=== PATIENT | male | born 1955 | race Caucasian/White ===

== ENCOUNTER 2016-06-22 14:29 | Inpatient (IN) | payer MEDICAID ==
[~2016-06-22 14:29] MED LIST: ALBU1AER INH; ALBU2.5I INH; AMLO5 PO; CHLO25 PO; CYCL-36 PO; DICY10CA13 PO; FOLI1 PO; IPRA0.02 INH; IPRA17I INH; NYST500KS SWISH-SWAL; PRED10 PO; PROT40TA PO; THIA100T PO; Z.0.OXYGENDME NC
[2016-06-22 14:32] VITALS: BP 102/74; PULSE 83; RESP 14; TEMP 98.2; O2SAT 94
[2016-06-22 16:02] LABS: AUTOMATED NEUTROPHIL # 12.1 TH/MM3 (1.8-7.7); BASOPHIL # 0.1 TH/MM3 (0-0.2); BASOPHIL % 0.6 % (0.0-2.0); EOSINOPHIL # 0.6 TH/MM3 (0-0.4); EOSINOPHIL % 3.7 % (0.0-4.0); HEMATOCRIT 49.4 % (39.0-51.0); HEMO FLAGS DIFF FINAL; LYMPH % 9.1 % (9.0-44.0); LYMPHOCYTE # 1.4 TH/MM3 (1.0-4.8); MEAN CELL VOLUME 88.7 FL (80.0-100.0); MEAN CORPUSCULAR HEMOGLOBIN 29.3 PG (27.0-34.0); MONO % 8.6 % (0.0-8.0); PLATELET COUNT 212 TH/MM3 (150-450); RED BLOOD COUNT 5.56 MIL/MM3 (4.50-5.90); RED CELL DISTRIBUTION WIDTH 14.1 % (11.6-17.2); WHITE BLOOD COUNT 15.5 TH/MM3 (4.0-11.0)
--- NOTE | 2016-06-22 16:06 | RADRPT ---
EXAM DATE/TIME: 06/22/2016 15:41 [facility] COMPARISON: CHEST PA & LAT, March 29, 2015, 13:18. CHEST PA & LAT, April 20, 2015, 9:44. CHEST SINGLE AP, November 25, 2015, 20:14. CT PULMONARY ANGIOGRAM, November 25, 2015, 22:12. CHEST SINGLE AP, December 19, 2015, 17:07. INDICATIONS : Chest pains mid sternal x 1 day. MEDICAL HISTORY : Stroke. Emphysema. Pancreatitis SURGICAL HISTORY : None. ENCOUNTER: Initial ACUITY: 1 day PAIN SCORE: 10/10 LOCATION: Bilateral chest FINDINGS: Portable AP view of the chest demonstrates a normal-sized cardiac silhouette. Lungs remain hyperinfla kang and there is a chronic parenchymal opacity at the right lung apex. No effusion or pneumothorax is identified. The bones and soft tissues demonstrate no acute finding. CONCLUSION: 1. Stable chest x-ray without an acute finding identified. 2. Stable background lung changes and diagnostic of emphysema. There is a chronic parenchymal opacity at the right lung apex that could represent scarring or changes related to prior infection. It appea rs increased or new since the March 2015 examination. Therefore, recommend attention to this on [facility] imaging. Sonny Hawkins MD on June 22, 2016 at 16:02 Board Certified Radiologist. This report was verified electronically.
[2016-06-22 16:21] LABS: ANION GAP 9 MEQ/L (5-15); BICARBONATE 27.1 MEQ/L (21.0-32.0); BLOOD UREA NITROGEN 15 MG/DL (7-18); CHLORIDE 100 MEQ/L (98-107); GLOMERULAR FILTRATION RATE 82 ML/MIN (>89); POTASSIUM 4.7 MEQ/L (3.5-5.1); SODIUM (NA) 136 MEQ/L (136-145)
[2016-06-22 16:30] LABS: CREATINE KINASE 34 U/L (39-308)
[2016-06-22] MEDS ORDERED: PRED10 PO (16:32)
[2016-06-22] MEDS ORDERED: CELE200C PO (16:32)
[2016-06-22] MEDS ORDERED: LEVA500T PO (16:32)
[2016-06-22] MEDS ORDERED: AMLO5 PO (16:32)
[2016-06-22] MEDS ORDERED: ALBUAER3 INH (16:35)
[2016-06-22] MEDS ORDERED: SODIUM CHLOR 0.9% 1000 ML INJ 1,000 ML IV SCH (17:07)
[2016-06-22 17:10] VITALS: RESP 18; O2SAT 98
--- NOTE | 2016-06-22 17:13 | PD ---
HPI Chief Complaint: Chest Pain Time Seen by Provider: 17:00 Travel History International Travel<30 days: No Contact w/Intl Traveler<30days: No Traveled to known affect area: No History of Present Illness HPI The patient is a 60-year-old male who presents to the emergency department for right upper quadrant epigastric abdominal pain that started yesterday. The epigastric abdominal pain rates right upper quadrant and radiates to the back, is different than his previous pain associated with pancreatitis. Patient complains of pain with deep inspiration that is still present at rest and with lying supine. The patient denies any nausea or vomiting. The patient does have a history of pancreatitis, quit drinking alcohol years ago. Patient also has a history of COPD, quit smoking 1-1/2 years ago. He denies any upper chest pain, does complain of chronic shortness of breath. The patient states he had a negative stress test approximately 3 years ago. He does have a history of hypertension, borderline hyperlipidemia, but denies any history of diabetes or previous CAD. Symptoms are moderate without any alleviating or exacerbating factors. PFSH Past Medical History Arthritis: Yes Asthma: Yes Autoimmune Disease: No Blood Disorders: Yes Anxiety: Yes Depression: Yes Heart Rhythm Problems: Yes (TACHYCARDIA ) Cancer: No Cardiac Catheterization: No Cardiovascular Problems: Yes (PAST -2012) High Cholesterol: No Chemotherapy: No Chest Pain: Yes Congestive Heart Failure: No COPD: Yes Cerebrovascular Accident: Yes Coronary Artery Disease: No Diabetes: No Diminished Hearing: No Endocrine: No Gastrointestinal Disorders: Yes GERD: No Genitourinary: No Headaches: Yes (RELATED TO NECK PAIN) Hiatal Hernia: No Hypertension: Yes Immune Disorder: Yes (CHILDHOOD HYPOGLYCEMIA) Implanted Vascular Access Dvce: No Musculoskeletal: Yes (4 HERNIATED DISKS IN NECK) Neurologic: Yes Psychiatric: Yes Reproductive: No Respiratory: Yes Immunizations Current: Yes Migraines: Yes Myocardial Infarction: Yes Pancreatitis: Yes Radiation Therapy: No Renal Failure: No Seizures: No Sickle Cell Disease: No Sleep Apnea: Yes (undiagnosed) Thyroid Disease: No Ulcer: No Tetanus Vaccination: < 5 Years Influenza Vaccination: Yes Past Surgical History Abdominal Surgery: No Cardiac Surgery: No Coronary Artery Bypass Graft: No Ear Surgery: No Endocrine Surgery: No Eye Surgery: No Genitourinary Surgery: No Gynecologic Surgery: No Neurologic Surgery: No Oral Surgery: No Thoracic Surgery: No Tonsillectomy: Yes Other Surgery: Yes (LAMINECTOMY) Social History Alcohol Use: No (quit 12/18/15) Tobacco Use: No (QUIT 01/25) Substance Use: No Allergies-Medications (Allergen,Severity, Reaction): Coded Allergies: Shellfish (Verified Allergy, Severe, Swelling, 06/22/16) Penicillin (Verified Allergy, Mild, rash, 06/22/16) Reported Meds & Prescriptions Reported Meds & Active Scripts Active Reported Proair Hfa 8.5 GM Inh (Albuterol Sulfate) 90 Mcg/Act Aer 2 Puff INH Q4-6H PRN 108 mcg/actuation Celebrex (Celecoxib) 200 Mg Cap 200 Mg PO DAILY Prednisone 10 Mg Tab 10 Mg PO DAILY Levaquin (Levofloxacin) 500 Mg Tab 500 Mg PO DAILY 7 Days Norvasc (Amlodipine Besylate) 5 Mg Tab 5 Mg PO DAILY Review of Systems Except as stated in HPI: all other systems reviewed are Neg General / Constitutional: No: Fever, Chills Cardiovascular: No: Chest Pain or Discomfort Respiratory: Positive: Shortness of Breath Gastrointestinal: Positive: Abdominal Pain, No: Nausea, Vomiting, Diarrhea Genitourinary: No: Dysuria Neurologic: No: Weakness, Dizziness Physical Exam Narrative GENERAL: Awake, alert, 60-year-old male who appears his stated age and is in no acute respiratory distress. SKIN: Warm and dry. HEAD: Atraumatic. Normocephalic. EYES: Pupils equal and round. No scleral icterus. No injection or drainage. ENT: No nasal bleeding or discharge. Mucous membranes pink and moist. NECK: Trachea midline. No JVD. CARDIOVASCULAR: Regular rate and rhythm. No murmur appreciated. Heart rate in the 80s. RESPIRATORY: No accessory muscle use. Prolonged expiratory phase with a few intermittent wheezes. GASTROINTESTINAL: Abdomen soft, tender palpation right upper quadrant and epigastrium. No rebound tenderness, guarding, or rigidity. MUSCULOSKELETAL: No obvious deformities. No clubbing. No cyanosis. No edema. NEUROLOGICAL: Awake and alert. No obvious cranial nerve deficits. Motor grossly within normal limits. Normal speech. PSYCHIATRIC: Appropriate mood and affect; insight and judgment normal. Data Data Last Documented VS Vital Signs Date Time Temp Pulse Resp B/P Pulse Ox O2 Delivery O2 Flow Rate FiO2 06/22/16 17:41 98.2 89 120/76 94 06/22/16 17:31 17 06/22/16 17:10 Room Air Orders Electrocardiogram (06/22/16 15:16) Complete Blood Count With Diff (06/22/16 15:16) Basic Metabolic Panel (Bmp) (06/22/16 15:16) Ckmb (Isoenzyme) Profile (06/22/16 15:16) Troponin I (06/22/16 15:16) Chest, Single Ap (06/22/16 15:16) Lipase (06/22/16 17:07) Lactic Acid (06/22/16 17:07) Us Abdomen Gallbladder (06/22/16 ) Iv Access Insert/Monitor (06/22/16 17:07) Ecg Monitoring (06/22/16 17:07) Oximetry (06/22/16 17:07) Morphine Inj (Morphine Inj) (06/22/16 17:15) Ondansetron Inj (Zofran Inj) (06/22/16 17:15) Sodium Chlor 0.9% 1000 Ml Inj (Ns 1000 M (06/22/16 17:07) Sodium Chloride 0.9% Flush (Ns Flush) (06/22/16 17:15) Famotidine Inj (Pepcid Inj) (06/22/16 17:15) Hepatic Functional Panel (06/22/16 17:07) Troponin I (06/22/16 18:30) Ceftazidime Inj (Fortaz Inj) (06/22/16 18:45) Metronidazole 500 Mg Inj (Flagyl 500 Mg (06/22/16 18:45) Sodium Chlor 0.9% 1000 Ml Inj (Ns 1000 M (06/22/16 18:45) Admit Order (Ed Use Only) (06/22/16 19:29) Consult General Surgery (06/22/16 ) Labs Laboratory Tests Test 06/22/16 06/22/16 06/22/16 15:30 17:30 17:42 White Blood Count 15.5 TH/MM3 Red Blood Count 5.56 MIL/MM3 Hemoglobin 16.3 GM/DL Hematocrit 49.4 % Mean Corpuscular Volume 88.7 FL Mean Corpuscular Hemoglobin 29.3 PG Mean Corpuscular Hemoglobin 33.0 % Concent Red Cell Distribution Width 14.1 % Platelet Count 212 TH/MM3 Mean Platelet Volume 8.4 FL Neutrophils (%) (Auto) 78.0 % Lymphocytes (%) (Auto) 9.1 % Monocytes (%) (Auto) 8.6 % Eosinophils (%) (Auto) 3.7 % Basophils (%) (Auto) 0.6 % Neutrophils # (Auto) 12.1 TH/MM3 Lymphocytes # (Auto) 1.4 TH/MM3 Monocytes # (Auto) 1.3 TH/MM3 Eosinophils # (Auto) 0.6 TH/MM3 Basophils # (Auto) 0.1 TH/MM3 CBC Comment DIFF FINAL Differential Comment Sodium Level 136 MEQ/L Potassium Level 4.7 MEQ/L Chloride Level 100 MEQ/L Carbon Dioxide Level 27.1 MEQ/L Anion Gap 9 MEQ/L Blood Urea Nitrogen 15 MG/DL Creatinine 0.94 MG/DL Estimat Glomerular Filtration 82 ML/MIN Rate Random Glucose 78 MG/DL Calcium Level 10.6 MG/DL Total Bilirubin 1.7 MG/DL Direct Bilirubin 0.2 MG/DL Indirect Bilirubin 1.5 MG/DL Aspartate Amino Transf 19 U/L (AST/SGOT) Alanine Aminotransferase 18 U/L (ALT/SGPT) Alkaline Phosphatase 95 U/L Total Creatine Kinase 34 U/L Troponin I LESS THAN 0.02 LESS THAN 0.02 NG/ML NG/ML Total Protein 8.0 GM/DL Albumin 4.1 GM/DL Lipase 257 U/L Lactic Acid Level 1.1 mmol/L MDM Medical Decision Making Medical Screen Exam Complete: Yes Emergency Medical Condition: Yes Medical Record Reviewed: Yes Interpretation(s) EKG reveals sinus rhythm with sinus arrhythmia, rate 84. Laboratory Tests Test 06/22/16 06/22/16 06/22/16 15:30 17:30 17:42 White Blood Count 15.5 TH/MM3 Red Blood Count 5.56 MIL/MM3 Hemoglobin 16.3 GM/DL Hematocrit 49.4 % Mean Corpuscular Volume 88.7 FL Mean Corpuscular Hemoglobin 29.3 PG Mean Corpuscular Hemoglobin 33.0 % Concent Red Cell Distribution Width 14.1 % Platelet Count 212 TH/MM3 Mean Platelet Volume 8.4 FL Neutrophils (%) (Auto) 78.0 % Lymphocytes (%) (Auto) 9.1 % Monocytes (%) (Auto) 8.6 % Eosinophils (%) (Auto) 3.7 % Basophils (%) (Auto) 0.6 % Neutrophils # (Auto) 12.1 TH/MM3 Lymphocytes # (Auto) 1.4 TH/MM3 Monocytes # (Auto) 1.3 TH/MM3 Eosinophils # (Auto) 0.6 TH/MM3 Basophils # (Auto) 0.1 TH/MM3 CBC Comment DIFF FINAL Differential Comment Sodium Level 136 MEQ/L Potassium Level 4.7 MEQ/L Chloride Level 100 MEQ/L Carbon Dioxide Level 27.1 MEQ/L Anion Gap 9 MEQ/L Blood Urea Nitrogen 15 MG/DL Creatinine 0.94 MG/DL Estimat Glomerular Filtration 82 ML/MIN Rate Random Glucose 78 MG/DL Calcium Level 10.6 MG/DL Total Bilirubin 1.7 MG/DL Direct Bilirubin 0.2 MG/DL Indirect Bilirubin 1.5 MG/DL Aspartate Amino Transf 19 U/L (AST/SGOT) Alanine Aminotransferase 18 U/L (ALT/SGPT) Alkaline Phosphatase 95 U/L Total Creatine Kinase 34 U/L Troponin I LESS THAN 0.02 LESS THAN 0.02 NG/ML NG/ML Total Protein 8.0 GM/DL Albumin 4.1 GM/DL Lipase 257 U/L Lactic Acid Level 1.1 mmol/L Last Impressions Chest X-Ray 06/22/16 1516 Signed Impressions: Service Date/Time: Wednesday, June 22, 2016 15:41 - CONCLUSION: 1. Stable chest x-ray without an acute finding identified. 2. Stable background lung changes and diagnostic of emphysema. There is a chronic parenchymal opacity at the right lung apex that could represent scarring or changes related to prior infection. It appears increased or new since the March 2015 examination. Therefore, recommend attention to this on followup imaging. Sonny Hawkins MD Ultrasound the gallbladder reveals cholelithiasis, gallbladder wall thickening, and positive sonographic Reveles sign, consistent with acute cholecystitis. Differential Diagnosis Differential diagnosis includes pancreatitis, gastritis, peptic ulcer disease, cholecystitis, biliary colic, choledocholithiasis, GERD, acute coronary syndrome , pneumonia, COPD. Narrative Course IV was established, labs are drawn and sent, and the patient was placed on cardiac telemetry monitoring and continuous pulse oximetry monitoring. EKG was ordered and interpreted. Chest x-ray was ordered.. The patient was administered DuoNeb 1. Initial troponin was negative. The patient did have a nuclear medicine myocardial perfusion scan was performed on August 19, 2012 which was unremarkable. The patient was administered morphine, Zofran, and IV fluids. Ultrasound of the gallbladder was ordered. The patient's bili is slightly elevated, AST, ALT, and lipase are unremarkable. Second troponin is negative. Ultrasound gallbladder reveals cholelithiasis, gallbladder wall thickening, positive sonographic Reveles sign, consistent with acute cholecystitis. The patient has not had anything to eat or drink since this morning, which was minimal when he took his pill secondary to epigastric abdominal pain. The patient was administered Fortaz and Flagyl, with a second liter of IV fluids. Therefore, the on-call general surgeon was paged for 23 hour observation. The patient will be kept nothing by mouth. I discussed the patient with Dr. Belle who suggested admitting to the medical service with consultation to surgery for cholecystectomy tomorrow. The patient's primary physician is Dr. Harrell, therefore, [facility] were paged for 23 hour observation. Physician Communication Physician Communication The on-call general surgery was paged for 23 hour observation. I discussed the patient with Dr. Belle who requests 23 hour observation to the medical service, nothing by mouth, probable cholecystectomy tomorrow. Therefore, patient's primary physician is Dr. Sonny Harrell, [facility] were paged for 23 hour observation. I discussed the patient with Dr. Doran who agrees with admission to Dr. Chen. Diagnosis Primary Impression: Acute cholecystitis Admitting Information Admitting Physician Requests: Observation Condition: Stable Antonio Hay MD Jun 22, 2016 17:13
[2016-06-22] MEDS ORDERED: SODIUM CHLORIDE 0.9% FLUSH 5 ML FLUSH IVF PRN (17:15)
[2016-06-22] MEDS ORDERED: MORPHINE SULFATE 4 MG/ML INJ IV PUSH ONE (17:15)
[2016-06-22] MEDS ORDERED: ONDANSETRON HCL 4 MG/2 ML VIAL IVP ONE (17:15)
[2016-06-22] MEDS ORDERED: FAMOTIDINE 20 MG/2 ML VIAL IV PUSH ONE (17:15)
[2016-06-22 17:41] VITALS: BP 120/76; PULSE 89; TEMP 98.2; O2SAT 94
[2016-06-22 18:00] LABS: INDIRECT BILIRUBIN 1.5 MG/DL (0.0-0.8); TOTAL BILIRUBIN ADULT 1.7 MG/DL (0.2-1.0)
--- NOTE | 2016-06-22 18:35 | RADRPT ---
EXAM DATE/TIME: 06/22/2016 17:54 [facility] COMPARISON: No previous studies available for comparison. INDICATIONS : Right upper quadrant pain. MEDICAL HISTORY : Myocardial infarction. Pancreatitis. Emphysema. CVA. Tachycardia. HTN. COPD. Asthma. Sleep apnea. Dys pnea. Swollen prostate. Arthritis. Herniated disc. Hypoglycemia. Depression. Anxiety. SURGICAL HISTORY : Tonsillectomy. Laminectomy. ENCOUNTER: Initial ACUITY: 2 days PAIN SCORE: 7/10 LOCATION: Right upper quadrant MEASUREMENTS: LIVER: 14.7 cm length COMMON DUCT: 7 mm RIGHT KIDNEY: 11.6 x 5.4 x 5.6 cm FINDINGS: LIVER: Normal echotexture without focal lesion or ductal dilatation. COMMON DUCT: No intraluminal mass or stone visualized. GALLBLADDER: Cholelithiasis, mild wall thickening up to 3.5 mm. No pericholecystic fluid. Positive sonographic Mur phy sign. PANCREAS: The visualized portions are within normal limits. RIGHT KIDNEY: 3.9 x 2.4 x 3.3 cm simple cyst right midpole kidney. CONCLUSION: 1. Cholelithiasis, gallbladder wall thickening and positive sonographic Reveles sign identified, [place] cteristic of acute cholecystitis. 2. Right renal cyst. Dann Jensen MD on June 22, 2016 at 18:30 Board Certified Radiologist. This report was verified electronically.
[2016-06-22] MEDS ORDERED: SODIUM CHLOR 0.9% 1000 ML INJ 1,000 ML IV ONE (18:45)
[2016-06-22] MEDS ORDERED: metroNIDAZOLE 500 MG INJ 100 ML IV ONE (18:45)
[2016-06-22] MEDS ORDERED: SODIUM CHLORIDE 0.9% IV ONE (18:45)
[2016-06-22] MEDS ORDERED: CEFTAZIDIME IV ONE (18:45)
[2016-06-22] MEDS ORDERED: NALOXONE HCL 0.4 MG/ML AMP IV PRN (20:30)
[2016-06-22] MEDS ORDERED: SODIUM CHLORIDE 0.9% FLUSH 5 ML FLUSH FLUSH PRN (20:30)
[2016-06-22] MEDS ORDERED: RESP: ALBUTEROL 2.5 MG/IPRATROPIUM 0.5 MG NEB (PRN) NEB (21:00)
[2016-06-22] MEDS ORDERED: ONDANSETRON HCL 4 MG/2 ML VIAL IVP PRN (21:00)
[2016-06-22] MEDS: SODIUM CHLORIDE 0.9% FLUSH 5 ML FLUSH FLUSH SCH (22:25)
[2016-06-22] MEDS: LACTATED RINGER'S 1000 ML INJ 1,000 ML IV SCH (22:25)
[2016-06-22] MEDS: methylPREDNISolone SOD SUCC 40 MG/1 ML VIAL IV PUSH SCH (22:25)
[2016-06-22] MEDS ORDERED: MORPHINE SULFATE 4 MG/ML INJ IV PUSH PRN (22:30)
[2016-06-22] MEDS: MORPHINE SULFATE 4 MG/ML INJ IV PUSH PRN (22:50)
[2016-06-22 22:54] VITALS: BP 122/84; PULSE 74; RESP 18; TEMP 98; O2SAT 95
--- NOTE | 2016-06-22 23:09 | MB ---
cc: FLACO STAPLETON MD DATE OF CONSULTATION: 06/22/2016 REASON FOR CONSULTATION Acute cholecystitis. HISTORY OF PRESENT ILLNESS The patient is 60 year-old male who presents with acute onset of right upper quadrant pain. The pain lasted approximately one half days. It is sharp. It is 9 out of 10. It is constant. Some relief with IV pain medication. He states it radiates to his epigastrium and across his abdomen. He has never had pain quite like this before. The patient denies any nausea or vomiting associated with this. The patient does have a history of pancreatitis in the past. The patient also has a history of ETOH, IVDA and smoking history. He has since quit the use approximately six months ago. The patient had further workup including labs and ultrasound showing a thickened gallbladder wall, cholelithiasis and sonographic Reveles sign. Therefore, surgery was consulted for further evaluation. On my exam, the patient is resting comfortably. He states his pain is somewhat improved. He states the pain is pretty significant. He is requesting surgical intervention. PAST MEDICAL HISTORY: 1. Anxiety. 2. Tachycardia. 3. Hypertension. 4. Hypercholesterolemia. 5. Stroke. 6. Herniated disc. 7. Pancreatitis. 8. Obstructive sleep apnea. PAST SURGICAL HISTORY: Laminectomy. SOCIAL HISTORY: Current social history negative, however, significant past ETOH, IVDA and smoking. MEDICATIONS: See EMR. The patient is on prednisone. FAMILY HISTORY: Patient denies diabetes, hypertension. REVIEW OF SYSTEMS: GENERAL: The patient denies fever or chills. HEENT: Denies scleral icterus, eye pain, ear pain. CARDIOVASCULAR: Denies palpitations or chest pain. RESPIRATORY: Denies cough or wheeze. ABDOMEN: Complains of abdominal pain. Denies nausea, vomiting. MUSCULOSKELETAL: Denies arthralgias, myalgias. NEUROLOGIC: Denies numbness or tingling. PSYCHIATRIC: Denies altered mood. : Denies dysuria, hematuria. PHYSICAL EXAMINATION General: The patient is in no acute distress. VITAL SIGNS: Temperature 98.2. Pulse 83, respiratory rate 14, blood pressure 102/74. Pulse ox 94% on room air. HEENT: PERRLA, EOMI. No scleral icterus. Pupils equal and reactive. NECK: Supple. Trachea midline. LUNGS: Clear to auscultation bilaterally. Bilateral expansion. HEART: S1-S2, regular rhythm. ABDOMEN: Soft, positive tenderness to palpation, right upper quadrant. No epigastric tenderness. Nondistended. INTEGUMENT: No lesions or masses. NEUROLOGIC: GCS 15, AAO x4. LABORATORY DIAGNOSTIC DATA WBC 15.5, hemoglobin 16.3, hematocrit 49.4. Platelets 212. Sodium 139, potassium 4.7, CO2 100, BUN 15, creatinine 0.94, calcium 10.9, T bili 1.7, AST 19, ALT 18, alk phos 95, lipase 257. Ultrasound reviewed by myself, cholelithiasis, gallbladder wall thickening, positive sonographic Reveles's sign, concern for acute cholecystitis, common bile duct is 7 millimeter. ASSESSMENT The patient is a 60-year-old male presents with right upper quadrant pain, concern for acute cholecystitis with cholelithiasis. PLAN After full radiologic clinical workup the patient with above-named complaints including multiple medical issues and acute cholecystitis with cholelithiasis. The patient will need to be n.p.o., IV fluids antibiotics. The patient will likely need operative intervention including laparoscopic cholecystectomy. We will obtain MRCP to further delineate the bile duct and assess for stones. The patient again will also need likely laparoscopic cholecystectomy. The patient will need medical clearance and assessment for surgical risk. MD SLAVA Grier/KAREN /9:59 PM /10:56 PM
[2016-06-22] MEDS: TEMAZEPAM 15 MG CAP PO PRN (23:31)
[2016-06-23] VITALS (7 sets, daily range): BP systolic 112–129; BP diastolic 65–81; PULSE 76–90; RESP 18–20; TEMP 96.3–98; O2SAT 95–99
--- NOTE | 2016-06-23 00:49 | RADRPT ---
EXAM DATE/TIME: 06/22/2016 23:33 [facility] COMPARISON: US ABDOMEN - GALLBLADDER, June 22, 2016, 17:54. INDICATIONS : Cholelithiasis. MEDICAL HISTORY : Hypertension. SURGICAL HISTORY : Laminectomy of lumbar spine ENCOUNTER: Initial ACUITY: 1 week PAIN SCORE: 8/10 LOCATION: Bilateral upper quadrant TECHNIQUE: Multiplanar, multisequence magnetic resonance imaging of the abdomen was performed. High-resolution 3D dataset was utilized to reconstruct maximum-intensity projection (MIP) images. FINDINGS: INTRAHEPATIC BILE DUCTS: Within normal limits. No significant anatomical variant is present. EXTRAHEPATIC BILE DUCTS: The common bile duct measures 6mm No stone or filling defect is identified. GALLBLADDER: No wall thickening, or pericholecystic fluid. Appears to be cholelithiasis. LIVER: Normal size and signal intensity. No concerning liver lesion is identified on this non-contrast exam. PANCREAS: The main pancreatic duct is normal in size. There is no significant anatomical variant. Signal inte nsity is within normal limits. No mass is visualized on this non-contrast exam. Benign cystic struct ure in the body measures 1.6 cm. OTHER: The remaining visualized structures demonstrate no acute abnormality on this non-contrast exam. Bilat eral renal cysts. Small pericardial cyst. CONCLUSION: 1. Normal intra-and extra hepatic delay ducts. 2. Comparing cholelithiasis. 3. Small pericardial cyst. 4. Bilateral renal cysts. 5. Benign pancreatic cyst. Josh Wilson MD on June 23, 2016 at 0:44 Board Certified Radiologist. This report was verified electronically.
[2016-06-23] MEDS: metroNIDAZOLE 500 MG INJ 100 ML IV SCH ×3 (03:54→20:15)
[2016-06-23] MEDS: MORPHINE SULFATE 4 MG/ML INJ IV PUSH PRN ×4 (04:07→21:50)
[2016-06-23 05:23] LABS: AUTOMATED NEUTROPHIL # 9.7 TH/MM3 (1.8-7.7); BASOPHIL % 0.3 % (0.0-2.0); EOSINOPHIL % 0.2 % (0.0-4.0); HEMATOCRIT 44.4 % (39.0-51.0); HEMO FLAGS DIFF FINAL; LYMPH % 2.8 % (9.0-44.0); LYMPHOCYTE # 0.3 TH/MM3 (1.0-4.8); MEAN CELL VOLUME 89.7 FL (80.0-100.0); MEAN CORPUSCULAR HEMOGLOBIN 29.7 PG (27.0-34.0); MEAN CORPUSCULAR HGB CONC 33.2 % (32.0-36.0); MONO % 1.5 % (0.0-8.0); NEUT % 95.2 % (16.0-70.0); PLATELET COUNT 179 TH/MM3 (150-450); RED BLOOD COUNT 4.95 MIL/MM3 (4.50-5.90); RED CELL DISTRIBUTION WIDTH 13.8 % (11.6-17.2); WHITE BLOOD COUNT 10.2 TH/MM3 (4.0-11.0)
[2016-06-23 05:46] LABS: BICARBONATE 23.5 MEQ/L (21.0-32.0); POTASSIUM 4.9 MEQ/L (3.5-5.1)
[2016-06-23] MEDS: amLODIPine BESYLATE 5 MG TAB PO SCH (07:00)
[2016-06-23] MEDS: LACTATED RINGER'S 1000 ML INJ 1,000 ML IV SCH ×2 (07:00→18:05)
[2016-06-23] MEDS: CEFEPIME INJ 2,000 MG in SODIUM CHLORIDE 0.9% INJ 100 ML IV SCH ×2 (08:00→18:33)
[2016-06-23] MEDS ORDERED: methylPREDNISolone SOD SUCC 125 MG/2 ML VIAL ONE (08:58)
[2016-06-23] MEDS: predniSONE 10 MG TAB PO SCH (09:00)
[2016-06-23] MEDS: methylPREDNISolone SOD SUCC 40 MG/1 ML VIAL IV PUSH SCH ×2 (09:00→20:14)
[2016-06-23] MEDS: SODIUM CHLORIDE 0.9% FLUSH 5 ML FLUSH FLUSH SCH ×2 (09:00→20:16)
[2016-06-23] MEDS: BUPIVACAINE/EPINEPHRINE 0.25% PF 30 ML VIAL ONE ×2 (09:17→09:50)
[2016-06-23] MEDS ORDERED: MIDAZOLAM HCL 2 MG/2 ML VIAL ONE (09:30)
--- NOTE | 2016-06-23 09:40 | HHI.PR ---
Immediate Post Op Note Procedure Date: Jun 23, 2016 Pre Op Diagnosis: acute cholecystitis Post Op Diagnosis: same Surgeon: Douglas Pagan MD Transplant Surgeon(s): see or sheet Procedure: lap awilda Findings: distended gallbladder Complications: none Specimen(s) removed: gallbladder Estimated blood loss: 5cc Anesthesia: General Drains: None Patient to: PACU Patient Condition: Good Douglas Pagan MD Jun 23, 2016 09:40
[2016-06-23] MEDS ORDERED: oxyCODONE/ACETAMINOPHEN 5 MG/325 MG TAB PO PRN (10:30)
[2016-06-23] MEDS ORDERED: *MEPERIDINE 25 MG INJ VIAL PERIprocedural Use ONLY ONE (10:54)
[2016-06-23] MEDS ORDERED: fentaNYL CITRATE 250 MCG/5 ML AMP ONE (10:55)
[2016-06-23] MEDS ORDERED: *morphine SULFATE 8 MG/ML PERIprocedure ONLY ONE (11:07)
[2016-06-23] MEDS ORDERED: ceFAZolin 2 GM PREMIX 50 ML ONE (11:33)
[2016-06-23] MEDS ORDERED: LACTATED RINGER'S 1000 ML INJ 1,000 ML IV ONE (12:00)
[2016-06-23] MEDS ORDERED: NEOSTIGMINE 3 MG/3 ML SYR IV ONE (12:00)
[2016-06-23] MEDS ORDERED: PROPOFOL 200 MG/20 ML AMP IV ONE (12:00)
[2016-06-23] MEDS ORDERED: DO NOT ADM ANY ANTICOAGULANT DRUGS XX PRN (12:00)
[2016-06-23] MEDS ORDERED: ONDANSETRON HCL 4 MG/2 ML VIAL IV PUSH ONE (12:00)
[2016-06-23] MEDS ORDERED: PHENYLEPH/NS 1000 MCG/10 ML SYR IV ONE (12:00)
--- NOTE | 2016-06-23 13:25 | MH ---
cc: ALEAH LANDEROS M.D., JAWED DATE OF ADMISSION: 06/22/2016 DATE OF : 1955 REASON FOR ADMISSION Abdominal/chest pain. HISTORY OF PRESENT ILLNESS The patient is a very pleasant 60-year-old male with significant past medical history of COPD. He quit smoking 1-1/2 years ago and quit drinking about six months ago. The patient also has a history of pancreatitis. The patient came to the ER because of right upper quadrant epigastric abdominal pain that started the day before yesterday. This pain was radiating to the back as well and more on inspiration and lying in a supine position. There was no nausea or vomiting, no fever. There is no cough. He denies any chest pain. The patient was brought to the ER and evaluated by the ER physician. The patient was found to have cholecystitis and was recommended for admission. The patient was seen by the surgeon and recommended for surgery and the patient had a cholecystectomy done today. The patient is seen in the PACU. The patient is complaining of pain in the right upper quadrant post surgical. Otherwise there are no other associated symptoms. PAST MEDICAL HISTORY 1. COPD. 2. History of pancreatitis. 3. Tobacco abuse; he quit 1-1/2 years ago. 4. Chronic alcohol abuse; he quit 6 months ago as per patient. 5. Chronic back pain secondary to herniated discs. 6. Protein-calorie malnutrition history with weight loss. 7. Previous [facility] in 2012. 8. Status post EGD for a cricopharyngeal stricture, post dilatation in 2014. PAST SURGICAL HISTORY 1. Tonsillectomy. 2. Laminectomy. 3. EGD with dilatation. MEDICATIONS Medications reviewed. Please see EMR. ALLERGIES 1. PENICILLIN. 2. SHELLFISH. REVIEW OF SYSTEMS As described above in the history of present illness, otherwise negative for 10 systems. SOCIAL HISTORY The patient quit smoking a week ago, but as per patient he really does it maybe once or twice a year. FAMILY HISTORY Noncontributory. PHYSICAL EXAMINATION GENERAL: The patient is alert, oriented x3, thin-built, lying on bed without any apparent distress. VITAL SIGNS: The patient is afebrile. Pulse is 75, respiratory rate 14, blood pressure 117/71. Pulse ox is 98% on two liters. HEENT: Head is atraumatic, normocephalic. Negative conjunctival injection. No icterus. Mouth unremarkable. NECK: Supple. No increased JVD. Negative thyromegaly. Central trachea. CHEST: Clear to auscultation. CARDIOVASCULAR: S1, S2 audible. Unable to hear any ST gallop. ABDOMEN: Soft. Tender postsurgically at the surgical site. EXTREMITIES: No cyanosis or pedal edema appreciated. DIRECTOR SALES: Grossly intact. SKIN: Warm and dry. LABORATORY DATA WBC was 18.5, today it is 10.2. Hemoglobin, hematocrit and platelet count within normal limits. BMP shows GFR 82, today GFR 92. Otherwise BMP within normal limits. LFTs were done. Total bilirubin was 1.7, direct bilirubin 1.5. Otherwise LFTs within normal limits. Troponin x2 within normal limits. Total protein 8, albumin 4.1, lipase 257. IMAGING DATA Chest x-ray was done which shows a stable chest x-ray without any acute finding identified. Stable background lung changes and diagnostic of emphysema. There is a chronic parenchymal opacity in the right lung apex that could represent scarring or changes related to prior infection. MRI cholangiogram was done which showed normal intra and extrahepatic ducts. Comparing cholelithiasis. Small pericardial cyst. Small renal cysts. Benign pancreatic cyst. Gallbladder ultrasound shows cholelithiasis, gallbladder wall thickening and positive sonographic Reveles's sign identified characteristic of acute cholecystitis. Right renal cyst. ASSESSMENT 1. Right upper quadrant pain secondary to acute cholecystitis. 2. Leukocytosis secondary to above. 3. Emphysema. 4. Hypertension. 5. Increased bilirubin secondary to above. 6. History of ETOH abuse in the past. 7. History of nicotine abuse in the past. PLAN 1. Admit to the floor. Appreciate surgical help. Status post cholecystectomy, post-op day #0. 2. Continue IV fluid. 3. Analgesics on a p.r.n. basis. 4. Antiemetics on a p.r.n. basis. 5. Continue home medication as indicated. 6. Breathing treatment on a p.r.n. basis. 7. DVT prophylaxis. 8. Condition discussed the patient and discussed with the RN. Further recommendation to follow as per patient's progress. MD JOCELYNN Parkinson /12:49 PM /1:03 PM
--- NOTE | 2016-06-23 21:57 | MP ---
cc: FLACO PAGAN MD DATE OF SURGERY 06/23/2016 PREOPERATIVE DIAGNOSIS Acute cholecystitis. POSTOPERATIVE DIAGNOSIS Acute cholecystitis with cholelithiasis. PROCEDURE PERFORMED Laparoscopic cholecystectomy. SURGEON Dr. Flaco Pagan MACHINE SETTER SUPERVISOR See OR sheet. ANESTHESIA GETA. IV FLUIDS 1100 cc. ESTIMATED BLOOD LOSS 10 cc. DRAINS None. COMPLICATIONS None. WOUND CLASSIFICATION Contaminated. SPECIMEN Gallbladder. FINDINGS Distended gallbladder. Multiple gallstones. INDICATION The patient is a 60-year-old male several medical surgical issues. The patient with a history of pancreatitis in the past. The patient presented with acute onset right upper quadrant pain. He had further evaluation including ultrasound showing a thickened gallbladder wall with multiple gallstones. Decision made for a laparoscopic cholecystectomy. PROCEDURE IN DETAIL The patient was taken to the operative suite and placed in supine position. He was prepped and draped in usual sterile fashion after induction of general endotracheal anesthesia. Brief time-out done stating correct patient, procedures, surgical site and we were all in agreement with this. Attention first directed to the umbilicus. A small stab jeff incision made with an 11 blade. Prior to the incision local anesthetic injected. Veress needle used and placed intra-abdominally, confirmed with saline drop test. Abdomen insufflated to 15 mm pneumoperitoneum. Veress needle changed for a 5 mm trocar and scope. On cursory inspection no evidence of injury. Three other trocars placed. One 12 mm epigastric followed by two other 5 right subcostal ports. One anterior axillary line, one midclavicular line. The patient then placed in reverse Trendelenburg and _airplane__ (2:18) to the left. Gallbladder was identified and noted to be somewhat distended. There was a little bit of fatty tissue around the gallbladder with minimal bleeding. Electro Bovie cautery used and [place] to dissect cystic duct, cystic artery. These were dissected out. Two clips placed proximal, one distal. The cystic duct and artery were clipped with endo maximus. Gallbladder removed from the gallbladder fossa. This was done with hook electro Bovie cautery. Gallbladder was then placed in the EndoCatch bag and removed through the epigastric port. Suction irrigation used to suction irrigate. Hook electrocautery was used for hemostasis. Next the abdomen then desufflated. A little small piece of Surgicel placed in the gallbladder bed for increased hemostasis. The ports removed. Epigastric was closed with 0 Vicryl in [id number], followed by 4-0 Monocryl subcuticular sutures. The patient tolerated the procedure well. No intraoperative complication. The patient was extubated and taken to the PACU. Lars MD SLAVA Scales/DAWOOD /9:39 PM /9:48 PM MTDKiet
[2016-06-23] MEDS: TEMAZEPAM 15 MG CAP PO PRN (22:35)
--- NOTE | 2016-06-23 22:43 | EKG ---
Date Performed: 06/22/2016 Time Performed: 15:23:51 PTAGE: 60 years EKG: Sinus rhythm WITH SINUS ARRHYTHMIA POSSIBLE LEFT ATRIAL ENLARGEMENT BORDERLINE ECG PREVIOUS TRACING : 12/20/2015 06.44 Compared to prior tracing no significant change DOCTOR: Cassius Robledo Interpretating Date/Time 06/23/2016 22:39:41
[2016-06-24] VITALS: BP 119/68; PULSE 82; RESP 18; TEMP 96.1; O2SAT 98
[2016-06-24] MEDS: MORPHINE SULFATE 4 MG/ML INJ IV PUSH PRN (01:54)
[2016-06-24] MEDS: LACTATED RINGER'S 1000 ML INJ 1,000 ML IV SCH (03:00)
[2016-06-24] MEDS: metroNIDAZOLE 500 MG INJ 100 ML IV SCH ×2 (03:08→11:00)
[2016-06-24 04:00] VITALS: BP 113/70; PULSE 70; RESP 16; TEMP 96.4; O2SAT 96
[2016-06-24 08:00] VITALS: BP 140/84; PULSE 79; RESP 16; TEMP 97.1; O2SAT 98
[2016-06-24] MEDS: SODIUM CHLORIDE 0.9% FLUSH 5 ML FLUSH FLUSH SCH (09:00)
[2016-06-24] MEDS ORDERED: ENOXAPARIN SODIUM 40 MG/0.4 ML SYRINGE SQ SCH (09:00)
[2016-06-24] MEDS: predniSONE 10 MG TAB PO SCH (09:14)
[2016-06-24] MEDS: CEFEPIME INJ 2,000 MG in SODIUM CHLORIDE 0.9% INJ 100 ML IV SCH (09:14)
[2016-06-24] MEDS: amLODIPine BESYLATE 5 MG TAB PO SCH (09:15)
[2016-06-24] MEDS: methylPREDNISolone SOD SUCC 40 MG/1 ML VIAL IV PUSH SCH (09:15)
--- NOTE | 2016-06-24 10:18 | HHI.PR ---
Subjective Remarks pt is feeling better did eat without any problem Patient is passing gases or rectum No other complaint Review of systems a 10 point system otherwise unremarkable Objective Objective Results - Vital Signs Date Time Temp Pulse Resp B/P Pulse Ox O2 Delivery O2 Flow Rate FiO2 06/24/16 08:00 97.1 79 16 140/84 98 06/24/16 04:00 96.4 70 16 113/70 96 06/24/16 00:00 96.1 82 18 119/68 98 06/23/16 20:00 96.3 83 18 129/70 98 06/23/16 18:06 97 Nasal Cannula 1.00 06/23/16 16:00 96.8 82 20 121/72 97 06/23/16 12:20 97.3 78 20 114/65 99 06/23/16 11:45 98.3 70 14 111/71 98 Nasal Cannula 2 06/23/16 11:30 80 06/23/16 11:30 80 14 107/69 98 Nasal Cannula 2 06/23/16 11:15 82 14 120/75 99 Nasal Cannula 2 06/23/16 11:00 87 14 147/86 99 Nasal Cannula 2 06/23/16 10:49 98.5 90 16 178/98 98 Nasal Cannula 2 06/23/16 10:49 90 I/O 06/23/16 06/23/16 06/23/16 06/24/16 06/24/16 06/24/16 07:00 15:00 23:00 07:00 15:00 23:00 Intake Total 1670 ml 700 ml 720 ml Output Total 450 ml 1000 ml 900 ml Balance 1220 ml -300 ml -180 ml Intake Oral 120 ml 700 ml 720 ml Other 1550 ml Output Urine Total 400 ml 1000 ml 900 ml Estimated Blood Loss 50 ml # Voids 0 # Bowel Movements 0 Result Diagram: 06/23/16 0434 06/23/16 0434 Physical Exam Physical Exam GENERAL: The patient is alert, oriented x3, thin-built, lying on bed without any apparent distress. VITAL SIGNS: Reviewed HEENT: Head is atraumatic, normocephalic. Negative conjunctival injection. No icterus. Mouth unremarkable. NECK: Supple. No increased JVD. Negative thyromegaly. Central trachea. CHEST: Clear to auscultation. CARDIOVASCULAR: S1, S2 audible. Unable to hear any ST gallop. ABDOMEN: Soft. Tender postsurgically at the surgical site some. Positive bowel sounds. No rebound no guarding no rigidity EXTREMITIES: No cyanosis or pedal edema appreciated. DRESS DRAPER: Grossly intact. SKIN: Warm and dry. A/P Assessment and Plan 1. Right upper quadrant pain secondary to acute cholecystitis. 2. Leukocytosis secondary to above. 3. Emphysema. 4. Hypertension. 5. Increased bilirubin secondary to above. 6. History of ETOH abuse in the past. 7. History of nicotine abuse in the past. PLAN 1. Appreciate surgical help. Status post cholecystectomy, post-op day #1. 2. on IV fluid. 3. Analgesics on a p.r.n. basis. 4. Antiemetics on a p.r.n. basis. 5. Continue home medication as indicated. 6. Breathing treatment on a p.r.n. basis. 7. DVT prophylaxis. SCD 8. Condition discussed the patient and discussed with the RN. meds reviewed left message for sx to call us back if ok with sx will dc home today to follow pcp and sx as outpt Elda Chen MD Jun 24, 2016 10:18
[2016-06-24] MEDS ORDERED: OXYC1TAB63 PO (10:27)
--- NOTE | 2016-06-24 10:37 | HHI.PR ---
Subjective Subjective Notes no issues, pt feels better, no fevers Objective Vitals/I&O Vital Signs Date Time Temp Pulse Resp B/P Pulse Ox O2 Delivery O2 Flow Rate FiO2 06/24/16 08:00 97.1 79 16 140/84 98 06/23/16 18:06 Nasal Cannula 1.00 Cardiovascular: Regular Lungs: Rhonchi Abdomen: Other (mild ttp no rebound, incisions with scant blood) A/P Assessment and Plan POD 1 Lap awilda doing well PLAN OOB Po pain control reg diet ok to d/c home f/u 7 days with Douglas Garcia MD Jun 24, 2016 10:37
--- NOTE | 2016-06-24 10:38 | HHI.DS ---
Discharge Summary Admission Date Jun 22, 2016 at 19:31 Admitting Diagnosis acute cholecystitis, hypertension, COPD (1) Acute cholecystitis Diagnosis: Principal Brief History Patient came to the ER visit abdominal pain. She was admitted because of the acute cholecystitis. Patient was seen and followed by surgery. Patient had a cholecystectomy done. Post op day #1 patient is doing very well. Discussed the surgeon okay to discharge. This patient is overall stable plan to discharge him home to be followed by his primary care doctor and surgery as outpatient. For further details please see chart. CBC/BMP: 06/23/16 0434 06/23/16 0434 Significant Findings Laboratory Tests Test 06/22/16 06/22/16 06/23/16 15:30 17:30 04:34 White Blood Count 15.5 TH/MM3 (4.0-11.0) Neutrophils (%) (Auto) 78.0 % 95.2 % (16.0-70.0) (16.0-70.0) Monocytes (%) (Auto) 8.6 % (0.0-8.0) Neutrophils # (Auto) 12.1 TH/MM3 9.7 TH/MM3 (1.8-7.7) (1.8-7.7) Monocytes # (Auto) 1.3 TH/MM3 (0-0.9) Eosinophils # (Auto) 0.6 TH/MM3 (0-0.4) Estimat Glomerular Filtration 82 ML/MIN (>89) Rate Calcium Level 10.6 MG/DL (8.5-10.1) Total Bilirubin 1.7 MG/DL (0.2-1.0) Indirect Bilirubin 1.5 MG/DL (0.0-0.8) Total Creatine Kinase 34 U/L (39-308) Troponin I LESS THAN 0.02 LESS THAN 0.02 NG/ML NG/ML (0.02-0.05) (0.02-0.05) Lymphocytes (%) (Auto) 2.8 % (9.0-44.0) Lymphocytes # (Auto) 0.3 TH/MM3 (1.0-4.8) Pt Condition on Discharge: Good Discharge Disposition: Discharge Home Discharge Instructions DIET: Follow Instructions for: Heart Healthy Diet Activities you can perform: Weight Bearing as Smita Follow up Referrals: PCP Follow-up - 1 Week Surgical - 1 Week New Medications: Oxycodone-Acetaminophen (Oxycodone-Acetaminophen) 5-325 mg Tab 2 TAB PO Q4H PRN pain scale 1-5 #30 TAB Continued Medications: Albuterol 8.5 GM Inh (Proair Hfa 8.5 GM Inh) 90 Mcg/Act Aer 2 PUFF INH Q4-6H 108 mcg/actuation PRN SHORTNESS OF BREATH #1 Ref 0 INHALER Amlodipine (Norvasc) 5 Mg Tab 5 MG PO DAILY Blood Pressure Management #30 Ref 0 TAB Celecoxib (Celebrex) 200 Mg Cap 200 MG PO DAILY Pain Management Ref 0 CAP Levofloxacin (Levaquin) 500 Mg Tab 500 MG PO DAILY Infection Days 7 Ref 0 TAB Prednisone (Prednisone) 10 Mg Tab 10 MG PO DAILY Ref 0 TAB Elda Chen MD Jun 24, 2016 10:38
== END 2016-06-24 11:47 | disposition home or self-care (01) | DRG 419 ==
LOC: NEPD 14:29 → OBSVTOIN 19:31 → NEDA 19:31 → NEDH 06-23 00:34 → NEDA 06-23 00:34 → HOCB 06-23 07:25 → HOCA 06-23 07:32
PROVIDERS: ADMIT Specialist; ATTEND Specialist
PROC: 0FT44ZZ Resection of Gallbladder, Percutaneous Endoscopic Approach (ICD-10-PCS; principal; 2016-06-23 09:35)
DX: K80.00 Calculus of gallbladder with acute cholecystitis without obstruction (principal); J43.9 Emphysema, unspecified; I10 Essential (primary) hypertension; Z87.891 Personal history of nicotine dependence; I25.2 Old myocardial infarction; Z86.73 Personal history of transient ischemic attack (TIA), and cerebral infarction without residual deficits; Z88.0 Allergy status to penicillin; Z91.013 Allergy to seafood
CPT/HCPCS: 71010; 74181; 76377; 76705; 80048; 80076; 82550; 83605; 83690; 84484; 85025; 88304; 93005; 96361; 96374; 96375; J0690; J0692; J0713; J2175; J2250; J2270; J2370; J2405; J2710; J2920; J2930; J3010; J7030; J7120; J7512

== ENCOUNTER 2016-09-03 18:45 | Emergency (ER) | payer MEDICAID ==
[~2016-09-03] VITALS: Ht 185.4 cm; Wt 68.0 kg
[~2016-09-03 18:45] MED LIST changes: -ALBU1AER INH; -ALBU2.5I INH; +ALBUAER3 INH; +CELE200C PO; -CHLO25 PO; -CYCL-36 PO; -DICY10CA13 PO; -FOLI1 PO; -IPRA0.02 INH; -IPRA17I INH; +LEVA500T PO; -NYST500KS SWISH-SWAL; +OXYC1TAB63 PO; -PROT40TA PO; -THIA100T PO; -Z.0.OXYGENDME NC
[2016-09-03 18:46] VITALS: BP 150/82; PULSE 98; RESP 20; TEMP 98.1; O2SAT 98
[2016-09-03 20:44] VITALS: BP 159/97; PULSE 91; RESP 24; O2SAT 97
--- NOTE | 2016-09-03 20:50 | PD ---
HPI Chief Complaint: Hypertension Time Seen by Provider: 20:40 Travel History International Travel<30 days: No Contact w/Intl Traveler<30days: No Traveled to known affect area: No History of Present Illness HPI This is a 60-year-old male with history of hypertension, COPD. He presents for evaluation. Reports over the past week he has had congestion, sinus pressure, cough and wheezing. The cough is productive with yellow sputum production. He called his engineering leader, Dr. Peña, yesterday and was prescribed azithromycin which began yesterday evening. He came in today because he checked his blood pressure at home and it was 153/101 and this concerned him. He does report that typically his blood pressure readings are in the 140s but he does not know what is normal for blood pressure. He also reports a generalized tightness and squeezing and is chest for the past several days which she believes is related to his emphysema. He reports that typically when he has a respiratory infection he is prescribed prednisone which helps greatly with these symptoms. He does also endorse mild blurred vision this morning which has since resolved. Denies any abdominal pain, fevers or chills. He has been on amlodipine 5 mg for 1 year. He has no other complaints. PFSH Past Medical History Arthritis: Yes Asthma: Yes Autoimmune Disease: No Blood Disorders: Yes Anxiety: Yes Depression: Yes Heart Rhythm Problems: Yes (TACHYCARDIA ) Cancer: No Cardiac Catheterization: No Cardiovascular Problems: Yes (HTN, TACHYCARDIA) High Cholesterol: No Chemotherapy: No Chest Pain: Yes Congestive Heart Failure: No COPD: Yes Cerebrovascular Accident: Yes Coronary Artery Disease: No Diabetes: No Diminished Hearing: No Endocrine: No Gastrointestinal Disorders: Yes GERD: No Genitourinary: No Headaches: Yes (RELATED TO NECK PAIN) Hiatal Hernia: No Hypertension: Yes Immune Disorder: Yes (CHILDHOOD HYPOGLYCEMIA) Implanted Vascular Access Dvce: No Musculoskeletal: Yes (4 HERNIATED DISKS IN NECK) Neurologic: Yes Psychiatric: Yes Reproductive: No Respiratory: Yes Immunizations Current: Yes Migraines: Yes Myocardial Infarction: Yes Pancreatitis: Yes Radiation Therapy: No Renal Failure: No Seizures: No Sickle Cell Disease: No Sleep Apnea: Yes (undiagnosed) Thyroid Disease: No Ulcer: No Past Surgical History Abdominal Surgery: No Cardiac Surgery: No Cholecystectomy: Yes Coronary Artery Bypass Graft: No Ear Surgery: No Endocrine Surgery: No Eye Surgery: No Genitourinary Surgery: No Gynecologic Surgery: No Neurologic Surgery: No Oral Surgery: No Thoracic Surgery: No Tonsillectomy: Yes Other Surgery: Yes (LAMINECTOMY) Social History Alcohol Use: No (quit 12/18/15) Tobacco Use: No (QUIT 01/25) Substance Use: No Allergies-Medications (Allergen,Severity, Reaction): Coded Allergies: Shellfish (Verified Allergy, Severe, Swelling, 09/03/16) Penicillin (Verified Allergy, Mild, rash, 09/03/16) Reported Meds & Prescriptions Reported Meds & Active Scripts Active [place] (Hydrocodone-Acetaminophen) 5-325 mg Tab 1 Tab PO Q6H PRN Deltasone (Prednisone) 20 Mg Tab 40 Mg PO DAILY 5 Days Reported Aspirin Children's (Aspirin) 81 Mg Chew 81 Mg CHEW DAILY Zithromax Z-Malick (Azithromycin) 250 Mg Dspk 250 Mg PO DIRECTED 500 MG (2 tabs) day 1, then 1 tab days 2-5. Wellbutrin SR 12 HR (Bupropion HCl) 150 Mg Tab 150 Mg PO DAILY Proair Hfa 8.5 GM Inh (Albuterol Sulfate) 90 Mcg/Act Aer 2 Puff INH Q4-6H PRN 108 mcg/actuation Celebrex (Celecoxib) 200 Mg Cap 200 Mg PO DAILY PRN Norvasc (Amlodipine Besylate) 5 Mg Tab 5 Mg PO DAILY Review of Systems Except as stated in HPI: all other systems reviewed are Neg Physical Exam Narrative GENERAL: Well-developed well-nourished male in no acute distress SKIN: Warm and dry. HEAD: Atraumatic. Normocephalic. EYES: Pupils equal and round. No scleral icterus. No injection or drainage. ENT: No nasal bleeding or discharge. Mucous membranes pink and moist. NECK: Trachea midline. No JVD. CARDIOVASCULAR: Regular rate and rhythm. No murmur appreciated. RESPIRATORY: No accessory muscle use. Diffuse wheezing throughout the lung. No crackles. GASTROINTESTINAL: Abdomen soft, non-tender, nondistended. Hepatic and splenic margins not palpable. MUSCULOSKELETAL: No obvious deformities. No edema. NEUROLOGICAL: Awake and alert. No obvious cranial nerve deficits. Motor grossly within normal limits. Normal speech. PSYCHIATRIC: Appropriate mood and affect; insight and judgment normal. Data Data Last Documented VS Vital Signs Date Time Temp Pulse Resp B/P Pulse Ox O2 Delivery O2 Flow Rate FiO2 09/03/16 20:44 91 24 159/97 97 Room Air 09/03/16 18:46 98.1 Orders Complete Blood Count With Diff (09/03/16 20:46) Basic Metabolic Panel (Bmp) (09/03/16 20:46) Ckmb (Isoenzyme) Profile (09/03/16 20:46) Troponin I (09/03/16 20:46) Iv Access Insert/Monitor (09/03/16 20:46) Electrocardiogram (09/03/16 20:46) Ecg Monitoring (09/03/16 20:46) Oximetry (09/03/16 20:46) Oxygen Administration (09/03/16 20:46) Chest, Single Ap (09/03/16 20:46) Sodium Chloride 0.9% Flush (Ns Flush) (09/03/16 21:00) Methylprednisolone So Succ Inj (Solumedr (09/03/16 21:00) Albuterol-Ipratropium Neb (Duoneb Neb) (09/03/16 21:00) Labs Laboratory Tests Test 09/03/16 20:50 White Blood Count 13.3 TH/MM3 Red Blood Count 4.69 MIL/MM3 Hemoglobin 14.4 GM/DL Hematocrit 42.8 % Mean Corpuscular Volume 91.2 FL Mean Corpuscular Hemoglobin 30.6 PG Mean Corpuscular Hemoglobin 33.5 % Concent Red Cell Distribution Width 14.6 % Platelet Count 219 TH/MM3 Mean Platelet Volume 7.7 FL Neutrophils (%) (Auto) 86.5 % Lymphocytes (%) (Auto) 3.5 % Monocytes (%) (Auto) 8.6 % Eosinophils (%) (Auto) 1.1 % Basophils (%) (Auto) 0.3 % Neutrophils # (Auto) 11.6 TH/MM3 Lymphocytes # (Auto) 0.5 TH/MM3 Monocytes # (Auto) 1.1 TH/MM3 Eosinophils # (Auto) 0.2 TH/MM3 Basophils # (Auto) 0.0 TH/MM3 CBC Comment DIFF FINAL Differential Comment Sodium Level 137 MEQ/L Potassium Level 4.2 MEQ/L Chloride Level 103 MEQ/L Carbon Dioxide Level 28.2 MEQ/L Anion Gap 6 MEQ/L Blood Urea Nitrogen 21 MG/DL Creatinine 1.05 MG/DL Estimat Glomerular Filtration 72 ML/MIN Rate Random Glucose 128 MG/DL Calcium Level 10.3 MG/DL Total Creatine Kinase 67 U/L Troponin I LESS THAN 0.02 NG/ML MDM Medical Decision Making Medical Screen Exam Complete: Yes Emergency Medical Condition: Yes Medical Record Reviewed: Yes Differential Diagnosis COPD exacerbation, bronchitis, pneumonia, pulmonary embolism, pneumothorax, pericarditis, myocarditis, acute coronary syndrome Narrative Course This is a 60-year-old male with COPD and hypertension who presents with 1 week of cough with productive sputum production, chest tightness, on day 2 of azithromycin. He is concerned because his blood pressure at home was in the systolic 150 range and he was not sure what is normal. He has been on amlodipine 5 mg for 1 year. On examination he has diffuse wheezing. Plan is for DuoNeb therapy, basic lab work, EKG, chest x-ray, Solu-Medrol. he will be reassessed. At the end of my shift the patient was signed out to Dr. Hay pending lab work and imaging studies. Scripts Hydrocodone-Acetaminophen ([place])5-325 mg Tab1 Tab PO Q6H PRN (PAIN) #15 TAB Ref 0 Prov:Antonio Hay MD 09/03/16 Prednisone (Deltasone)20 Mg Tab40 Mg PO DAILY 5 Days Ref 0 Prov:Antonio Hay MD 09/03/16 Nahum Tillman Sep 03, 2016 20:50
[2016-09-03] MEDS ORDERED: methylPREDNISolone SOD SUCC 125 MG/2 ML VIAL IVP ONE (21:00)
[2016-09-03] MEDS ORDERED: SODIUM CHLORIDE 0.9% FLUSH 10 ML FLUSH IVF PRN (21:00)
[2016-09-03] MEDS: RESP: ALBUTEROL 2.5 MG/IPRATROPIUM 0.5 MG NEB (SCH) INH ×2 (21:01→21:02)
--- NOTE | 2016-09-03 21:02 | PD ---
Physical Exam Date Seen by Provider: Sep 03, 2016 Time Seen by Provider: 21:00 Narrative The patient is a 60-year-old male was initially evaluated by the mid-level provider, please refer to the initial history, physical, diagnostic evaluation, and treatment modality plan. The patient was signed out in 9 PM with x-ray and laboratory evaluation pending. Data Data Last Documented VS Vital Signs Date Time Temp Pulse Resp B/P Pulse Ox O2 Delivery O2 Flow Rate FiO2 09/03/16 20:44 91 24 159/97 97 Room Air 09/03/16 18:46 98.1 Orders Complete Blood Count With Diff (09/03/16 20:46) Basic Metabolic Panel (Bmp) (09/03/16 20:46) Ckmb (Isoenzyme) Profile (09/03/16 20:46) Troponin I (09/03/16 20:46) Iv Access Insert/Monitor (09/03/16 20:46) Electrocardiogram (09/03/16 20:46) Ecg Monitoring (09/03/16 20:46) Oximetry (09/03/16 20:46) Oxygen Administration (09/03/16 20:46) Chest, Single Ap (09/03/16 20:46) Sodium Chloride 0.9% Flush (Ns Flush) (09/03/16 21:00) Methylprednisolone So Succ Inj (Solumedr (09/03/16 21:00) Albuterol-Ipratropium Neb (Duoneb Neb) (09/03/16 21:00) Labs Laboratory Tests Test 09/03/16 20:50 White Blood Count 13.3 TH/MM3 Red Blood Count 4.69 MIL/MM3 Hemoglobin 14.4 GM/DL Hematocrit 42.8 % Mean Corpuscular Volume 91.2 FL Mean Corpuscular Hemoglobin 30.6 PG Mean Corpuscular Hemoglobin 33.5 % Concent Red Cell Distribution Width 14.6 % Platelet Count 219 TH/MM3 Mean Platelet Volume 7.7 FL Neutrophils (%) (Auto) 86.5 % Lymphocytes (%) (Auto) 3.5 % Monocytes (%) (Auto) 8.6 % Eosinophils (%) (Auto) 1.1 % Basophils (%) (Auto) 0.3 % Neutrophils # (Auto) 11.6 TH/MM3 Lymphocytes # (Auto) 0.5 TH/MM3 Monocytes # (Auto) 1.1 TH/MM3 Eosinophils # (Auto) 0.2 TH/MM3 Basophils # (Auto) 0.0 TH/MM3 CBC Comment DIFF FINAL Differential Comment Sodium Level 137 MEQ/L Potassium Level 4.2 MEQ/L Chloride Level 103 MEQ/L Carbon Dioxide Level 28.2 MEQ/L Anion Gap 6 MEQ/L Blood Urea Nitrogen 21 MG/DL Creatinine 1.05 MG/DL Estimat Glomerular Filtration 72 ML/MIN Rate Random Glucose 128 MG/DL Calcium Level 10.3 MG/DL Total Creatine Kinase 67 U/L Troponin I LESS THAN 0.02 NG/ML [facility] Medical Record Reviewed: Yes Supervised Visit with DEBBIE: Yes Interpretation(s) EKG reveals normal sinus rhythm with a rate 80. Large P wave in lead 2. Laboratory Tests Test 09/03/16 20:50 White Blood Count 13.3 TH/MM3 Red Blood Count 4.69 MIL/MM3 Hemoglobin 14.4 GM/DL Hematocrit 42.8 % Mean Corpuscular Volume 91.2 FL Mean Corpuscular Hemoglobin 30.6 PG Mean Corpuscular Hemoglobin 33.5 % Concent Red Cell Distribution Width 14.6 % Platelet Count 219 TH/MM3 Mean Platelet Volume 7.7 FL Neutrophils (%) (Auto) 86.5 % Lymphocytes (%) (Auto) 3.5 % Monocytes (%) (Auto) 8.6 % Eosinophils (%) (Auto) 1.1 % Basophils (%) (Auto) 0.3 % Neutrophils # (Auto) 11.6 TH/MM3 Lymphocytes # (Auto) 0.5 TH/MM3 Monocytes # (Auto) 1.1 TH/MM3 Eosinophils # (Auto) 0.2 TH/MM3 Basophils # (Auto) 0.0 TH/MM3 CBC Comment DIFF FINAL Differential Comment Sodium Level 137 MEQ/L Potassium Level 4.2 MEQ/L Chloride Level 103 MEQ/L Carbon Dioxide Level 28.2 MEQ/L Anion Gap 6 MEQ/L Blood Urea Nitrogen 21 MG/DL Creatinine 1.05 MG/DL Estimat Glomerular Filtration 72 ML/MIN Rate Random Glucose 128 MG/DL Calcium Level 10.3 MG/DL Total Creatine Kinase 67 U/L Troponin I LESS THAN 0.02 NG/ML Last Impressions Chest X-Ray 09/03/162045 Signed Impressions: Service Date/Time: Saturday, September 03, 2016 21:12 - CONCLUSION: Stable chest appearance. Sonny Schwab MD Differential Diagnosis Differential diagnosis includes COPD exacerbation, bronchitis, pneumonia, pleural effusion, congestive heart failure, acute coronary syndrome. Narrative Course I, Dr. Hay, have reviewed the advance practice practitioner's documentation and am in agreement, met with the patient face to face, made the diagnosis, and the medical decision making was done by me. *My assessment and Findings: The patient was initially evaluated by the mid- level provider, please refer to the initial history, physical, diagnostic evaluation, treatment modality plan. The patient notes wheezing with a cough, called his retort fireman, was prescribed Zithromax yesterday. However, his symptoms have progressed. He states he checked his blood pressure earlier today and a systolic was 150, therefore, comes to the emergency department for further evaluation. The patient does have a history of COPD exacerbations with bronchitis and responds favorably to prednisone per his report. The patient also has a nebulizer at home. Therefore, the patient was administered Solu- Medrol and DuoNeb's. Chest x-ray was obtained. EKG was ordered and interpreted. Chest x-rays unremarkable. Laboratory evaluation is unremarkable except for mildly elevated calcium at 10.3 and mildly elevated glucose 123. The patient was reevaluated at 9:45 PM. The patient states his symptoms have improved, he is satting 98% on room air, heart rate was in the 80s, breath sounds still reveal coarse breath sounds bilateral with wheezes. The patient states he normally improved significantly at home after one day of prednisone and has his duo nebs and albuterol nebulizers at home. Therefore, patient will be discharged home on prednisone. He is R Myra Zithromax and are has a nebulizer machine with nebulizers at home. He is requesting something for pain secondary to coughing. The patient is advised to follow-up with his primary physician and retort fireman and return if symptoms worsen or progress. Diagnosis Primary Impression: COPD exacerbation Patient Instructions: General Instructions Additional Instruction: Medications as directed. Duo nebs every 4-6 hours. Follow-up with your retort fireman and primary physician. Return if symptoms worsen or progress. Med/Other Pt SpecificInfo: Prescription(s) given Scripts Hydrocodone-Acetaminophen ([place])5-325 mg Tab1 Tab PO Q6H PRN (PAIN) #15 TAB Ref 0 Prov:Antonio Hay MD 09/03/16 Prednisone (Deltasone)20 Mg Tab40 Mg PO DAILY 5 Days Ref 0 Prov:Antonio Hay MD 09/03/16 Disposition: 01 DISCHARGE HOME Condition: Stable Antonio Hay MD Sep 03, 2016 21:02
[2016-09-03 21:05] LABS: AUTOMATED NEUTROPHIL # 11.6 TH/MM3 (1.8-7.7); BASOPHIL % 0.3 % (0.0-2.0); EOSINOPHIL # 0.2 TH/MM3 (0-0.4); EOSINOPHIL % 1.1 % (0.0-4.0); HEMATOCRIT 42.8 % (39.0-51.0); HEMO FLAGS DIFF FINAL; LYMPH % 3.5 % (9.0-44.0); LYMPHOCYTE # 0.5 TH/MM3 (1.0-4.8); MEAN CELL VOLUME 91.2 FL (80.0-100.0); MEAN CORPUSCULAR HEMOGLOBIN 30.6 PG (27.0-34.0); MEAN CORPUSCULAR HGB CONC 33.5 % (32.0-36.0); MONO % 8.6 % (0.0-8.0); NEUT % 86.5 % (16.0-70.0); PLATELET COUNT 219 TH/MM3 (150-450); RED BLOOD COUNT 4.69 MIL/MM3 (4.50-5.90); RED CELL DISTRIBUTION WIDTH 14.6 % (11.6-17.2); WHITE BLOOD COUNT 13.3 TH/MM3 (4.0-11.0)
--- NOTE | 2016-09-03 21:21 | RADRPT ---
EXAM DATE/TIME: 09/03/2016 21:12 [facility] COMPARISON: CHEST SINGLE AP, June 22, 2016, 15:41. INDICATIONS : Shortness of breath, difficulty breathing for 1 week MEDICAL HISTORY : Emphysema. SURGICAL HISTORY : None. ENCOUNTER: Initial ACUITY: 1 week PAIN SCORE: 5/10 LOCATION: Bilateral chest FINDINGS: A nodular pleuroparenchymal density is seen in the lateral right lung apex. Minimal pleural thickenin g is present on the contralateral left side. These findings are unchanged. The lungs are elsewhere cl ear. No significant effusion is suspected. The cardiac contours are stable. CONCLUSION: Stable chest appearance. Sonny Schwab MD on September 03, 2016 at 21:18 Board Certified Radiologist. This report was verified electronically.
[2016-09-03 21:35] LABS: ANION GAP 6 MEQ/L (5-15); BICARBONATE 28.2 MEQ/L (21.0-32.0); BLOOD UREA NITROGEN 21 MG/DL (7-18); CHLORIDE 103 MEQ/L (98-107); GLOMERULAR FILTRATION RATE 72 ML/MIN (>89); POTASSIUM 4.2 MEQ/L (3.5-5.1); SODIUM (NA) 137 MEQ/L (136-145)
[2016-09-03 21:42] LABS: CREATINE KINASE 67 U/L (39-308)
[2016-09-03] MEDS ORDERED: ZITHTAB PO (21:43)
[2016-09-03] MEDS ORDERED: BUPR150CR PO (21:43)
[2016-09-03] MEDS ORDERED: ASPI81CH7 CHEW (21:43)
[2016-09-03] MEDS ORDERED: PRED-503 PO (21:53)
[2016-09-03] MEDS ORDERED: NORC5TAB PO (21:53)
--- NOTE | 2016-09-04 16:07 | EKG ---
Date Performed: 09/03/2016 Time Performed: 20:54:13 PTAGE: 60 years EKG: Sinus rhythm WITH SINUS ARRHYTHMIA POSSIBLE LEFT ATRIAL ENLARGEMENT Since previous tracing, no significant change noted BORDERLINE ECG PREVIOUS TRACING : 06/22/2016 15.23 DOCTOR: Darío Sweet Interpretating Date/Time 09/04/2016 16:05:53
== END 2016-09-03 23:17 | disposition home or self-care (01) ==
LOC: NEPA 18:45
DX: J44.1 Chronic obstructive pulmonary disease with (acute) exacerbation (principal); M19.90 Unspecified osteoarthritis, unspecified site; J45.909 Unspecified asthma, uncomplicated; R00.0 Tachycardia, unspecified; I10 Essential (primary) hypertension; I25.2 Old myocardial infarction
CPT/HCPCS: 71010; 80048; 82550; 84484; 85025; 93005; 94640; 94664; 96374; 99284; J2930

== ENCOUNTER 2016-09-28 11:55 | Inpatient (IN) | payer MEDICAID ==
[2016-09-28] VITALS (7 sets, daily range): BP systolic 134–161; BP diastolic 72–101; PULSE 73–87; RESP 15–22; TEMP 97.9–98.5; O2SAT 95–99
[~2016-09-28] VITALS: Ht 185.4 cm; Wt 64.4 kg
[~2016-09-28 11:55] MED LIST changes: +ASPI81CH7 CHEW; +BUPR150CR PO; -LEVA500T PO; +NORC5TAB PO; -OXYC1TAB63 PO; +PRED-503 PO; -PRED10 PO; +ZITHTAB PO
[2016-09-28] MEDS ORDERED: PANT40TA3 PO (12:13)
[2016-09-28] MEDS ORDERED: RESP: ALBUTEROL 2.5 MG/IPRATROPIUM 0.5 MG NEB (SCH) INH ONE (12:15)
[2016-09-28] MEDS ORDERED: MORPHINE SULFATE 4 MG/ML INJ IV PUSH ONE (12:30)
[2016-09-28] MEDS ORDERED: ONDANSETRON HCL 4 MG/2 ML VIAL IV PUSH ONE (12:30)
--- NOTE | 2016-09-28 12:31 | PD ---
HPI Chief Complaint: Abdominal Pain Time Seen by Provider: 12:28 Travel History International Travel<30 days: No Contact w/Intl Traveler<30days: No Traveled to known affect area: No History of Present Illness HPI 60-year-old male that presents to the ED for evaluation of left upper quadrant abdominal pain and chest pain since 5:00 this morning. Per patient he woke up with the pain. Per patient nothing really makes it better or worse. Per patient pain is sharp and severe. He does have a history of gallbladder removal in June. He states that he also has a history of COPD and uses oxygen at home. He has a remote history of drug abuse and states that his been clean for years now. Per patient he also used to smoke but he's been clear for 2 years and does not drink for the past 9 months. He states that the pain is sharp and constant similar discomfort. Per patient the pain is so severe to get some discomfort when he takes a deep breath. Per patient the pain radiates to his left shoulder onto his back. He denies any rashes showed deformities. Per patient feels under something bulging on his left upper quadrant. Pain is somewhat reproducible in this area. Per patient the pain is 8 out of 10. He took some heartburn medication thinking that he might be heartburn but this doesn't seem to be helping. he denies taking anything for pain. Allergies to penicillin and shellfish. PFSH Past Medical History Arthritis: Yes Asthma: Yes Autoimmune Disease: No Blood Disorders: Yes Anxiety: Yes Depression: Yes Heart Rhythm Problems: Yes (TACHYCARDIA ) Cancer: No Cardiac Catheterization: No Cardiovascular Problems: Yes (HTN) High Cholesterol: No Chemotherapy: No Chest Pain: Yes Congestive Heart Failure: No COPD: Yes Cerebrovascular Accident: Yes Coronary Artery Disease: No Diabetes: No Diminished Hearing: No Endocrine: No Gastrointestinal Disorders: Yes GERD: Yes Genitourinary: No Headaches: Yes (RELATED TO NECK PAIN) Hiatal Hernia: No Hypertension: Yes Immune Disorder: Yes (CHILDHOOD HYPOGLYCEMIA) Implanted Vascular Access Dvce: No Musculoskeletal: Yes (4 HERNIATED DISKS IN NECK) Neurologic: Yes Psychiatric: Yes Reproductive: No Respiratory: Yes Immunizations Current: Yes Migraines: Yes Myocardial Infarction: Yes Pancreatitis: Yes Radiation Therapy: No Renal Failure: No Seizures: No Sickle Cell Disease: No Sleep Apnea: Yes (undiagnosed) Thyroid Disease: No Ulcer: No Past Surgical History Abdominal Surgery: No Cardiac Surgery: No Cholecystectomy: Yes Coronary Artery Bypass Graft: No Ear Surgery: No Endocrine Surgery: No Eye Surgery: No Genitourinary Surgery: No Gynecologic Surgery: No Neurologic Surgery: No Oral Surgery: No Thoracic Surgery: No Tonsillectomy: Yes Other Surgery: Yes (LAMINECTOMY) Social History Alcohol Use: No (quit 12/18/15) Tobacco Use: No (QUIT 01/25) Substance Use: No Allergies-Medications (Allergen,Severity, Reaction): Coded Allergies: Shellfish (Verified Allergy, Severe, Swelling, 09/28/16) Penicillin (Verified Allergy, Mild, rash, 09/28/16) Reported Meds & Prescriptions Reported Meds & Active Scripts Active Reported Pantoprazole (Pantoprazole Sodium) 40 Mg Tab 40 Mg PO DAILY Aspirin Children's (Aspirin) 81 Mg Chew 81 Mg CHEW DAILY Wellbutrin SR 12 HR (Bupropion HCl) 150 Mg Tab 150 Mg PO DAILY Proair Hfa 8.5 GM Inh (Albuterol Sulfate) 90 Mcg/Act Aer 2 Puff INH Q4-6H PRN 108 mcg/actuation Norvasc (Amlodipine Besylate) 5 Mg Tab 5 Mg PO DAILY Review of Systems Except as stated in HPI: all other systems reviewed are Neg Physical Exam Narrative GENERAL: SKIN: Warm and dry. HEAD: Atraumatic. Normocephalic. EYES: Pupils equal and round. No scleral icterus. No injection or drainage. ENT: No nasal bleeding or discharge. Mucous membranes pink and moist. Tongue is midline. No uvula deviation. NECK: Trachea midline. No JVD. CARDIOVASCULAR: Regular rate and rhythm. No murmurs, S3, S4. Some of the pain is reproducible with touch in the left upper quadrant around the ribs as well as the abdomen. RESPIRATORY: No accessory muscle use. Clear to auscultation. Breath sounds equal bilaterally. GASTROINTESTINAL: Abdomen soft, non-tender, nondistended. Hepatic and splenic margins not palpable. MUSCULOSKELETAL: Extremities without clubbing, cyanosis, or edema. No obvious deformities. Full range of motion of the upper and lower extremities bilaterally. 2+ pulses bilaterally. NEUROLOGICAL: Awake and alert. No obvious cranial nerve deficits. Motor grossly within normal limits. Five out of 5 muscle strength in the arms and legs. Normal speech. PSYCHIATRIC: Appropriate mood and affect; insight and judgment normal. Data Data Last Documented VS Vital Signs Date Time Temp Pulse Resp B/P Pulse Ox O2 Delivery O2 Flow Rate FiO2 09/28/16 12:16 22 99 Nasal Cannula 2 09/28/16 12:06 98.0 82 148/86 Orders Electrocardiogram (09/28/16 12:14) Complete Blood Count With Diff (09/28/16 12:14) Comprehensive Metabolic Panel (09/28/16 12:14) Ckmb (Isoenzyme) Profile (09/28/16 12:14) Troponin I (09/28/16 12:14) Prothrombin Time / Inr (Pt) (09/28/16 12:14) Act Partial Throm Time (Ptt) (09/28/16 12:14) Blood Culture (09/28/16 12:14) Lipase (09/28/16 12:14) Magnesium (Mg) (09/28/16 12:14) Chest, Single Ap (09/28/16 12:14) Iv Access Insert/Monitor (09/28/16 12:14) Ecg Monitoring (09/28/16 12:14) Oximetry (09/28/16 12:14) Albuterol-Ipratropium Neb (Duoneb Neb) (09/28/16 12:15) Lactic Acid (09/28/16 12:15) Morphine Inj (Morphine Inj) (09/28/16 12:30) Ondansetron Inj (Zofran Inj) (09/28/16 12:30) Methylprednisolone So Succ Inj (Solumedr (09/28/16 13:00) Ct Abd/Pel W Iv Contrast(Rout) (09/28/16 12:52) Methylprednisolone So Succ Inj (Solumedr (09/28/16 13:00) Albuterol-Ipratropium Neb (Duoneb Neb) (09/28/16 13:00) Sodium Chlor 0.9% 1000 Ml Inj (Ns 1000 M (09/28/16 13:24) Labs Laboratory Tests Test 09/28/16 12:28 White Blood Count 13.6 TH/MM3 Red Blood Count 4.38 MIL/MM3 Hemoglobin 13.4 GM/DL Hematocrit 40.3 % Mean Corpuscular Volume 92.1 FL Mean Corpuscular Hemoglobin 30.7 PG Mean Corpuscular Hemoglobin 33.3 % Concent Red Cell Distribution Width 14.4 % Platelet Count 233 TH/MM3 Mean Platelet Volume 7.4 FL Neutrophils (%) (Auto) 81.8 % Lymphocytes (%) (Auto) 6.4 % Monocytes (%) (Auto) 8.0 % Eosinophils (%) (Auto) 3.3 % Basophils (%) (Auto) 0.5 % Neutrophils # (Auto) 11.1 TH/MM3 Lymphocytes # (Auto) 0.9 TH/MM3 Monocytes # (Auto) 1.1 TH/MM3 Eosinophils # (Auto) 0.5 TH/MM3 Basophils # (Auto) 0.1 TH/MM3 CBC Comment DIFF FINAL Differential Comment Prothrombin Time 11.5 SEC Prothromb Time International 1.0 RATIO Ratio Activated Partial 22.5 SEC Thromboplast Time Sodium Level 139 MEQ/L Potassium Level 3.8 MEQ/L Chloride Level 104 MEQ/L Carbon Dioxide Level 28.6 MEQ/L Anion Gap 6 MEQ/L Blood Urea Nitrogen 15 MG/DL Creatinine 1.10 MG/DL Estimat Glomerular Filtration 68 ML/MIN Rate Random Glucose 120 MG/DL Lactic Acid Level 1.0 mmol/L Calcium Level 9.7 MG/DL Magnesium Level 2.1 MG/DL Total Bilirubin 0.9 MG/DL Aspartate Amino Transf 23 U/L (AST/SGOT) Alanine Aminotransferase 29 U/L (ALT/SGPT) Alkaline Phosphatase 60 U/L Total Creatine Kinase 52 U/L Troponin I 0.18 NG/ML Total Protein 6.2 GM/DL Albumin 3.4 GM/DL Lipase 1180 U/L [facility] Medical Decision Making Medical Screen Exam Complete: Yes Emergency Medical Condition: Yes Medical Record Reviewed: Yes Interpretation(s) CBC & BMP Diagram 09/28/16 12:28 Last Impressions Chest X-Ray 09/28/16 1214 Signed Impressions: Service Date/Time: Wednesday, September 28, 2016 12:27 - CONCLUSION: 1. Stable chest with biapical and right perihilar scarring 2. No acute infiltrate Roman Belle MD LFTs WNL Lipase in the 1000s troponin of 0.18 EKG showed sinus rhythm with no sign of acute ischemia or arrhythmia. CK-MB negative. Differential Diagnosis Chest pain versus a typical chest pain versus abdominal pain versus COPD exacerbation versus COPD versus acute abdomen versus pancreatitis Narrative Course 60-year-old male that presents to the ED for evaluation of possible chest pain versus abdominal pain. Patient was properly examined and was found to have signs and symptoms starting for both. At this time I recommend labs and imaging. Patient is in agreement with this. Labs and imaging showed elevated troponin as well as signs of pancreatitis. Case was discussed in my attending who recommends admission for the possible and STEMI with pancreatitis. Possible troponin elevation could be related to the positive troponin and vice versa. Patient did not have any sign of ST elevation. No history of heart disease. He does have a history of high blood pressure and previous back in the past. At this time I recommend admission. Patient agrees with this plan. [facility] hospitalist was contacted and Dr. Doran agrees to admission. Procedures EKG Prior to Arrival: No Diagnosis Primary Impression: Pancreatitis Qualified Code: K85.90 - Acute pancreatitis, unspecified complication status, unspecified pancreatitis type Additional Impressions: Elevated troponin Chest pain Qualified Code: R07.9 - Chest pain, unspecified type COPD exacerbation Admitting Information Admitting Physician Requests: Admit Rogelio Altamirano Sep 28, 2016 12:31 Rogelio Altamirano Sep 28, 2016 12:31
--- NOTE | 2016-09-28 12:52 | RADRPT ---
EXAM DATE/TIME: 09/28/2016 12:27 [facility] COMPARISON: CHEST SINGLE AP, September 03, 2016, 21:12. INDICATIONS : Shortness of breath. MEDICAL HISTORY : Emphysema. SURGICAL HISTORY : None. ENCOUNTER: Initial ACUITY: 1 day PAIN SCORE: 0/10 LOCATION: Bilateral chest FINDINGS: A single view of the chest demonstrates the lungs to be hyperinflated with apical linear scarring, ri ght greater than left. Findings are stable. There may be some scarring laterally in the right perihil ar distribution as well. No confluent infiltrate or effusion. Heart size is normal. Osseous structure s are intact. CONCLUSION: 1. Stable chest with biapical and right perihilar scarring 2. No acute infiltrate Roman Belle MD on September 28, 2016 at 12:47 Board Certified Radiologist. This report was verified electronically.
[2016-09-28 12:59] LABS: AUTOMATED NEUTROPHIL # 11.1 TH/MM3 (1.8-7.7); BASOPHIL # 0.1 TH/MM3 (0-0.2); BASOPHIL % 0.5 % (0.0-2.0); EOSINOPHIL # 0.5 TH/MM3 (0-0.4); EOSINOPHIL % 3.3 % (0.0-4.0); HEMATOCRIT 40.3 % (39.0-51.0); HEMO FLAGS DIFF FINAL; LYMPH % 6.4 % (9.0-44.0); LYMPHOCYTE # 0.9 TH/MM3 (1.0-4.8); MEAN CELL VOLUME 92.1 FL (80.0-100.0); MEAN CORPUSCULAR HEMOGLOBIN 30.7 PG (27.0-34.0); MEAN CORPUSCULAR HGB CONC 33.3 % (32.0-36.0); NEUT % 81.8 % (16.0-70.0); PLATELET COUNT 233 TH/MM3 (150-450); RED BLOOD COUNT 4.38 MIL/MM3 (4.50-5.90); RED CELL DISTRIBUTION WIDTH 14.4 % (11.6-17.2); WHITE BLOOD COUNT 13.6 TH/MM3 (4.0-11.0)
[2016-09-28] MEDS ORDERED: methylPREDNISolone SOD SUCC 125 MG/2 ML VIAL IVP ONE (13:00)
[2016-09-28] MEDS ORDERED: methylPREDNISolone SOD SUCC 125 MG/2 ML VIAL IV PUSH ONE (13:00)
[2016-09-28] MEDS: RESP: ALBUTEROL 2.5 MG/IPRATROPIUM 0.5 MG NEB (SCH) INH (13:10)
[2016-09-28 13:13] LABS: APTT (PATIENT) 22.5 SEC (24.3-30.1); PROTHROMBIN TIME - PATIENT 11.5 SEC (9.8-11.6)
[2016-09-28 13:17] LABS: ALT (GPT) 29 U/L (12-78); AST (GOT) 23 U/L (15-37); BICARBONATE 28.6 MEQ/L (21.0-32.0); BLOOD UREA NITROGEN 15 MG/DL (7-18); CHLORIDE 104 MEQ/L (98-107); GLOMERULAR FILTRATION RATE 68 ML/MIN (>89); MAGNESIUM 2.1 MG/DL (1.5-2.5); POTASSIUM 3.8 MEQ/L (3.5-5.1); SODIUM (NA) 139 MEQ/L (136-145)
[2016-09-28 13:18] LABS: ANION GAP 6 MEQ/L (5-15)
[2016-09-28 13:22] LABS: ALKALINE PHOSPHATASE 60 U/L (45-117); TOTAL BILIRUBIN ADULT 0.9 MG/DL (0.2-1.0)
[2016-09-28 13:23] LABS: CREATINE KINASE 52 U/L (39-308)
[2016-09-28] MEDS ORDERED: SODIUM CHLOR 0.9% 1000 ML INJ 1,000 ML IV SCH (13:24)
[2016-09-28] MEDS ORDERED: ACETAMINOPHEN 325 MG TAB PO PRN (13:45)
[2016-09-28] MEDS ORDERED: NALOXONE HCL 0.4 MG/ML AMP IV PRN (13:45)
[2016-09-28] MEDS ORDERED: ONDANSETRON HCL 4 MG/2 ML VIAL IVP PRN (13:45)
[2016-09-28] MEDS ORDERED: TEMAZEPAM 15 MG CAP PO PRN (13:45)
--- NOTE | 2016-09-28 13:47 | PD ---
Physical Exam Date Seen by Provider: Sep 28, 2016 Time Seen by Provider: 12:30 Narrative I, Dr. Patricia, have reviewed the advance practice practitioner's documentation and am in agreement, met with the patient face to face, made the diagnosis, and the medical decision making was done by me. *My assessment and Findings: Patient seen and evaluated with PA, please see PA further details. Here with left upper quadrant abdominal pains, tender no left upper quadrant with mild guarding but no rebound. Pulmonary exam reveals bilateral wheezing. Patient has previous history of COPD. He was given Solu- Medrol and nebulizers in the ER. Lab work shows significant lipase elevation indicative of pancreatitis. Patient was given IV fluids, pain medication and nausea medications in the ER. At this point, plan would be to admit the patient for further treatment of pancreatitis and COPD exacerbation. Laboratory Tests Test 09/28/16 12:28 White Blood Count 13.6 TH/MM3 (4.0-11.0) Red Blood Count 4.38 MIL/MM3 (4.50-5.90) Neutrophils (%) (Auto) 81.8 % (16.0-70.0) Lymphocytes (%) (Auto) 6.4 % (9.0-44.0) Neutrophils # (Auto) 11.1 TH/MM3 (1.8-7.7) Lymphocytes # (Auto) 0.9 TH/MM3 (1.0-4.8) Monocytes # (Auto) 1.1 TH/MM3 (0-0.9) Eosinophils # (Auto) 0.5 TH/MM3 (0-0.4) Activated Partial 22.5 SEC Thromboplast Time (24.3-30.1) Estimat Glomerular Filtration 68 ML/MIN (>89) Rate Random Glucose 120 MG/DL (74-106) Troponin I 0.18 NG/ML (0.02-0.05) Total Protein 6.2 GM/DL (6.4-8.2) Lipase 1180 U/L (73-393) Data Data Last Documented VS Vital Signs Date Time Temp Pulse Resp B/P Pulse Ox O2 Delivery O2 Flow Rate FiO2 09/28/16 12:16 22 99 Nasal Cannula 2 09/28/16 12:06 98.0 82 148/86 Orders Electrocardiogram (09/28/16 12:14) Complete Blood Count With Diff (09/28/16 12:14) Comprehensive Metabolic Panel (09/28/16 12:14) Ckmb (Isoenzyme) Profile (09/28/16 12:14) Troponin I (09/28/16 12:14) Prothrombin Time / Inr (Pt) (09/28/16 12:14) Act Partial Throm Time (Ptt) (09/28/16 12:14) Blood Culture (09/28/16 12:14) Lipase (09/28/16 12:14) Magnesium (Mg) (09/28/16 12:14) Chest, Single Ap (09/28/16 12:14) Iv Access Insert/Monitor (09/28/16 12:14) Ecg Monitoring (09/28/16 12:14) Oximetry (09/28/16 12:14) Albuterol-Ipratropium Neb (Duoneb Neb) (09/28/16 12:15) Lactic Acid (09/28/16 12:15) Morphine Inj (Morphine Inj) (09/28/16 12:30) Ondansetron Inj (Zofran Inj) (09/28/16 12:30) Methylprednisolone So Succ Inj (Solumedr (09/28/16 13:00) Ct Abd/Pel W Iv Contrast(Rout) (09/28/16 12:52) Methylprednisolone So Succ Inj (Solumedr (09/28/16 13:00) Albuterol-Ipratropium Neb (Duoneb Neb) (09/28/16 13:00) Sodium Chlor 0.9% 1000 Ml Inj (Ns 1000 M (09/28/16 13:24) Admit Order (Ed Use Only) (09/28/16 13:41) Labs Laboratory Tests Test 09/28/16 12:28 White Blood Count 13.6 TH/MM3 Red Blood Count 4.38 MIL/MM3 Hemoglobin 13.4 GM/DL Hematocrit 40.3 % Mean Corpuscular Volume 92.1 FL Mean Corpuscular Hemoglobin 30.7 PG Mean Corpuscular Hemoglobin 33.3 % Concent Red Cell Distribution Width 14.4 % Platelet Count 233 TH/MM3 Mean Platelet Volume 7.4 FL Neutrophils (%) (Auto) 81.8 % Lymphocytes (%) (Auto) 6.4 % Monocytes (%) (Auto) 8.0 % Eosinophils (%) (Auto) 3.3 % Basophils (%) (Auto) 0.5 % Neutrophils # (Auto) 11.1 TH/MM3 Lymphocytes # (Auto) 0.9 TH/MM3 Monocytes # (Auto) 1.1 TH/MM3 Eosinophils # (Auto) 0.5 TH/MM3 Basophils # (Auto) 0.1 TH/MM3 CBC Comment DIFF FINAL Differential Comment Prothrombin Time 11.5 SEC Prothromb Time International 1.0 RATIO Ratio Activated Partial 22.5 SEC Thromboplast Time Sodium Level 139 MEQ/L Potassium Level 3.8 MEQ/L Chloride Level 104 MEQ/L Carbon Dioxide Level 28.6 MEQ/L Anion Gap 6 MEQ/L Blood Urea Nitrogen 15 MG/DL Creatinine 1.10 MG/DL Estimat Glomerular Filtration 68 ML/MIN Rate Random Glucose 120 MG/DL Lactic Acid Level 1.0 mmol/L Calcium Level 9.7 MG/DL Magnesium Level 2.1 MG/DL Total Bilirubin 0.9 MG/DL Aspartate Amino Transf 23 U/L (AST/SGOT) Alanine Aminotransferase 29 U/L (ALT/SGPT) Alkaline Phosphatase 60 U/L Total Creatine Kinase 52 U/L Troponin I 0.18 NG/ML Total Protein 6.2 GM/DL Albumin 3.4 GM/DL Lipase 1180 U/L [facility] Medical Record Reviewed: Yes Supervised Visit with DEBBIE: Yes Diagnosis Primary Impression: Pancreatitis Qualified Code: K85.90 - Acute pancreatitis, unspecified complication status, unspecified pancreatitis type Additional Impressions: Elevated troponin COPD exacerbation Chest pain Qualified Code: R07.9 - Chest pain, unspecified type Admitting Information Admitting Physician Requests: Aliyah Francis MD Sep 28, 2016 13:47
[2016-09-28] MEDS ORDERED: RESP: ALBUTEROL 2.5 MG/IPRATROPIUM 0.5 MG NEB (PRN) NEB (14:00)
[2016-09-28] MEDS: HEPARIN SODIUM - SQ 10,000 UNITS/ML VIAL SQ SCH (14:00)
[2016-09-28] MEDS: MORPHINE SULFATE 4 MG/ML INJ IV PUSH PRN ×3 (14:28→21:41)
[2016-09-28] MEDS: DOCUSATE SODIUM 100 MG CAP PO SCH ×2 (14:29→20:21)
[2016-09-28] MEDS: LACTATED RINGER'S 1000 ML INJ 1,000 ML IV SCH ×2 (14:30→20:22)
[2016-09-28] MEDS ORDERED: IOHEXOL 350 MG/ML 10 ML VIAL (for RAD DIAG) IV ONE (15:05)
--- NOTE | 2016-09-28 16:50 | RADRPT ---
EXAM DATE/TIME: 09/28/2016 15:05 [place] COMPARISON: CT ABDOMEN & PELVIS W CONTRAST, June 28, 2012, 11:59. INDICATIONS : Upper abdominal pain since 5 am IV CONTRAST: 97 cc Omnipaque 350 (iohexol) IV ORAL CONTRAST: No oral contrast ingested. RADIATION DOSE: 4.99 CTDIvol (mGy) MEDICAL HISTORY : Cerebrovascular disease. Hypertension. Pancreatitis. SURGICAL HISTORY : Cholecystectomy. ENCOUNTER: Initial ACUITY: 1 day PAIN SCALE: 6/10 LOCATION: Abdomen TECHNIQUE: Volumetric scanning of the abdomen and pelvis was performed. Using automated exposure control and ad justment of the mA and/or kV according to patient size, radiation dose was kept as low as reasonably achievable to obtain optimal diagnostic quality images. FINDINGS: LOWER LUNGS: Hyperinflation characteristic of COPD LIVER: Homogeneous density without lesion. There is no dilation of the biliary tree. No calcified gallston es. SPLEEN: Normal size without lesion. PANCREAS: Extensive peripancreatic inflammatory changes with possible developing 1.5 cm pseudocyst at the junct ion of the body and tail of the pancreas. KIDNEYS: Normal in size and shape. Stable right 3.8 cm cyst with calcification characteristic of a Bosniak typ e II lesion. ADRENAL GLANDS: Within normal limits. VASCULAR: There is no aortic aneurysm. BOWEL/MESENTERY: The stomach, small bowel, and colon demonstrate no acute abnormality. Small amount of free fluid in t he deep right pelvis and over the hepatic and splenic convexity probably representing weeping from th e inflamed pancreas ABDOMINAL WALL: Within normal limits. RETROPERITONEUM: There is no lymphadenopathy. BLADDER: No wall thickening or mass. REPRODUCTIVE: Within normal limits. INGUINAL: There is no lymphadenopathy or hernia. MUSCULOSKELETAL: Within normal limits for patient age. CONCLUSION: 1. Findings characteristic of acute pancreatitis with peripancreatic inflammatory changes, free fluid around the spleen and liver as well as the deep pelvis and possibly developing 1.6 cm pseudocyst at the junction of the body and tail of the pancreas. 2. Stable Bosniak type II 3.8 cm cyst in the right kidney Roman Belle MD on September 28, 2016 at 15:52 Board Certified Radiologist. This report was verified electronically.
[2016-09-28] MEDS ORDERED: HYDROmorphone HCL PF 1 MG/ML VIAL IV PUSH PRN (17:00)
--- NOTE | 2016-09-28 17:25 | HP.UPD ---
H&P Update Note This is a 60-year-old male was a former smoker and former drinker. He has had a history of pancreatitis. He came in to the emergency department at [facility] with abdominal pain and nausea. The pain is in the left upper quadrant. The pain is worse with breathing. Similar to his prior pain with pancreatitis. He was seen by the undersigned at the emergency department. Is requesting more IV narcotics. The plan for him is pain control , IV fluids, GI evaluation, also he is to have CTA of the lungs to rule out PE as he has pleuritic left-sided chest pain/left upper quadrant pain. Full history and physical is to follow. Discussed with patient and his girlfriend. Discussed with nurse Daisha Doran MD Sep 28, 2016 17:22
--- NOTE | 2016-09-28 17:38 | PD.CONS ---
HPI History of Present Illness This is a 60 year old male who came to the emergency room for evaluation of abdominal pain. He has a history of pancreatitis. He states that he had a couple of episodes of pancreatitis in the past and was told that it was related to alcohol use. He quit drinking alcohol 8 months ago and had another episode of pancreatitis back in June of 2015. He was hospitalized in June 2016 for abdominal pain and found to have acute cholecystitis and underwent a cholecystectomy at that time with Dr. Pagan. He reports that since he had his gallbladder removed, he has had an ongoing issue with abdominal bloating and discomfort. He also reports that he has had constipation, which he manages with prune juice. He does report that after his surgery he did have melena for a few weeks, but he quit taking celebrex and this resolved. He has significant GERD and globus sensation. He takes Protonix 40 mg by mouth daily but continues to have symptoms on a weekly basis. He reports that he has seen Dr. Rivera as an outpatient and is scheduled for an upper endoscopy on October 02. He states that he woke up this morning around 5 AM with severe epigastric pain which she describes as a constant sharp pain that radiates to his back and in between his shoulder blades. This is aggravated by any by mouth intake, movement, or deep breaths. He has associated nausea without vomiting. He took some Gas-X, prune juice, and Tyenlol at home, but had no relief and therefore came to the ER for further evaluation. He was noted to have a lipase of 1180 with normal LFTs and mild leukocytosis. Abdomen/Pelvis CT (09/28/16)-----> 1. Findings characteristic of acute pancreatitis with peripancreatic inflammatory changes, free fluid around the spleen and liver as well as the deep pelvis and possibly developing 1.6 cm pseudocyst at the junction of the body and tail of the pancreas. 2. Stable Bosniak type II 3.8 cm cyst in the right kidney. He takes Norvasc, wellbutrin, and protonix at home. He denies the use of ETOH. He was taking NSAIDs, but stopped a few weeks ago. Of note, he was also noted to have an elevated troponin at 0.02----> 0.18 and cardiology has been consulted for further evaluation of this. (Nissa Cates) PFSH Past Medical History Pancreatitis, 2-3 episodes History of cholecystitis, status post cholecystectomy GERD, globus sensation COPD Chronic back pain History of pneumonia History of kidney infection History of EtOH abuse, none 8 months Past Surgical History Laminectomy Tonsillectomy Cholecystectomy (DarrynNissa) Coded Allergies: Shellfish (Verified Allergy, Severe, Swelling, 09/28/16) Penicillin (Verified Allergy, Mild, rash, 09/28/16) Medications Allergies Coded Allergies Type Severity Reaction Last Updated Verified Shellfish Allergy Severe Swelling 09/28/16 Yes Penicillin Allergy Mild rash 09/28/16 Yes Active Scripts Medications Dose Route/Sig Days Date Category Dose Instructions Pantoprazole (Pantoprazole Sodium) 40 Mg Tab 40 Mg PO DAILY 09/28/16 Reported Aspirin Children's (Aspirin) 81 Mg Chew 81 Mg CHEW DAILY 09/03/16 Reported Wellbutrin SR 12 HR (Bupropion HCl) 150 Mg Tab 150 Mg PO DAILY 09/03/16 Reported Proair Hfa 8.5 GM Inh (Albuterol Sulfate) 90 Mcg/Act Aer 2 Puff INH Q4-6H PRN 06/22/16 Reported 108 mcg/actuation Norvasc (Amlodipine Besylate) 5 Mg Tab 5 Mg PO DAILY 06/22/16 Reported Family History Mother had emphysema. Father had diabetes, emphysema, [place] Social History Quit smoking 2 years ago, she did smoke for 40 years prior to that. Quit drinking alcohol 8 months ago (Nissa Cates) Review of Systems Constitutional: COMPLAINS OF: Fatigue, Weight loss (few lbs), DENIES: Fever, Chills Respiratory: DENIES: Cough Cardiovascular: COMPLAINS OF: Chest pain Gastrointestinal: COMPLAINS OF: Abdominal pain, Black stools, Constipation, Nausea, Heartburn, DENIES: Bloody stools, Diarrhea, Vomiting Musculoskeletal: COMPLAINS OF: Back pain Neurologic: DENIES: Headache Psychiatric: DENIES: Confusion (Nissa Cates) GI Exam Vitals I&O Vital Signs Date Time Temp Pulse Resp B/P Pulse Ox O2 Delivery O2 Flow Rate FiO2 09/28/16 15:20 87 15 144/73 97 Nasal Cannula 2 09/28/16 14:33 15 09/28/16 14:30 82 20 161/101 98 Nasal Cannula 2 09/28/16 12:16 22 99 Nasal Cannula 2 09/28/16 12:06 98.0 82 20 148/86 99 Imaging Last Impressions Abdomen/Pelvis CT 09/28/16 1252 Signed Impressions: Service Date/Time: Wednesday, September 28, 2016 15:05 - CONCLUSION: 1. Findings characteristic of acute pancreatitis with peripancreatic inflammatory changes, free fluid around the spleen and liver as well as the deep pelvis and possibly developing 1.6 cm pseudocyst at the junction of the body and tail of the pancreas. 2. Stable Bosniak type II 3.8 cm cyst in the right kidney Roman Belle MD Chest X-Ray 09/28/16 1214 Signed Impressions: Service Date/Time: Wednesday, September 28, 2016 12:27 - CONCLUSION: 1. Stable chest with biapical and right perihilar scarring 2. No acute infiltrate Roman Belle MD Laboratory Test 09/28/16 12:28 White Blood Count 13.6 TH/MM3 Red Blood Count 4.38 MIL/MM3 Hemoglobin 13.4 GM/DL Hematocrit 40.3 % Mean Corpuscular Volume 92.1 FL Mean Corpuscular Hemoglobin 30.7 PG Mean Corpuscular Hemoglobin 33.3 % Concent Red Cell Distribution Width 14.4 % Platelet Count 233 TH/MM3 Mean Platelet Volume 7.4 FL Neutrophils (%) (Auto) 81.8 % Lymphocytes (%) (Auto) 6.4 % Monocytes (%) (Auto) 8.0 % Eosinophils (%) (Auto) 3.3 % Basophils (%) (Auto) 0.5 % Neutrophils # (Auto) 11.1 TH/MM3 Lymphocytes # (Auto) 0.9 TH/MM3 Monocytes # (Auto) 1.1 TH/MM3 Eosinophils # (Auto) 0.5 TH/MM3 Basophils # (Auto) 0.1 TH/MM3 CBC Comment DIFF FINAL Differential Comment Prothrombin Time 11.5 SEC Prothromb Time International 1.0 RATIO Ratio Activated Partial 22.5 SEC Thromboplast Time Sodium Level 139 MEQ/L Potassium Level 3.8 MEQ/L Chloride Level 104 MEQ/L Carbon Dioxide Level 28.6 MEQ/L Anion Gap 6 MEQ/L Blood Urea Nitrogen 15 MG/DL Creatinine 1.10 MG/DL Estimat Glomerular Filtration 68 ML/MIN Rate Random Glucose 120 MG/DL Lactic Acid Level 1.0 mmol/L Calcium Level 9.7 MG/DL Magnesium Level 2.1 MG/DL Total Bilirubin 0.9 MG/DL Aspartate Amino Transf 23 U/L (AST/SGOT) Alanine Aminotransferase 29 U/L (ALT/SGPT) Alkaline Phosphatase 60 U/L Total Creatine Kinase 52 U/L Troponin I 0.18 NG/ML Total Protein 6.2 GM/DL Albumin 3.4 GM/DL Lipase 1180 U/L Date/Time Procedure Status Source Growth 09/28/16 12:32 Aerobic Blood Culture Received Blood Peripheral Pending 09/28/16 12:32 Anaerobic Blood Culture Received Blood Peripheral Pending Physical Examination HEENT: Normocephalic; atraumatic; no jaundice. CHEST: CTA CARDIAC: RRR ABDOMEN: Soft, nondistended, moderate epigastric tenderness; no hepatosplenomegaly; bowel sounds are present in all four quadrants. EXTREMITIES: No clubbing, cyanosis, or edema. SKIN: Normal; no rash; no jaundice. 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 (Nissa Cates) Assessment and Plan Plan ASSESSMENT: - Acute pancreatitis with pseudocyst formation. 2-3 episodes of pancreatitis in the past. These were previously thought to be related to ETOH abuse and he stopped drinking ETOH 8 months ago. He was hospitalized in June of this year for abdominal pain and underwent cholecystectomy for acute cholecystitis. He has had ongoing bloating since that time. He woke up this am at 5am with severe sharp pain in epigastric area radiating to back and between shoulder blades. He was noted to have a lipase of 1180 with normal LFTs and mild leukocytosis. Abdomen/Pelvis CT (09/28/16)-----> 1. Findings characteristic of acute pancreatitis with peripancreatic inflammatory changes, free fluid around the spleen and liver as well as the deep pelvis and possibly developing 1.6 cm pseudocyst at the junction of the body and tail of the pancreas. 2. Stable Bosniak type II 3.8 cm cyst in the right kidney. NPO. IVF. PPI. Of note, he is on Wellbutrin and although rare, this has been associated with pancreatitis. Unclear etiology- ? PUD vs Acute on chronic pancreatitis vs medication induced vs autoimmune. - GERD, Globus sensation. PPI at home. Ongoing issues with this and bloating. Did have melena a few months ago and states it resolved. He quit taking NSAIDs just a few weeks ago. He was scheduled to have EGD on 10/02 as outpatient. - Elevated Troponin. Troponin I 0.02---> 0.18. Cardiology consulted. - COPD, Chronic back pain per primary. PLAN: - NPO - IVF - PPI - IgG 4 level - CBC, CMP, Lipase in am - Consider EGD once cleared by cardiology - Supportive care - ? Consider stopping wellbutrin if no other causes for his pancreatitis are identified. - Further recommendations to follow based on results of above - Pt seen and examined by Dr. Rivera and myself and this note is written on her behalf (Nissa Cates) Physician Comments seen, examined agree with above (Ruth Rivera MD) Nissa Cates Sep 28, 2016 17:38 Ruth Rivera MD Sep 28, 2016 19:00
--- NOTE | 2016-09-28 17:53 | MB ---
cc: RAKEL ALCOCER MD DATE OF CONSULTATION 09/28/16 REASON FOR CONSULTATION Elevated troponin. HISTORY OF PRESENT ILLNESS Mr. Barber is a 60-year-old man who does have a history pancreatitis and COPD. The patient presented to the hospital with complaints of severe epigastric pain. He says this pointing directly to his stomach. He notes that there was a football sized protrusion when he was having severe pain. He notes this is the same pain that he has had the past when he has had problems with his pancreas. The patient does not have any real precipitating or relieving factors. It denies any prior cardiac history. He does have some subxiphoid pain that does radiate into his abdomen. PAST MEDICAL HISTORY 1. COPD on home oxygen 2. Asthma 3. Tachycardia 4. Hypertension 5. CVA 6. Gastroesophageal reflux disease 7. Dark tools for which he is scheduled for colonoscopy. PAST SURGICAL HISTORY Laminectomy SOCIAL HISTORY The patient is a former substance abuse with cocaine and former smoker. ALLERGIES SHELLFISH PENICILLIN MEDICATIONS Outpatient medications 1. Aspirin. 2. Wellbutrin, 3. ProAir 4. Amlodipine. REVIEW OF SYSTEMS Except as mentioned in the HPI, all 12 systems are negative. PHYSICAL EXAMINATION VITAL SIGNS: 98.0, 82, 20, 160/109 GENERAL: he is a thin man who is in moderate distress. NECK: Free from JVD. LUNGS: Wheezing throughout CARDIOVASCULAR: He has a normal S1 and S2. I did not appreciate any murmurs, rubs or gallops. ABDOMEN: Exquisitely tender and does reproduce his pain EXTREMITIES: Free from edema. IMAGING STUDIES Chest x-ray is stable with biapical and right perihilar scarring. There is no acute infiltrate. LABORATORY FINDINGS initial troponin of 0.2 with a subsequent troponin of 0.18. His 1180. IMPRESSION 1. Non-ST elevation AL - it is not clear if this is a secondary or primary event. The patient did have aspirin today. At this point, given his pancreatitis which is the obvious etiology for his epigastric pain, we are going to pursue conservative management. An echocardiogram was appropriately ordered. He however at this time is not going to be able to cooperate secondary to the severe tenderness in the same region where the echo probe would go. His EKG does not show any acute events. I do agree with ruling him out. We can place him on beta dania which will assist with his blood pressure and his heart rate. Again, I am not inclined to start any heparin or stronger anticoagulants because of the possibility of complications with his pancreatitis and that I believe it is most likely a secondary AL from his hypertension and hypertensive spikes secondary to his pain. 2. Acute pancreatitis - this is being managed by the primary team. He is getting some pain medication. 3. Hypertension - as above. We are going top add beta dania. 4. Tachycardia ADDENDUM Beta-blockers were considered and felt to be relatively contraindicated secondary to his severe COPD on home oxygen. Katia Montanez/ /2:28 PM /8:59 AM
[2016-09-28] MEDS: PANTOPRAZOLE SODIUM 40 MG VIAL IV PUSH SCH (18:36)
[2016-09-28] MEDS: SODIUM CHLORIDE 0.9% FLUSH 10 ML FLUSH IV FLUSH SCH (20:21)
[2016-09-28] MEDS: SODIUM CHLORIDE 0.9% FLUSH 10 ML FLUSH IV FLUSH PRN (21:42)
--- NOTE | 2016-09-28 23:44 | EKG ---
Date Performed: 09/28/2016 Time Performed: 12:37:23 PTAGE: 60 years EKG: Sinus rhythm NORMAL ECG PREVIOUS TRACING : 09/03/2016 20.54 Compared to prior tracing no significant change DOCTOR: Willie Bennett Interpretating Date/Time 09/28/2016 23:42:35
[2016-09-29] VITALS (11 sets, daily range): BP systolic 125–162; BP diastolic 64–92; PULSE 70–86; RESP 16–20; TEMP 97.5–97.9; O2SAT 95–98
[2016-09-29] MEDS: MORPHINE SULFATE 4 MG/ML INJ IV PUSH PRN ×7 (00:56→22:49)
[2016-09-29] MEDS: SODIUM CHLORIDE 0.9% FLUSH 10 ML FLUSH IV FLUSH PRN ×2 (00:56→04:09)
[2016-09-29] MEDS: HEPARIN SODIUM - SQ 10,000 UNITS/ML VIAL SQ SCH ×2 (00:57→12:25)
[2016-09-29] MEDS: PANTOPRAZOLE SODIUM 40 MG VIAL IV PUSH SCH ×2 (04:08→16:49)
[2016-09-29 06:19] LABS: AUTOMATED NEUTROPHIL # 12.6 TH/MM3 (1.8-7.7); HEMATOCRIT 37.6 % (39.0-51.0); HEMO FLAGS DIFF FINAL; LYMPH % 1.5 % (9.0-44.0); LYMPHOCYTE # 0.2 TH/MM3 (1.0-4.8); MEAN CELL VOLUME 92.4 FL (80.0-100.0); MEAN CORPUSCULAR HEMOGLOBIN 30.4 PG (27.0-34.0); MEAN CORPUSCULAR HGB CONC 32.9 % (32.0-36.0); MONO % 5.1 % (0.0-8.0); NEUT % 93.4 % (16.0-70.0); PLATELET COUNT 201 TH/MM3 (150-450); RED BLOOD COUNT 4.07 MIL/MM3 (4.50-5.90); RED CELL DISTRIBUTION WIDTH 13.8 % (11.6-17.2); WHITE BLOOD COUNT 13.5 TH/MM3 (4.0-11.0)
[2016-09-29 07:16] LABS: ALKALINE PHOSPHATASE 95 U/L (45-117); ALT (GPT) 65 U/L (12-78); ANION GAP 7 MEQ/L (5-15); AST (GOT) 43 U/L (15-37); BICARBONATE 27.1 MEQ/L (21.0-32.0); BLOOD UREA NITROGEN 16 MG/DL (7-18); CHLORIDE 103 MEQ/L (98-107); GLOMERULAR FILTRATION RATE 80 ML/MIN (>89); HDL CHOLESTEROL 32.3 MG/DL (40.0-60.0); LDL CHOLESTEROL 81 MG/DL (0-99); POTASSIUM 4.2 MEQ/L (3.5-5.1); SODIUM (NA) 137 MEQ/L (136-145); TOTAL BILIRUBIN ADULT 0.8 MG/DL (0.2-1.0)
--- NOTE | 2016-09-29 08:13 | PD.CARD.PN ---
Subjective Subjective Remarks Pt c/o epigastric pain and a point tenderness in the lower axilla Objective Medications Current Medications Medications (Trade) Dose Ordered Sig/Devon Route Start Time Stop Time Status Last Admin (Lr 1000 ml Inj) 1,000 ml @ 100 mls/hr Q10H IV 09/28/16 13:45 09/28/16 20:22 (NS Flush) 2 ml UNSCH PRN IV FLUSH 09/28/16 13:45 09/29/16 04:09 (NS Flush) 2 ml BID IV FLUSH 09/28/16 21:00 (Tylenol) 650 mg Q4H PRN PO 09/28/16 13:45 (Zofran Inj) 4 mg Q6H PRN IVP 09/28/16 13:45 09/28/16 14:29 (Colace) 100 mg Q12HR PO 09/28/16 13:45 09/28/16 20:21 (Restoril) 15 mg HS PRN PO 09/28/16 13:45 (Heparin Inj) 5,000 units Q12H SQ 09/28/16 14:00 (Narcan Inj) 0.4 mg UNSCH PRN IV 09/28/16 13:45 (Morphine Inj) 4 mg Q3H PRN IV PUSH 09/28/16 14:00 09/29/16 04:09 (Norvasc) 5 mg DAILY PO 09/29/16 09:00 (Aspirin Chew) 81 mg DAILY CHEW 09/29/16 09:00 (Wellbutrin Sr) 150 mg DAILY PO 09/29/16 09:00 (Lipitor) 10 mg DAILY PO 09/29/16 09:00 (Dilaudid Pf Inj) 0.5 mg Q3H PRN IV PUSH 09/28/16 17:00 09/29/16 06:51 (Protonix Inj) 40 mg Q12H IV PUSH 09/28/16 18:00 09/29/16 04:08 Vital Signs / I&O Vital Signs Date Time Temp Pulse Resp B/P Pulse Ox O2 Delivery O2 Flow Rate FiO2 09/29/16 05:25 97.9 70 18 125/80 97 09/29/16 04:05 97.6 76 16 140/81 95 09/29/16 01:43 97.8 71 18 130/78 97 09/28/16 22:36 97.9 73 18 154/72 97 09/28/16 21:40 Nasal Cannula 2.00 09/28/16 20:08 77 09/28/16 16:27 98.5 84 18 134/79 95 09/28/16 15:20 87 15 144/73 97 Nasal Cannula 2 09/28/16 14:33 15 09/28/16 14:30 82 20 161/101 98 Nasal Cannula 2 09/28/16 12:16 22 99 Nasal Cannula 2 09/28/16 12:06 98.0 82 20 148/86 99 Physical Exam GENERAL: Well developed, well nourished. No acute distress. HEENT: Jugular venous pressure is normal. CHEST: Lungs clear to auscultation bilaterally. Unlabored respiratory effort. + tender to palp CARDIAC: Regular rate and rhythm without S3, S4, or murmur. ABDOMEN: + tender EXTREMITIES: No clubbing, cyanosis, or edema. Laboratory Laboratory Tests Test 09/28/16 09/28/16 09/29/16 09/29/16 12:28 19:16 00:13 05:44 White Blood Count 13.6 TH/MM3 13.5 TH/MM3 Red Blood Count 4.38 MIL/MM3 4.07 MIL/MM3 Hemoglobin 13.4 GM/DL 12.4 GM/DL Hematocrit 40.3 % 37.6 % Mean Corpuscular Volume 92.1 FL 92.4 FL Mean Corpuscular Hemoglobin 30.7 PG 30.4 PG Mean Corpuscular Hemoglobin 33.3 % 32.9 % Concent Red Cell Distribution Width 14.4 % 13.8 % Platelet Count 233 TH/MM3 201 TH/MM3 Mean Platelet Volume 7.4 FL 7.1 FL Neutrophils (%) (Auto) 81.8 % 93.4 % Lymphocytes (%) (Auto) 6.4 % 1.5 % Monocytes (%) (Auto) 8.0 % 5.1 % Eosinophils (%) (Auto) 3.3 % 0.0 % Basophils (%) (Auto) 0.5 % 0.0 % Neutrophils # (Auto) 11.1 TH/MM3 12.6 TH/MM3 Lymphocytes # (Auto) 0.9 TH/MM3 0.2 TH/MM3 Monocytes # (Auto) 1.1 TH/MM3 0.7 TH/MM3 Eosinophils # (Auto) 0.5 TH/MM3 0.0 TH/MM3 Basophils # (Auto) 0.1 TH/MM3 0.0 TH/MM3 CBC Comment DIFF FINAL DIFF FINAL Differential Comment Prothrombin Time 11.5 SEC Prothromb Time International 1.0 RATIO Ratio Activated Partial 22.5 SEC Thromboplast Time Sodium Level 139 MEQ/L Potassium Level 3.8 MEQ/L Chloride Level 104 MEQ/L Carbon Dioxide Level 28.6 MEQ/L Anion Gap 6 MEQ/L Blood Urea Nitrogen 15 MG/DL Creatinine 1.10 MG/DL Estimat Glomerular Filtration 68 ML/MIN Rate Random Glucose 120 MG/DL Lactic Acid Level 1.0 mmol/L Calcium Level 9.7 MG/DL Magnesium Level 2.1 MG/DL Total Bilirubin 0.9 MG/DL Aspartate Amino Transf 23 U/L (AST/SGOT) Alanine Aminotransferase 29 U/L (ALT/SGPT) Alkaline Phosphatase 60 U/L Total Creatine Kinase 52 U/L 44 U/L 51 U/L Troponin I 0.18 NG/ML 0.11 NG/ML 0.08 NG/ML Total Protein 6.2 GM/DL Albumin 3.4 GM/DL Lipase 1180 U/L Test 09/29/16 05:54 Sodium Level 137 MEQ/L Potassium Level 4.2 MEQ/L Chloride Level 103 MEQ/L Carbon Dioxide Level 27.1 MEQ/L Anion Gap 7 MEQ/L Blood Urea Nitrogen 16 MG/DL Creatinine 0.96 MG/DL Estimat Glomerular Filtration 80 ML/MIN Rate Random Glucose 127 MG/DL Calcium Level 9.6 MG/DL Total Bilirubin 0.8 MG/DL Aspartate Amino Transf 43 U/L (AST/SGOT) Alanine Aminotransferase 65 U/L (ALT/SGPT) Alkaline Phosphatase 95 U/L Troponin I 0.07 NG/ML Total Protein 6.0 GM/DL Albumin 3.2 GM/DL Triglycerides Level 71 MG/DL Cholesterol Level 127 MG/DL LDL Cholesterol 81 MG/DL HDL Cholesterol 32.3 MG/DL Cholesterol/HDL Ratio 3.93 RATIO Lipase 2062 U/L Imaging Last 72 hours Impressions Abdomen/Pelvis CT 09/28/16 1252 Signed Impressions: Service Date/Time: Wednesday, September 28, 2016 15:05 - CONCLUSION: 1. Findings characteristic of acute pancreatitis with peripancreatic inflammatory changes, free fluid around the spleen and liver as well as the deep pelvis and possibly developing 1.6 cm pseudocyst at the junction of the body and tail of the pancreas. 2. Stable Bosniak type II 3.8 cm cyst in the right kidney Roman Belle MD Chest X-Ray 09/28/16 1214 Signed Impressions: Service Date/Time: Wednesday, September 28, 2016 12:27 - CONCLUSION: 1. Stable chest with biapical and right perihilar scarring 2. No acute infiltrate Roman Belle MD Assessment and Plan Assessment and Plan 1. Non-ST elevation IN - it is not clear if this is a secondary or primary event - echocardiogram -now - trop up, CK negative -Pt and I discussed CV management and agree on conservative management for now as he is a poor revascularization candidate at this time and he does not want anticoagulation now 2. Acute pancreatitis - reasonable for pandoscopy if EF is normal 3. Hypertension - 4. Tachycardia Kourtney Neville MD Sep 29, 2016 08:13
[2016-09-29] MEDS: ASPIRIN 81 MG CHEW TAB CHEW SCH (08:31)
[2016-09-29] MEDS: SODIUM CHLORIDE 0.9% FLUSH 10 ML FLUSH IV FLUSH SCH ×2 (08:31→21:24)
[2016-09-29] MEDS: DOCUSATE SODIUM 100 MG CAP PO SCH ×2 (08:31→21:22)
[2016-09-29] MEDS: amLODIPine BESYLATE 5 MG TAB PO SCH (08:31)
[2016-09-29] MEDS: ATORVASTATIN 10 MG TAB PO SCH (08:31)
[2016-09-29] MEDS: LACTATED RINGER'S 1000 ML INJ 1,000 ML IV SCH ×2 (08:33→21:22)
[2016-09-29] MEDS ORDERED: buPROPion HCL 150 MG SUSTAINED RELEASE TAB PO SCH (09:00)
[2016-09-29] MEDS ORDERED: PANTOPRAZOLE SOD 40 MG DELAYED RELEASE TAB PO SCH (09:00)
--- NOTE | 2016-09-29 09:11 | MH ---
cc: YOMAIRA CONKLIN MD DATE OF ADMISSION: 09/28/2016 DATE OF :1955 CHIEF COMPLAINT Abdominal pain and chest pain. No travel in the last 30 days. HISTORY OF PRESENT ILLNESS This is a 60-year-old white male who has been in his usual state of health up until the past few days. He has noted some gas and bloating type sensation over the past few days. He states that he has gone to the bathroom and had bowel movements but he felt like he was constipated at the same time and accompanied with the gas and bloating. He has had a decreased appetite and has had a weak and dizzy sensation but no syncopal episodes. This a.m. the patient was awakened with acute left upper quadrant abdominal pain which he felt like was swollen in that area. He is also complaining of some mid sternal chest pain and epigastric pain which radiates up into his neck. The patient describes the pain as severe, sharp, states it waxes and wanes. He does note some palpitations at times today but also has palpitations chronically. The patient had his gallbladder removed in June but has continued to have problems with left upper quadrant pain. The patient also has a significant history of COPD and uses O2 at home. According to the record, the patient had a remote history of drug abuse but states he has been clean for two years. He has had no alcohol for the past 8 to 9 months. PAST MEDICAL HISTORY: 1. Arthritis 2. Asthma 3. COPD. Currently on home O2. 4. Anxiety, depression. 5. Tachycardia 6. Hypertension 7. Old CVA. 8. Chest pain but no significant cardiac history of coronary artery disease. 9. GERD. 10. Headache. 11. Neck pain. 12. Chronic pain. 13. Childhood hyperglycemia. 14. Degenerative disc disease. 15. Pancreatitis. 16. Sleep apnea but it is undiagnosed. PAST SURGICAL HISTORY Cholecystectomy Tonsillectomy Laminectomy ALLERGIES PENICILLIN AND SHELLFISH. MEDICATIONS 1. Pantoprazole. 2. Aspirin. 3. Wellbutrin 4. ProAir inhaler. 5. Norvasc. SOCIAL HISTORY Quit alcohol 12/18/2015 according to the record, quit tobacco 01/25 according to the record, no current illicit drug use. The patient has who is currently at his bedside. REVIEW OF SYSTEMS A 12-point review was obtained. Positives noted in the HPI which include acute severe stabbing epigastric pain, left-sided chest pain, and left upper quadrant pain. Gas sensation, bloating, decreased appetite, generalized weakness, generalized dizziness, palpitations off and on. Other systems negative or unremarkable unless mentioned in the HPI. PHYSICAL EXAMINATION: Vital signs: temperature is 98, pulse 82, respirations 20, blood pressure 148/86 and 161/101, O2 sat 98 on 2 liters nasal cannula. GENERAL: Thin white male looks older than his stated age, resting on the stretcher. He is very anxious, alert, fair historian. SKIN: [place], warm and dry. HEENT: Atraumatic, normocephalic. CONNIE. Mucous membranes are pink and moist. NECK: Thin, supple. Heart sounds S1-S2, distant heart sounds with no murmurs, rubs or gallops appreciated. No edema. Pulses are intact. RESPIRATORY: Generalized diminished breath sounds. Mild expiratory wheezing noted in his lower lobes, especially on the left side. No rhonchi. GI: Abdomen is soft, except for the left upper quadrant. He does have some tenderness but no distension noted. Active bowel sounds noted upper and lower. MUSCULOSKELETAL: Moves his extremities with purpose. No edema. No clubbing. Pulses are intact. NEUROLOGIC: Anxious, awake, alert, crying out for pain meds. Speech is clear. PSYCHIATRIC: Insight and judgment appears normal but very anxious at this time. DIAGNOSTIC DATA: WBC count 13.6, RBC 4.38, hemoglobin 13.4, hematocrit 40.3, platelet count 233. Neutrophil auto percentage 81.8, lymphocytes 6.4, sodium 139, potassium 3.8, chloride 104, carbon dioxide 28.6, anion gap 6, BUN 15, creatinine 1.1, GFR 68, random glucose 120, lactic acid 1, calcium 9.7, magnesium 2.1, bilirubin 0.9, AST 23, ALT 29, alkaline phosphatase 60, troponin 0.18, total protein 6.2, albumin 3.4, lipase 1180, PT/INR is 1. Chest x-ray shows stable chest. No acute infiltrate. CT scan is pending. ASSESSMENT: 1. Acute pancreatitis. 2. Chest pain with elevated troponin, rule out cardiac event. 3. COPD exacerbation. 4. Leukocytosis. 5. Hyperglycemia in the presence of non-diabetic. 6. Tobacco abuse. 7. History of acute on chronic pain. PLAN: Admit. In the emergency room the patient required constant ECG monitoring, pulse ox O2. Labs were drawn. The patient received morphine and Zofran IV for pain. He is currently unrelieved and asking for increased pain meds. He had methylprednisolone IV. Gentle hydration. We are now admitting the patient, inpatient status, place on observation. The patient will receive pain management, reconcile his medications. Protonix for PPI prophylaxis, DVT prophylaxis with heparin. Consult cardiology for their expert opinion. Patient does have elevated troponins and may need further testing. Lipid profile, consult GI for their expert opinion. The patient had his gallbladder removed in June but continues to have episodes of left upper quadrant pain and possible pancreatitis. Once labs are workup is completed, we will continue to evaluate the needs of the patient based on the findings of his treatment plan. Patient possibly could be having a non-STEMI complicated with pancreatitis. Patient is full code, full aggressive care. We will follow. Dictated by: KAM Duvall MD OSMANI Moser/KAREN /2:46 PM /9:09 AM
--- NOTE | 2016-09-29 10:17 | HHI.PR ---
Subjective Remarks Resting in bed, eyes closed until I entered the room Chief issue is his pain control, but appeared comfortable when I went and. No family present No acute shortness of breath Left upper quadrant pain is chief complaint Nothing by mouth Afebrile Objective Objective Results - Vital Signs Date Time Temp Pulse Resp B/P Pulse Ox O2 Delivery O2 Flow Rate FiO2 09/29/16 08:10 73 09/29/16 08:10 73 09/29/16 08:00 97.5 78 20 162/92 97 09/29/16 05:25 97.9 70 18 125/80 97 09/29/16 04:05 97.6 76 16 140/81 95 09/29/16 01:43 97.8 71 18 130/78 97 09/28/16 22:36 97.9 73 18 154/72 97 09/28/16 21:40 Nasal Cannula 2.00 09/28/16 20:08 77 09/28/16 16:27 98.5 84 18 134/79 95 09/28/16 15:20 87 15 144/73 97 Nasal Cannula 2 09/28/16 14:33 15 09/28/16 14:30 82 20 161/101 98 Nasal Cannula 2 09/28/16 12:16 22 99 Nasal Cannula 2 09/28/16 12:06 98.0 82 20 148/86 99 Result Diagram: 09/29/16 0544 09/29/16 0554 ROS General: Fatigue, Weakness, Other (10 point ROS done, right upper quadrant and epigastric pain continues, pain management otherwise other systems negative) Cardiac: Chest Pain (epigastric left side) Pulmonary: Cough (occasional) Physical Exam Physical Exam PHYSICAL EXAMINATION GENERAL: This is a thin male Resting in the bed. He is lightly dozing but wakes up very quickly HEAD: Normocephalic without any lesion or mass noted. Facial features appear symmetric. OROPHARYNGEAL: Oropharynx without erythema or edema. NECK: Supple. No nuchal rigidity or lymphadenopathy. Trachea midline without deviation. CARDIAC: Regular rhythm, regular rate, S1 and S2 are heard. . LUNGS: Mild diminished to auscultation bilaterally. Mild expiratory wheeze, no rhonchi or no rale. No use of accessory muscles on inspiration or expiration. ABDOMEN: Soft, left upper quadrant tenderness, no organomegaly or masses. Bowel sounds are heard in all four quadrants. Mild guarding. EXTREMITIES: no edema. Pulses equal bilateral. . NEUROLOGICAL: Patient mood and affect appropriate with some anxiety SKIN:Warm and moist Objective Remarks I have a slept in 28 hours A/P Assessment and Plan 1. Acute pancreatitis. 2. Chest pain with elevated troponin, rule out cardiac event. 3. COPD exacerbation. 4. Leukocytosis. 5. Hyperglycemia in the presence of non-diabetic. 6. Tobacco abuse. 7. History of acute on chronic pain. PLAN: Pain control, acute on chronic ,patient continues to have left upper quadrant and epigastric pain. Chief concern is his pain medicines. Mild anxiety ed troponins and may need GI consult and following patient, nothing by mouth, IV fluids infusing, planned for EGD hopefully today. According to cardiology note patient should be okay for further testing. Cardiology consult appreciate. Patient has probably had a non-STEMI, but for now we will opt for conservative treatment. Vital signs reviewed, and is afebrile, BP 162/92, Will add by mouth when necessary meds if patient's blood pressure continues to climb. Labs reviewed, leukocytosis continues essentially unchanged at 13.5, hemoglobin stable at 12.4, blood sugar continues to show some hyperglycemia patient is not a known diabetic will monitor. Possibly secondary to stress, versus borderline diabetes Tobacco abuse discussed and educated for abstinence COPD exacerbation, IV steroids 1 dose on admission, oxygen, medical management , acute on chronic issues, no acute shortness of breath Supportive care DVT prophylaxis PPI IV for now Rachelle Ogden Sep 29, 2016 10:17
[2016-09-29] MEDS: MIRTAZAPINE 15 MG TAB PO SCH (21:22)
[2016-09-29] MEDS: DICYCLOMINE HCL 20 MG TAB PO SCH (21:22)
--- NOTE | 2016-09-29 22:02 | EC ---
Study Study Date:09/29/2016 STUDY CONCLUSIONS SUMMARY - Left ventricle: The cavity size was normal. Wall thickness was normal. Systolic function was normal. The estimated ejection fraction was 60%. Wall motion was normal; there were no regional wall motion abnormalities. - Pulmonary arteries: Systolic pressure was mildly to moderately increased. PA peak pressure: 49mm Hg (S). If LV function is below 40, please consider prescribing an ACEI or ARB or document rationale for non-use. PROCEDURE DATA STUDY STATUS: Elective. Procedure: Transthoracic echocardiography. Image quality was good. Scanning was performed from the parasternal, apical, and subcostal acoustic windows. Study completion: The patient tolerated the procedure well. Transthoracic echocardiography. M-mode, complete 2D, complete spectral Doppler, and color Doppler. Height: Height: 73in. Weight: Weight: 132.7lb. Body mass index: BMI: 17.5kg/m^2. Body surface area: BSA: 1.81m^2. Patient status: Inpatient. CARDIAC ANATOMY LEFT VENTRICLE: The cavity size was normal. Wall thickness was normal. Systolic function was normal. The estimated ejection fraction was 60%. Wall motion was normal; there were no regional wall motion abnormalities. AORTIC VALVE: Trileaflet; normal thickness leaflets. Doppler: Transvalvular velocity was within the normal range. There was no stenosis. No regurgitation. Valve area: 2.66cm^2(VTI). Indexed valve area: 1.47cm^2/m^2 (VTI). Valve area: 2.49cm^2 (Vmax). Indexed valve area: 1.38cm^2/m^2 (Vmax). Mean gradient: 3mm Hg (S). AORTA: Aortic root: The aortic root was normal in size. MITRAL VALVE: Structurally normal valve. Doppler: Transvalvular velocity was within the normal range. There was no evidence for stenosis. Trace regurgitation. Peak gradient: 5mm Hg (D). LEFT ATRIUM: The atrium was normal in size. RIGHT VENTRICLE: The cavity size was normal. Wall thickness was normal. PULMONIC VALVE: Doppler: Transvalvular velocity was within the normal range. There was no evidence for stenosis. No regurgitation. TRICUSPID VALVE: Structurally normal valve. Doppler: Transvalvular velocity was within the normal range. Trace regurgitation. PULMONARY ARTERY: The main pulmonary artery was normal-sized. Systolic pressure was mildly to moderately increased. RIGHT ATRIUM: The atrium was normal in size. PERICARDIUM: There was no pericardial effusion. SYSTEMIC VEINS: Inferior vena cava: The vessel was normal in size. Patient weight: 132.7lb _Ejection fraction:_ 65-75% _Fractional shortening:_ 32% up to 5Kg 5-11.5Kg 11.6-22.9Kg 23-45Kg 45-57Kg Aortic Root 7-13 <17 13-22 17-27 17-27 LA diam 6-13 <23 24-38 33-47 37-40 RVID 10-17 7-15 7-15 7-18 8-17 LVIDd 12-22 <32 24-38 33-47 37-40 LVPW 2-4 3-6 5-7 6-8 7-8 IVS 2-4 3-6 5-7 6-8 7-8 BASIC MEASUREMENTS ADULT NORMAL Left ventricle LV internal dimension, ED, chordal *34.3 mm 43-52 level, PLAX LV internal dimension, ES, chordal *20.7 mm 23-38 level, PLAX Fractional shortening, chordal level, 40 % >29 PLAX LV posterior wall thickness, ED 8.96 mm IVS/LVPW ratio, ED 0.93 <1.3 Ventricular septum Septal thickness, ED 8.33 mm Aortic valve Leaflet separation 21 mm 15-26 Aorta Root diameter, ED 33 mm BASIC MEASUREMENTS ADULT NORMAL Aortic valve Leaflet separation 21 mm 15-26 DOPPLER MEASUREMENTS ADULT NORMAL Main pulmonary artery Pressure, S *49 mm Hg =30 Aortic valve Peak velocity, S 112 cm/s Mean velocity, S 78.5 cm/s VTI, S 19.8 cm Mean gradient, S 3 mm Hg Valve area, VTI 2.66 cm^2 Valve area index, VTI 1.47 cm^2/m^2 Valve area, Vmax 2.49 cm^2 Valve area index, Vmax 1.38 cm^2/m^2 Mitral valve Peak E-wave velocity 115 cm/s Peak A-wave velocity 105 cm/s Deceleration time *306 ms 150-230 Peak gradient, D 5 mm Hg Peak E/A ratio 1.1 Tricuspid valve Regurgitant peak velocity 324 cm/s Peak RV-RA gradient, S 42 mm Hg Maximal regurgitant velocity 324 cm/s Systemic veins Estimated CVP 10 mm Hg Right ventricle RV pressure, S *52 mm Hg <30 Pulmonic valve Peak velocity, S 85.7 cm/s LEGEND: Mean values are shown as u=mean value. Asterisk (*) beal values outside specified normal range. Prepared and signed by Alejandro Nieves [id number]
[2016-09-30] VITALS (8 sets, daily range): BP systolic 128–145; BP diastolic 60–90; PULSE 76–106; RESP 18–20; TEMP 97.7–98.3; O2SAT 93–98
[2016-09-30] MEDS: HEPARIN SODIUM - SQ 10,000 UNITS/ML VIAL SQ SCH ×2 (01:46→13:59)
[2016-09-30] MEDS: MORPHINE SULFATE 4 MG/ML INJ IV PUSH PRN ×8 (01:47→23:57)
[2016-09-30] MEDS: PANTOPRAZOLE SODIUM 40 MG VIAL IV PUSH SCH ×2 (04:42→17:01)
[2016-09-30] MEDS: LACTATED RINGER'S 1000 ML INJ 1,000 ML IV SCH ×2 (04:42→15:45)
--- NOTE | 2016-09-30 07:30 | PD.CARD.PN ---
Subjective Subjective Remarks PT is CP free Objective Medications Current Medications Medications (Trade) Dose Ordered Sig/Devon Route Start Time Stop Time Status Last Admin (Lr 1000 ml Inj) 1,000 ml @ 100 mls/hr Q10H IV 09/28/16 13:45 09/30/16 04:42 (NS Flush) 2 ml UNSCH PRN IV FLUSH 09/28/16 13:45 09/29/16 04:09 (NS Flush) 2 ml BID IV FLUSH 09/28/16 21:00 09/29/16 21:24 (Tylenol) 650 mg Q4H PRN PO 09/28/16 13:45 (Zofran Inj) 4 mg Q6H PRN IVP 09/28/16 13:45 09/28/16 14:29 (Colace) 100 mg Q12HR PO 09/28/16 13:45 09/29/16 21:22 (Restoril) 15 mg HS PRN PO 09/28/16 13:45 (Heparin Inj) 5,000 units Q12H SQ 09/28/16 14:00 (Narcan Inj) 0.4 mg UNSCH PRN IV 09/28/16 13:45 (Morphine Inj) 4 mg Q3H PRN IV PUSH 09/28/16 14:00 09/30/16 04:42 (Norvasc) 5 mg DAILY PO 09/29/16 09:00 09/29/16 08:31 (Aspirin Chew) 81 mg DAILY CHEW 09/29/16 09:00 09/29/16 08:31 (Lipitor) 10 mg DAILY PO 09/29/16 09:00 09/29/16 08:31 (Dilaudid Pf Inj) 0.5 mg Q3H PRN IV PUSH 09/28/16 17:00 09/29/16 06:51 (Protonix Inj) 40 mg Q12H IV PUSH 09/28/16 18:00 09/30/16 04:42 (Bentyl) 20 mg TID PO 09/29/16 18:30 09/29/16 21:22 (Remeron) 15 mg HS PO 09/29/16 21:00 09/29/16 21:22 Vital Signs / I&O Vital Signs Date Time Temp Pulse Resp B/P Pulse Ox O2 Delivery O2 Flow Rate FiO2 09/30/16 04:08 97.9 76 18 138/60 93 09/29/16 23:45 97.8 86 18 130/78 95 09/29/16 20:15 97.8 80 18 139/64 98 09/29/16 20:00 73 09/29/16 19:49 Nasal Cannula 3.00 09/29/16 17:35 95 Nasal Cannula 2.00 09/29/16 16:00 97.9 75 20 154/87 95 09/29/16 12:00 97.8 80 20 150/80 98 09/29/16 08:10 73 09/29/16 08:10 73 09/29/16 08:00 97.5 78 20 162/92 97 I/O 09/29/16 09/29/16 09/29/16 09/30/16 09/30/16 09/30/16 07:00 15:00 23:00 07:00 15:00 23:00 Intake Total 0 ml 0 ml Output Total 975 ml 425 ml 350 ml Balance -975 ml -425 ml -350 ml Intake Oral 0 ml 0 ml Output Urine Total 975 ml 425 ml 350 ml # Bowel Movements 0 0 Physical Exam GENERAL: Well developed, well nourished. No acute distress. HEENT: Jugular venous pressure is normal. CHEST: Lungs wheeze to auscultation bilaterally. Unlabored respiratory effort. CARDIAC: Regular rate and rhythm without S3, S4, or murmur. ABDOMEN: Soft, EXTREMITIES: No clubbing, cyanosis, or edema. Imaging Last 72 hours Impressions Abdomen/Pelvis CT 09/28/16 1252 Signed Impressions: Service Date/Time: Wednesday, September 28, 2016 15:05 - CONCLUSION: 1. Findings characteristic of acute pancreatitis with peripancreatic inflammatory changes, free fluid around the spleen and liver as well as the deep pelvis and possibly developing 1.6 cm pseudocyst at the junction of the body and tail of the pancreas. 2. Stable Bosniak type II 3.8 cm cyst in the right kidney Roman Belle MD Chest X-Ray 09/28/16 1214 Signed Impressions: Service Date/Time: Wednesday, September 28, 2016 12:27 - CONCLUSION: 1. Stable chest with biapical and right perihilar scarring 2. No acute infiltrate Roman Belle MD Assessment and Plan Assessment and Plan 1. Non-ST elevation MD - it is not clear if this is a secondary or primary event - echocardiogram - normal EF - trop up, CK negative -Pt and I discussed CV management and agree on conservative management for now as he is a poor revascularization candidate, at this time secondary to his pancreatitis. Consider nuc vs cath later. 2. Acute pancreatitis - reasonable for EGD/colonoscopy and drainage of pseudocyst, though he will be at moderate to high risk 3. Hypertension - 4. Tachycardia 5. COPD- Kourtney Neville MD Sep 30, 2016 07:30 Kourtney Neville MD Sep 30, 2016 07:30
[2016-09-30] MEDS: ASPIRIN 81 MG CHEW TAB CHEW SCH (07:43)
[2016-09-30] MEDS: ATORVASTATIN 10 MG TAB PO SCH (07:43)
[2016-09-30] MEDS: DOCUSATE SODIUM 100 MG CAP PO SCH ×2 (07:43→20:35)
[2016-09-30] MEDS: SODIUM CHLORIDE 0.9% FLUSH 10 ML FLUSH IV FLUSH SCH ×2 (07:44→20:35)
[2016-09-30] MEDS: amLODIPine BESYLATE 5 MG TAB PO SCH (07:44)
[2016-09-30] MEDS: DICYCLOMINE HCL 20 MG TAB PO SCH ×3 (07:44→17:01)
--- NOTE | 2016-09-30 10:27 | HHI.PR ---
Subjective Subjective Remarks abdomen less sore no n/v no cp mild wheezing no sob anxious to go home today after EGD Review of Systems Constitutional Constitutional Remarks 12 point ROS completed, negative except as noted above Vitals/Results Intake & Output 09/29/16 09/29/16 09/30/16 14:59 22:59 06:59 Intake Total 0 ml 0 ml Output Total 975 ml 425 ml 350 ml Balance -975 ml -425 ml -350 ml Intake Oral 0 ml 0 ml Output Urine Total 975 ml 425 ml 350 ml # Bowel Movements 0 0 Vital Signs Vital Signs Date Time Temp Pulse Resp B/P Pulse Ox O2 Delivery O2 Flow Rate FiO2 09/30/16 08:10 90 09/30/16 08:10 Nasal Cannula 3.00 09/30/16 08:00 97.7 88 20 145/88 94 09/30/16 04:08 97.9 76 18 138/60 93 09/29/16 23:45 97.8 86 18 130/78 95 09/29/16 20:15 97.8 80 18 139/64 98 09/29/16 20:00 73 09/29/16 19:49 Nasal Cannula 3.00 09/29/16 17:35 95 Nasal Cannula 2.00 09/29/16 16:00 97.9 75 20 154/87 95 09/29/16 12:00 97.8 80 20 150/80 98 CBC/BMP: 09/29/16 0544 09/29/16 0554 Physical Exam General General Appearance: Well Developed, Comfortable Eyes Eye Exam: Pupils Equal, Pupils Reactive Ears & Nose Ears & Nose Exam: Nasal Mucosa [place] Throat Throat Exam: Oral Mucosa [place] & Moist Neck Neck Exam: Neck Supple, Trachea Midline Pulmonary Resp Exam: No Distress, Decreased Bases Resp Remarks exp. wheezing Cardiology CV Exam: Regular Gastrointestinal/Abdomen GI Exam: Soft, Bowel Sounds Present, Non-Distended, Bowel Sounds Hypoactive Musculoskeletal MS Exam: Joints Intact Integumentary Skin Exam: Warm, Dry Extremeties Extremities Exam: No Edema, Pedal Pulses Palpable Neurologic Neuro Exam: Alert, Awake, Oriented, Speech Clear, Moving All Extremities, No Focal Deficits Psychiatric Psych Exam: Appropriate Responses VTE Prophylaxis VTE Prophylaxis Device: SCDs PUD Prophylasis PUD Prophylaxis: Protonix Assessment/Plan Problem List: (1) Chest pain (2) Pancreatitis (3) Chronic neck and back pain (4) Hypertension (5) Pseudocyst of pancreas (6) COPD exacerbation (7) Elevated troponin (8) Tobacco abuse Assessment/Plan no chest, + trop +NSTEMI per cardiology input medical management recommended for now, poss. STT vs cath later continue ASA Echo ok EF lipid profile noted Pancreatitis, CT abd. + pseudocyst off Wellbutrin Lipase remains elevated, pain better controlled NPO continue IVF Pain management EGD for today, f/ur results Duonebs PRN Continue some home meds SCDs/heparin for DVT prophylaxis PPI for GI prophylaxis Repeat lipase in am Poss. dc in am if pain improved. D/W RN D/W Dr. Doran D/W pt. This patient was seen by myselfa & , this note is written on his behalf. Problem Qualifiers (1) Chest pain: Qualified Code: R07.9 - Chest pain, unspecified type (2) Pancreatitis: Qualified Code: K85.90 - Acute pancreatitis, unspecified complication status, unspecified pancreatitis type (3) Hypertension: Qualified Code: I10 - Essential hypertension Lani Angela [facility] Sep 30, 2016 10:27
[2016-09-30] MEDS: SODIUM CHLORIDE 0.9% FLUSH 10 ML FLUSH IV FLUSH PRN (10:48)
--- NOTE | 2016-09-30 10:53 | HHI.DCPOC ---
Discharge Care Plan Diagnosis: (1) Pancreatitis (2) Chest pain Your Health Problems Are: Chest Pain Goals to Promote Your Health * To prevent worsening of your condition and complications * To maintain your health at the optimal level Directions to Meet Your Goals Take your medications as prescribed Follow your dietary instruction Follow activity as directed Keep your appointments as scheduled Take your immunizations and boosters as scheduled If your symptoms worsen call your PCP, if no PCP go to Urgent Care Center or Emergency Room Smoking is Dangerous to Your Health. Avoid second hand smoke Call the 24-hour hour crisis hotline for domestic abuse at Lani Angela. [facility] Sep 30, 2016 10:53
[2016-09-30] MEDS ORDERED: PROPOFOL 200 MG/20 ML AMP IV ONE (12:49)
--- NOTE | 2016-09-30 12:55 | GIPROC ---
[facility] [address] [facility]. [facility], [address] EGD PROCEDURE REPORT EXAM DATE: 09/30/2016 PATIENT NAME: Julius Barber MR #: [id number] BIRTHDATE: 1955 ATTENDING: Ruth Rivera MD ORDER #: [id number] TERRAZZO LABORER: Tommy Toney and Mayte Patricia STATUS: inpatient INDICATIONS: The patient is a 60 yr old male here for an EGD due to abdominal pain, pancreatitis PROCEDURE PERFORMED: EGD w/ biopsy MEDICATIONS: Per Anesthesia and None. TOPICAL ANESTHETIC: none CONSENT: The patient understands the risks and benefits of the procedure and understands that these risks include, but are not limited to: sedation, allergic reaction, infection, perforation and/or bleeding. Alternative means of evaluation and treatment include, among others: physical exam, x-rays, and/or surgical intervention. The patient elects to proceed with this endoscopic procedure. medical equipment was checked for proper function. Hand hygiene and appropriate measures for infection prevention was taken. After the risks, benefits and alternatives of the procedure were thoroughly explained, Informed consent was verified, confirmed and timeout was successfully executed by the treatment team. The patient was anesthetized with topical anesthesia and the Pentax [id number] and [id number] endoscope was introduced through the mouth and advanced to the second portion of the duodenum. Retroflexed views revealed a hiatal hernia The gastroscope was then slowly withdrawn and removed. Gastritis antrum-biopsy esophagitis distal -biopsy. ADVERSE EVENTS: There were no complications. IMPRESSIONS: 1. Gastritis antrum-biopsy esophagitis distal -biopsy 2. Retroflexed views revealed a hiatal hernia RECOMMENDATIONS: 1. Await biopsy results. Biopsy results will not be ready for 7-10 days. If you don't hear from us in two weeks, call our office for biopsy results. 2. Anti-reflux regimen 3. Continue PPI 4. Clear liquids PATIENT CONDITION: stable DISPOSITION: Inpatient REPEAT EXAM: EGD pending biopsy results Ruth Rivera MD eSigned: Ruth Rivera MD 09/30/2016 12:54 PM cc:
[2016-09-30] MEDS ORDERED: DO NOT ADM ANY ANTICOAGULANT DRUGS PRN (13:45)
[2016-09-30] MEDS: MIRTAZAPINE 15 MG TAB PO SCH (20:35)
[2016-10-01] MEDS: LACTATED RINGER'S 1000 ML INJ 1,000 ML IV SCH ×2 (00:28→12:52)
[2016-10-01] MEDS: HEPARIN SODIUM - SQ 10,000 UNITS/ML VIAL SQ SCH ×2 (00:28→12:52)
[2016-10-01] MEDS: SODIUM CHLORIDE 0.9% FLUSH 10 ML FLUSH IV FLUSH PRN (03:05)
[2016-10-01] MEDS: MORPHINE SULFATE 4 MG/ML INJ IV PUSH PRN ×4 (03:05→12:51)
[2016-10-01 04:59] VITALS: BP 132/69; PULSE 82; RESP 18; TEMP 97.9; O2SAT 98
[2016-10-01] MEDS: PANTOPRAZOLE SODIUM 40 MG VIAL IV PUSH SCH (05:57)
[2016-10-01 07:26] LABS: AUTOMATED NEUTROPHIL # 11.2 TH/MM3 (1.8-7.7); BASOPHIL % 0.4 % (0.0-2.0); EOSINOPHIL # 0.4 TH/MM3 (0-0.4); EOSINOPHIL % 2.9 % (0.0-4.0); HEMATOCRIT 33.8 % (39.0-51.0); HEMO FLAGS DIFF FINAL; LYMPH % 5.3 % (9.0-44.0); LYMPHOCYTE # 0.7 TH/MM3 (1.0-4.8); MEAN CELL VOLUME 92.8 FL (80.0-100.0); MEAN CORPUSCULAR HEMOGLOBIN 30.3 PG (27.0-34.0); MEAN CORPUSCULAR HGB CONC 32.7 % (32.0-36.0); MONO % 7.7 % (0.0-8.0); NEUT % 83.7 % (16.0-70.0); PLATELET COUNT 176 TH/MM3 (150-450); RED BLOOD COUNT 3.64 MIL/MM3 (4.50-5.90); RED CELL DISTRIBUTION WIDTH 13.8 % (11.6-17.2); WHITE BLOOD COUNT 13.4 TH/MM3 (4.0-11.0)
--- NOTE | 2016-10-01 07:47 | PD.CARD.PN ---
Subjective Subjective Remarks Pt without CV complaints Objective Medications Current Medications Medications (Trade) Dose Ordered Sig/Devon Route Start Time Stop Time Status Last Admin (Lr 1000 ml Inj) 1,000 ml @ 100 mls/hr Q10H IV 09/28/16 13:45 10/01/16 00:28 (NS Flush) 2 ml UNSCH PRN IV FLUSH 09/28/16 13:45 10/01/16 03:05 (NS Flush) 2 ml BID IV FLUSH 09/28/16 21:00 09/30/16 20:35 (Tylenol) 650 mg Q4H PRN PO 09/28/16 13:45 (Zofran Inj) 4 mg Q6H PRN IVP 09/28/16 13:45 09/28/16 14:29 (Colace) 100 mg Q12HR PO 09/28/16 13:45 09/30/16 20:35 (Restoril) 15 mg HS PRN PO 09/28/16 13:45 (Heparin Inj) 5,000 units Q12H SQ 09/28/16 14:00 (Narcan Inj) 0.4 mg UNSCH PRN IV 09/28/16 13:45 (Morphine Inj) 4 mg Q3H PRN IV PUSH 09/28/16 14:00 10/01/16 06:01 (Norvasc) 5 mg DAILY PO 09/29/16 09:00 09/30/16 07:44 (Aspirin Chew) 81 mg DAILY CHEW 09/29/16 09:00 09/30/16 07:43 (Lipitor) 10 mg DAILY PO 09/29/16 09:00 09/30/16 07:43 (Dilaudid Pf Inj) 0.5 mg Q3H PRN IV PUSH 09/28/16 17:00 09/29/16 06:51 (Protonix Inj) 40 mg Q12H IV PUSH 09/28/16 18:00 10/01/16 05:57 (Bentyl) 20 mg TID PO 09/29/16 18:30 09/30/16 17:01 (Remeron) 15 mg HS PO 09/29/16 21:00 09/30/16 20:35 Miscellaneous Information ALL NURSING DEPARTME... UNSCH PRN .XX 09/30/16 13:45 10/01/16 13:44 Vital Signs / I&O Vital Signs Date Time Temp Pulse Resp B/P Pulse Ox O2 Delivery O2 Flow Rate FiO2 10/01/16 04:59 97.9 82 18 132/69 98 09/30/16 23:37 98.2 78 18 145/70 95 09/30/16 21:18 97.9 95 18 128/78 98 09/30/16 20:00 97 09/30/16 20:00 Nasal Cannula 3.00 09/30/16 16:00 98.3 106 20 141/90 94 09/30/16 13:40 98.9 86 12 133/88 98 Nasal Cannula 2 09/30/16 13:30 86 12 135/86 98 Nasal Cannula 2 09/30/16 13:15 100.3 82 12 149/87 98 Nasal Cannula 2 09/30/16 12:00 98.2 99 20 139/85 98 09/30/16 08:10 90 09/30/16 08:10 Nasal Cannula 3.00 09/30/16 08:00 97.7 88 20 145/88 94 I/O 09/30/16 09/30/16 09/30/16 10/01/16 10/01/16 10/01/16 07:00 15:00 23:00 07:00 15:00 23:00 Intake Total 0 ml 200 ml 1670 ml 1258 ml Output Total 350 ml 0 ml 850 ml Balance -350 ml 200 ml 1670 ml 408 ml Intake Oral 0 ml 360 ml 360 ml IV Total 1310 ml 898 ml Other 200 ml Output Urine Total 350 ml 0 ml 850 ml # Bowel Movements 0 0 0 Physical Exam GENERAL: Well developed, well nourished. No acute distress. HEENT: Jugular venous pressure is normal. CHEST: Lungs decreased to auscultation bilaterally. Unlabored respiratory effort. CARDIAC: Regular rate and rhythm without S3, S4, or murmur. ABDOMEN: Soft, EXTREMITIES: No clubbing, cyanosis, or edema. Laboratory Laboratory Tests Test 09/30/16 10/01/16 19:06 06:40 Lipase 930 U/L White Blood Count 13.4 TH/MM3 Red Blood Count 3.64 MIL/MM3 Hemoglobin 11.0 GM/DL Hematocrit 33.8 % Mean Corpuscular Volume 92.8 FL Mean Corpuscular Hemoglobin 30.3 PG Mean Corpuscular Hemoglobin 32.7 % Concent Red Cell Distribution Width 13.8 % Platelet Count 176 TH/MM3 Mean Platelet Volume 7.3 FL Neutrophils (%) (Auto) 83.7 % Lymphocytes (%) (Auto) 5.3 % Monocytes (%) (Auto) 7.7 % Eosinophils (%) (Auto) 2.9 % Basophils (%) (Auto) 0.4 % Neutrophils # (Auto) 11.2 TH/MM3 Lymphocytes # (Auto) 0.7 TH/MM3 Monocytes # (Auto) 1.0 TH/MM3 Eosinophils # (Auto) 0.4 TH/MM3 Basophils # (Auto) 0.0 TH/MM3 CBC Comment DIFF FINAL Differential Comment Assessment and Plan Assessment and Plan 1. Non-ST elevation [place] -likely secondary - echocardiogram - normal EF - trop up, CK negative; on aspirin, BB contraindicated with COPD -nuc stress today, ok for d/c if no ischemia 2. Acute pancreatitis - s/p EGD 3. Hypertension - 4. Tachycardia 5. COPD- 6. Lipids- statin relatively contraindicated with low LDL and GI issues including increased LFT Kourtney Neville MD Oct 01, 2016 07:47
[2016-10-01 07:50] LABS: ANION GAP 6 MEQ/L (5-15); AST (GOT) 49 U/L (15-37); BICARBONATE 29.5 MEQ/L (21.0-32.0); BLOOD UREA NITROGEN 11 MG/DL (7-18); CHLORIDE 105 MEQ/L (98-107); POTASSIUM 3.8 MEQ/L (3.5-5.1); SODIUM (NA) 140 MEQ/L (136-145)
[2016-10-01 07:52] LABS: ALKALINE PHOSPHATASE 100 U/L (45-117); ALT (GPT) 57 U/L (12-78); GLOMERULAR FILTRATION RATE 96 ML/MIN (>89)
[2016-10-01 08:00] VITALS: BP 127/89; PULSE 94; RESP 20; TEMP 98; O2SAT 99
[2016-10-01 08:06] VITALS: PULSE 83
[2016-10-01 09:16] VITALS: O2SAT 99
[2016-10-01] MEDS: DOCUSATE SODIUM 100 MG CAP PO SCH (09:24)
[2016-10-01] MEDS: amLODIPine BESYLATE 5 MG TAB PO SCH (09:24)
[2016-10-01] MEDS: ASPIRIN 81 MG CHEW TAB CHEW SCH (09:24)
[2016-10-01] MEDS: DICYCLOMINE HCL 20 MG TAB PO SCH ×2 (09:24→12:51)
[2016-10-01] MEDS: ATORVASTATIN 10 MG TAB PO SCH (09:24)
[2016-10-01] MEDS: SODIUM CHLORIDE 0.9% FLUSH 10 ML FLUSH IV FLUSH SCH (09:26)
--- NOTE | 2016-10-01 11:24 | HHI.PR ---
Subjective Subjective Remarks no cp mild epigastric tenderness had EGD yesterday, diet advanced. Initially nauseous with first bite but was able to eat the rest without severe pain, no vomiting no sob going to STT today anxious to go home after STT Review of Systems Constitutional Constitutional Remarks 12 point ROS completed, negative except as noted above Vitals/Results Intake & Output 09/30/16 09/30/16 10/01/16 15:00 23:00 07:00 Intake Total 200 ml 1670 ml 1258 ml Output Total 0 ml 850 ml Balance 200 ml 1670 ml 408 ml Intake Oral 360 ml 360 ml IV Total 1310 ml 898 ml Other 200 ml Output Urine Total 0 ml 850 ml # Bowel Movements 0 0 Vital Signs Vital Signs Date Time Temp Pulse Resp B/P Pulse Ox O2 Delivery O2 Flow Rate FiO2 10/01/16 09:16 99 Nasal Cannula 2.00 10/01/16 09:05 Room Air 10/01/16 08:06 83 10/01/16 08:00 98.0 94 20 127/89 99 10/01/16 04:59 97.9 82 18 132/69 98 09/30/16 23:37 98.2 78 18 145/70 95 09/30/16 21:18 97.9 95 18 128/78 98 09/30/16 20:00 97 09/30/16 20:00 Nasal Cannula 3.00 09/30/16 16:00 98.3 106 20 141/90 94 09/30/16 13:40 98.9 86 12 133/88 98 Nasal Cannula 2 09/30/16 13:30 86 12 135/86 98 Nasal Cannula 2 09/30/16 13:15 100.3 82 12 149/87 98 Nasal Cannula 2 09/30/16 12:00 98.2 99 20 139/85 98 CBC/BMP: 10/01/16 0640 10/01/16 0640 Lab Results Laboratory Tests Test 09/30/16 10/01/16 19:06 06:40 Lipase 930 U/L 332 U/L White Blood Count 13.4 TH/MM3 Red Blood Count 3.64 MIL/MM3 Hemoglobin 11.0 GM/DL Hematocrit 33.8 % Mean Corpuscular Volume 92.8 FL Mean Corpuscular Hemoglobin 30.3 PG Mean Corpuscular Hemoglobin 32.7 % Concent Red Cell Distribution Width 13.8 % Platelet Count 176 TH/MM3 Mean Platelet Volume 7.3 FL Neutrophils (%) (Auto) 83.7 % Lymphocytes (%) (Auto) 5.3 % Monocytes (%) (Auto) 7.7 % Eosinophils (%) (Auto) 2.9 % Basophils (%) (Auto) 0.4 % Neutrophils # (Auto) 11.2 TH/MM3 Lymphocytes # (Auto) 0.7 TH/MM3 Monocytes # (Auto) 1.0 TH/MM3 Eosinophils # (Auto) 0.4 TH/MM3 Basophils # (Auto) 0.0 TH/MM3 CBC Comment DIFF FINAL Differential Comment Sodium Level 140 MEQ/L Potassium Level 3.8 MEQ/L Chloride Level 105 MEQ/L Carbon Dioxide Level 29.5 MEQ/L Anion Gap 6 MEQ/L Blood Urea Nitrogen 11 MG/DL Creatinine 0.82 MG/DL Estimat Glomerular Filtration 96 ML/MIN Rate Random Glucose 67 MG/DL Calcium Level 9.8 MG/DL Total Bilirubin 1.0 MG/DL Aspartate Amino Transf 49 U/L (AST/SGOT) Alanine Aminotransferase 57 U/L (ALT/SGPT) Alkaline Phosphatase 100 U/L Total Protein 5.6 GM/DL Albumin 2.8 GM/DL Physical Exam General General Appearance: Well Developed, Comfortable Eyes Eye Exam: Pupils Equal, Pupils Reactive Ears & Nose Ears & Nose Exam: Nasal Mucosa [place] Throat Throat Exam: Oral Mucosa [place] & Moist Neck Neck Exam: Neck Supple, Trachea Midline Pulmonary Resp Exam: No Distress, Decreased Bases Resp Remarks exp. wheezing Cardiology CV Exam: Regular Gastrointestinal/Abdomen GI Exam: Soft, Bowel Sounds Present, Non-Distended, Bowel Sounds Hypoactive Musculoskeletal MS Exam: Joints Intact Integumentary Skin Exam: Warm, Dry Extremeties Extremities Exam: No Edema, Pedal Pulses Palpable Neurologic Neuro Exam: Alert, Awake, Oriented, Speech Clear, Moving All Extremities, No Focal Deficits Psychiatric Psych Exam: Appropriate Responses VTE Prophylaxis VTE Prophylaxis Device: SCDs PUD Prophylasis PUD Prophylaxis: Protonix Assessment/Plan Problem List: (1) Chest pain (2) Pancreatitis (3) Chronic neck and back pain (4) Hypertension (5) Pseudocyst of pancreas (6) COPD exacerbation (7) Elevated troponin (8) Tobacco abuse Assessment/Plan no chest, + trop +NSTEMI per cardiology input medical mgt for now continue ASA Echo ok EF lipid profile noted for STT today, if okay can be discharged Pancreatitis, CT abd. + pseudocyst off Wellbutrin Lipase back to normal, 332. continue IVF Pain management S/P 09/30- EGD, Gastritis antrum-biopsy/esophagitis distal -biopsy/Retroflexed views revealed a hiatal hernia Duonebs PRN Continue some home meds SCDs/heparin for DVT prophylaxis PPI for GI prophylaxis Poss. dc after STT if normal F/U GI, card Diet-heart healthy Activity as tolerated no smoking, no ETOH D/W RN D/W Dr. Doran D/W pt. This patient was seen by myself & , this note is written on his behalf. Problem Qualifiers (1) Chest pain: Qualified Code: R07.9 - Chest pain, unspecified type (2) Pancreatitis: Qualified Code: K85.90 - Acute pancreatitis, unspecified complication status, unspecified pancreatitis type (3) Hypertension: Qualified Code: I10 - Essential hypertension Lani Angela Oct 01, 2016 11:24
[2016-10-01] MEDS ORDERED: REGADENOSON INJ 0.4 MG/5 ML SYR ONE (11:41)
--- NOTE | 2016-10-01 14:14 | RADRPT ---
EXAM DATE/TIME: 10/01/2016 11:21 [facility] COMPARISON: MYOCARDIAL PERF PHARM SPECT, GATED W/EF, August 19, 2012, 12:01. INDICATIONS : Tachycardia. Myocardial infarction. DOSE: 25.3 mCi Tc99m Myoview at stress. 8.2 mCi Tc99m Myoview at rest. 0.4 mg Lexiscan STRESS SYMPTOMS: Warm feeling. EJECTION FRACTION: > 70% MEDICAL HISTORY : Chronic obstructive pulmonary disease. Hypertension. Swollen prostate. Smoking history. SURGICAL HISTORY : Laminectomy. ENCOUNTER: Initial ACUITY: 1 day PAIN SCALE: 3/10 LOCATION: Bilateral chest TECHNIQUE: The patient underwent pharmacologic stress with infusion of prescribed dose. Continuous ECG tracing was monitored during stress. Gated SPECT imaging was performed after stress and conventional SPECT i maging was performed at rest. The examination was performed on a SPECT/CT scanner, both attenuation and non-corrected datasets were reviewed. FINDINGS: DISTRIBUTION: The maximum perfused segment at stress is in the inferior wall. PERFUSION STUDY: The pattern of perfusion at stress shows fixed diminished perfusion to the low inferolateral wall ext ending into the apex. No reversibility to suggest ischemia. GATED STUDY: There is intact wall motion and thickening without hypokinetic or dyskinetic segments. CONCLUSION: 1. Fixed diminished perfusion to the low inferolateral wall extending into the apex characteristic of prior infarct. 2. No reversibility to suggest ischemia. 3. Excellent wall motion throughout with an estimated ejection fraction of greater than 70% RISK CATEGORY: Low (<1% Annual Mortality Rate) Roman Belle MD on October 01, 2016 at 14:09 Board Certified Radiologist. This report was verified electronically.
--- NOTE | 2016-10-01 14:48 | HHI.DS ---
Discharge Summary Admission Date Sep 30, 2016 at 18:53 Discharge Date: Oct 01, 2016 Admitting Diagnosis acute pancreatitis, NSTMEI, positive troponin (1) Chest pain (2) Pancreatitis (3) Pseudocyst of pancreas (4) Hypertension (5) Elevated troponin (6) COPD exacerbation (7) Chronic neck and back pain Procedures S/P 09/30- EGD, Gastritis antrum-biopsy/esophagitis distal -biopsy/Retroflexed views revealed a hiatal hernia S/P STT 10/01 CBC/BMP: 10/01/16 0640 10/01/16 0640 Significant Findings Laboratory Tests Test 09/28/16 09/29/16 09/29/16 09/29/16 19:16 00:13 05:44 05:54 Troponin I 0.11 NG/ML 0.08 NG/ML 0.07 NG/ML (0.02-0.05) (0.02-0.05) (0.02-0.05) White Blood Count 13.5 TH/MM3 (4.0-11.0) Red Blood Count 4.07 MIL/MM3 (4.50-5.90) Hemoglobin 12.4 GM/DL (13.0-17.0) Hematocrit 37.6 % (39.0-51.0) Neutrophils (%) (Auto) 93.4 % (16.0-70.0) Lymphocytes (%) (Auto) 1.5 % (9.0-44.0) Neutrophils # (Auto) 12.6 TH/MM3 (1.8-7.7) Lymphocytes # (Auto) 0.2 TH/MM3 (1.0-4.8) Estimat Glomerular Filtration 80 ML/MIN (>89) Rate Random Glucose 127 MG/DL (74-106) Aspartate Amino Transf 43 U/L (15-37) (AST/SGOT) Total Protein 6.0 GM/DL (6.4-8.2) Albumin 3.2 GM/DL (3.4-5.0) HDL Cholesterol 32.3 MG/DL (40.0-60.0) Lipase 2062 U/L (73-393) Test 09/30/16 10/01/16 19:06 06:40 Lipase 930 U/L (73-393) White Blood Count 13.4 TH/MM3 (4.0-11.0) Red Blood Count 3.64 MIL/MM3 (4.50-5.90) Hemoglobin 11.0 GM/DL (13.0-17.0) Hematocrit 33.8 % (39.0-51.0) Neutrophils (%) (Auto) 83.7 % (16.0-70.0) Lymphocytes (%) (Auto) 5.3 % (9.0-44.0) Neutrophils # (Auto) 11.2 TH/MM3 (1.8-7.7) Lymphocytes # (Auto) 0.7 TH/MM3 (1.0-4.8) Monocytes # (Auto) 1.0 TH/MM3 (0-0.9) Random Glucose 67 MG/DL (74-106) Aspartate Amino Transf 49 U/L (15-37) (AST/SGOT) Total Protein 5.6 GM/DL (6.4-8.2) Albumin 2.8 GM/DL (3.4-5.0) Imaging Last Impressions Myocardial Perfusion Scan Nuc Med 10/01/16 0000 Signed Impressions: Service Date/Time: Saturday, October 01, 2016 11:21 - CONCLUSION: 1. Fixed diminished perfusion to the low inferolateral wall extending into the apex characteristic of prior infarct. 2. No reversibility to suggest ischemia. 3. Excellent wall motion throughout with an estimated ejection fraction of greater than 70%% RISK CATEGORY: Low (<1%% Annual Mortality Rate) Roman Belle MD Abdomen/Pelvis CT 09/28/16 1252 Signed Impressions: Service Date/Time: Wednesday, September 28, 2016 15:05 - CONCLUSION: 1. Findings characteristic of acute pancreatitis with peripancreatic inflammatory changes, free fluid around the spleen and liver as well as the deep pelvis and possibly developing 1.6 cm pseudocyst at the junction of the body and tail of the pancreas. 2. Stable Bosniak type II 3.8 cm cyst in the right kidney Roman Belle MD Chest X-Ray 09/28/16 1214 Signed Impressions: Service Date/Time: Wednesday, September 28, 2016 12:27 - CONCLUSION: 1. Stable chest with biapical and right perihilar scarring 2. No acute infiltrate Roman Belle MD Hospital Course This is a 60-year-old white male who had been in his usual state of health up until the past few days. He has noted some gas and bloating type sensation over the past few days. He stated that he has gone to the bathroom and had bowel movements but he felt like he was constipated at the same time and accompanied with the gas and bloating. He has had a decreased appetite and has had a weak and dizzy sensation but no syncopal episodes. This a.m. the patient was awakened with acute left upper quadrant abdominal pain which he felt like was swollen in that area. He is also complaining of some mid sternal chest pain and epigastric pain which radiates up into his neck. The patient described the pain as severe, sharp, states it waxes and wanes. He does note some palpitations at times today but also has palpitations chronically. The patient had his gallbladder removed in June but has continued to have problems with left upper quadrant pain. The patient also has a significant history of COPD and uses O2 at home. According to the record, the patient had a remote history of drug abuse but states he has been clean for two years. He has had no alcohol for the past 8 to 9 months. Pt. evaluated in the ED. WBC count 13.6, RBC 4.38, hemoglobin 13.4, hematocrit 40.3, platelet count 233. Neutrophil auto percentage 81.8, lymphocytes 6.4, sodium 139, potassium 3.8, chloride 104, carbon dioxide 28.6, anion gap 6, BUN 15, creatinine 1.1, GFR 68, random glucose 120, lactic acid 1, calcium 9.7, magnesium 2.1, bilirubin 0.9, AST 23, ALT 29, alkaline phosphatase 60, troponin 0.18, total protein 6.2, albumin 3.4, lipase 1180, PT/INR is 1. Chest x-ray shows stable chest. No acute infiltrate. CT scan is pending. Pt. admitted for: (1) Chest pain (2) Pancreatitis (3) Chronic neck and back pain (4) Hypertension (5) Pseudocyst of pancreas (6) COPD exacerbation (7) Elevated troponin, NSTEMI (8) Tobacco abuse During the course of the hospitalization the following took place: Patient was admitted, cardiology was consulted Serial troponins were done, troponin positive. Per cardiology's evaluation, positive non-STEMI. Recommended to continue with medical management Continued on aspirin Echo was done- ok EF lipid profile noted Cardiology continue to evaluate patient, recommended stress test. Stress test was done, no acute findings. Patient had no further chest pain, was cleared by cardiology Patient found positive for pancreatitis, with elevated lipase. Had CT of the abdomen -- + pseudocyst GI was consulted, recommended to remove Wellbutrin as this could be contributing. \ Lipase was followed daily, back to normal, 332. Continued on IV fluids, put on appropriate pain management. I recommended EGD. S/P 09/30- EGD, Gastritis antrum-biopsy/esophagitis distal -biopsy/Retrofle Epigastric pain was well-controlled History of COPD, ordered Duonebs PRN Continued some home meds SCDs/heparin for DVT prophylaxis PPI for GI prophylaxis Patient stabilizes, pain improved. Lipase trending down. Tolerated diet well No chest pain. Patient stable for discharge Patient discharged home in stable condition Instructed to follow up with cardiology, gastroenterology Heart healthy diet Activity as tolerated Pt Condition on Discharge: Stable Discharge Disposition: Discharge Home Discharge Instructions DIET: Follow Instructions for: Heart Healthy Diet Activities you can perform: Weight Bearing as Smita Follow up Referrals: Cardiology with [facility] Gastroenterology with Ruth Rivera MD Continued Medications: Albuterol 8.5 GM Inh (Proair Hfa 8.5 GM Inh) 90 Mcg/Act Aer 2 PUFF INH Q4-6H 108 mcg/actuation PRN SHORTNESS OF BREATH #1 Ref 0 INHALER Amlodipine (Norvasc) 5 Mg Tab 5 MG PO DAILY Blood Pressure Management #30 Ref 0 TAB Aspirin (Aspirin Children's) 81 Mg Chew 81 MG CHEW DAILY Ref 0 TAB Bupropion HCl ER 12 HR (Wellbutrin SR 12 HR) 150 Mg Tab 150 MG PO DAILY Control Depression Ref 0 TAB Pantoprazole (Pantoprazole) 40 Mg Tab 40 MG PO DAILY Reflux Ref 0 TAB Lani Angela [facility] Oct 01, 2016 14:48
--- NOTE | 2016-10-01 15:51 | HHI.GIFU ---
Subjective Remarks Up in chair. No n/v. No abdominal pain. Tolerated cheeseburger and fries. States he is going home today. (Nissa Cates) Objective Vitals I&O Vital Signs Date Time Temp Pulse Resp B/P Pulse Ox O2 Delivery O2 Flow Rate FiO2 10/01/16 09:16 99 Nasal Cannula 2.00 10/01/16 09:05 Room Air 10/01/16 08:06 83 10/01/16 08:00 98.0 94 20 127/89 99 10/01/16 04:59 97.9 82 18 132/69 98 09/30/16 23:37 98.2 78 18 145/70 95 09/30/16 21:18 97.9 95 18 128/78 98 09/30/16 20:00 97 09/30/16 20:00 Nasal Cannula 3.00 09/30/16 20:00 Nasal Cannula 3.00 09/30/16 16:00 98.3 106 20 141/90 94 I/O 09/30/16 09/30/16 09/30/16 10/01/16 10/01/16 10/01/16 07:00 15:00 23:00 07:00 15:00 23:00 Intake Total 0 ml 200 ml 1670 ml 1258 ml 672 ml Output Total 350 ml 0 ml 850 ml Balance -350 ml 200 ml 1670 ml 408 ml 672 ml Intake Oral 0 ml 360 ml 360 ml IV Total 1310 ml 898 ml 672 ml Other 200 ml Output Urine Total 350 ml 0 ml 850 ml # Bowel Movements 0 0 0 Laboratory Laboratory Tests Test 09/30/16 10/01/16 19:06 06:40 Lipase 930 332 White Blood Count 13.4 Red Blood Count 3.64 Hemoglobin 11.0 Hematocrit 33.8 Mean Corpuscular Volume 92.8 Mean Corpuscular Hemoglobin 30.3 Mean Corpuscular Hemoglobin 32.7 Concent Red Cell Distribution Width 13.8 Platelet Count 176 Mean Platelet Volume 7.3 Neutrophils (%) (Auto) 83.7 Lymphocytes (%) (Auto) 5.3 Monocytes (%) (Auto) 7.7 Eosinophils (%) (Auto) 2.9 Basophils (%) (Auto) 0.4 Neutrophils # (Auto) 11.2 Lymphocytes # (Auto) 0.7 Monocytes # (Auto) 1.0 Eosinophils # (Auto) 0.4 Basophils # (Auto) 0.0 CBC Comment DIFF FINAL Differential Comment Sodium Level 140 Potassium Level 3.8 Chloride Level 105 Carbon Dioxide Level 29.5 Anion Gap 6 Blood Urea Nitrogen 11 Creatinine 0.82 Estimat Glomerular Filtration 96 Rate Random Glucose 67 Calcium Level 9.8 Total Bilirubin 1.0 Aspartate Amino Transf 49 (AST/SGOT) Alanine Aminotransferase 57 (ALT/SGPT) Alkaline Phosphatase 100 Total Protein 5.6 Albumin 2.8 Date/Time Procedure Status Source Growth 09/28/16 12:32 Aerobic Blood Culture - Preliminary Resulted Blood Peripheral NO GROWTH IN 3 DAYS 09/28/16 12:32 Anaerobic Blood Culture - Preliminary Resulted Blood Peripheral NO GROWTH IN 3 DAYS Imaging Last Impressions Myocardial Perfusion Scan Nuc Med 10/01/16 0000 Signed Impressions: Service Date/Time: Saturday, October 01, 2016 11:21 - CONCLUSION: 1. Fixed diminished perfusion to the low inferolateral wall extending into the apex characteristic of prior infarct. 2. No reversibility to suggest ischemia. 3. Excellent wall motion throughout with an estimated ejection fraction of greater than 70%% RISK CATEGORY: Low (<1%% Annual Mortality Rate) Roman Belle MD Abdomen/Pelvis CT 09/28/16 1252 Signed Impressions: Service Date/Time: Wednesday, September 28, 2016 15:05 - CONCLUSION: 1. Findings characteristic of acute pancreatitis with peripancreatic inflammatory changes, free fluid around the spleen and liver as well as the deep pelvis and possibly developing 1.6 cm pseudocyst at the junction of the body and tail of the pancreas. 2. Stable Bosniak type II 3.8 cm cyst in the right kidney Roman Belle MD Chest X-Ray 09/28/16 1214 Signed Impressions: Service Date/Time: Wednesday, September 28, 2016 12:27 - CONCLUSION: 1. Stable chest with biapical and right perihilar scarring 2. No acute infiltrate Roman Belle MD Physical Exam HEENT: Normocephalic; atraumatic; no jaundice. CHEST: CTA CARDIAC: Regular rate and rhythm with no murmur gallop or rubs. ABDOMEN: Soft, nondistended, nontender; no hepatosplenomegaly; bowel sounds are present in all four quadrants. EXTREMITIES: No clubbing, cyanosis, or edema. SKIN: Normal; no rash; no jaundice. E TAILER: No focal deficits; alert and oriented times three. (Nissa Cates) Assessment and Plan Plan ASSESSMENT: - Acute pancreatitis with pseudocyst formation. 2-3 episodes of pancreatitis in the past. These were previously thought to be related to ETOH abuse and he stopped drinking ETOH 8 months ago. He was hospitalized in June of this year for abdominal pain and underwent cholecystectomy for acute cholecystitis. He has had ongoing bloating since that time. He woke up this am at 5am with severe sharp pain in epigastric area radiating to back and between shoulder blades. He was noted to have a lipase of 1180 with normal LFTs and mild leukocytosis. Abdomen/Pelvis CT (09/28/16)-----> 1. Findings characteristic of acute pancreatitis with peripancreatic inflammatory changes, free fluid around the spleen and liver as well as the deep pelvis and possibly developing 1.6 cm pseudocyst at the junction of the body and tail of the pancreas. 2. Stable Bosniak type II 3.8 cm cyst in the right kidney. NPO. IVF. PPI. Of note, he is on Wellbutrin and although rare, this has been associated with pancreatitis. Unclear etiology- ? PUD vs Acute on chronic pancreatitis vs medication induced vs autoimmune. S/P EGD (10/01/16)----> Gastritis antrum-biopsy, esophagitis distal-biopsy, 2. Retroflexed views revealed a hiatal hernia. Pathology pending. Lipase 332. Tolerating diet. No n/v, abdominal pain. - GERD, Globus sensation. PPI at home. Ongoing issues with this and bloating. Did have melena a few months ago and states it resolved. He quit taking NSAIDs just a few weeks ago. EGD with esophagitis, gastritis - pathology pending. - Elevated Troponin. Troponin I 0.02---> 0.18. Cardiology consulted. - COPD, Chronic back pain per primary. PLAN: - Low fat diet - PPI - Okay to d/c home - FU MISAEL 2 weeks - Further recommendations to follow based on results of above - Pt seen and examined by Dr. Rivera and myself and this note is written on her behalf (Nissa Cates) Physician Comments seen, examined agree with above ok to dc home from [facility] low fat diet we will start pancreatic enzymes with meals consider eus fu office 1-2 weeks (Ruth Rivera MD) Nissa Cates Oct 01, 2016 15:51 Ruth Rivera MD Oct 01, 2016 16:48
[2016-10-01 16:00] VITALS: BP 132/80; PULSE 105; RESP 20; TEMP 97.6; O2SAT 96
== END 2016-10-01 16:57 | disposition home or self-care (01) | DRG 438 ==
LOC: NEPC 11:55 → NEDH 13:42 → N04A 16:37 → OBSVTOIN 09-30 18:53
PROVIDERS: ADMIT Specialist; ATTEND Specialist
PROC: 0DB68ZX Excision of Stomach, Via Natural or Artificial Opening Endoscopic, Diagnostic (ICD-10-PCS; 2016-09-30)
PROC: 0DB38ZX Excision of Lower Esophagus, Via Natural or Artificial Opening Endoscopic, Diagnostic (ICD-10-PCS; principal; 2016-09-30 12:45)
DX: K85.90 Acute pancreatitis without necrosis or infection, unspecified (principal); I21.4 Non-ST elevation (NSTEMI) myocardial infarction; Z99.81 Dependence on supplemental oxygen; J44.1 Chronic obstructive pulmonary disease with (acute) exacerbation; K86.3 Pseudocyst of pancreas; I10 Essential (primary) hypertension; I25.2 Old myocardial infarction; G43.909 Migraine, unspecified, not intractable, without status migrainosus; K21.0 Gastro-esophageal reflux disease with esophagitis; M19.90 Unspecified osteoarthritis, unspecified site; J45.909 Unspecified asthma, uncomplicated; F41.9 Anxiety disorder, unspecified; F32.9 Major depressive disorder, single episode, unspecified; R73.9 Hyperglycemia, unspecified; N28.1 Cyst of kidney, acquired; G89.29 Other chronic pain; R00.0 Tachycardia, unspecified; M54.2 Cervicalgia; K29.70 Gastritis, unspecified, without bleeding; K44.9 Diaphragmatic hernia without obstruction or gangrene; Z87.891 Personal history of nicotine dependence; Z86.73 Personal history of transient ischemic attack (TIA), and cerebral infarction without residual deficits; Z88.0 Allergy status to penicillin; Z91.013 Allergy to seafood
CPT/HCPCS: 71010; 74177; 78452; 80053; 80061; 82550; 83605; 83690; 83735; 84484; 85025; 85610; 85730; 87040; 88305; 88312; 93005; 93017; 93306; 94640; 94664; 96374; 96375; A9502; C9113; G0378; J1170; J2270; J2405; J2785; J2930; J7120; Q9967

== ENCOUNTER 2016-10-04 16:00 | Inpatient (IN) | payer MEDICAID ==
[2016-10-04] VITALS (7 sets, daily range): BP systolic 113–148; BP diastolic 56–87; PULSE 87–96; RESP 16–24; TEMP 97.2–98.4; O2SAT 94–100
[~2016-10-04] VITALS: Ht 185.4 cm; Wt 65.0 kg
[~2016-10-04 16:00] MED LIST changes: -CELE200C PO; -NORC5TAB PO; +PANT40TA3 PO; -PRED-503 PO; -ZITHTAB PO
[2016-10-04] MEDS ORDERED: SODIUM CHLOR 0.9% 1000 ML INJ 1,000 ML IV SCH (16:51)
--- NOTE | 2016-10-04 16:58 | PD ---
HPI Chief Complaint: Abdominal Pain Time Seen by Provider: 16:55 Travel History International Travel<30 days: No Contact w/Intl Traveler<30days: No Traveled to known affect area: No History of Present Illness HPI 60-year-old male with history of COPD, hiatal hernia, gastritis/esophagitis, recent hospitalization for pancreatitis and NSTEMI (09/30/16- 10/01/16) presents to the ED via EMS for evaluation of epigastric pain radiating to the left neck, left upper quadrant pain, shortness of breath. Resumed normal diet per GI instructions and began to experience anorexia, nausea, vomiting. Last BM "normal" on Tuesday. He states that he called Dr. Rivera today and was told to resume liquid diet. Patient also states that he resume his home dose of Wellbutrin. Apparently there was some confusion about that at discharge. PFSH Past Medical History Arthritis: Yes Asthma: Yes Autoimmune Disease: No Blood Disorders: Yes Anxiety: No Depression: Yes (PT STATED, HE TAKES WELLBUTRIN) Heart Rhythm Problems: Yes (TACHYCARDIA) Cancer: No Cardiac Catheterization: No Cardiovascular Problems: Yes (HEART BEATS FAST AT TIMES) High Cholesterol: No Chemotherapy: No Chest Pain: No Congestive Heart Failure: No COPD: Yes Cerebrovascular Accident: Yes (PT STATES HE THINKS HE HAD A STROKE LONG AGO) Coronary Artery Disease: No Diabetes: No Diminished Hearing: No Endocrine: No Gastrointestinal Disorders: Yes GERD: No Genitourinary: No Headaches: Yes (RELATED TO NECK PAIN) Hiatal Hernia: No Hypertension: Yes Immune Disorder: No Implanted Vascular Access Dvce: No Musculoskeletal: Yes Neurologic: Yes Psychiatric: Yes Reproductive: No Respiratory: Yes (COPD) Immunizations Current: Yes Migraines: Yes Myocardial Infarction: Yes Pancreatitis: Yes Radiation Therapy: No Renal Failure: No Seizures: No Sickle Cell Disease: No Sleep Apnea: No Thyroid Disease: No Ulcer: No Past Surgical History Abdominal Surgery: Yes AICD: No Arteriovenous Shunt: No Cardiac Surgery: No Cholecystectomy: Yes Coronary Artery Bypass Graft: No Ear Surgery: No Endocrine Surgery: No Eye Surgery: No Genitourinary Surgery: No Gynecologic Surgery: No Insulin Pump: No Joint Replacement: No Neurologic Surgery: No Oral Surgery: No Pacemaker: No Thoracic Surgery: Yes Tonsillectomy: Yes Other Surgery: Yes (LAMINECTOMY) Social History Alcohol Use: No (quit 12/18/15) Tobacco Use: No (QUIT 01/25) Substance Use: Yes (2006) Allergies-Medications (Allergen,Severity, Reaction): Coded Allergies: Shellfish (Verified Allergy, Severe, Swelling, 10/04/16) Penicillin (Verified Allergy, Mild, rash, 10/04/16) Reported Meds & Prescriptions Reported Meds & Active Scripts Active Reported Probiotic (Probiotic Product) 1 Tab Tab Vitamin D (Cholecalciferol) 400 Unit Cap [id number] (Methylcobalamin) 1 Mg Chew 1 Mg CHEW DAILY Dicyclomine (Dicyclomine HCl) 10 Mg Cap 10 Mg PO QID Celebrex (Celecoxib) 200 Mg Cap 200 Mg PO BID Pantoprazole (Pantoprazole Sodium) 40 Mg Tab 40 Mg PO DAILY Aspirin Children's (Aspirin) 81 Mg Chew 81 Mg CHEW DAILY Wellbutrin SR 12 HR (Bupropion HCl) 150 Mg Tab 150 Mg PO DAILY Proair Hfa 8.5 GM Inh (Albuterol Sulfate) 90 Mcg/Act Aer 2 Puff INH Q4-6H PRN 108 mcg/actuation Norvasc (Amlodipine Besylate) 5 Mg Tab 5 Mg PO DAILY Review of Systems Except as stated in HPI: all other systems reviewed are Neg Physical Exam Narrative GENERAL: Thin white male, sitting up in the stretcher in no acute distress.. SKIN: Focused skin assessment warm/dry. HEAD: Normocephalic. EYES: No scleral icterus. No injection or drainage. NECK: Supple, trachea midline. No JVD or lymphadenopathy. CARDIOVASCULAR: Regular rate and rhythm without murmurs, gallops, or rubs. 2+ DP and radial pulses bilaterally. RESPIRATORY: Diffuse,coarse expiratory breath sounds in all lung short. No accessory muscle use. GASTROINTESTINAL: Abdomen scaphoid, diffusely tender. MUSCULOSKELETAL: No cyanosis. 1+ pitting edema to the mid shins bilaterally. BACK: Nontender without obvious deformity. No CVA tenderness. Data Data Last Documented VS Vital Signs Date Time Temp Pulse Resp B/P Pulse Ox O2 Delivery O2 Flow Rate FiO2 10/04/16 18:17 89 18 148/77 94 Nasal Cannula 3 10/04/16 16:25 98.4 Orders Complete Blood Count With Diff (10/04/16 16:51) Comprehensive Metabolic Panel (10/04/16 16:51) Lipase (10/04/16 16:51) Lactic Acid (10/04/16 16:51) Prothrombin Time / Inr (Pt) (10/04/16 16:51) Act Partial Throm Time (Ptt) (10/04/16 16:51) Urinalysis - C+S If Indicated (10/04/16 16:51) Ct Abd/Pel W Iv Contrast(Rout) (10/04/16 16:51) Iv Access Insert/Monitor (10/04/16 16:51) Ecg Monitoring (10/04/16 16:51) Oximetry (10/04/16 16:51) Ondansetron Inj (Zofran Inj) (10/04/16 17:00) Sodium Chlor 0.9% 1000 Ml Inj (Ns 1000 M (10/04/16 16:51) Sodium Chloride 0.9% Flush (Ns Flush) (10/04/16 17:00) Electrocardiogram (10/04/16 16:51) Ckmb (Isoenzyme) Profile (10/04/16 16:51) Troponin I (10/04/16 16:51) Chest, Single Ap (10/04/16 16:51) Albuterol-Ipratropium Neb (Duoneb Neb) (10/04/16 17:00) Morphine Inj (Morphine Inj) (10/04/16 17:45) Pantoprazole Inj (Protonix Inj) (10/04/16 18:15) Iohexol 350 Inj (Omnipaque 350 Inj) (10/04/16 18:17) Sodium Chlor 0.9% 1000 Ml Inj (Ns 1000 M (10/04/16 18:45) Admit Order (Ed Use Only) (10/04/16 18:45) Labs Laboratory Tests Test 10/04/16 10/04/16 16:58 18:13 White Blood Count 13.9 TH/MM3 Red Blood Count 4.22 MIL/MM3 Hemoglobin 12.8 GM/DL Hematocrit 39.1 % Mean Corpuscular Volume 92.7 FL Mean Corpuscular Hemoglobin 30.4 PG Mean Corpuscular Hemoglobin 32.7 % Concent Red Cell Distribution Width 13.7 % Platelet Count 250 TH/MM3 Mean Platelet Volume 7.5 FL Neutrophils (%) (Auto) 82.5 % Lymphocytes (%) (Auto) 5.6 % Monocytes (%) (Auto) 7.8 % Eosinophils (%) (Auto) 3.8 % Basophils (%) (Auto) 0.3 % Neutrophils # (Auto) 11.5 TH/MM3 Lymphocytes # (Auto) 0.8 TH/MM3 Monocytes # (Auto) 1.1 TH/MM3 Eosinophils # (Auto) 0.5 TH/MM3 Basophils # (Auto) 0.0 TH/MM3 CBC Comment DIFF FINAL Differential Comment Prothrombin Time 10.7 SEC Prothromb Time International 1.0 RATIO Ratio Activated Partial 25.6 SEC Thromboplast Time Lactic Acid Level 1.5 mmol/L Sodium Level 139 MEQ/L Potassium Level 4.6 MEQ/L Chloride Level 107 MEQ/L Carbon Dioxide Level 22.5 MEQ/L Anion Gap 10 MEQ/L Blood Urea Nitrogen 13 MG/DL Creatinine 1.06 MG/DL Estimat Glomerular Filtration 71 ML/MIN Rate Random Glucose 81 MG/DL Calcium Level 9.0 MG/DL Total Bilirubin 0.7 MG/DL Aspartate Amino Transf 48 U/L (AST/SGOT) Alanine Aminotransferase 48 U/L (ALT/SGPT) Alkaline Phosphatase 142 U/L Total Creatine Kinase 71 U/L Troponin I 0.15 NG/ML Total Protein 6.1 GM/DL Albumin 2.6 GM/DL Lipase 727 U/L MDM Medical Decision Making Medical Screen Exam Complete: Yes Emergency Medical Condition: Yes Interpretation(s) EKG: rate 96, sinus rhythm. RI interval 137, QRS 89, QTc 383. Normal axis. No ST depressions or elevations. Reviewed by Dr. Fernandez. Differential Diagnosis COPD exacerbation versus pneumonia versus PE versus ACS versus pancreatitis versus peritonitis versus Narrative Course 60-year-old male with history of COPD, hiatal hernia, gastritis/esophagitis, recent hospitalization for pancreatitis and NSTEMI (09/30/16- 10/01/16) presents to the ED via EMS for evaluation of epigastric pain radiating to the left neck, left upper quadrant pain, shortness of breath. Resumed normal diet per GI instructions and began to experience pain, anorexia, nausea, vomiting. Last BM "normal" on Tuesday. He states that he called Dr. Rivera today and was told to resume liquid diet. Patient also states that he resumed his home dose of Wellbutrin. Apparently there was some confusion about that at discharge. Vitals reviewed. Physical exam reveals a nontoxic-appearing white male in no acute distress. Regular rate and rhythm. No discernible M/R/G. Diffuse, coarse expiratory breath sounds in all lung short. Abdomen soft, diffusely tender. 1+ edema in bilateral lower extremities to the mid salas. IV was established. Facial tenderness monitoring. He was administered 1 L normal saline bolus, IV Zofran and 6 mg morphine. CBC: WBC 13.9. Hemoglobin 12.8. CMP: INR 1.0. Lactic acid 1.5. Lipase: 727 Cardiac enzymes: Troponin 0.15. Review of the record reveals troponin 0.7 at discharge on 10/01. Chest x-ray: Unremarkable. CT abdomen: Worsening pancreatitis per radiology read. Review of record reveals the patient had a stress test at last admission which was negative and ejection fraction greater than 70%. He also underwent EGD which showed gastritis, esophagitis and hiatal hernia. Patient was administered a second liter normal saline bolus. Given his worsening pancreatitis as well as elevated troponin will admit to the hospital for further evaluation[facility] Dr. Rosas who agrees to accept the patient for Dr. Killian. Please see medicine notes for disposition. Ramandeep Masters Oct 04, 2016 16:58
[2016-10-04] MEDS ORDERED: ONDANSETRON HCL 4 MG/2 ML VIAL IVP ONE (17:00)
[2016-10-04] MEDS ORDERED: SODIUM CHLORIDE 0.9% FLUSH 10 ML FLUSH IV FLUSH PRN (17:00)
[2016-10-04] MEDS ORDERED: HYDROmorphone HCL PF 1 MG/ML VIAL IVS ONE (17:00)
[2016-10-04] MEDS: RESP: ALBUTEROL 2.5 MG/IPRATROPIUM 0.5 MG NEB (SCH) INH (17:05)
[2016-10-04] MEDS ORDERED: B12-1CHW CHEW (17:14)
[2016-10-04] MEDS ORDERED: PROB1TAB (17:14)
[2016-10-04] MEDS ORDERED: DICY10CA12 PO (17:14)
[2016-10-04] MEDS ORDERED: CELE200C PO (17:14)
[2016-10-04] MEDS ORDERED: VITA400C28 (17:14)
[2016-10-04 17:38] LABS: AUTOMATED NEUTROPHIL # 11.5 TH/MM3 (1.8-7.7); BASOPHIL % 0.3 % (0.0-2.0); EOSINOPHIL # 0.5 TH/MM3 (0-0.4); EOSINOPHIL % 3.8 % (0.0-4.0); HEMATOCRIT 39.1 % (39.0-51.0); HEMO FLAGS DIFF FINAL; LYMPH % 5.6 % (9.0-44.0); LYMPHOCYTE # 0.8 TH/MM3 (1.0-4.8); MEAN CELL VOLUME 92.7 FL (80.0-100.0); MEAN CORPUSCULAR HEMOGLOBIN 30.4 PG (27.0-34.0); MEAN CORPUSCULAR HGB CONC 32.7 % (32.0-36.0); MONO % 7.8 % (0.0-8.0); NEUT % 82.5 % (16.0-70.0); PLATELET COUNT 250 TH/MM3 (150-450); RED BLOOD COUNT 4.22 MIL/MM3 (4.50-5.90); RED CELL DISTRIBUTION WIDTH 13.7 % (11.6-17.2); WHITE BLOOD COUNT 13.9 TH/MM3 (4.0-11.0)
[2016-10-04] MEDS ORDERED: MORPHINE SULFATE 8 MG/ML INJ IV PUSH ONE (17:45)
[2016-10-04 17:46] LABS: APTT (PATIENT) 25.6 SEC (24.3-30.1); PROTHROMBIN TIME - PATIENT 10.7 SEC (9.8-11.6)
--- NOTE | 2016-10-04 18:00 | RADRPT ---
EXAM DATE/TIME: 10/04/2016 17:54 [facility] COMPARISON: CHEST SINGLE AP, September 03, 2016, 21:12. CHEST SINGLE AP, September 28, 2016, 12:27. INDICATIONS : Chest pain. MEDICAL HISTORY : Pancreatitis. SURGICAL HISTORY : None. ENCOUNTER: [facility]ela ACUITY: 2 weeks PAIN SCORE: 10/10 LOCATION: Bilateral chest FINDINGS: A single view of the chest demonstrates the lungs to be symmetrically aerated without evidence of mas s, infiltrate or effusion. There is chronic scarring in the right upper lobe. The cardiomediastinal contours are unremarkable. Osseous structures are intact. There are multiple overlying electrocardio gram leads. CONCLUSION: No acute disease. Dontae Murray MD on October 04, 2016 at 17:57 Board Certified Radiologist. This report was verified electronically.
--- NOTE | 2016-10-04 18:12 | PD ---
Data Data Last Documented VS Vital Signs Date Time Temp Pulse Resp B/P Pulse Ox O2 Delivery O2 Flow Rate FiO2 10/04/16 18:17 89 18 148/77 94 Nasal Cannula 3 10/04/16 16:25 98.4 Orders Complete Blood Count With Diff (10/04/16 16:51) Comprehensive Metabolic Panel (10/04/16 16:51) Lipase (10/04/16 16:51) Lactic Acid (10/04/16 16:51) Prothrombin Time / Inr (Pt) (10/04/16 16:51) Act Partial Throm Time (Ptt) (10/04/16 16:51) Urinalysis - C+S If Indicated (10/04/16 16:51) Ct Abd/Pel W Iv Contrast(Rout) (10/04/16 16:51) Iv Access Insert/Monitor (10/04/16 16:51) Ecg Monitoring (10/04/16 16:51) Oximetry (10/04/16 16:51) Ondansetron Inj (Zofran Inj) (10/04/16 17:00) Sodium Chlor 0.9% 1000 Ml Inj (Ns 1000 M (10/04/16 16:51) Sodium Chloride 0.9% Flush (Ns Flush) (10/04/16 17:00) Electrocardiogram (10/04/16 16:51) Ckmb (Isoenzyme) Profile (10/04/16 16:51) Troponin I (10/04/16 16:51) Chest, Single Ap (10/04/16 16:51) Albuterol-Ipratropium Neb (Duoneb Neb) (10/04/16 17:00) Morphine Inj (Morphine Inj) (10/04/16 17:45) Pantoprazole Inj (Protonix Inj) (10/04/16 18:15) Iohexol 350 Inj (Omnipaque 350 Inj) (10/04/16 18:17) Sodium Chlor 0.9% 1000 Ml Inj (Ns 1000 M (10/04/16 18:45) Labs Laboratory Tests Test 10/04/16 16:58 White Blood Count 13.9 TH/MM3 Red Blood Count 4.22 MIL/MM3 Hemoglobin 12.8 GM/DL Hematocrit 39.1 % Mean Corpuscular Volume 92.7 FL Mean Corpuscular Hemoglobin 30.4 PG Mean Corpuscular Hemoglobin 32.7 % Concent Red Cell Distribution Width 13.7 % Platelet Count 250 TH/MM3 Mean Platelet Volume 7.5 FL Neutrophils (%) (Auto) 82.5 % Lymphocytes (%) (Auto) 5.6 % Monocytes (%) (Auto) 7.8 % Eosinophils (%) (Auto) 3.8 % Basophils (%) (Auto) 0.3 % Neutrophils # (Auto) 11.5 TH/MM3 Lymphocytes # (Auto) 0.8 TH/MM3 Monocytes # (Auto) 1.1 TH/MM3 Eosinophils # (Auto) 0.5 TH/MM3 Basophils # (Auto) 0.0 TH/MM3 CBC Comment DIFF FINAL Differential Comment Prothrombin Time 10.7 SEC Prothromb Time International 1.0 RATIO Ratio Activated Partial 25.6 SEC Thromboplast Time Lactic Acid Level 1.5 mmol/L MDM Supervised Visit with DEBBIE: Yes Narrative Course I, Dr. Fernandez, have reviewed the advance practice practioner's documentation and am in agreement, met with the patient face to face, made the diagnosis, and the medical decision making was done by me. *My assessment and Findings: Patient is a 60-year-old male who was admitted to our hospital on 09/30 through 10/01 with acute pancreatitis, elevated troponin. He had a stress test that was negative with EF of 75%. He had an EGD with gastritis and esophagitis and hiatal hernia. He was discharged on liquid diet. He has resumed his normal diet per GI instructions and began to have severe epigastric and right upper quadrant pain radiating to the left neck and shoulder with nausea and vomiting similar to his previous hospital stay. Patient states that the pain is severe, burning and sharp. Diffuse abdominal tenderness palpation greatest in the epigastric and right upper quadrant. He's had a previous cholecystectomy. Patient is slightly dyspneic on exam but lungs are clear. Differential includes pancreatitis, hepatobiliary pathology, gastritis, peptic ulcer, ACS. Twelve-lead EKG shows sinus rhythm without notable ST abnormalities, normal intervals. Chest x-ray unremarkable. CT abdomen and pelvis shows persistent, worsening pancreatitis. Electrolytes remain pending, patient admitted to medicine for further management. Crystal Fernandez MD Oct 04, 2016 18:12
[2016-10-04] MEDS ORDERED: PANTOPRAZOLE SODIUM 40 MG VIAL IV PUSH ONE (18:15)
[2016-10-04] MEDS ORDERED: IOHEXOL 350 MG/ML 10 ML VIAL (for RAD DIAG) IV ONE (18:17)
--- NOTE | 2016-10-04 18:19 | RADRPT ---
EXAM DATE/TIME: 10/04/2016 17:44 [facility] COMPARISON: CT ABDOMEN & PELVIS W CONTRAST, September 28, 2016, 15:05. INDICATIONS : Upper abdomen pain for two days history of pancreatis. IV CONTRAST: 81 cc Omnipaque 350 (iohexol) IV ORAL CONTRAST: No oral contrast ingested. RADIATION DOSE: 4.65 CTDIvol (mGy) MEDICAL HISTORY : Cardiovascular disease. Cerebrovascular disease. Hypertension.Pancreatitis SURGICAL HISTORY : Cholecystectomy. ENCOUNTER: Initial ACUITY: 2 days PAIN SCALE: 10/10 LOCATION: Abdomen TECHNIQUE: Volumetric scanning of the abdomen and pelvis was performed. Using automated exposure control and ad justment of the mA and/or kV according to patient size, radiation dose was kept as low as reasonably achievable to obtain optimal diagnostic quality images. FINDINGS: Spleen, liver, adrenal glands are unremarkable. There is left renal scarring with tiny cysts present. There is a complex cystic mass at the upper pole of the right kidney which is unchanged and stable i n appearance. A small area of high density and punctate calcification at the superior aspect of this mass is noted, nodular in configuration. Atherosclerotic calcifications of the aorta and iliac vessel s are seen. There is a small amount of free fluid in the pelvis which is unchanged. There are no sign s of bowel obstruction. The patient is status post cholecystectomy. There are extensive inflammatory changes surrounding the pancreas with a small amount of peripancreatic fluid. There is now identified a hypodense mass at the proximal body of the pancreas measuring 3.4 x 2 cm in transverse and AP dime nsion. There is also a stable hypodense mass in the mid body measuring 1.4 cm. These are felt to repr esent developing pseudocysts. There is a focal fluid collection superiorly along the posterior margin of the gastric fundus measuring 1.8 cm also felt to represent a pseudocyst developing. Degenerative changes of the spine are noted. Lung bases are clear. CONCLUSION: 1. Evolution of inflammatory changes at the level of the pancreas with pseudocyst formation as descri bed above. 2. Stable renal cysts including a complex cyst right kidney. Dann Jensen MD on October 04, 2016 at 18:15 Board Certified Radiologist. This report was verified electronically.
[2016-10-04] MEDS ORDERED: SODIUM CHLOR 0.9% 1000 ML INJ 1,000 ML IV ONE (18:45)
[2016-10-04] MEDS ORDERED: ALBUTEROL SULFATE 90 MCG/ACT HFA 8 GM INHALER INH PRN (19:00)
[2016-10-04] MEDS ORDERED: NALOXONE HCL 0.4 MG/ML AMP IV PRN (19:00)
[2016-10-04] MEDS: SODIUM CHLORIDE 0.9% FLUSH 10 ML FLUSH IV FLUSH SCH (19:23)
[2016-10-04] MEDS: SODIUM CHLOR 0.9% 1000 ML INJ 1,000 ML IV SCH (19:24)
[2016-10-04 19:45] LABS: BLOOD UREA NITROGEN 13 MG/DL (7-18); GLOMERULAR FILTRATION RATE 71 ML/MIN (>89)
[2016-10-04 19:46] LABS: ALKALINE PHOSPHATASE 142 U/L (45-117); ALT (GPT) 48 U/L (12-78); ANION GAP 10 MEQ/L (5-15); AST (GOT) 48 U/L (15-37); BICARBONATE 22.5 MEQ/L (21.0-32.0); CHLORIDE 107 MEQ/L (98-107); POTASSIUM 4.6 MEQ/L (3.5-5.1); SODIUM (NA) 139 MEQ/L (136-145); TOTAL BILIRUBIN ADULT 0.7 MG/DL (0.2-1.0)
[2016-10-04 20:10] LABS: CREATINE KINASE 71 U/L (39-308)
[2016-10-04] MEDS: MORPHINE SULFATE 4 MG/ML INJ IV PUSH PRN ×2 (20:16→22:26)
[2016-10-04] MEDS: CELECOXIB 200 MG CAP PO SCH (20:59)
[2016-10-04] MEDS: DICYCLOMINE HCL 10 MG CAP PO SCH (21:00)
[2016-10-04] MEDS: HEPARIN SODIUM - SQ 10,000 UNITS/ML VIAL SQ SCH (21:01)
[2016-10-04 22:10] LABS: BLOOD, URINE NEG (NEG); COMMENT (UR) CULT NOT INDICATED; CULTURE IF INDICATED CULT NOT INDICATED; GLUCOSE,URINE NEG (NEG); KETONE, URINE 10 mg/dL (NEG); MUCUS URINE MOD /lpf (OCC); NITRITE,URINE NEG (NEG); PH, URINE 5.5 (5.0-8.5); SQUAMOUS EPITHELIAL CELL URINE <1 /hpf (0-5); URINE COLOR LIGHT-YELLOW (YELLW/STRAW)
[2016-10-05 00:11] VITALS: BP 118/70; PULSE 78; RESP 18; TEMP 97.8; O2SAT 95
[2016-10-05] MEDS: MORPHINE SULFATE 4 MG/ML INJ IV PUSH PRN ×12 (00:28→22:37)
[2016-10-05] MEDS: SODIUM CHLOR 0.9% 1000 ML INJ 1,000 ML IV SCH ×2 (04:36→14:52)
[2016-10-05 05:23] LABS: AUTOMATED NEUTROPHIL # 7.1 TH/MM3 (1.8-7.7); BASOPHIL % 0.3 % (0.0-2.0); EOSINOPHIL # 0.4 TH/MM3 (0-0.4); EOSINOPHIL % 4.9 % (0.0-4.0); HEMATOCRIT 33.1 % (39.0-51.0); HEMO FLAGS DIFF FINAL; LYMPH % 8.1 % (9.0-44.0); LYMPHOCYTE # 0.7 TH/MM3 (1.0-4.8); MEAN CELL VOLUME 93.8 FL (80.0-100.0); MEAN CORPUSCULAR HEMOGLOBIN 31.2 PG (27.0-34.0); MEAN CORPUSCULAR HGB CONC 33.3 % (32.0-36.0); MONO % 8.2 % (0.0-8.0); NEUT % 78.5 % (16.0-70.0); PLATELET COUNT 227 TH/MM3 (150-450); RED BLOOD COUNT 3.53 MIL/MM3 (4.50-5.90)
[2016-10-05 05:36] LABS: BICARBONATE 25.3 MEQ/L (21.0-32.0)
[2016-10-05 08:00] VITALS: BP 127/77; PULSE 72; RESP 18; TEMP 97.6; O2SAT 98
[2016-10-05] MEDS: PANTOPRAZOLE SOD 40 MG DELAYED RELEASE TAB PO SCH (08:25)
[2016-10-05] MEDS: CYANOCOBALAMIN 1,000 MCG TAB PO SCH (08:25)
[2016-10-05] MEDS: ASPIRIN 81 MG CHEW TAB CHEW SCH (08:26)
[2016-10-05] MEDS: DICYCLOMINE HCL 10 MG CAP PO SCH ×4 (08:26→19:12)
[2016-10-05] MEDS: HEPARIN SODIUM - SQ 10,000 UNITS/ML VIAL SQ SCH ×2 (08:26→19:13)
[2016-10-05] MEDS: amLODIPine BESYLATE 5 MG TAB PO SCH (08:26)
[2016-10-05] MEDS: CELECOXIB 200 MG CAP PO SCH (08:26)
[2016-10-05] MEDS: SODIUM CHLORIDE 0.9% FLUSH 10 ML FLUSH IV FLUSH SCH ×2 (08:27→12:29)
--- NOTE | 2016-10-05 08:56 | EKG ---
Date Performed: 10/04/2016 Time Performed: 17:15:31 PTAGE: 60 years EKG: Sinus rhythm LOW QRS VOLTAGE IN PRECORDIAL LEADS BORDERLINE ECG PREVIOUS TRACING : 09/28/2016 12.37 No significant change from previous tracing noted. DOCTOR: Nehemias Head Interpretating Date/Time 10/05/2016 08:55:07
[2016-10-05] MEDS ORDERED: buPROPion HCL 150 MG SUSTAINED RELEASE TAB PO SCH (09:00)
--- NOTE | 2016-10-05 10:00 | MB ---
cc: ALFONSO SANTA DATE OF CONSULTATION 10/05/2016 HISTORY OF PRESENT ILLNESS Mr. Barber is a 60-year-old white male recently admitted for pancreatitis and [id number] myocardial infarction. He underwent myocardial perfusion study which showed no evidence of ischemia or infarction. His troponin was elevated at that time. The patient now presents with recurrent abdominal pain and also sharp epigastric and lower substernal chest discomfort radiating into the neck. He also complains of shortness of breath. His chest pain has now improved but he still has abdominal pain. PAST MEDICAL HISTORY 1. Positive for COPD. 2. Hiatal hernia. 3. Gastritis/esophagitis. 4. Recent hospitalization for pancreatitis. 5. Recent evaluation for non-ST elevation myocardial infarction which showed no evidence of ischemia or infarction. 6. History of arthritis. 7. Asthma. 8. Depression on Wellbutrin. 9. Tachycardia. 10. CVA. 11. Headaches. 12. Hypertension. PAST SURGICAL HISTORY 1. Cholecystectomy 2. Laminectomy. 3. Tonsillectomy. MEDICATIONS 1. Norvasc. 2. Pro-Air inhaler. 3. Wellbutrin. 4. Aspirin. 5. Pantoprazole. 6. Celebrex. 7. Dicyclomine. 8. B12. 9. Vitamin D. 10. Probiotic. ALLERGIES PENICILLIN. SHELLFISH. SOCIAL HISTORY The patient quit smoking two years ago. He also quit drinking alcohol eight months ago. He is . FAMILY HISTORY Positive for heart disease in his father. REVIEW OF SYSTEMS Otherwise negative. PHYSICAL EXAMINATION VITAL SIGNS: Blood pressure 118/70, pulse 78 and regular. HEENT: Negative. NECK: 2+ carotid upstrokes. No bruits. LUNGS: Clear. HEART: Regular rate. No murmur, gallop or rub. ABDOMEN: Soft. No bruits. Mildly tender. EXTREMITIES: Without edema. 2+ distal pulses. NEUROLOGIC: Exam was grossly nonfocal. EKG Reviewed and showed normal sinus rhythm with normal axis and intervals. No acute changes. LABS Hemoglobin 11.0. Potassium 4.0, creatinine 0.8. CK 71. Troponin 0.15 and 0.22. Lipase 727 and 922. DIAGNOSES 1. Atypical chest pain. 2. Mild troponin elevation. 3. Recent myocardial perfusion study consistent with inferolateral and inferoapical infarction but no evidence of ischemia, ejection fraction of 70%. 4. Acute pancreatitis. 5. Gastritis/esophagitis. 6. Hypertension. 7. COPD. 8. History of CVA. DISPOSITION Mr. Barber has atypical chest pain likely of noncardiac origin related to his gastritis and esophagitis. He had mild troponin elevation during his recent hospitalization and underwent nuclear myocardial perfusion study which showed inferolateral and inferoapical infarction but no evidence of ischemia with preserved left ventricular systolic function. His echocardiogram on 09/29 showed preserved left ventricular systolic function and mild to moderate pulmonary hypertension. At this time I recommend he continue therapy for gastritis, esophagitis and worsening pancreatitis. Mr. Barber will be monitored on telemetry. I will follow him for cardiology during his hospitalization. MD WILMAN Becerra/SSB /8:35 AM /9:40 AM MTDD
[2016-10-05 12:00] VITALS: BP 128/83; PULSE 74; RESP 17; TEMP 96.2; O2SAT 98
[2016-10-05 16:00] VITALS: BP 139/80; PULSE 77; RESP 14; TEMP 96.5; O2SAT 97
--- NOTE | 2016-10-05 16:58 | PD.CONS ---
HPI History of Present Illness This is a 60 year old male with a hx of recurrent pancreatitis. He was told that his first couple of episodes were related to ETOH use and therefore he quit drinking about 8 months ago. He was then hospitalized back in June for abdominal pain and was found to have acute cholecystitis and underwent a cholecystectomy with Dr. Pagan. He reports that he has had ongoing issues with abdominal bloating and discomfort since his gallbladder was removed. He also reported that he had a couple of episodes of having melena over the past several months and reports that he quit taking Celebrex at that time. He was was recently hospitalized for acute pancreatitis from 09/28-10/01. Abdomen/ Pelvis CT (09/28/16)-----> 1.Findings characteristic of acute pancreatitis with peripancreatic inflammatory changes, free fluid around the spleen and liver as well as the deep pelvis and possibly developing 1.6 cm pseudocyst at the junction of the body and tail of the pancreas. 2. Stable Bosniak type II 3.8 cm cyst in the right kidney. He was evaluated with EGD (10/01/16)---> Gastritis antrum-biopsy, esophagitis distal-biopsy, 2. Retroflexed views revealed a hiatal hernia. Pathology revealed antral mucosa with regenerative epithelial changes and mild active chronic gastritis, a fatmata stain was negative for Helicobacter, distal esophagus biopsy with gastric mucosa with mild chronic inflammation of the lamina propria. There was no evidence of metaplasia or dysplasia. There was also some question about his pancreatitis possibly being related to his Wellbutrin and therefore he stopped taking this. His symptoms improved and he was discharged home on 10/01- with a lipase of 332. He reports that he was feeling well at discharge. That night, he ate a pepparoni and salami sandwich, grilled chicken, and tater tots. He felt a little bloated after this, but went to bed. The next day, he did not have much appetite, but did eat some potato salad. Late that night, he began having severe epigastric pain (dull ache/sharp at times) in his LUQ radiating to his chest and left shoulder. He did take some Gas-x but did not have any relief. He was feeling ill and had chills, without fever. He rested that day and went to bed early, but the pain worsened and he woke up around 4am with severe pain that was more constant. He denies any associated diarrhea/melena/hematochezia. He came to the ER for further evaluation and was found to have mild leukocytosis 13.9, Lipase 727. Abdomen/Pelvis CT (10/04/16)----> 1. Evolution of inflammatory changes at the level of the pancreas with pseudocyst formation as described above. 2. Stable renal cysts including a complex cyst right kidney. (Nissa Cates) PFSH Past Medical History Pancreatitis, 3-4 episodes History of cholecystitis, status post cholecystectomy GERD, globus sensation COPD Chronic back pain History of pneumonia History of kidney infection History of EtOH abuse, none 8 months Depression Hiatal hernia Gastritis/Esophagitis Past Surgical History Laminectomy Tonsillectomy Cholecystectomy EGD (Nissa Cates) Coded Allergies: Shellfish (Verified Allergy, Severe, Swelling, 10/04/16) Penicillin (Verified Allergy, Mild, rash, 10/04/16) Medications Allergies Coded Allergies Type Severity Reaction Last Updated Verified Shellfish Allergy Severe Swelling 10/04/16 Yes Penicillin Allergy Mild rash 10/04/16 Yes Active Scripts Medications Dose Route/Sig Days Date Category Dose Instructions Probiotic (Probiotic Product) 1 Tab Tab 10/04/16 Reported Vitamin D (Cholecalciferol) 400 Unit Cap 10/04/16 Reported [id number] (Methylcobalamin) 1 Mg Chew 1 Mg CHEW DAILY 10/04/16 Reported Dicyclomine (Dicyclomine HCl) 10 Mg Cap 10 Mg PO QID 10/04/16 Reported Celebrex (Celecoxib) 200 Mg Cap 200 Mg PO BID 10/04/16 Reported Pantoprazole (Pantoprazole Sodium) 40 Mg Tab 40 Mg PO DAILY 09/28/16 Reported Aspirin Children's (Aspirin) 81 Mg Chew 81 Mg CHEW DAILY 09/03/16 Reported Wellbutrin SR 12 HR (Bupropion HCl) 150 Mg Tab 150 Mg PO DAILY 09/03/16 Reported Proair Hfa 8.5 GM Inh (Albuterol Sulfate) 90 Mcg/Act Aer 2 Puff INH Q4-6H PRN 06/22/16 Reported 108 mcg/actuation Norvasc (Amlodipine Besylate) 5 Mg Tab 5 Mg PO DAILY 06/22/16 Reported Family History Mother had emphysema. Father had diabetes, emphysema, [place] Social History Quit smoking 2 years ago, she did smoke for 40 years prior to that. Quit drinking alcohol 8 months ago (CatesNissa) Review of Systems Constitutional: COMPLAINS OF: Fatigue, Weight loss, Chills, Change in appetite , DENIES: Fever Respiratory: DENIES: Shortness of breath Cardiovascular: COMPLAINS OF: Chest pain Gastrointestinal: COMPLAINS OF: Abdominal pain, Swelling of Abdomen, Heartburn , DENIES: Black stools, Bloody stools, Constipation, Diarrhea, Nausea, Vomiting Musculoskeletal: COMPLAINS OF: Joint pain, Back pain Integumentary: DENIES: Jaundice Hematologic/lymphatic: DENIES: Bruising Psychiatric: DENIES: Confusion (DarrynNissa Naima HUMPHREY) GI Exam Vitals I&O Vital Signs Date Time Temp Pulse Resp B/P Pulse Ox O2 Delivery O2 Flow Rate FiO2 10/05/16 14:36 18 10/05/16 12:00 96.2 74 17 128/83 98 10/05/16 08:00 97.6 72 18 127/77 98 10/05/16 00:11 97.8 78 18 118/70 95 10/04/16 20:46 97.2 88 21 142/79 97 10/04/16 20:15 87 21 132/74 98 Nasal Cannula 2 10/04/16 19:22 95 20 126/87 96 Nasal Cannula 2 10/04/16 18:17 89 18 148/77 94 Nasal Cannula 3 10/04/16 17:32 95 24 113/78 96 Nasal Cannula 3 10/04/16 17:32 96 Nasal Cannula 3 10/04/16 17:09 99 Nasal Cannula 3.00 10/04/16 16:25 98.4 96 16 115/56 100 I/O 10/04/16 10/04/16 10/04/16 10/05/16 10/05/16 10/05/16 07:00 15:00 23:00 07:00 15:00 23:00 Intake Total 126 ml 745 ml 1539 ml Output Total 400 ml 700 ml 600 ml Balance -274 ml 45 ml 939 ml Intake Oral 600 ml IV Total 126 ml 745 ml 939 ml Output Urine Total 400 ml 700 ml 600 ml # Bowel Movements 0 Imaging Last Impressions Chest X-Ray 10/04/16 1651 Signed Impressions: Service Date/Time: Tuesday, October 04, 2016 17:54 - CONCLUSION: No acute disease. Dontae Murray MD Abdomen/Pelvis CT 10/04/16 1651 Signed Impressions: Service Date/Time: Tuesday, October 04, 2016 17:44 - CONCLUSION: 1. Evolution of inflammatory changes at the level of the pancreas with pseudocyst formation as described above. 2. Stable renal cysts including a complex cyst right kidney. Dann Jensen MD Laboratory Test 10/04/16 10/04/16 10/04/16 10/05/16 16:58 18:13 19:30 04:26 White Blood Count 13.9 TH/MM3 9.0 TH/MM3 Red Blood Count 4.22 MIL/MM3 3.53 MIL/MM3 Hemoglobin 12.8 GM/DL 11.0 GM/DL Hematocrit 39.1 % 33.1 % Mean Corpuscular Volume 92.7 FL 93.8 FL Mean Corpuscular Hemoglobin 30.4 PG 31.2 PG Mean Corpuscular Hemoglobin 32.7 % 33.3 % Concent Red Cell Distribution Width 13.7 % 14.0 % Platelet Count 250 TH/MM3 227 TH/MM3 Mean Platelet Volume 7.5 FL 7.3 FL Neutrophils (%) (Auto) 82.5 % 78.5 % Lymphocytes (%) (Auto) 5.6 % 8.1 % Monocytes (%) (Auto) 7.8 % 8.2 % Eosinophils (%) (Auto) 3.8 % 4.9 % Basophils (%) (Auto) 0.3 % 0.3 % Neutrophils # (Auto) 11.5 TH/MM3 7.1 TH/MM3 Lymphocytes # (Auto) 0.8 TH/MM3 0.7 TH/MM3 Monocytes # (Auto) 1.1 TH/MM3 0.7 TH/MM3 Eosinophils # (Auto) 0.5 TH/MM3 0.4 TH/MM3 Basophils # (Auto) 0.0 TH/MM3 0.0 TH/MM3 CBC Comment DIFF FINAL DIFF FINAL Differential Comment Prothrombin Time 10.7 SEC Prothromb Time International 1.0 RATIO Ratio Activated Partial 25.6 SEC Thromboplast Time Lactic Acid Level 1.5 mmol/L Sodium Level 139 MEQ/L 142 MEQ/L Potassium Level 4.6 MEQ/L 4.0 MEQ/L Chloride Level 107 MEQ/L 110 MEQ/L Carbon Dioxide Level 22.5 MEQ/L 25.3 MEQ/L Anion Gap 10 MEQ/L 7 MEQ/L Blood Urea Nitrogen 13 MG/DL 13 MG/DL Creatinine 1.06 MG/DL 0.81 MG/DL Estimat Glomerular Filtration 71 ML/MIN 97 ML/MIN Rate Random Glucose 81 MG/DL 75 MG/DL Calcium Level 9.0 MG/DL 8.8 MG/DL Total Bilirubin 0.7 MG/DL Aspartate Amino Transf 48 U/L (AST/SGOT) Alanine Aminotransferase 48 U/L (ALT/SGPT) Alkaline Phosphatase 142 U/L Total Creatine Kinase 71 U/L Troponin I 0.15 NG/ML 0.22 NG/ML Total Protein 6.1 GM/DL Albumin 2.6 GM/DL Lipase 727 U/L 922 U/L Urine Color LIGHT-YELLOW Urine Turbidity CLEAR Urine pH 5.5 Urine Specific [place] GREATER THAN 1.050 Urine Protein NEG mg/dL Urine Glucose (UA) NEG mg/dL Urine Ketones 10 mg/dL Urine Occult Blood NEG Urine Nitrite NEG Urine Bilirubin NEG Urine Urobilinogen LESS THAN 2.0 MG/DL Urine Leukocyte Esterase NEG Urine RBC LESS THAN 1 /hpf Urine WBC LESS THAN 1 /hpf Urine Squamous Epithelial <1 /hpf Cells Urine Mucus MOD /lpf Microscopic Urinalysis Comment CULT NOT INDICATED Physical Examination HEENT: Normocephalic; atraumatic; no jaundice. CHEST: CTA CARDIAC: RRR ABDOMEN: Soft, mildly bloated, moderate LUQ tenderness; no hepatosplenomegaly; bowel sounds are present in all four quadrants. EXTREMITIES: No clubbing, cyanosis, or edema. SKIN: Normal; no rash; no jaundice. 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 (Nissa CatesP) Assessment and Plan Plan ASSESSMENT: - Persistent pancreatitis. Pt has had multiple episodes of pancreatitis. This was originally related to ETOH, but he quit drinking 8months ago. He then had a cholecystectomy in June and states that he has had intermittent bloating since this time. He was hospitalized for acute pancreatitis from 09/28-10/01. Abdomen/Pelvis CT (09/28/16) at that time revealed 1.Findings characteristic of acute pancreatitis with peripancreatic inflammatory changes, free fluid around the spleen and liver as well as the deep pelvis and possibly developing 1.6 cm pseudocyst at the junction of the body and tail of the pancreas. 2. Stable Bosniak type II 3.8 cm cyst in the right kidney. The etiology of his pancreatitis was unclear and therefore he was evaluated with EGD (10/01/16)---> Gastritis antrum-biopsy, esophagitis distal-biopsy, 2. Retroflexed views revealed a hiatal hernia. Pathology revealed antral mucosa with regenerative epithelial changes and mild active chronic gastritis, a fatmata stain was negative for Helicobacter, distal esophagus biopsy with gastric mucosa with mild chronic inflammation of the lamina propria. There was no evidence of metaplasia or dysplasia. There was also some question about his pancreatitis possibly being related to his Wellbutrin and therefore he stopped taking this. His symptoms improved and he was discharged home on 10/01- with a lipase of 332. After discharge, he ate high fat meals such as pepparoni and salami sandwiches, tater tots, pasta salad. He had bloating the night of discharge and started having severe pain the next night. WBC 13.9, Lipase 727. Abdomen/Pelvis CT (10/04/16)----> 1. Evolution of inflammatory changes at the level of the pancreas with pseudocyst formation as described above. 2. Stable renal cysts including a complex cyst right kidney. NPO. IVF. PPI. Long discussion with patient re : importance of low fat diet- verbalizes understanding. - Pseudocyst. 3.4 x 2 cm proximal body and 1.4 cm in mid body. He has had chills, but no fever. His pain is likely related more to his high fat diet aggravating his pancreatitis. - Mildly elevated LFTs, T. Bili 0.7, AST 48, ALT 48, ALk Phosph 142. - Recent hx Gastritis, Esophagitis. PPI - Leukocytosis. Improved. WBC 9.0. PLAN: - Clear liquids - IVF - PPI - ETOH level - IgG 4 level - CBC, CMP, Lipase in am - D/W patient importance of low fat diet, will also ask the beauty consultant to see patient - Supportive care - Furthe recommendations to follow based on results of above (Nissa Cates) Physician Comments Patient seen and examined Agree with above Continue with current supportive care Monitor labs (Rodolfo Cruz MD) Nissa Cates Oct 05, 2016 16:58 Rodolfo Cruz MD Oct 05, 2016 23:12
--- NOTE | 2016-10-05 18:04 | HHI.PR ---
Objective Objective Results - Vital Signs Date Time Temp Pulse Resp B/P Pulse Ox O2 Delivery O2 Flow Rate FiO2 10/05/16 16:00 96.5 77 14 139/80 97 10/05/16 14:36 18 10/05/16 12:00 96.2 74 17 128/83 98 10/05/16 08:00 97.6 72 18 127/77 98 10/05/16 00:11 97.8 78 18 118/70 95 10/04/16 20:46 97.2 88 21 142/79 97 10/04/16 20:15 87 21 132/74 98 Nasal Cannula 2 10/04/16 19:22 95 20 126/87 96 Nasal Cannula 2 10/04/16 18:17 89 18 148/77 94 Nasal Cannula 3 I/O 10/04/16 10/04/16 10/04/16 10/05/16 10/05/16 10/05/16 07:00 15:00 23:00 07:00 15:00 23:00 Intake Total 126 ml 745 ml 2478 ml Output Total 400 ml 700 ml 600 ml Balance -274 ml 45 ml 1878 ml Intake Oral 600 ml IV Total 126 ml 745 ml 1878 ml Output Urine Total 400 ml 700 ml 600 ml # Bowel Movements 0 Result Diagram: 10/05/16 0426 10/05/16 0426 Other Results Laboratory Tests Test 10/04/16 10/04/16 10/05/16 18:13 19:30 04:26 Sodium Level 139 142 Potassium Level 4.6 4.0 Chloride Level 107 110 Carbon Dioxide Level 22.5 25.3 Anion Gap 10 7 Blood Urea Nitrogen 13 13 Creatinine 1.06 0.81 Estimat Glomerular Filtration 71 97 Rate Random Glucose 81 75 Calcium Level 9.0 8.8 Total Bilirubin 0.7 Aspartate Amino Transf 48 (AST/SGOT) Alanine Aminotransferase 48 (ALT/SGPT) Alkaline Phosphatase 142 Total Creatine Kinase 71 Troponin I 0.15 0.22 Total Protein 6.1 Albumin 2.6 Lipase 727 922 Urine Color LIGHT-YELLOW Urine Turbidity CLEAR Urine pH 5.5 Urine Specific [place] GREATER THAN 1.050 Urine Protein NEG Urine Glucose (UA) NEG Urine Ketones 10 Urine Occult Blood NEG Urine Nitrite NEG Urine Bilirubin NEG Urine Urobilinogen LESS THAN 2.0 Urine Leukocyte Esterase NEG Urine RBC LESS THAN 1 Urine WBC LESS THAN 1 Urine Squamous Epithelial <1 Cells Urine Mucus MOD Microscopic Urinalysis Comment CULT NOT INDICATED White Blood Count 9.0 Red Blood Count 3.53 Hemoglobin 11.0 Hematocrit 33.1 Mean Corpuscular Volume 93.8 Mean Corpuscular Hemoglobin 31.2 Mean Corpuscular Hemoglobin 33.3 Concent Red Cell Distribution Width 14.0 Platelet Count 227 Mean Platelet Volume 7.3 Neutrophils (%) (Auto) 78.5 Lymphocytes (%) (Auto) 8.1 Monocytes (%) (Auto) 8.2 Eosinophils (%) (Auto) 4.9 Basophils (%) (Auto) 0.3 Neutrophils # (Auto) 7.1 Lymphocytes # (Auto) 0.7 Monocytes # (Auto) 0.7 Eosinophils # (Auto) 0.4 Basophils # (Auto) 0.0 CBC Comment DIFF FINAL Differential Comment Physical Exam Physical Exam pt is seen & examined d/w PT d/w Rachelle see Orders see H&P will f/u Audrey Killian MD Oct 05, 2016 18:04
[2016-10-05 19:54] VITALS: BP 136/77; PULSE 82; RESP 17; TEMP 96.3; O2SAT 96
[2016-10-05 23:48] VITALS: BP 128/75; PULSE 74; RESP 17; TEMP 96.5; O2SAT 97
[2016-10-06] MEDS: ONDANSETRON HCL 4 MG/2 ML VIAL IVP PRN ×2 (00:39→17:51)
[2016-10-06] MEDS: MORPHINE SULFATE 4 MG/ML INJ IV PUSH PRN ×12 (00:39→22:41)
[2016-10-06 05:39] LABS: AUTOMATED NEUTROPHIL # 7.6 TH/MM3 (1.8-7.7); BASOPHIL % 0.3 % (0.0-2.0); EOSINOPHIL # 0.5 TH/MM3 (0-0.4); EOSINOPHIL % 5.4 % (0.0-4.0); HEMATOCRIT 33.4 % (39.0-51.0); HEMO FLAGS DIFF FINAL; LYMPH % 6.6 % (9.0-44.0); LYMPHOCYTE # 0.6 TH/MM3 (1.0-4.8); MEAN CELL VOLUME 92.6 FL (80.0-100.0); MEAN CORPUSCULAR HEMOGLOBIN 31.4 PG (27.0-34.0); MEAN CORPUSCULAR HGB CONC 33.9 % (32.0-36.0); MONO % 9.2 % (0.0-8.0); NEUT % 78.5 % (16.0-70.0); PLATELET COUNT 235 TH/MM3 (150-450); RED CELL DISTRIBUTION WIDTH 13.8 % (11.6-17.2); WHITE BLOOD COUNT 9.7 TH/MM3 (4.0-11.0)
[2016-10-06 05:43] LABS: ALKALINE PHOSPHATASE 130 U/L (45-117); ALT (GPT) 39 U/L (12-78); ANION GAP 8 MEQ/L (5-15); AST (GOT) 32 U/L (15-37); BICARBONATE 24.9 MEQ/L (21.0-32.0); BLOOD UREA NITROGEN 10 MG/DL (7-18); CHLORIDE 106 MEQ/L (98-107); GLOMERULAR FILTRATION RATE 104 ML/MIN (>89); POTASSIUM 4.2 MEQ/L (3.5-5.1); SODIUM (NA) 139 MEQ/L (136-145); TOTAL BILIRUBIN ADULT 0.6 MG/DL (0.2-1.0)
[2016-10-06 07:49] VITALS: BP 140/75; PULSE 76; RESP 17; TEMP 96.5; O2SAT 99
[2016-10-06] MEDS: SODIUM CHLORIDE 0.9% FLUSH 10 ML FLUSH IV FLUSH SCH ×2 (08:32→20:37)
[2016-10-06] MEDS: DICYCLOMINE HCL 10 MG CAP PO SCH ×4 (08:33→20:36)
[2016-10-06] MEDS: PANTOPRAZOLE SOD 40 MG DELAYED RELEASE TAB PO SCH (08:33)
[2016-10-06] MEDS: CYANOCOBALAMIN 1,000 MCG TAB PO SCH (08:33)
[2016-10-06] MEDS: amLODIPine BESYLATE 5 MG TAB PO SCH (08:33)
[2016-10-06] MEDS: HEPARIN SODIUM - SQ 10,000 UNITS/ML VIAL SQ SCH ×2 (08:34→20:36)
[2016-10-06] MEDS: ASPIRIN 81 MG CHEW TAB CHEW SCH (08:34)
[2016-10-06] MEDS: SODIUM CHLOR 0.9% 1000 ML INJ 1,000 ML IV SCH ×2 (08:41→18:34)
--- NOTE | 2016-10-06 09:13 | MH ---
cc: PRINCESS KILLIAN MD DATE OF ADMISSION: 10/04/2016 DATE OF : 1955, 60 years old. CHIEF COMPLAINT Abdominal pain. Recent pancreatitis. HISTORY OF PRESENT ILLNESS: This is a 60 year old white male who has just recently been hospitalized with pancreatitis and non STEMI. The patient was feeling much better this past week and went home and was discharged Tuesday and was told to resume a liquid diet. The patient went home no apparent disease ate grilled chicken, tater tots and a large salami, pepperoni sandwich. He began getting sick late Tuesday night within 24 hours had a decreased appetite and epigastric pain. The pain waxed and waned until two days ago, Tuesday at 0400 the patient was having upper quadrant and epigastric pain that radiated down into the lower left quadrant. He came back to the emergency room on the for reevaluation. The patient was followed by Dr. Rivera during this last hospital evaluation. The patient has a significant history of chronic obstructive pulmonary disease, gastroesophageal reflux disease, gastritis, possible hiatal hernia and recent pancreatitis. The patient is currently resting in the bed, describes the epigastric pain as a sharp stabbing sensation, it seems to wax and wane but he is not getting any relief. The patient is alert and oriented, a fairly good historian. The patient denies any shortness of breath. He does state that he is having some neck pain but states that the neck pain is a radiation from his epigastric pain. The patient denies any headache, has a decreased appetite with nausea but no emesis. He does have a history of constipation and has only had a small bowel movement in the last few days. The patient denies any diarrhea. PAST MEDICAL HISTORY: 1. Arthritis. 2. Asthma. 3. Depression. The patient has been taking Wellbutrin for an extended period of time. 4. History of tachycardia. 5. Cardiovascular disease. 6. Previous myocardial infarction. 7. Gastroesophageal reflux disease. 8. Gastritis. 9. Esophagitis. 10. Hiatal hernia. 11. Possible cerebrovascular accident years ago. 12. Headaches. 13. Neck pain. 14. Previous tobacco user and dependence. 15. Previous alcohol user and dependence. 16. Migraine headaches. 17. Myocardial infarction 18. Pancreatitis. PAST SURGICAL HISTORY 1. Abdominal surgery. 2. Cholecystectomy. 3. Laminectomy. 4. Tonsillectomy. ALLERGIES SHELLFISH PENICILLIN REPORTED MEDICATIONS: 1. Probiotics. 2. Vitamin D. 3. Vitamin B12. 4. Dyclomine. 5. Celebrex. 6. Propanazole. 7. Baby aspirin. 8. Wellbutrin. 9. ProAir. 10. Norvasc. SOCIAL HISTORY: The patient states no alcohol in eight months. 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 REVIEW OF SYSTEMS 12 point review was obtained, positives noted in the history of present illness which include; his epigastric pain which is radiating into history left lower quadrant. Describes the pain as sharp and stabbing, positive for expiratory wheezes from probable chronic obstructive pulmonary disease. Epigastric pain radiating up into the neck. Anxiety, mild. Decreased appetite the past few days. Possible mild constipation. Otherwise the systems are negative or unremarkable. PHYSICAL EXAMINATION: VITAL SIGNS: Temperature 96.5, pulse 77, respirations 14, blood pressure 139/80. O2 saturations 97 on room air. On admission the patients blood pressure was 142/79. Pulse rate was 88, respiratory rate was 21. GENERAL: Thin, almost frail, white male who looks older than his stated age, resting in the bed, he is alert, oriented and conversational. HEAD, EYES, EARS, NOSE, AND THROAT: Atraumatic, normocephalic, Pupils equal, round, reactive to light and accommodation, mucous membranes are dry, slightly pale. SKIN: The skin is [place] but warm and dry. NECK: The neck is supple. CARDIOVASCULAR SYSTEM: S1, S2, regular rate and rhythm, less then 100. No murmurs, rubs, or gallops appreciated. RESPIRATORY: Lung short are diminished with some expiratory wheezing noted throughout the lung short. His breath sounds are raspy but no rhonchi and no rales. ABDOMEN: The abdomen is flat, soft, he does have tenderness in his epigastric region down to his left lower quadrant with some guarding. His bowel sounds are very soft and hypoactive. MUSCULOSKELETAL: He moves all extremities with purpose. 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 Pulses are intact. NEUROLOGIC: Neurologically he is alert, oriented a fair good historian. Very talkative. Speech is clear. PSYCHIATRIC: Mild anxiety but mood is appropriate. Judgment and insight appears normal for now. DIAGNOSTIC DATA: White blood cell count on 10/05/2016 9. On admission 10/04/2016 it was 13.9. Hemoglobin is 11, hematocrit 33.1. Neutrophil percentage 78.5. Lymphocyte 8.1. Monocyte 8.2, eosinophils 4.9. PT/INR 1. Chemistries; sodium 142, potassium 4, chloride 110, carbon dioxide 25.3, amnion gap 7. BUN 13, creatinine 0.81. Glomerular filtration rate is 97, random glucose 75, calcium is 8.8. Troponins are positive at 0.15 and 0.22. Lipase has elevated from 727 to 922 in 24 hours, total protein 6.1, albumin 2.6. Aspartate aminotransferase is 48, ALT 48, alkaline phosphatase is 142, total creatinine kinase is 71. Urine is light yellow, clear, pH 5.5 specific gravity greater than 1.050, negative protein, glucose, occult blood, nitrates, bilirubin and leukocyte esterase. Urine ketones are 10. Culture is not indicated, there is a moderate amount of mucous. Chest x-ray shows no acute disease. Abdomen/pelvis shows inflammatory changes at the level of pancreas with pseudocyst formation as described above. Stable renal cyst including a complex cyst on the right kidney. ASSESSMENT: 1. Pancreatitis, acute on chronic recurring. 2. Atypical chest pain, rule out cardiac event. 3. Chronic obstructive pulmonary disease. 4. Hypertension. 5. Gastroesophageal reflux disease. 6. History of ethyl alcohol abuse. 7. History of tobacco abuse. 8. Leukocytosis. 9. Moderate protein calorie malnutrition. PLAN: Our plan is to admit inpatient status when initially admitted in the emergency room the patient had duoneb treatments, pain management, electrocardiogram was placed on electrocardiogram monitoring and intravenous access, the patient had labs and CT scan. Medications were reconciled that was needed, he was placed on Heparin for deep venous thrombosis prophylaxis and was given normal saline IV bolus times one. The patient now will be maintained on vital signs q four hours and more often if warranted. He will be placed on an aspirin. Deep venous thrombosis prophylaxis with Heparin will continue, and electrocardiogram monitoring. Cardiology has been consulted for his expert opinion due to the patients cardiovascular history, according to cardiology his chest pain seems to be atypical and the patient recently had a myocardial perfusion study which shows no evidence of ischemia. His troponin was elevated during that time and he did have evidence of inferior lateral and inferior apical infarction, on the pericardial effusion study but no evidence of ischemia. He did show left ventricular systolic function which was preserved. Echocardiogram showed left ventricular systolic function with mild to moderate pulmonary hypertension. Cardiology will follow him but I doubt this chest pain is cardiac in nature. Gastrointestinal has been consulted. The plan is to rest this patients gut and maintain him on clear liquids for now. He has been NPO for the last 24 hours. He will now be increased to clear liquid diet. Nutrition will be consulted to discuss low fat diet and dietary regimen to assist and prevent any issues with his pancreatitis. Wellbutrin will be discontinued due to the side effects to his pancreatitis. The patients comorbidities such as hypertension, gastroesophageal reflux disease, previous alcohol and tobacco use, he will be medically managed with his medicines. The patient will have pain management, morphine IV every two hours for pain as needed. The patient is full code, full aggressive care and we will monitor with follow up labs tomorrow. Activity will be out of bed with assistance for the patients safety. The patient will be maintained on gentle hydration with his IV fluids. Dictated by KAM Duvall MD INGRIS Cantu/corin /4:37 PM /9:10 AM pt is seen & examined d/w PT d/w Rachelle aguilar Orders see H&P will f/u Princess Killian MD Oct 05, 2016 18:04 [facility]
[2016-10-06 11:35] VITALS: O2SAT 99
[2016-10-06 11:57] VITALS: BP 129/84; PULSE 75; RESP 18; TEMP 97.7; O2SAT 100
--- NOTE | 2016-10-06 11:58 | HHI.PR ---
Subjective Remarks Sitting up in chair and ambulate some in room States pain is better but still persist in the left upper and lower quadrant Alert oriented talkative Afebrile (Rachelle Ogden) Objective Objective Results - Vital Signs Date Time Temp Pulse Resp B/P Pulse Ox O2 Delivery O2 Flow Rate FiO2 10/06/16 10:38 18 10/06/16 07:49 96.5 76 17 140/75 99 10/05/16 23:48 96.5 74 17 128/75 97 10/05/16 19:54 96.3 82 17 136/77 96 10/05/16 16:00 96.5 77 14 139/80 97 10/05/16 12:00 96.2 74 17 128/83 98 I/O 10/05/16 10/05/16 10/05/16 10/06/16 10/06/16 10/06/16 07:00 15:00 23:00 07:00 15:00 23:00 Intake Total 745 ml 2478 ml 963 ml 380 ml Output Total 700 ml 600 ml 850 ml 800 ml Balance 45 ml 1878 ml 113 ml -420 ml Intake Oral 600 ml 480 ml 380 ml IV Total 745 ml 1878 ml 483 ml Output Urine Total 700 ml 600 ml 850 ml 800 ml # Bowel Movements 0 (Rachelle Ogden) Result Diagram: 10/06/16 0459 10/06/16 0459 ROS General: Fatigue, Weakness, Other (review of systems positives noted other systems negative or unremarkable) Pulmonary: Cough (occasional), Wheezing (few, COPD) GI: Abdominal Pain (pancreatitis continues to evolve) Skin: Itching, Rash (bilateral arms) (Rachelle Ogden) Physical Exam Physical Exam PHYSICAL EXAMINATION GENERAL: This is a thin male who appears to be in no acute distress. He is alert and awake, talkative HEAD: Normocephalic without any lesion or mass noted. Facial features appear symmetric. OROPHARYNGEAL: Oropharynx without erythema or edema. NECK: Supple. No nuchal rigidity or lymphadenopathy. Trachea midline without deviation. CARDIAC: Regular rhythm, regular rate, S1 and S2 are heard. Murmur soft LUNGS: Clear to auscultation bilaterally. mild expiratory wheeze,. No use of accessory muscles on inspiration or expiration. ABDOMEN: Soft, epigastric radiating down to left lower quadrant tenderness but improved today, Bowel sounds are heard in all four quadrants. No rebound. Mild guarding. EXTREMITIES: no edema. Pulses equal bilateral. NEUROLOGICAL: Patient mood and affect appropriate. No focal deficit SKIN:Warm and moist, mild papular rash noted right arm greater than left with urticaria Objective Remarks I'm beginning to feel little better today (Rachelle Ogden) A/P Assessment and Plan 1. Pancreatitis, acute on chronic recurring. IV fluids for hydration. GI consult and following appreciate. Monitoring labs for IgA 4 CBC CMP reviewed ethanol level less than 3, Clear liquids PPI, Lipase level climbing this a.m. but patient clinically says he feels better, continued to monitor, Pain management 2. Atypical chest pain, rule out cardiac event. Resolved no further complaints of neck pain or chest painCardiology will follow him but I doubt this chest pain is cardiac in nature. Cardiology will follow him but I doubt this chest pain is cardiac in nature. 3. Chronic obstructive pulmonary disease. Quit smoking but still has symptoms of COPD such as he is expiratory wheezing and cough Encouraged patient and supportive care 4. Hypertension. Controlled monitor vital signs normal ranges 5. Gastroesophageal reflux disease. Added probiotic per patient's request 6. History of ethyl alcohol abuse. States no alcohol in 8 months, and feels motivated to stay that way Supportive care 7. History of tobacco abuse. No cigarettes in 2 years patient states. Supportive care 8. Leukocytosis. Secondary to pancreatitis, medical management monitor labs 9. Moderate protein calorie malnutrition. Nutritional consult for their expert opinion for healthy diet for pancreatitis which will include a low-fat diet. 10 Urticaria, with mild papular rash Ordered PO benadryl and cream for rash and itch Discharge Planning Probable home, with home health Discussed With: Nurse, Family (patient), Other (Dr. Killian, seen on his behalf) (Rachelle Ogden) Assessment and Plan PT is seen & examined d/w PT yu [place] cont current tx GI input appreciated cont supportive care am labs will f/u (Audrey Killian MD) Rachelle Ogden Oct 06, 2016 11:58 Audrey Killian MD Oct 06, 2016 17:36
[2016-10-06] MEDS ORDERED: MISCELLANEOUS PHARMACY INFORMATION OTHER ONE (13:30)
[2016-10-06] MEDS ORDERED: diphenhydrAMINE HCL 25 MG CAP PO PRN (13:30)
[2016-10-06] MEDS: LACTOBACILLUS ACIDOPHILUS TAB PO SCH (14:34)
[2016-10-06] MEDS: HYDROCORTISONE 0.5% CREAM 30 GM TOPICAL SCH ×2 (14:35→22:44)
[2016-10-06 16:00] VITALS: BP 133/77; PULSE 85; RESP 17; TEMP 98.1; O2SAT 98
[2016-10-06] MEDS: diphenhydrAMINE HCL 2%/ZINC ACETATE 0.1% CREAM 30 APPLIC/30 GM TUBE TOPICAL SCH (17:51)
--- NOTE | 2016-10-06 18:41 | PD.CARD.PN ---
Subjective Subjective Remarks No CP or SOB, still c/o abd pain Objective Medications Current Medications Medications (Trade) Dose Ordered Sig/Devon Route Start Time Stop Time Status Last Admin (NS 1000 ml Inj) 1,000 ml @ 100 mls/hr Q10H IV 10/04/16 18:52 10/06/16 18:34 (NS Flush) 2 ml UNSCH PRN IV FLUSH 10/04/16 19:00 (NS Flush) 2 ml BID IV FLUSH 10/04/16 21:00 10/06/16 08:32 (Zofran Inj) 4 mg Q6H PRN IVP 10/04/16 19:00 10/06/16 17:51 (Heparin Inj) 5,000 units Q12H SQ 10/04/16 21:00 10/06/16 08:34 (Narcan Inj) 0.4 mg UNSCH PRN IV 10/04/16 19:00 (Norvasc) 5 mg DAILY PO 10/05/16 09:00 10/06/16 08:33 (Aspirin Chew) 81 mg DAILY CHEW 10/05/16 09:00 10/06/16 08:34 (Bentyl) 10 mg QID PO 10/04/16 21:00 10/06/16 17:51 (Protonix) 40 mg DAILY PO 10/05/16 09:00 10/06/16 08:33 (Vitamin B12) 1,000 mcg DAILY PO 10/05/16 09:00 10/06/16 08:33 (Morphine Inj) 4 mg Q2H PRN IV PUSH 10/04/16 19:00 10/06/16 18:31 (Benadryl 2% Cream) 1 applic TID TOPICAL 10/06/16 18:00 10/06/16 17:51 (Benadryl) 25 mg Q6H PRN PO 10/06/16 13:30 (Corticaine 0.5% Cream) 1 applic Q8H TOPICAL 10/06/16 15:00 10/06/16 14:35 (Lactinex) 1 tab DAILY PO 10/06/16 14:00 10/06/16 14:34 Vital Signs / I&O Vital Signs Date Time Temp Pulse Resp B/P Pulse Ox O2 Delivery O2 Flow Rate FiO2 10/06/16 16:00 98.1 85 17 133/77 98 10/06/16 14:37 18 10/06/16 11:57 97.7 75 18 129/84 100 10/06/16 11:35 99 Nasal Cannula 3.00 10/06/16 07:49 96.5 76 17 140/75 99 10/05/16 23:48 96.5 74 17 128/75 97 10/05/16 19:54 96.3 82 17 136/77 96 I/O 10/05/16 10/05/16 10/05/16 10/06/16 10/06/16 10/06/16 07:00 15:00 23:00 07:00 15:00 23:00 Intake Total 745 ml 2478 ml 963 ml 380 ml 3346 ml Output Total 700 ml 600 ml 850 ml 800 ml 700 ml Balance 45 ml 1878 ml 113 ml -420 ml 2646 ml Intake Oral 600 ml 480 ml 380 ml 1380 ml IV Total 745 ml 1878 ml 483 ml 1966 ml Output Urine Total 700 ml 600 ml 850 ml 800 ml 700 ml # Bowel Movements 0 0 Physical Exam GENERAL: In NAD SKIN: Warm and dry. HEAD: Normocephalic. EYES: No scleral icterus. No injection or drainage. NECK: Supple, trachea midline. No JVD or lymphadenopathy. CARDIOVASCULAR: Regular rate and rhythm without murmurs, gallops, or rubs. RESPIRATORY: Breath sounds equal bilaterally. No accessory muscle use. GASTROINTESTINAL: Abdomen soft, mildly tender, nondistended. MUSCULOSKELETAL: No cyanosis, or edema. Laboratory Laboratory Tests Test 10/06/16 04:59 White Blood Count 9.7 TH/MM3 Red Blood Count 3.60 MIL/MM3 Hemoglobin 11.3 GM/DL Hematocrit 33.4 % Mean Corpuscular Volume 92.6 FL Mean Corpuscular Hemoglobin 31.4 PG Mean Corpuscular Hemoglobin 33.9 % Concent Red Cell Distribution Width 13.8 % Platelet Count 235 TH/MM3 Mean Platelet Volume 7.2 FL Neutrophils (%) (Auto) 78.5 % Lymphocytes (%) (Auto) 6.6 % Monocytes (%) (Auto) 9.2 % Eosinophils (%) (Auto) 5.4 % Basophils (%) (Auto) 0.3 % Neutrophils # (Auto) 7.6 TH/MM3 Lymphocytes # (Auto) 0.6 TH/MM3 Monocytes # (Auto) 0.9 TH/MM3 Eosinophils # (Auto) 0.5 TH/MM3 Basophils # (Auto) 0.0 TH/MM3 CBC Comment DIFF FINAL Differential Comment Sodium Level 139 MEQ/L Potassium Level 4.2 MEQ/L Chloride Level 106 MEQ/L Carbon Dioxide Level 24.9 MEQ/L Anion Gap 8 MEQ/L Blood Urea Nitrogen 10 MG/DL Creatinine 0.76 MG/DL Estimat Glomerular Filtration 104 ML/MIN Rate Random Glucose 74 MG/DL Calcium Level 9.4 MG/DL Total Bilirubin 0.6 MG/DL Aspartate Amino Transf 32 U/L (AST/SGOT) Alanine Aminotransferase 39 U/L (ALT/SGPT) Alkaline Phosphatase 130 U/L Total Protein 6.2 GM/DL Albumin 2.9 GM/DL Lipase 1071 U/L Imaging Last Impressions Chest X-Ray 10/04/161650 Signed Impressions: Service Date/Time: Tuesday, October 04, 2016 17:54 - CONCLUSION: No acute disease. Dontae Murray MD Abdomen/Pelvis CT 10/04/161650 Signed Impressions: Service Date/Time: Tuesday, October 04, 2016 17:44 - CONCLUSION: 1. Evolution of inflammatory changes at the level of the pancreas with pseudocyst formation as described above. 2. Stable renal cysts including a complex cyst right kidney. Dann Jensen MD Assessment and Plan Problem List: (1) Chest pain (2) Pancreatitis (3) Elevated troponin (4) Hypertension Assessment and Plan No recurrent CP. No evidence of ACS. Continue tx for pancreatitis exacerbation. Increase activity. Alejandro Nieves MD Oct 06, 2016 18:41
[2016-10-06 20:00] VITALS: BP 146/84; PULSE 113; RESP 20; TEMP 98.8; O2SAT 94
--- NOTE | 2016-10-06 23:25 | HHI.GIFU ---
Subjective Remarks Setting bed still complains of abdominal pain but otherwise appears to be content Objective Vitals I&O Vital Signs Date Time Temp Pulse Resp B/P Pulse Ox O2 Delivery O2 Flow Rate FiO2 10/06/16 20:00 98.8 113 20 146/84 94 10/06/16 18:36 18 10/06/16 16:00 98.1 85 17 133/77 98 10/06/16 11:57 97.7 75 18 129/84 100 10/06/16 11:35 99 Nasal Cannula 3.00 10/06/16 07:49 96.5 76 17 140/75 99 10/05/16 23:48 96.5 74 17 128/75 97 I/O 10/05/16 10/05/16 10/05/16 10/06/16 10/06/16 10/06/16 07:00 15:00 23:00 07:00 15:00 23:00 Intake Total 745 ml 2478 ml 963 ml 380 ml 3346 ml 660 ml Output Total 700 ml 600 ml 850 ml 800 ml 700 ml 750 ml Balance 45 ml 1878 ml 113 ml -420 ml 2646 ml -90 ml Intake Oral 600 ml 480 ml 380 ml 1380 ml 660 ml IV Total 745 ml 1878 ml 483 ml 1966 ml Output Urine Total 700 ml 600 ml 850 ml 800 ml 700 ml 750 ml # Bowel Movements 0 0 0 Laboratory Laboratory Tests Test 10/06/16 04:59 White Blood Count 9.7 Red Blood Count 3.60 Hemoglobin 11.3 Hematocrit 33.4 Mean Corpuscular Volume 92.6 Mean Corpuscular Hemoglobin 31.4 Mean Corpuscular Hemoglobin 33.9 Concent Red Cell Distribution Width 13.8 Platelet Count 235 Mean Platelet Volume 7.2 Neutrophils (%) (Auto) 78.5 Lymphocytes (%) (Auto) 6.6 Monocytes (%) (Auto) 9.2 Eosinophils (%) (Auto) 5.4 Basophils (%) (Auto) 0.3 Neutrophils # (Auto) 7.6 Lymphocytes # (Auto) 0.6 Monocytes # (Auto) 0.9 Eosinophils # (Auto) 0.5 Basophils # (Auto) 0.0 CBC Comment DIFF FINAL Differential Comment Sodium Level 139 Potassium Level 4.2 Chloride Level 106 Carbon Dioxide Level 24.9 Anion Gap 8 Blood Urea Nitrogen 10 Creatinine 0.76 Estimat Glomerular Filtration 104 Rate Random Glucose 74 Calcium Level 9.4 Total Bilirubin 0.6 Aspartate Amino Transf 32 (AST/SGOT) Alanine Aminotransferase 39 (ALT/SGPT) Alkaline Phosphatase 130 Total Protein 6.2 Albumin 2.9 Lipase 1071 Imaging Last Impressions Chest X-Ray 10/04/16 1651 Signed Impressions: Service Date/Time: Tuesday, October 04, 2016 17:54 - CONCLUSION: No acute disease. oDntae Murray MD Abdomen/Pelvis CT 10/04/16 1651 Signed Impressions: Service Date/Time: Tuesday, October 04, 2016 17:44 - CONCLUSION: 1. Evolution of inflammatory changes at the level of the pancreas with pseudocyst formation as described above. 2. Stable renal cysts including a complex cyst right kidney. Dann Jensen MD Physical Exam HEENT: Normocephalic no jaundice. Throat is clear. NECK: Neck is supple, no JVD, no lymphadenopathy. CHEST: Chest is clear to auscultation and percussion. CARDIAC: Regular rate and rhythm with no murmur gallop or rubs. ABDOMEN: Soft, moderately tender abdomen especially the upper abdomen no rebound; no hepatosplenomegaly; bowel sounds are present in all four quadrants. EXTREMITIES: No clubbing, cyanosis, or edema. SKIN: Normal; no rash; no jaundice. PLANNING AIDE: No focal deficits; alert and oriented times three. Assessment and Plan Plan ASSESSMENT: - Persistent pancreatitis. Pt has had multiple episodes of pancreatitis. This was originally related to ETOH, but he quit drinking 8months ago. He then had a cholecystectomy in June and states that he has had intermittent bloating since this time. He was hospitalized for acute pancreatitis from 09/28-10/01. Abdomen/Pelvis CT (09/28/16) at that time revealed 1.Findings characteristic of acute pancreatitis with peripancreatic inflammatory changes, free fluid around the spleen and liver as well as the deep pelvis and possibly developing 1.6 cm pseudocyst at the junction of the body and tail of the pancreas. 2. Stable Bosniak type II 3.8 cm cyst in the right kidney. The etiology of his pancreatitis was unclear and therefore he was evaluated with EGD (10/01/16)---> Gastritis antrum-biopsy, esophagitis distal-biopsy, 2. Retroflexed views revealed a hiatal hernia. Pathology revealed antral mucosa with regenerative epithelial changes and mild active chronic gastritis, a fatmata stain was negative for Helicobacter, distal esophagus biopsy with gastric mucosa with mild chronic inflammation of the lamina propria. There was no evidence of metaplasia or dysplasia. There was also some question about his pancreatitis possibly being related to his Wellbutrin and therefore he stopped taking this. His symptoms improved and he was discharged home on 10/01- with a lipase of 332. After discharge, he ate high fat meals such as pepparoni and salami sandwiches, tater tots, pasta salad. He had bloating the night of discharge and started having severe pain the next night. WBC 13.9, Lipase 727. Abdomen/Pelvis CT (10/04/16)----> 1. Evolution of inflammatory changes at the level of the pancreas with pseudocyst formation as described above. 2. Stable renal cysts including a complex cyst right kidney. NPO. IVF. PPI. Long discussion with patient re : importance of low fat diet- verbalizes understanding. - Pseudocyst. 3.4 x 2 cm proximal body and 1.4 cm in mid body. He has had chills, but no fever. His pain is likely related more to his high fat diet aggravating his pancreatitis. - Mildly elevated LFTs, T. Bili 0.7, AST 48, ALT 48, ALk Phosph 142. - Recent hx Gastritis, Esophagitis. PPI - Leukocytosis. Improved. WBC 9.0. PLAN: - Clear liquids - IVF - PPI - ETOH level unremarkable - IgG 4 level - CBC, CMP, Lipase in am monitor labs - D/W patient importance of low fat diet, will also ask the community director to see patient - Supportive care Rodolfo Cruz MD Oct 06, 2016 23:25
[2016-10-07] VITALS (8 sets, daily range): BP systolic 118–141; BP diastolic 63–80; PULSE 82–90; RESP 16–20; TEMP 96.4–98.6; O2SAT 95–100
[2016-10-07] MEDS: ONDANSETRON HCL 4 MG/2 ML VIAL IVP PRN (00:46)
[2016-10-07] MEDS: MORPHINE SULFATE 4 MG/ML INJ IV PUSH PRN ×11 (00:46→23:04)
[2016-10-07] MEDS: SODIUM CHLOR 0.9% 1000 ML INJ 1,000 ML IV SCH ×2 (04:59→15:49)
[2016-10-07] MEDS: HYDROCORTISONE 0.5% CREAM 30 GM TOPICAL SCH ×3 (05:01→23:03)
[2016-10-07] MEDS: CYANOCOBALAMIN 1,000 MCG TAB PO SCH (07:30)
[2016-10-07] MEDS: DICYCLOMINE HCL 10 MG CAP PO SCH ×4 (07:30→23:01)
[2016-10-07] MEDS: ASPIRIN 81 MG CHEW TAB CHEW SCH (07:31)
[2016-10-07] MEDS: PANTOPRAZOLE SOD 40 MG DELAYED RELEASE TAB PO SCH (07:31)
[2016-10-07] MEDS: SODIUM CHLORIDE 0.9% FLUSH 10 ML FLUSH IV FLUSH SCH ×2 (07:31→21:00)
[2016-10-07] MEDS: amLODIPine BESYLATE 5 MG TAB PO SCH (07:31)
[2016-10-07] MEDS: LACTOBACILLUS ACIDOPHILUS TAB PO SCH (07:31)
[2016-10-07] MEDS: HEPARIN SODIUM - SQ 10,000 UNITS/ML VIAL SQ SCH ×2 (07:38→23:02)
[2016-10-07] MEDS: diphenhydrAMINE HCL 2%/ZINC ACETATE 0.1% CREAM 30 APPLIC/30 GM TUBE TOPICAL SCH ×3 (07:38→17:32)
--- NOTE | 2016-10-07 12:47 | PD.CARD.PN ---
Subjective Subjective Remarks Atypical CP, still c/o abdominal pain, slow progress Objective Medications Current Medications Medications (Trade) Dose Ordered Sig/Devon Route Start Time Stop Time Status Last Admin (NS 1000 ml Inj) 1,000 ml @ 100 mls/hr Q10H IV 10/04/16 18:52 10/07/16 04:59 (NS Flush) 2 ml UNSCH PRN IV FLUSH 10/04/16 19:00 (NS Flush) 2 ml BID IV FLUSH 10/04/16 21:00 10/06/16 08:32 (Zofran Inj) 4 mg Q6H PRN IVP 10/04/16 19:00 10/07/16 00:46 (Heparin Inj) 5,000 units Q12H SQ 10/04/16 21:00 10/07/16 07:38 (Narcan Inj) 0.4 mg UNSCH PRN IV 10/04/16 19:00 (Norvasc) 5 mg DAILY PO 10/05/16 09:00 10/07/16 07:31 (Aspirin Chew) 81 mg DAILY CHEW 10/05/16 09:00 10/07/16 07:31 (Bentyl) 10 mg QID PO 10/04/16 21:00 10/07/16 11:44 (Protonix) 40 mg DAILY PO 10/05/16 09:00 10/07/16 07:31 (Vitamin B12) 1,000 mcg DAILY PO 10/05/16 09:00 10/07/16 07:30 (Morphine Inj) 4 mg Q2H PRN IV PUSH 10/04/16 19:00 10/07/16 11:43 (Benadryl 2% Cream) 1 applic TID TOPICAL 10/06/16 18:00 10/07/16 11:44 (Benadryl) 25 mg Q6H PRN PO 10/06/16 13:30 (Corticaine 0.5% Cream) 1 applic Q8H TOPICAL 10/06/16 15:00 10/07/16 05:01 (Lactinex) 1 tab DAILY PO 10/06/16 14:00 10/07/16 07:31 Vital Signs / I&O Vital Signs Date Time Temp Pulse Resp B/P Pulse Ox O2 Delivery O2 Flow Rate FiO2 10/07/16 12:00 98.1 90 16 128/78 99 10/07/16 08:00 96.4 85 17 118/63 98 10/07/16 04:00 98.0 90 20 138/80 100 10/07/16 00:00 97.8 89 20 141/79 99 10/06/16 20:00 98.8 113 20 146/84 94 10/06/16 18:36 18 10/06/16 16:00 98.1 85 17 133/77 98 I/O 10/06/16 10/06/16 10/06/16 10/07/16 10/07/16 10/07/16 07:00 15:00 23:00 07:00 15:00 23:00 Intake Total 380 ml 3346 ml 660 ml 220 ml Output Total 800 ml 700 ml 750 ml 500 ml Balance -420 ml 2646 ml -90 ml -280 ml Intake Oral 380 ml 1380 ml 660 ml 220 ml IV Total 1966 ml Output Urine Total 800 ml 700 ml 750 ml 500 ml # Bowel Movements 0 0 0 Physical Exam GENERAL: In NAD SKIN: Warm and dry. HEAD: Normocephalic. EYES: No scleral icterus. No injection or drainage. NECK: Supple, trachea midline. No JVD or lymphadenopathy. CARDIOVASCULAR: Regular rate and rhythm without murmurs, gallops, or rubs. RESPIRATORY: Breath sounds equal bilaterally. No accessory muscle use. GASTROINTESTINAL: Abdomen soft, mildly tender, nondistended. MUSCULOSKELETAL: No cyanosis, or edema. Laboratory Laboratory Tests Test 10/04/16 10/04/16 10/04/16 10/05/16 16:58 18:13 19:30 04:26 Prothrombin Time 10.7 SEC Prothromb Time International 1.0 RATIO Ratio Activated Partial 25.6 SEC Thromboplast Time Lactic Acid Level 1.5 mmol/L Total Creatine Kinase 71 U/L Urine Color LIGHT-YELLOW Urine Turbidity CLEAR Urine pH 5.5 Urine Specific [place] GREATER THAN 1.050 Urine Protein NEG mg/dL Urine Glucose (UA) NEG mg/dL Urine Ketones 10 mg/dL Urine Occult Blood NEG Urine Nitrite NEG Urine Bilirubin NEG Urine Urobilinogen LESS THAN 2.0 MG/DL Urine Leukocyte Esterase NEG Urine RBC LESS THAN 1 /hpf Urine WBC LESS THAN 1 /hpf Urine Squamous Epithelial <1 /hpf Cells Urine Mucus MOD /lpf Microscopic Urinalysis Comment CULT NOT INDICATED Troponin I 0.22 NG/ML Ethyl Alcohol Level LESS THAN 3 MG/DL Test 10/06/16 04:59 White Blood Count 9.7 TH/MM3 Red Blood Count 3.60 MIL/MM3 Hemoglobin 11.3 GM/DL Hematocrit 33.4 % Mean Corpuscular Volume 92.6 FL Mean Corpuscular Hemoglobin 31.4 PG Mean Corpuscular Hemoglobin 33.9 % Concent Red Cell Distribution Width 13.8 % Platelet Count 235 TH/MM3 Mean Platelet Volume 7.2 FL Neutrophils (%) (Auto) 78.5 % Lymphocytes (%) (Auto) 6.6 % Monocytes (%) (Auto) 9.2 % Eosinophils (%) (Auto) 5.4 % Basophils (%) (Auto) 0.3 % Neutrophils # (Auto) 7.6 TH/MM3 Lymphocytes # (Auto) 0.6 TH/MM3 Monocytes # (Auto) 0.9 TH/MM3 Eosinophils # (Auto) 0.5 TH/MM3 Basophils # (Auto) 0.0 TH/MM3 CBC Comment DIFF FINAL Differential Comment Sodium Level 139 MEQ/L Potassium Level 4.2 MEQ/L Chloride Level 106 MEQ/L Carbon Dioxide Level 24.9 MEQ/L Anion Gap 8 MEQ/L Blood Urea Nitrogen 10 MG/DL Creatinine 0.76 MG/DL Estimat Glomerular Filtration 104 ML/MIN Rate Random Glucose 74 MG/DL Calcium Level 9.4 MG/DL Total Bilirubin 0.6 MG/DL Aspartate Amino Transf 32 U/L (AST/SGOT) Alanine Aminotransferase 39 U/L (ALT/SGPT) Alkaline Phosphatase 130 U/L Total Protein 6.2 GM/DL Albumin 2.9 GM/DL Lipase 1071 U/L Imaging Last Impressions Chest X-Ray 10/04/161650 Signed Impressions: Service Date/Time: Tuesday, October 04, 2016 17:54 - CONCLUSION: No acute disease. Dontae Murray MD Abdomen/Pelvis CT 10/04/16 165 Signed Impressions: Service Date/Time: Tuesday, October 04, 2016 17:44 - CONCLUSION: 1. Evolution of inflammatory changes at the level of the pancreas with pseudocyst formation as described above. 2. Stable renal cysts including a complex cyst right kidney. Dann Jensen MD Assessment and Plan Problem List: (1) Chest pain (2) Pancreatitis (3) Elevated troponin (4) Hypertension Assessment and Plan Atypical, noncardiac CP. No evidence of ACS. Continue tx for gastritis and pancreatitis exacerbation. Increase activity. Alejandro Nieves MD Oct 07, 2016 12:47
--- NOTE | 2016-10-07 15:49 | HHI.PR ---
Subjective Subjective Remarks Epigastric discomfort improving Vomited, yellow color emesis after eating Minimal chest discomfort with deep breathing No shortness of breath No fever Has been requesting morphine every 2 hours Review of Systems Constitutional Constitutional Remarks 12 point review of systems completed, negative except as noted above Vitals/Results Intake & Output 10/06/16 10/06/16 10/07/16 15:00 23:00 07:00 Intake Total 3346 ml 660 ml 220 ml Output Total 700 ml 750 ml 500 ml Balance 2646 ml -90 ml -280 ml Intake Oral 1380 ml 660 ml 220 ml IV Total 1966 ml Output Urine Total 700 ml 750 ml 500 ml # Bowel Movements 0 0 0 Vital Signs Vital Signs Date Time Temp Pulse Resp B/P Pulse Ox O2 Delivery O2 Flow Rate FiO2 10/07/16 12:00 98.1 90 16 128/78 99 10/07/16 08:40 95 Nasal Cannula 3.00 10/07/16 08:00 96.4 85 17 118/63 98 10/07/16 04:00 98.0 90 20 138/80 100 10/07/16 00:00 97.8 89 20 141/79 99 10/06/16 20:00 98.8 113 20 146/84 94 10/06/16 18:36 18 10/06/16 16:00 98.1 85 17 133/77 98 CBC/BMP: 10/06/16 0459 10/06/16 0459 Physical Exam General General Appearance: Well Developed, No Acute Distress, Comfortable Eyes Eye Exam: Pupils Equal, Pupils Reactive Ears & Nose Ears & Nose Exam: Nasal Mucosa [place] Throat Throat Exam: Oral Mucosa [place] & Moist Neck Neck Exam: Neck Supple, Trachea Midline Pulmonary Resp Exam: Breath Sounds Equal, No Distress Cardiology CV Exam: Regular, Good Perfusion Gastrointestinal/Abdomen GI Exam: Soft, Non-Tender, Bowel Sounds Present, Non-Distended Musculoskeletal MS Exam: Joints Intact Integumentary Skin Exam: Warm, Intact Extremeties Extremities Exam: No Edema, Pedal Pulses Palpable Neurologic Neuro Exam: Alert, Awake, Oriented, Speech Clear, Moving All Extremities, No Focal Deficits Psychiatric Psych Exam: Appropriate Responses VTE Prophylaxis VTE Prophylaxis Device: SCDs PUD Prophylasis PUD Prophylaxis: Protonix Assessment/Plan Problem List: (1) Pancreatitis (2) Pseudocyst of pancreas (3) Chest pain (4) Hypertension (5) Chronic neck and back pain (6) COPD exacerbation (7) Tobacco abuse Assessment/Plan Pancreatitis, acute on chronic recurring -Appreciate gastroenterology input, recommends low-fat diet, continue with supportive management, has ordered IgG 4 level -Continue with IV fluids Wean off morphine -We'll be instructed to follow low fat diet upon discharge -Repeat lipase level today and tomorrow, was elevated yesterday -Patient appears to be doing well, minimal epigastric discomfort, advance diet slowly-did have some vomiting today. Atypical chest pain, rule out cardiac event -Appreciate cardiology input, no evidence of ischemia -Had stress test during prior admission, no acute findings Continue with medical management Chronic obstructive pulmonary disease. -Continue with DuoNeb's when necessary Hypertension. -Continue home medication Gastroesophageal reflux disease. -Continue PPI History of ethyl alcohol abuse. -States no alcohol in 8 months, and feels motivated to stay that way -Supportive care Leukocytosis. -Secondary to pancreatitis, medical management monitor labs Urticaria, with mild papular rash -Continue PO benadryl and cream for rash Repeat lipase in the morning Possible discharge in the morning if lipase trending down and able to tolerate diet D/W RN D/W Dr. Killian D/W pt This patient was seen by myself and Dr. Killian, this note is written on his behalf Problem Qualifiers (1) Pancreatitis: Qualified Code: K86.1 - Chronic pancreatitis, unspecified pancreatitis type (2) Chest pain: Qualified Code: R07.9 - Chest pain, unspecified type (3) Hypertension: Qualified Code: I10 - Essential hypertension Lani Angela Oct 07, 2016 15:49
--- NOTE | 2016-10-07 23:28 | HHI.GIFU ---
Subjective Remarks Patient sitting in a chair no new complaints continues to have abdominal pain Objective Vitals I&O Vital Signs Date Time Temp Pulse Resp B/P Pulse Ox O2 Delivery O2 Flow Rate FiO2 10/07/16 21:43 96 Nasal Cannula 3.00 10/07/16 18:08 98.6 88 16 122/71 95 10/07/16 16:00 97.8 82 17 133/71 96 10/07/16 12:00 98.1 90 16 128/78 99 10/07/16 08:40 95 Nasal Cannula 3.00 10/07/16 08:00 96.4 85 17 118/63 98 10/07/16 04:00 98.0 90 20 138/80 100 10/07/16 00:00 97.8 89 20 141/79 99 I/O 10/06/16 10/06/16 10/06/16 10/07/16 10/07/16 10/07/16 07:00 15:00 23:00 07:00 15:00 23:00 Intake Total 380 ml 3346 ml 660 ml 220 ml 2860 ml 480 ml Output Total 800 ml 700 ml 750 ml 500 ml 750 ml Balance -420 ml 2646 ml -90 ml -280 ml 2860 ml -270 ml Intake Oral 380 ml 1380 ml 660 ml 220 ml 2040 ml 480 ml IV Total 1966 ml 820 ml Output Urine Total 800 ml 700 ml 750 ml 500 ml 750 ml # Voids 6 # Bowel Movements 0 0 0 0 1 Laboratory Laboratory Tests Test 10/07/16 16:35 Lipase 296 Physical Exam HEENT: Normocephalic no jaundice. Throat is clear. NECK: Neck is supple, no JVD, no lymphadenopathy. CHEST: Chest is clear to auscultation and percussion. CARDIAC: Regular rate and rhythm with no murmur gallop or rubs. ABDOMEN: Soft, moderately tender abdomen especially the upper abdomen no rebound; no hepatosplenomegaly; bowel sounds are present in all four quadrants. EXTREMITIES: No clubbing, cyanosis, or edema. SKIN: Normal; no rash; no jaundice. DATA SYSTEMS ANALYST: alert and oriented times three. Assessment and Plan Plan ASSESSMENT: - Persistent pancreatitis. Pt has had multiple episodes of pancreatitis. This was originally related to ETOH, but he quit drinking 8months ago. He then had a cholecystectomy in June and states that he has had intermittent bloating since this time. He was hospitalized for acute pancreatitis from 09/28-10/01. Abdomen/Pelvis CT (09/28/16) at that time revealed 1.Findings characteristic of acute pancreatitis with peripancreatic inflammatory changes, free fluid around the spleen and liver as well as the deep pelvis and possibly developing 1.6 cm pseudocyst at the junction of the body and tail of the pancreas. 2. Stable Bosniak type II 3.8 cm cyst in the right kidney. The etiology of his pancreatitis was unclear and therefore he was evaluated with EGD (10/01/16)---> Gastritis antrum-biopsy, esophagitis distal-biopsy, 2. Retroflexed views revealed a hiatal hernia. Pathology revealed antral mucosa with regenerative epithelial changes and mild active chronic gastritis, a fatmata stain was negative for Helicobacter, distal esophagus biopsy with gastric mucosa with mild chronic inflammation of the lamina propria. There was no evidence of metaplasia or dysplasia. There was also some question about his pancreatitis possibly being related to his Wellbutrin and therefore he stopped taking this. His symptoms improved and he was discharged home on 10/01- with a lipase of 332. After discharge, he ate high fat meals such as pepparoni and salami sandwiches, tater tots, pasta salad. He had bloating the night of discharge and started having severe pain the next night. WBC 13.9, Lipase 727. Abdomen/Pelvis CT (10/04/16)----> 1. Evolution of inflammatory changes at the level of the pancreas with pseudocyst formation as described above. 2. Stable renal cysts including a complex cyst right kidney. NPO. IVF. PPI. Long discussion with patient re : importance of low fat diet- verbalizes understanding. - Pseudocyst. 3.4 x 2 cm proximal body and 1.4 cm in mid body. He has had chills, but no fever. His pain is likely related more to his high fat diet aggravating his pancreatitis. - Mildly elevated LFTs, T. Bili 0.7, AST 48, ALT 48, ALk Phosph 142. - Recent hx Gastritis, Esophagitis. PPI - Leukocytosis. Improved. WBC 9.0. PLAN: - Clear liquids -Case discussed with Dr. salvador will proceed with GJ tube placement for nutritional support with minimal stimulation to the pancreas so as to allow him to heal slowly but surely - PPI - ETOH level unremarkable - IgG 4 level - CBC, CMP, Lipase in am monitor labs -Continue with current supportive care Rodolfo Cruz MD Oct 07, 2016 23:28
[2016-10-08] VITALS (7 sets, daily range): BP systolic 99–138; BP diastolic 57–75; PULSE 69–83; RESP 16–18; TEMP 97.1–98.3; O2SAT 93–99
[2016-10-08] MEDS: SODIUM CHLOR 0.9% 1000 ML INJ 1,000 ML IV SCH ×3 (00:10→22:00)
[2016-10-08] MEDS: MORPHINE SULFATE 4 MG/ML INJ IV PUSH PRN ×4 (01:20→20:29)
[2016-10-08] MEDS: ALBUTEROL SULFATE 90 MCG/ACT HFA 18 GM INHALER INH PRN (01:55)
[2016-10-08] MEDS: HYDROCORTISONE 0.5% CREAM 30 GM TOPICAL SCH ×3 (07:00→23:00)
[2016-10-08] MEDS: SODIUM CHLORIDE 0.9% FLUSH 10 ML FLUSH IV FLUSH SCH ×2 (09:00→20:30)
[2016-10-08] MEDS: LACTOBACILLUS ACIDOPHILUS TAB PO SCH (09:07)
[2016-10-08] MEDS: CYANOCOBALAMIN 1,000 MCG TAB PO SCH (09:07)
[2016-10-08] MEDS: PANTOPRAZOLE SOD 40 MG DELAYED RELEASE TAB PO SCH (09:07)
[2016-10-08] MEDS: amLODIPine BESYLATE 5 MG TAB PO SCH (09:07)
[2016-10-08] MEDS: DICYCLOMINE HCL 10 MG CAP PO SCH ×4 (09:07→20:29)
[2016-10-08] MEDS: HEPARIN SODIUM - SQ 10,000 UNITS/ML VIAL SQ SCH ×2 (09:08→21:00)
[2016-10-08] MEDS: ASPIRIN 81 MG CHEW TAB CHEW SCH (09:08)
[2016-10-08] MEDS: diphenhydrAMINE HCL 2%/ZINC ACETATE 0.1% CREAM 30 APPLIC/30 GM TUBE TOPICAL SCH ×3 (09:09→17:23)
--- NOTE | 2016-10-08 14:15 | PD.CARD.PN ---
Subjective Subjective Remarks No CP today, abdominal pain improving, no SOB Objective Medications Current Medications Medications (Trade) Dose Ordered Sig/Devon Route Start Time Stop Time Status Last Admin (NS 1000 ml Inj) 1,000 ml @ 100 mls/hr Q10H IV 10/04/16 18:52 10/08/16 11:37 (NS Flush) 2 ml UNSCH PRN IV FLUSH 10/04/16 19:00 (NS Flush) 2 ml BID IV FLUSH 10/04/16 21:00 10/06/16 08:32 (Zofran Inj) 4 mg Q6H PRN IVP 10/04/16 19:00 10/07/16 00:46 (Heparin Inj) 5,000 units Q12H SQ 10/04/16 21:00 10/08/16 09:08 (Narcan Inj) 0.4 mg UNSCH PRN IV 10/04/16 19:00 (Norvasc) 5 mg DAILY PO 10/05/16 09:00 10/08/16 09:07 (Aspirin Chew) 81 mg DAILY CHEW 10/05/16 09:00 10/08/16 09:08 (Bentyl) 10 mg QID PO 10/04/16 21:00 10/08/16 13:31 (Protonix) 40 mg DAILY PO 10/05/16 09:00 10/08/16 09:07 (Vitamin B12) 1,000 mcg DAILY PO 10/05/16 09:00 10/08/16 09:07 (Morphine Inj) 4 mg Q2H PRN IV PUSH 10/04/16 19:00 10/08/16 11:36 (Benadryl 2% Cream) 1 applic TID TOPICAL 10/06/16 18:00 10/08/16 13:31 (Benadryl) 25 mg Q6H PRN PO 10/06/16 13:30 (Corticaine 0.5% Cream) 1 applic Q8H TOPICAL 10/06/16 15:00 10/08/16 13:31 (Lactinex) 1 tab DAILY PO 10/06/16 14:00 10/08/16 09:07 Vital Signs / I&O Vital Signs Date Time Temp Pulse Resp B/P Pulse Ox O2 Delivery O2 Flow Rate FiO2 10/08/16 08:00 98.1 69 17 138/71 93 10/08/16 04:00 97.5 74 18 138/75 94 10/08/16 00:00 83 10/08/16 00:00 97.1 81 18 99/57 99 10/08/16 00:00 83 10/07/16 21:43 96 Nasal Cannula 3.00 10/07/16 18:08 98.6 88 16 122/71 95 10/07/16 16:00 97.8 82 17 133/71 96 I/O 10/07/16 10/07/16 10/07/16 10/08/16 10/08/16 10/08/16 07:00 15:00 23:00 07:00 15:00 23:00 Intake Total 220 ml 2860 ml 1322 ml Output Total 500 ml 750 ml Balance -280 ml 2860 ml 572 ml Intake Oral 220 ml 2040 ml 480 ml IV Total 820 ml 842 ml Output Urine Total 500 ml 750 ml # Voids 6 # Bowel Movements 0 0 1 Physical Exam GENERAL: In NAD SKIN: Warm and dry. HEAD: Normocephalic. EYES: No scleral icterus. No injection or drainage. NECK: Supple, trachea midline. No JVD or lymphadenopathy. CARDIOVASCULAR: Regular rate and rhythm without murmurs, gallops, or rubs. RESPIRATORY: Breath sounds equal bilaterally. No accessory muscle use. GASTROINTESTINAL: Abdomen soft, nontender, nondistended. MUSCULOSKELETAL: No cyanosis, or edema. Laboratory Laboratory Tests Test 10/07/16 10/08/16 16:35 03:50 Lipase 296 U/L 187 U/L Imaging Last Impressions Chest X-Ray 10/04/161650 Signed Impressions: Service Date/Time: Tuesday, October 04, 2016 17:54 - CONCLUSION: No acute disease. Dontae Murray MD Abdomen/Pelvis CT 10/04/161650 Signed Impressions: Service Date/Time: Tuesday, October 04, 2016 17:44 - CONCLUSION: 1. Evolution of inflammatory changes at the level of the pancreas with pseudocyst formation as described above. 2. Stable renal cysts including a complex cyst right kidney. Dann Jensen MD Assessment and Plan Problem List: (1) Chest pain (2) Pancreatitis (3) Elevated troponin (4) Hypertension Assessment and Plan No recurrent CP. No evidence of ACS. Continue current program for gastritis and pancreatitis exacerbation. Increase activity. Problem Qualifiers (1) Chest pain: Qualified Code: R07.9 - Chest pain, unspecified type (2) Pancreatitis: Qualified Code: K86.1 - Chronic pancreatitis, unspecified pancreatitis type (3) Hypertension: Qualified Code: I10 - Essential hypertension Alejandro Nieves MD Oct 08, 2016 14:15
--- NOTE | 2016-10-08 14:25 | HHI.PR ---
Subjective Subjective Remarks remains with epigastric tenderness no vomiting today no fever no cp occ. sob tearful, concerned about GJ tube, has many questions was on Wellbutrin, was stopped in previous admission due to pancreatitis. Review of Systems Constitutional Constitutional Remarks 12 point review of systems completed, negative except as noted above Vitals/Results Intake & Output 10/07/16 10/07/16 10/08/16 15:00 23:00 07:00 Intake Total 2860 ml 1322 ml Output Total 750 ml Balance 2860 ml 572 ml Intake Oral 2040 ml 480 ml IV Total 820 ml 842 ml Output Urine Total 750 ml # Voids 6 # Bowel Movements 0 1 Vital Signs Vital Signs Date Time Temp Pulse Resp B/P Pulse Ox O2 Delivery O2 Flow Rate FiO2 10/08/16 08:00 98.1 69 17 138/71 93 10/08/16 04:00 97.5 74 18 138/75 94 10/08/16 00:00 83 10/08/16 00:00 97.1 81 18 99/57 99 10/08/16 00:00 83 10/07/16 21:43 96 Nasal Cannula 3.00 10/07/16 18:08 98.6 88 16 122/71 95 10/07/16 16:00 97.8 82 17 133/71 96 CBC/BMP: 10/06/16 0459 10/06/16 0459 Lab Results Laboratory Tests Test 10/07/16 10/08/16 16:35 03:50 Lipase 296 U/L 187 U/L Physical Exam General General Appearance: Well Developed, No Acute Distress, Comfortable, Anxious Eyes Eye Exam: Pupils Equal, Pupils Reactive Ears & Nose Ears & Nose Exam: Nasal Mucosa [place] Throat Throat Exam: Oral Mucosa [place] & Moist Neck Neck Exam: Neck Supple, Trachea Midline Pulmonary Resp Exam: Breath Sounds Equal, No Distress Cardiology CV Exam: Regular, Good Perfusion Gastrointestinal/Abdomen GI Exam: Soft, Bowel Sounds Present, Non-Distended GI Remarks epigastric tenderness Musculoskeletal MS Exam: Joints Intact Integumentary Skin Exam: Warm, Intact Extremeties Extremities Exam: No Edema, Pedal Pulses Palpable Neurologic Neuro Exam: Alert, Awake, Oriented, Speech Clear, Moving All Extremities, No Focal Deficits Psychiatric Psych Exam: Appropriate Responses VTE Prophylaxis VTE Prophylaxis Device: SCDs PUD Prophylasis PUD Prophylaxis: Protonix Assessment/Plan Problem List: (1) Pancreatitis (2) Pseudocyst of pancreas (3) Chest pain (4) Hypertension (5) Chronic neck and back pain (6) COPD exacerbation (7) Tobacco abuse Assessment/Plan Pancreatitis, acute on chronic recurring -Appreciate gastroenterology input, recommends low-fat diet, continue with supportive management, has ordered IgG 4 level -Continue with IV fluids Wean off morphine, change to q 4 -lipase back to normal -remains with epigastric tenderness, Dr. Cruz spoke to pt., recommends GJ tube to allow pancreas to rest Atypical chest pain, rule out cardiac event -Appreciate cardiology input, no evidence of ischemia -Had stress test during prior admission, no acute findings Continue with medical management Chronic obstructive pulmonary disease. -Continue with DuoNeb's when necessary Hypertension. -Continue home medication Depression, tearful, anxious. Was on Wellbutrin, stopped in previous admit -Trazodone 50 mg PO q HS, monitor response. Gastroesophageal reflux disease. -Continue PPI History of ethyl alcohol abuse. -States no alcohol in 8 months, and feels motivated to stay that way -Supportive care Leukocytosis. -Secondary to pancreatitis, medical management monitor labs Urticaria, with mild papular rash -Continue PO benadryl and cream for rash IR consult for GJ tube, unable to do today, pt received Heparin will stop heparin Tuesday morning IR plans GJ tube Tuesday Dietitian consult for bolus feedings D/W RN D/W Dr. Killian D/W pt This patient was seen by myself and Dr. Killian, this note is written on his behalf Problem Qualifiers (1) Pancreatitis: Qualified Code: K86.1 - Chronic pancreatitis, unspecified pancreatitis type (2) Chest pain: Qualified Code: R07.9 - Chest pain, unspecified type (3) Hypertension: Qualified Code: I10 - Essential hypertension Lani Angela Oct 08, 2016 14:25
--- NOTE | 2016-10-08 16:59 | HHI.GIFU ---
Subjective Remarks Patient is resting in bed, he had one episode of vomiting yesterday, non today, but he feels nauseous. He reports epigastric pain with radiation to left abdomen . Plan for G-J tube on Tuesday (Gisele Vergara HAND I TUBE BENDER) Objective Vitals I&O Vital Signs Date Time Temp Pulse Resp B/P Pulse Ox O2 Delivery O2 Flow Rate FiO2 10/08/16 12:00 98.2 80 18 115/73 99 10/08/16 10:23 94 21 10/08/16 08:00 98.1 69 17 138/71 93 10/08/16 04:00 97.5 74 18 138/75 94 10/08/16 00:00 83 10/08/16 00:00 97.1 81 18 99/57 99 10/08/16 00:00 83 10/07/16 21:43 96 Nasal Cannula 3.00 10/07/16 18:08 98.6 88 16 122/71 95 I/O 10/07/16 10/07/16 10/07/16 10/08/16 10/08/16 10/08/16 07:00 15:00 23:00 07:00 15:00 23:00 Intake Total 220 ml 2860 ml 1322 ml 1428 ml Output Total 500 ml 750 ml Balance -280 ml 2860 ml 572 ml 1428 ml Intake Oral 220 ml 2040 ml 480 ml IV Total 820 ml 842 ml 1428 ml Output Urine Total 500 ml 750 ml # Voids 6 # Bowel Movements 0 0 1 Laboratory Laboratory Tests Test 10/08/16 03:50 Lipase 187 Imaging Last Impressions Chest X-Ray 10/04/161650 Signed Impressions: Service Date/Time: Tuesday, October 04, 2016 17:54 - CONCLUSION: No acute disease. Dontae Murray MD Abdomen/Pelvis CT 10/04/161650 Signed Impressions: Service Date/Time: Tuesday, October 04, 2016 17:44 - CONCLUSION: 1. Evolution of inflammatory changes at the level of the pancreas with pseudocyst formation as described above. 2. Stable renal cysts including a complex cyst right kidney. Dann Jensen MD Physical Exam HEENT: Normocephalic no jaundice. Throat is clear. NECK: Neck is supple, no JVD, no lymphadenopathy. CHEST: Chest is clear to auscultation and percussion. CARDIAC: Regular rate and rhythm with no murmur gallop or rubs. ABDOMEN: Soft, moderately tender abdomen especially the upper abdomen no rebound; no hepatosplenomegaly; bowel sounds are present in all four quadrants. EXTREMITIES: No clubbing, cyanosis, or edema. SKIN: Normal; no rash; no jaundice. LOAD BUILDER: alert and oriented times three. (Gisele Vergara) Assessment and Plan Plan ASSESSMENT: - Persistent pancreatitis. Pt has had multiple episodes of pancreatitis. This was originally related to ETOH, but he quit drinking 8months ago. He then had a cholecystectomy in June and states that he has had intermittent bloating since this time. He was hospitalized for acute pancreatitis from 09/28-10/01. Abdomen/Pelvis CT (09/28/16) at that time revealed 1.Findings characteristic of acute pancreatitis with peripancreatic inflammatory changes, free fluid around the spleen and liver as well as the deep pelvis and possibly developing 1.6 cm pseudocyst at the junction of the body and tail of the pancreas. 2. Stable Bosniak type II 3.8 cm cyst in the right kidney. The etiology of his pancreatitis was unclear and therefore he was evaluated with EGD (10/01/16)---> Gastritis antrum-biopsy, esophagitis distal-biopsy, 2. Retroflexed views revealed a hiatal hernia. Pathology revealed antral mucosa with regenerative epithelial changes and mild active chronic gastritis, a fatmata stain was negative for Helicobacter, distal esophagus biopsy with gastric mucosa with mild chronic inflammation of the lamina propria. There was no evidence of metaplasia or dysplasia. There was also some question about his pancreatitis possibly being related to his Wellbutrin and therefore he stopped taking this. His symptoms improved and he was discharged home on 10/01- with a lipase of 332. After discharge, he ate high fat meals such as pepparoni and salami sandwiches, tater tots, pasta salad. He had bloating the night of discharge and started having severe pain the next night. WBC 13.9, Lipase 727. Abdomen/Pelvis CT (10/04/16)----> 1. Evolution of inflammatory changes at the level of the pancreas with pseudocyst formation as described above. 2. Stable renal cysts including a complex cyst right kidney. NPO. IVF. PPI. Long discussion with patient re : importance of low fat diet- verbalizes understanding. - Pseudocyst. 3.4 x 2 cm proximal body and 1.4 cm in mid body. He has had chills, but no fever. His pain is likely related more to his high fat diet aggravating his pancreatitis. - Mildly elevated LFTs, T. Bili 0.7, AST 48, ALT 48, ALk Phosph 142. - Recent hx Gastritis, Esophagitis. PPI - Leukocytosis. Improved. WBC 9.0. 10/08/16- Patient is doing good today, he had a large bm, no vomiting today. lipase normalized PLAN: - Clear liquids - GJ tube planned for Tuesday - PPI - ETOH level unremarkable - IgG 4 level - Lipase, LFTs in am -Continue with current supportive care (Gisele Vergara) Physician Comments Patient seen and examined Agree with above Continue with current supportive care Monitor labs GJ tube placement on Tuesday (Rodolfo Cruz MD) Gisele Vergara Oct 08, 2016 16:59 Rodolfo Cruz MD Oct 09, 2016 00:03
[2016-10-08] MEDS: traZODone HCL 50 MG TAB PO SCH (20:29)
[2016-10-09 00:55] VITALS: BP 105/65; PULSE 70; RESP 17; TEMP 97.1; O2SAT 97
[2016-10-09] MEDS: MORPHINE SULFATE 4 MG/ML INJ IV PUSH PRN ×5 (02:16→20:50)
[2016-10-09] MEDS: HYDROCORTISONE 0.5% CREAM 30 GM TOPICAL SCH ×3 (06:14→22:31)
[2016-10-09 07:17] LABS: INDIRECT BILIRUBIN 0.2 MG/DL (0.0-0.8); TOTAL BILIRUBIN ADULT 0.3 MG/DL (0.2-1.0)
[2016-10-09] MEDS: SODIUM CHLOR 0.9% 1000 ML INJ 1,000 ML IV SCH ×2 (07:41→18:52)
[2016-10-09 08:00] VITALS: BP 116/69; PULSE 77; RESP 20; TEMP 98.1; O2SAT 99
[2016-10-09] MEDS: CYANOCOBALAMIN 1,000 MCG TAB PO SCH (08:51)
[2016-10-09] MEDS: ASPIRIN 81 MG CHEW TAB CHEW SCH (08:51)
[2016-10-09] MEDS: amLODIPine BESYLATE 5 MG TAB PO SCH (08:51)
[2016-10-09] MEDS: PANTOPRAZOLE SOD 40 MG DELAYED RELEASE TAB PO SCH (08:51)
[2016-10-09] MEDS: DICYCLOMINE HCL 10 MG CAP PO SCH ×4 (08:51→22:31)
[2016-10-09] MEDS: LACTOBACILLUS ACIDOPHILUS TAB PO SCH (08:51)
[2016-10-09] MEDS: SODIUM CHLORIDE 0.9% FLUSH 10 ML FLUSH IV FLUSH SCH ×2 (08:51→20:52)
[2016-10-09] MEDS: HEPARIN SODIUM - SQ 10,000 UNITS/ML VIAL SQ SCH ×2 (08:52→22:31)
[2016-10-09] MEDS: diphenhydrAMINE HCL 2%/ZINC ACETATE 0.1% CREAM 30 APPLIC/30 GM TUBE TOPICAL SCH ×3 (08:57→16:49)
[2016-10-09 12:00] VITALS: BP 102/64; PULSE 73; RESP 20; TEMP 98.2; O2SAT 100
[2016-10-09] MEDS: SODIUM CHLORIDE 0.9% FLUSH 10 ML FLUSH IV FLUSH PRN ×2 (12:11→16:47)
--- NOTE | 2016-10-09 14:18 | HHI.PR ---
Subjective Remarks remains with epigastric tenderness no vomiting today no fever no cp occ. sob Objective Objective Results - Vital Signs Date Time Temp Pulse Resp B/P Pulse Ox O2 Delivery O2 Flow Rate FiO2 10/09/16 12:15 20 10/09/16 12:00 98.2 73 20 102/64 100 10/09/16 08:00 98.1 77 20 116/69 99 10/09/16 00:55 97.1 70 17 105/65 97 10/08/16 20:00 76 10/08/16 20:00 97.9 77 16 115/72 97 10/08/16 16:00 98.3 80 16 115/62 99 I/O 10/08/16 10/08/16 10/08/16 10/09/16 10/09/16 10/09/16 07:00 15:00 23:00 07:00 15:00 23:00 Intake Total 590 ml 1908 ml 360 ml Output Total 800 ml 800 ml 1000 ml 500 ml Balance -210 ml 1108 ml -640 ml -500 ml Intake Oral 590 ml 480 ml 360 ml IV Total 1428 ml Output Urine Total 800 ml 800 ml 1000 ml 500 ml # Bowel Movements 1 Result Diagram: 10/06/16 0459 10/06/16 0459 Other Results Laboratory Tests Test 10/09/16 05:27 Total Bilirubin 0.3 Direct Bilirubin 0.1 Indirect Bilirubin 0.2 Aspartate Amino Transf 24 (AST/SGOT) Alanine Aminotransferase 24 (ALT/SGPT) Alkaline Phosphatase 86 Total Protein 5.1 Albumin 2.3 Lipase 138 ROS General: No: Fatigue, Weakness, Other HEENT: No: Sore Throat, Dysphagia, Other Cardiac: No: Chest Pain, Edema, Palpitations, Other Pulmonary: No: Cough, SOB, Wheezing, Other GI: Abdominal Pain /CEMENT SIDE LASTER: No: Dysuria, Urgency, Other Neuro/MS: No: Lightheaded, Confusion, Other Psych: No: Anxiety, Depression, Other Skin: No: Itching, Rash, Other Physical Exam Physical Exam PHYSICAL EXAMINATION GENERAL: This is a well-developed, well-nourished male who appears to be in no acute distress. He is alert and awake HEAD: Normocephalic without any lesion or mass noted. EYES: [place], Normal eye movement, no icterus. OROPHARYNGEAL: Oropharynx without erythema or edema. MOUTH/THROAT: Tongue midline Buccal mucosa is moist. NECK: Supple. CARDIAC: Regular rhythm, regular rate, S1 and S2 are heard. LUNGS: Clear to auscultation bilaterally. ABDOMEN: Soft, tenderness in epigastric region. Bowel sounds are heard in all four quadrants. No rebound. No guarding. EXTREMITIES: No CCE. NEUROLOGICAL: Patient mood and affect appropriate. SKIN:Warm and moist PSYCH: Mood and affect appropriate A/P Assessment and Plan Problem List: (1) Pancreatitis (2) Pseudocyst of pancreas (3) Chest pain (4) Hypertension (5) Chronic neck and back pain (6) COPD exacerbation (7) Tobacco abuse Assessment/Plan Pancreatitis, acute on chronic recurring -Appreciate gastroenterology input, recommends low-fat diet, continue with supportive management, has ordered IgG 4 level -Continue with IV fluids Wean off morphine, change to q 6 -lipase back to normal -remains with epigastric tenderness, Dr. Cruz spoke to pt., recommends GJ tube to allow pancreas to rest Atypical chest pain, rule out cardiac event -Appreciate cardiology input, no evidence of ischemia -Had stress test during prior admission, no acute findings Continue with medical management Chronic obstructive pulmonary disease. -Continue with DuoNeb's when necessary Hypertension. -Continue home medication Depression, tearful, anxious. Was on Wellbutrin, stopped in previous admit -Trazodone 50 mg PO q HS, feeling better. Gastroesophageal reflux disease. -Continue PPI History of ethyl alcohol abuse. -States no alcohol in 8 months, and feels motivated to stay that way -Supportive care Leukocytosis. -Secondary to pancreatitis, medical management monitor labs Urticaria, with mild papular rash -Continue PO benadryl and cream for rash IR consult for GJ tube, pt received Heparin will stop heparin Tuesday morning IR plans GJ tube Tuesday Dietitian consulted for bolus feedings D/W RN AM labs Discussed With: Nurse, Family (patient), Other (Dr. Killian, seen on his behalf) Kandice Givens MD Oct 09, 2016 14:18 Kandice Givens MD Oct 09, 2016 14:18
--- NOTE | 2016-10-09 15:19 | HHI.GIFU ---
Subjective Remarks 60 yo male resting in bed. Continues to have epigastric pain with radiation to left abdomen. Plan for G-J tube placement on Tuesday. (Veronica Lincoln) Objective Vitals I&O Vital Signs Date Time Temp Pulse Resp B/P Pulse Ox O2 Delivery O2 Flow Rate FiO2 10/09/16 12:15 20 10/09/16 12:00 98.2 73 20 102/64 100 10/09/16 08:00 98.1 77 20 116/69 99 10/09/16 00:55 97.1 70 17 105/65 97 10/08/16 20:00 76 10/08/16 20:00 97.9 77 16 115/72 97 10/08/16 16:00 98.3 80 16 115/62 99 I/O 10/08/16 10/08/16 10/08/16 10/09/16 10/09/16 10/09/16 07:00 15:00 23:00 07:00 15:00 23:00 Intake Total 590 ml 1908 ml 360 ml Output Total 800 ml 800 ml 1000 ml 500 ml Balance -210 ml 1108 ml -640 ml -500 ml Intake Oral 590 ml 480 ml 360 ml IV Total 1428 ml Output Urine Total 800 ml 800 ml 1000 ml 500 ml # Bowel Movements 1 Laboratory Laboratory Tests Test 10/09/16 05:27 Total Bilirubin 0.3 Direct Bilirubin 0.1 Indirect Bilirubin 0.2 Aspartate Amino Transf 24 (AST/SGOT) Alanine Aminotransferase 24 (ALT/SGPT) Alkaline Phosphatase 86 Total Protein 5.1 Albumin 2.3 Lipase 138 Imaging Last Impressions Chest X-Ray 10/04/161650 Signed Impressions: Service Date/Time: Tuesday, October 04, 2016 17:54 - CONCLUSION: No acute disease. Dontae Murray MD Abdomen/Pelvis CT 10/04/161650 Signed Impressions: Service Date/Time: Tuesday, October 04, 2016 17:44 - CONCLUSION: 1. Evolution of inflammatory changes at the level of the pancreas with pseudocyst formation as described above. 2. Stable renal cysts including a complex cyst right kidney. Dann Jensen MD Physical Exam HEENT: PERRLA. Normocephalic no jaundice. Throat is clear. NECK: Neck is supple, no JVD, no lymphadenopathy. CHEST: CTA CARDIAC: RRR ABDOMEN: Soft, mild tenderness in epigastric region; no hepatosplenomegaly; bowel sounds x 4 quadrants EXTREMITIES: No clubbing, cyanosis, or edema. SKIN: Normal; no rash; no jaundice. 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 (Veronica Lincoln) Assessment and Plan Plan ASSESSMENT: - Persistent pancreatitis. Pt has had multiple episodes of pancreatitis. This was originally related to ETOH, but he quit drinking 8months ago. He then had a cholecystectomy in June and states that he has had intermittent bloating since this time. He was hospitalized for acute pancreatitis from 09/28-10/01. Abdomen/Pelvis CT (09/28/16) at that time revealed 1.Findings characteristic of acute pancreatitis with peripancreatic inflammatory changes, free fluid around the spleen and liver as well as the deep pelvis and possibly developing 1.6 cm pseudocyst at the junction of the body and tail of the pancreas. 2. Stable Bosniak type II 3.8 cm cyst in the right kidney. The etiology of his pancreatitis was unclear and therefore he was evaluated with EGD (10/01/16)---> Gastritis antrum-biopsy, esophagitis distal-biopsy, 2. Retroflexed views revealed a hiatal hernia. Pathology revealed antral mucosa with regenerative epithelial changes and mild active chronic gastritis, a fatmata stain was negative for Helicobacter, distal esophagus biopsy with gastric mucosa with mild chronic inflammation of the lamina propria. There was no evidence of metaplasia or dysplasia. There was also some question about his pancreatitis possibly being related to his Wellbutrin and therefore he stopped taking this. His symptoms improved and he was discharged home on 10/01- with a lipase of 332. After discharge, he ate high fat meals such as pepparoni and salami sandwiches, tater tots, pasta salad. He had bloating the night of discharge and started having severe pain the next night. WBC 13.9, Lipase 727. Abdomen/Pelvis CT (10/04/16)----> 1. Evolution of inflammatory changes at the level of the pancreas with pseudocyst formation as described above. 2. Stable renal cysts including a complex cyst right kidney. NPO. IVF. PPI. Long discussion with patient re : importance of low fat diet- verbalizes understanding. - Pseudocyst. 3.4 x 2 cm proximal body and 1.4 cm in mid body. He has had chills, but no fever. His pain is likely related more to his high fat diet aggravating his pancreatitis. - Mildly elevated LFTs, Resolved. T. Bili 0.3, AST 24, ALT 24, ALk Phosph 86 - Recent hx Gastritis, Esophagitis. PPI - Leukocytosis. Improved. WBC 9.7. PLAN: - Clear liquids - GJ tube planned for Tuesday - PPI - IgG 4 level pending -Continue with current supportive care -Further recommendations to follow based on the results of above. Patient seen and examined by Dr. Cruz and myself and this note is written on his behalf. (Veronica Lincoln) Physician Comments Patient seen and examined Agree with above Continue with current supportive care Monitor labs (Rodolfo Cruz MD) Veronica Lincoln Oct 09, 2016 15:19 Rodolfo Cruz MD Oct 09, 2016 15:42
[2016-10-09 16:00] VITALS: BP 119/71; PULSE 72; RESP 20; TEMP 98.6; O2SAT 100
--- NOTE | 2016-10-09 17:35 | PD.CARD.PN ---
Subjective Subjective Remarks No CP or SOB, still w occ abd pain Objective Medications Current Medications Medications (Trade) Dose Ordered Sig/Devon Route Start Time Stop Time Status Last Admin (NS 1000 ml Inj) 1,000 ml @ 100 mls/hr Q10H IV 10/04/16 18:52 10/09/16 07:41 (NS Flush) 2 ml UNSCH PRN IV FLUSH 10/04/16 19:00 10/09/16 16:47 (NS Flush) 2 ml BID IV FLUSH 10/04/16 21:00 10/09/16 08:51 (Zofran Inj) 4 mg Q6H PRN IVP 10/04/16 19:00 10/07/16 00:46 (Heparin Inj) 5,000 units Q12H SQ 10/04/16 21:00 10/10/16 09:00 10/09/16 08:52 (Narcan Inj) 0.4 mg UNSCH PRN IV 10/04/16 19:00 (Norvasc) 5 mg DAILY PO 10/05/16 09:00 10/09/16 08:51 (Aspirin Chew) 81 mg DAILY CHEW 10/05/16 09:00 10/09/16 08:51 (Bentyl) 10 mg QID PO 10/04/16 21:00 10/09/16 16:46 (Protonix) 40 mg DAILY PO 10/05/16 09:00 10/09/16 08:51 (Vitamin B12) 1,000 mcg DAILY PO 10/05/16 09:00 10/09/16 08:51 (Morphine Inj) 4 mg Q2H PRN IV PUSH 10/04/16 19:00 10/09/16 16:46 (Benadryl 2% Cream) 1 applic TID TOPICAL 10/06/16 18:00 10/09/16 16:49 (Benadryl) 25 mg Q6H PRN PO 10/06/16 13:30 (Corticaine 0.5% Cream) 1 applic Q8H TOPICAL 10/06/16 15:00 10/09/16 16:22 (Lactinex) 1 tab DAILY PO 10/06/16 14:00 10/09/16 08:51 (Desyrel) 50 mg HS PO 10/08/16 21:00 10/08/16 20:29 Vital Signs / I&O Vital Signs Date Time Temp Pulse Resp B/P Pulse Ox O2 Delivery O2 Flow Rate FiO2 10/09/16 16:00 98.6 72 20 119/71 100 10/09/16 12:15 20 10/09/16 12:00 98.2 73 20 102/64 100 10/09/16 08:00 98.1 77 20 116/69 99 10/09/16 00:55 97.1 70 17 105/65 97 10/08/16 20:00 76 10/08/16 20:00 97.9 77 16 115/72 97 I/O 10/08/16 10/08/16 10/08/16 10/09/16 10/09/16 10/09/16 07:00 15:00 23:00 07:00 15:00 23:00 Intake Total 590 ml 1908 ml 360 ml 2527 ml Output Total 800 ml 800 ml 1000 ml 500 ml Balance -210 ml 1108 ml -640 ml 2027 ml Intake Oral 590 ml 480 ml 360 ml IV Total 1428 ml 2527 ml Output Urine Total 800 ml 800 ml 1000 ml 500 ml # Bowel Movements 1 Physical Exam GENERAL: In NAD SKIN: Warm and dry. HEAD: Normocephalic. EYES: No scleral icterus. No injection or drainage. NECK: Supple, trachea midline. No JVD or lymphadenopathy. CARDIOVASCULAR: Regular rate and rhythm without murmurs, gallops, or rubs. RESPIRATORY: Breath sounds equal bilaterally. No accessory muscle use. GASTROINTESTINAL: Abdomen soft, nontender, nondistended. MUSCULOSKELETAL: No cyanosis, or edema. Laboratory Laboratory Tests Test 10/09/16 05:27 Total Bilirubin 0.3 MG/DL Direct Bilirubin 0.1 MG/DL Indirect Bilirubin 0.2 MG/DL Aspartate Amino Transf 24 U/L (AST/SGOT) Alanine Aminotransferase 24 U/L (ALT/SGPT) Alkaline Phosphatase 86 U/L Total Protein 5.1 GM/DL Albumin 2.3 GM/DL Lipase 138 U/L Imaging Last Impressions Chest X-Ray 10/04/161650 Signed Impressions: Service Date/Time: Tuesday, October 04, 2016 17:54 - CONCLUSION: No acute disease. Dontae Murray MD Abdomen/Pelvis CT 10/04/161650 Signed Impressions: Service Date/Time: Tuesday, October 04, 2016 17:44 - CONCLUSION: 1. Evolution of inflammatory changes at the level of the pancreas with pseudocyst formation as described above. 2. Stable renal cysts including a complex cyst right kidney. Dann Jensen MD Assessment and Plan Problem List: (1) Chest pain (2) Pancreatitis (3) Elevated troponin (4) Hypertension Assessment and Plan No new cardiac issues. No recurrent CP. No evidence of ACS. Continue current program for gastritis and pancreatitis exacerbation. Increase activity. Stable from cardiac standpoint. Problem Qualifiers (1) Chest pain: Qualified Code: R07.9 - Chest pain, unspecified type (2) Pancreatitis: Qualified Code: K86.1 - Chronic pancreatitis, unspecified pancreatitis type (3) Hypertension: Qualified Code: I10 - Essential hypertension Alejandro Nieves MD Oct 09, 2016 17:35
[2016-10-09 20:00] VITALS: BP 110/62; PULSE 73; RESP 18; TEMP 98.4; O2SAT 97
[2016-10-09 20:50] VITALS: PULSE 68
[2016-10-09] MEDS: traZODone HCL 50 MG TAB PO SCH (22:31)
[2016-10-09] MEDS: PHENOL 1.4% SOLN 180 ML BTL OROPHARYNG PRN (23:24)
[2016-10-10] VITALS: BP 107/65; PULSE 70; RESP 17; TEMP 97.7; O2SAT 95
[2016-10-10] MEDS: MORPHINE SULFATE 4 MG/ML INJ IV PUSH PRN ×6 (02:01→22:27)
[2016-10-10] MEDS: SODIUM CHLOR 0.9% 1000 ML INJ 1,000 ML IV SCH ×2 (04:28→13:45)
[2016-10-10 05:01] VITALS: BP 102/61; PULSE 69; RESP 17; TEMP 97.9; O2SAT 96
[2016-10-10] MEDS: HYDROCORTISONE 0.5% CREAM 30 GM TOPICAL SCH ×3 (06:07→22:29)
[2016-10-10 07:26] LABS: HEMATOCRIT 27.5 % (39.0-51.0); MEAN CELL VOLUME 91.3 FL (80.0-100.0); MEAN CORPUSCULAR HEMOGLOBIN 30.7 PG (27.0-34.0); MEAN CORPUSCULAR HGB CONC 33.7 % (32.0-36.0); PLATELET COUNT 229 TH/MM3 (150-450); RED BLOOD COUNT 3.01 MIL/MM3 (4.50-5.90); RED CELL DISTRIBUTION WIDTH 13.5 % (11.6-17.2); REVIEW FLAG FINAL; WHITE BLOOD COUNT 6.3 TH/MM3 (4.0-11.0)
[2016-10-10 07:45] LABS: BICARBONATE 27.5 MEQ/L (21.0-32.0)
[2016-10-10 07:50] LABS: POTASSIUM 2.9 MEQ/L (3.5-5.1)
[2016-10-10 08:00] VITALS: BP 103/69; PULSE 69; RESP 16; TEMP 97.8; O2SAT 98
[2016-10-10] MEDS: SODIUM CHLORIDE 0.9% FLUSH 10 ML FLUSH IV FLUSH SCH ×2 (09:00→20:12)
[2016-10-10] MEDS: CYANOCOBALAMIN 1,000 MCG TAB PO SCH (09:18)
[2016-10-10] MEDS: ASPIRIN 81 MG CHEW TAB CHEW SCH (09:18)
[2016-10-10] MEDS: amLODIPine BESYLATE 5 MG TAB PO SCH (09:18)
[2016-10-10] MEDS: PANTOPRAZOLE SOD 40 MG DELAYED RELEASE TAB PO SCH (09:18)
[2016-10-10] MEDS: DICYCLOMINE HCL 10 MG CAP PO SCH ×4 (09:18→20:12)
[2016-10-10] MEDS: LACTOBACILLUS ACIDOPHILUS TAB PO SCH (09:18)
[2016-10-10] MEDS: diphenhydrAMINE HCL 2%/ZINC ACETATE 0.1% CREAM 30 APPLIC/30 GM TUBE TOPICAL SCH ×3 (09:19→17:30)
[2016-10-10] MEDS: HEPARIN SODIUM - SQ 10,000 UNITS/ML VIAL SQ SCH (09:19)
[2016-10-10] MEDS: PHENOL 1.4% SOLN 180 ML BTL OROPHARYNG PRN (09:22)
[2016-10-10] MEDS: SODIUM CHLORIDE 0.9% FLUSH 10 ML FLUSH IV FLUSH PRN (10:19)
[2016-10-10 12:00] VITALS: BP 106/69; PULSE 72; RESP 16; TEMP 98.1; O2SAT 95
--- NOTE | 2016-10-10 12:43 | HHI.PR ---
Subjective Remarks 60yr old male remains with epigastric tenderness no vomiting today. no fever no cp occ. sob Objective Objective Results - Vital Signs Date Time Temp Pulse Resp B/P Pulse Ox O2 Delivery O2 Flow Rate FiO2 10/10/16 08:00 97.8 69 16 103/69 98 10/10/16 06:24 18 10/10/16 05:01 97.9 69 17 102/61 96 10/10/16 00:00 97.7 70 17 107/65 95 10/09/16 20:50 68 10/09/16 20:00 98.4 73 18 110/62 97 10/09/16 16:00 98.6 72 20 119/71 100 I/O 10/09/16 10/09/16 10/09/16 10/10/16 10/10/16 10/10/16 07:00 15:00 23:00 07:00 15:00 23:00 Intake Total 360 ml 2527 ml 922 ml 1196 ml Output Total 1000 ml 500 ml 850 ml 600 ml Balance -640 ml 2027 ml 72 ml 596 ml Intake Oral 360 ml 480 ml 280 ml IV Total 2527 ml 442 ml 916 ml Output Urine Total 1000 ml 500 ml 850 ml 600 ml Result Diagram: 10/10/16 0532 10/10/16 0532 Other Results Laboratory Tests Test 10/10/16 05:32 White Blood Count 6.3 Red Blood Count 3.01 Hemoglobin 9.3 Hematocrit 27.5 Mean Corpuscular Volume 91.3 Mean Corpuscular Hemoglobin 30.7 Mean Corpuscular Hemoglobin 33.7 Concent Red Cell Distribution Width 13.5 Platelet Count 229 Mean Platelet Volume 7.5 Sodium Level 144 Potassium Level 2.9 Chloride Level 109 Carbon Dioxide Level 27.5 Anion Gap 8 Blood Urea Nitrogen 3 Creatinine 0.59 Estimat Glomerular Filtration 140 Rate Random Glucose 93 Calcium Level 8.8 ROS General: Weakness HEENT: No: Sore Throat, Dysphagia, Other Cardiac: No: Chest Pain, Edema, Palpitations, Other Pulmonary: No: Cough, SOB, Wheezing, Other GI: 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 He is alert and awake HEAD: Normocephalic without any lesion or mass noted. EYES: Perrla, Normal eye movement, no icterus. OROPHARYNGEAL: Oropharynx without erythema or edema. MOUTH/THROAT: Tongue midline Buccal mucosa is moist. NECK: Supple. CARDIAC: Regular rhythm, regular rate, S1 and S2 are heard. LUNGS: Clear to auscultation bilaterally. ABDOMEN: Soft, tenderness in epigastric region. Bowel sounds are heard in all four quadrants. No rebound. No guarding. EXTREMITIES: No CCE. NEUROLOGICAL: Patient mood and affect appropriate. SKIN:Warm and moist PSYCH: Mood and affect appropriate A/P Assessment and Plan Problem List: (1) Pancreatitis (2) Pseudocyst of pancreas (3) Chest pain (4) Hypertension (5) Chronic neck and back pain (6) COPD exacerbation (7) Tobacco abuse (8) Hypokalemia (9) Drop in H/H Assessment/Plan Pancreatitis, acute on chronic recurring -Appreciate gastroenterology input, recommends low-fat diet, continue with supportive management, has ordered IgG 4 level -continue with IVF. morphine, changed to q 6 -lipase back to normal -remains with epigastric tenderness, Dr. Cruz spoke to pt., recommends GJ tube to allow pancreas to rest: plan for tuesday. Atypical chest pain, rule out cardiac event -Appreciate cardiology input, no evidence of ischemia -Had stress test during prior admission, no acute findings Continue with medical management Chronic obstructive pulmonary disease. -Continue with DuoNeb's when necessary Hypertension. -Continue home medication Depression -Trazodone 50 mg PO q HS, feeling better. Gastroesophageal reflux disease. -Continue PPI History of ethyl alcohol abuse. -States no alcohol in 8 months, and feels motivated to stay that way -Supportive care Leukocytosis. -Secondary to pancreatitis, medical management monitor labs Urticaria, with mild papular rash -Continue PO benadryl and cream for rash IR consulted for GJ tube, IR plans GJ tube Tuesday Heparin dced. Dietitian consulted for bolus feedings Hypokalemia Replace and monitor. drop in H/H: was 11.3 on 10/06/16. Today it is 9.3 check hemoccult stool. heparin dced. GI on board. monitor. D/W RN AM labs Discussed With: Nurse, Family (patient), Other (Dr. Killian, seen on his behalf) Kandice Givens MD Oct 10, 2016 12:43
[2016-10-10] MEDS: [UNRECOGNIZED DRUG - OTHER] IV SCH (14:51)
[2016-10-10] MEDS: SODIUM CHLORIDE IV SCH (14:51)
[2016-10-10] MEDS: POTASSIUM CHLORIDE IV SCH (14:51)
[2016-10-10 16:00] VITALS: BP 126/65; PULSE 85; RESP 16; TEMP 97; O2SAT 94
--- NOTE | 2016-10-10 16:00 | PD.CARD.PN ---
Subjective Subjective Remarks No CP or SOB, c/o recurrent abd pain Objective Medications Current Medications Medications (Trade) Dose Ordered Sig/Devon Route Start Time Stop Time Status Last Admin (NS Flush) 2 ml UNSCH PRN IV FLUSH 10/04/16 19:00 10/10/16 10:19 (NS Flush) 2 ml BID IV FLUSH 10/04/16 21:00 10/09/16 20:52 (Zofran Inj) 4 mg Q6H PRN IVP 10/04/16 19:00 10/07/16 00:46 (Narcan Inj) 0.4 mg UNSCH PRN IV 10/04/16 19:00 (Norvasc) 5 mg DAILY PO 10/05/16 09:00 10/10/16 09:18 (Aspirin Chew) 81 mg DAILY CHEW 10/05/16 09:00 10/10/16 09:18 (Bentyl) 10 mg QID PO 10/04/16 21:00 10/10/16 13:41 (Protonix) 40 mg DAILY PO 10/05/16 09:00 10/10/16 09:18 (Vitamin B12) 1,000 mcg DAILY PO 10/05/16 09:00 10/10/16 09:18 (Morphine Inj) 4 mg Q2H PRN IV PUSH 10/04/16 19:00 10/10/16 13:46 (Benadryl 2% Cream) 1 applic TID TOPICAL 10/06/16 18:00 10/10/16 13:42 (Benadryl) 25 mg Q6H PRN PO 10/06/16 13:30 (Corticaine 0.5% Cream) 1 applic Q8H TOPICAL 10/06/16 15:00 10/10/16 14:58 (Lactinex) 1 tab DAILY PO 10/06/16 14:00 10/10/16 09:18 (Desyrel) 50 mg HS PO 10/08/16 21:00 10/09/16 22:31 Phenol 2 spray 2 spray Q2H PRN OROPHARYNG 10/09/16 22:45 10/10/16 09:22 Potassium Chloride 60 meq/ Sodium Chloride 38.5 meq/Sterile Water 1,039.625 ml @ 42 mls/hr Q24H IV 10/10/16 14:00 10/10/16 14:51 (NS 1000 ml Inj) 1,000 ml @ 75 mls/hr [id number] IV 10/10/16 13:45 10/10/16 13:45 Vital Signs / I&O Vital Signs Date Time Temp Pulse Resp B/P Pulse Ox O2 Delivery O2 Flow Rate FiO2 10/10/16 12:00 98.1 72 16 106/69 95 10/10/16 08:00 97.8 69 16 103/69 98 10/10/16 06:24 18 10/10/16 05:01 97.9 69 17 102/61 96 10/10/16 00:00 97.7 70 17 107/65 95 10/09/16 20:50 68 10/09/16 20:00 98.4 73 18 110/62 97 10/09/16 16:00 98.6 72 20 119/71 100 I/O 10/09/16 10/09/16 10/09/16 10/10/16 10/10/16 10/10/16 07:00 15:00 23:00 07:00 15:00 23:00 Intake Total 360 ml 2527 ml 922 ml 1196 ml Output Total 1000 ml 500 ml 850 ml 600 ml Balance -640 ml 2027 ml 72 ml 596 ml Intake Oral 360 ml 480 ml 280 ml IV Total 2527 ml 442 ml 916 ml Output Urine Total 1000 ml 500 ml 850 ml 600 ml Physical Exam GENERAL: In NAD SKIN: Warm and dry. HEAD: Normocephalic. EYES: No scleral icterus. No injection or drainage. NECK: Supple, trachea midline. No JVD or lymphadenopathy. CARDIOVASCULAR: Regular rate and rhythm without murmurs, gallops, or rubs. RESPIRATORY: Breath sounds equal bilaterally. No accessory muscle use. GASTROINTESTINAL: Abdomen soft, tender, nondistended. MUSCULOSKELETAL: No cyanosis, or edema. Laboratory Laboratory Tests Test 10/10/16 05:32 White Blood Count 6.3 TH/MM3 Red Blood Count 3.01 MIL/MM3 Hemoglobin 9.3 GM/DL Hematocrit 27.5 % Mean Corpuscular Volume 91.3 FL Mean Corpuscular Hemoglobin 30.7 PG Mean Corpuscular Hemoglobin 33.7 % Concent Red Cell Distribution Width 13.5 % Platelet Count 229 TH/MM3 Mean Platelet Volume 7.5 FL Sodium Level 144 MEQ/L Potassium Level 2.9 MEQ/L Chloride Level 109 MEQ/L Carbon Dioxide Level 27.5 MEQ/L Anion Gap 8 MEQ/L Blood Urea Nitrogen 3 MG/DL Creatinine 0.59 MG/DL Estimat Glomerular Filtration 140 ML/MIN Rate Random Glucose 93 MG/DL Calcium Level 8.8 MG/DL Imaging Last Impressions Chest X-Ray 10/04/161650 Signed Impressions: Service Date/Time: Tuesday, October 04, 2016 17:54 - CONCLUSION: No acute disease. Dontae Murray MD Abdomen/Pelvis CT 10/04/161650 Signed Impressions: Service Date/Time: Tuesday, October 04, 2016 17:44 - CONCLUSION: 1. Evolution of inflammatory changes at the level of the pancreas with pseudocyst formation as described above. 2. Stable renal cysts including a complex cyst right kidney. Dann Jensen MD Assessment and Plan Problem List: (1) Chest pain (2) Pancreatitis (3) Elevated troponin (4) Hypertension Assessment and Plan Continuing abdominal pain. No new cardiac issues. No recurrent CP. No evidence of ACS. Continue current program for pancreatitis exacerbation. Increase activity. Stable from cardiac standpoint. GI evaluation, GJ tube placement planned tomorrow. Problem Qualifiers (1) Chest pain: Qualified Code: R07.9 - Chest pain, unspecified type (2) Pancreatitis: Qualified Code: K86.1 - Chronic pancreatitis, unspecified pancreatitis type (3) Hypertension: Qualified Code: I10 - Essential hypertension Alejandro Nieves MD Oct 10, 2016 16:00
[2016-10-10 20:00] VITALS: BP 126/65; PULSE 78; RESP 18; TEMP 97.3; O2SAT 99
[2016-10-10] MEDS: traZODone HCL 50 MG TAB PO SCH (20:12)
--- NOTE | 2016-10-10 23:58 | HHI.GIFU ---
Subjective Remarks Patient laying in bed still complaining of worsening abdominal pain especially in the upper abdomen and upper left abdomen Objective Vitals I&O Vital Signs Date Time Temp Pulse Resp B/P Pulse Ox O2 Delivery O2 Flow Rate FiO2 10/10/16 20:00 97.3 78 18 126/65 99 10/10/16 16:00 97.0 85 16 126/65 94 10/10/16 12:00 98.1 72 16 106/69 95 10/10/16 08:00 97.8 69 16 103/69 98 10/10/16 06:24 18 10/10/16 05:01 97.9 69 17 102/61 96 10/10/16 00:00 97.7 70 17 107/65 95 I/O 10/09/16 10/09/16 10/09/16 10/10/16 10/10/16 10/10/16 07:00 15:00 23:00 07:00 15:00 23:00 Intake Total 360 ml 2527 ml 922 ml 1196 ml 440 ml 900 ml Output Total 1000 ml 500 ml 850 ml 600 ml 300 ml 150 ml Balance -640 ml 2027 ml 72 ml 596 ml 140 ml 750 ml Intake Oral 360 ml 480 ml 280 ml 440 ml 900 ml IV Total 2527 ml 442 ml 916 ml Output Urine Total 1000 ml 500 ml 850 ml 600 ml 300 ml 150 ml Laboratory Laboratory Tests Test 10/10/16 05:32 White Blood Count 6.3 Red Blood Count 3.01 Hemoglobin 9.3 Hematocrit 27.5 Mean Corpuscular Volume 91.3 Mean Corpuscular Hemoglobin 30.7 Mean Corpuscular Hemoglobin 33.7 Concent Red Cell Distribution Width 13.5 Platelet Count 229 Mean Platelet Volume 7.5 Sodium Level 144 Potassium Level 2.9 Chloride Level 109 Carbon Dioxide Level 27.5 Anion Gap 8 Blood Urea Nitrogen 3 Creatinine 0.59 Estimat Glomerular Filtration 140 Rate Random Glucose 93 Calcium Level 8.8 Physical Exam HEENT: PERRLA. Normocephalic no jaundice. Throat is clear. NECK: Neck is supple, no JVD, no lymphadenopathy. CHEST: CTA CARDIAC: RRR ABDOMEN: Soft, more tenderness in epigastric region; no hepatosplenomegaly; bowel sounds x 4 quadrants EXTREMITIES: No clubbing, cyanosis, or edema. SKIN: Normal; no rash; no jaundice. 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 Assessment and Plan Plan ASSESSMENT: - Persistent pancreatitis. Pt has had multiple episodes of pancreatitis. This was originally related to ETOH, but he quit drinking 8months ago. He then had a cholecystectomy in June and states that he has had intermittent bloating since this time. He was hospitalized for acute pancreatitis from 09/28-10/01. Abdomen/Pelvis CT (09/28/16) at that time revealed 1.Findings characteristic of acute pancreatitis with peripancreatic inflammatory changes, free fluid around the spleen and liver as well as the deep pelvis and possibly developing 1.6 cm pseudocyst at the junction of the body and tail of the pancreas. 2. Stable Bosniak type II 3.8 cm cyst in the right kidney. The etiology of his pancreatitis was unclear and therefore he was evaluated with EGD (10/01/16)---> Gastritis antrum-biopsy, esophagitis distal-biopsy, 2. Retroflexed views revealed a hiatal hernia. Pathology revealed antral mucosa with regenerative epithelial changes and mild active chronic gastritis, a fatmata stain was negative for Helicobacter, distal esophagus biopsy with gastric mucosa with mild chronic inflammation of the lamina propria. There was no evidence of metaplasia or dysplasia. There was also some question about his pancreatitis possibly being related to his Wellbutrin and therefore he stopped taking this. His symptoms improved and he was discharged home on 10/01- with a lipase of 332. After discharge, he ate high fat meals such as pepparoni and salami sandwiches, tater tots, pasta salad. He had bloating the night of discharge and started having severe pain the next night. WBC 13.9, Lipase 727. Abdomen/Pelvis CT (10/04/16)----> 1. Evolution of inflammatory changes at the level of the pancreas with pseudocyst formation as described above. 2. Stable renal cysts including a complex cyst right kidney. NPO. IVF. PPI. Long discussion with patient re : importance of low fat diet- verbalizes understanding. - Pseudocyst. 3.4 x 2 cm proximal body and 1.4 cm in mid body. He has had chills, but no fever. His pain is likely related more to his high fat diet aggravating his pancreatitis. - Mildly elevated LFTs, Resolved. T. Bili 0.3, AST 24, ALT 24, ALk Phosph 86 - Recent hx Gastritis, Esophagitis. PPI - Leukocytosis. Improved. WBC 9.7. PLAN: - Clear liquids - GJ tube planned for Tuesday - PPI - IgG 4 level pending -Continue with current supportive care -Further recommendations to follow based on the results of above. Consider repeat imaging to further evaluate the pseudocyst and whether its growing or not Rodolfo Cruz MD Oct 10, 2016 23:58
[2016-10-11] VITALS (12 sets, daily range): BP systolic 95–149; BP diastolic 56–88; PULSE 68–93; RESP 16–19; TEMP 96.3–98.9; O2SAT 94–100
[2016-10-11] MEDS: SODIUM CHLOR 0.9% 1000 ML INJ 1,000 ML IV SCH ×2 (00:08→16:25)
[2016-10-11] MEDS: MORPHINE SULFATE 4 MG/ML INJ IV PUSH PRN ×8 (01:49→23:08)
[2016-10-11] MEDS: HYDROCORTISONE 0.5% CREAM 30 GM TOPICAL SCH ×3 (05:16→20:53)
[2016-10-11 06:49] LABS: HEMATOCRIT 26.3 % (39.0-51.0); MEAN CELL VOLUME 91.4 FL (80.0-100.0); MEAN CORPUSCULAR HEMOGLOBIN 31.3 PG (27.0-34.0); MEAN CORPUSCULAR HGB CONC 34.2 % (32.0-36.0); PLATELET COUNT 253 TH/MM3 (150-450); RED BLOOD COUNT 2.87 MIL/MM3 (4.50-5.90); RED CELL DISTRIBUTION WIDTH 13.6 % (11.6-17.2); REVIEW FLAG FINAL; WHITE BLOOD COUNT 7.5 TH/MM3 (4.0-11.0)
[2016-10-11 07:01] LABS: ALKALINE PHOSPHATASE 89 U/L (45-117); ALT (GPT) 21 U/L (12-78); ANION GAP 6 MEQ/L (5-15); AST (GOT) 20 U/L (15-37); BICARBONATE 26.7 MEQ/L (21.0-32.0); BLOOD UREA NITROGEN 4 MG/DL (7-18); CHLORIDE 109 MEQ/L (98-107); GLOMERULAR FILTRATION RATE 148 ML/MIN (>89); POTASSIUM 3.6 MEQ/L (3.5-5.1); SODIUM (NA) 142 MEQ/L (136-145); TOTAL BILIRUBIN ADULT 0.3 MG/DL (0.2-1.0)
[2016-10-11 07:04] LABS: AMYLASE 131 U/L (25-115)
[2016-10-11] MEDS: LACTOBACILLUS ACIDOPHILUS TAB PO SCH (08:43)
[2016-10-11] MEDS: DICYCLOMINE HCL 10 MG CAP PO SCH ×4 (08:43→20:53)
[2016-10-11] MEDS: PANTOPRAZOLE SOD 40 MG DELAYED RELEASE TAB PO SCH (08:43)
[2016-10-11] MEDS: CYANOCOBALAMIN 1,000 MCG TAB PO SCH (08:44)
[2016-10-11] MEDS: diphenhydrAMINE HCL 2%/ZINC ACETATE 0.1% CREAM 30 APPLIC/30 GM TUBE TOPICAL SCH ×3 (08:44→18:00)
[2016-10-11] MEDS: amLODIPine BESYLATE 5 MG TAB PO SCH (08:44)
[2016-10-11] MEDS: SODIUM CHLORIDE 0.9% FLUSH 10 ML FLUSH IV FLUSH SCH ×2 (08:44→20:53)
[2016-10-11] MEDS: ASPIRIN 81 MG CHEW TAB CHEW SCH (08:44)
[2016-10-11] MEDS ORDERED: VANCOMYCIN INJ 1,000 MG in SODIUM CHLOR 0.9% 250 ML INJ 250 ML IV SCH (09:45)
--- NOTE | 2016-10-11 10:57 | HHI.GIFU ---
Subjective Remarks Pt resting in bed. C/O significant left sided/epigastric pain- no improvement, aggravated by any po intake. Going for G/J tube today. (Nissa Cates) Objective Vitals I&O Vital Signs Date Time Temp Pulse Resp B/P Pulse Ox O2 Delivery O2 Flow Rate FiO2 10/11/16 08:00 96.5 71 18 97/56 100 10/11/16 03:51 96.3 70 16 95/57 97 10/11/16 02:16 75 10/11/16 00:11 98.1 70 16 102/62 96 10/10/16 20:00 97.3 78 18 126/65 99 10/10/16 16:00 97.0 85 16 126/65 94 10/10/16 12:00 98.1 72 16 106/69 95 I/O 10/10/16 10/10/16 10/10/16 10/11/16 10/11/16 10/11/16 07:00 15:00 23:00 07:00 15:00 23:00 Intake Total 1196 ml 440 ml 1464 ml 250 ml Output Total 600 ml 300 ml 750 ml 400 ml Balance 596 ml 140 ml 714 ml -150 ml Intake Oral 280 ml 440 ml 900 ml IV Total 916 ml 564 ml 250 ml Output Urine Total 600 ml 300 ml 750 ml 400 ml Laboratory Laboratory Tests Test 10/11/16 05:40 White Blood Count 7.5 Red Blood Count 2.87 Hemoglobin 9.0 Hematocrit 26.3 Mean Corpuscular Volume 91.4 Mean Corpuscular Hemoglobin 31.3 Mean Corpuscular Hemoglobin 34.2 Concent Red Cell Distribution Width 13.6 Platelet Count 253 Mean Platelet Volume 7.8 Sodium Level 142 Potassium Level 3.6 Chloride Level 109 Carbon Dioxide Level 26.7 Anion Gap 6 Blood Urea Nitrogen 4 Creatinine 0.56 Estimat Glomerular Filtration 148 Rate Random Glucose 82 Calcium Level 9.0 Total Bilirubin 0.3 Aspartate Amino Transf 20 (AST/SGOT) Alanine Aminotransferase 21 (ALT/SGPT) Alkaline Phosphatase 89 Total Protein 4.8 Albumin 2.2 Amylase Level 131 Lipase 311 Imaging Last Impressions Chest X-Ray 10/04/16 1651 Signed Impressions: Service Date/Time: Tuesday, October 04, 2016 17:54 - CONCLUSION: No acute disease. Dontae Murray MD Abdomen/Pelvis CT 10/04/16 0697 Signed Impressions: Service Date/Time: Tuesday, October 04, 2016 17:44 - CONCLUSION: 1. Evolution of inflammatory changes at the level of the pancreas with pseudocyst formation as described above. 2. Stable renal cysts including a complex cyst right kidney. Dann Jensen MD Physical Exam HEENT: PERRLA. Normocephalic no jaundice. CHEST: CTA CARDIAC: RRR ABDOMEN: Soft, more tenderness in epigastric region; no hepatosplenomegaly; bowel sounds x 4 quadrants EXTREMITIES: No clubbing, cyanosis, or edema. SKIN: Normal; no rash; no jaundice. MANAGER PROCESS EXCELLENCE: A & O x3. (Nissa Cates) Assessment and Plan Plan ASSESSMENT: - Persistent pancreatitis. Pt has had multiple episodes of pancreatitis. This was originally related to ETOH, but he quit drinking 8months ago. He then had a cholecystectomy in June and states that he has had intermittent bloating since this time. He was hospitalized for acute pancreatitis from 09/28-10/01. Abdomen/Pelvis CT (09/28/16) at that time revealed 1.Findings characteristic of acute pancreatitis with peripancreatic inflammatory changes, free fluid around the spleen and liver as well as the deep pelvis and possibly developing 1.6 cm pseudocyst at the junction of the body and tail of the pancreas. 2. Stable Bosniak type II 3.8 cm cyst in the right kidney. The etiology of his pancreatitis was unclear and therefore he was evaluated with EGD (10/01/16)---> Gastritis antrum-biopsy, esophagitis distal-biopsy, 2. Retroflexed views revealed a hiatal hernia. Pathology revealed antral mucosa with regenerative epithelial changes and mild active chronic gastritis, a fatmata stain was negative for Helicobacter, distal esophagus biopsy with gastric mucosa with mild chronic inflammation of the lamina propria. There was no evidence of metaplasia or dysplasia. There was also some question about his pancreatitis possibly being related to his Wellbutrin and therefore he stopped taking this. His symptoms improved and he was discharged home on 10/01- with a lipase of 332. After discharge, he ate high fat meals such as pepparoni and salami sandwiches, tater tots, pasta salad and developed severe pain the next night. Abdomen/Pelvis CT (10/04/16)----> 1. Evolution of inflammatory changes at the level of the pancreas with pseudocyst formation as described above. 2. Stable renal cysts including a complex cyst right kidney. Pt developing more pain with any po intake, also with increased bloating. NPO, going for G/J tube placement today. Will get repeat imaging for worsening pain/bloating. - Pseudocyst. 3.4 x 2 cm proximal body and 1.4 cm in mid body. He has had chills, but no fever. His pain is likely related more to his high fat diet aggravating his pancreatitis. Will get repeat imaging. - Mildly elevated LFTs, Resolved. - Recent hx Gastritis, Esophagitis. PPI - Leukocytosis. Improved. WBC 7.5 PLAN: - NPO for G/J tube - CT scan abdomen and pelvis with po/iv contrast - GJ tube placement per IR - PPI - IgG 4 level pending - Continue with current supportive care - Evaluated by Dr. Hill and myself and this note is written on his behalf ( Nissa Cates) Physician Comments Seen and examined with [employer] REPRESENTATIVE, worsening abdominal pain. Repeat CT. G/J tube-p. ( Merrick Hill MD) Nissa Cates October 11, 2016 10:57 Merrick Hill MD October 12, 2016 15:14
[2016-10-11] MEDS ORDERED: DIATRIZOATE MEGLUM/DIATRIZOATE SOD 9 ML CUP PO ONE ×2 (12:00→19:00)
[2016-10-11] MEDS ORDERED: MIDAZOLAM HCL 5 MG/5 ML VIAL ONE (14:23)
[2016-10-11] MEDS ORDERED: GLUCAGON 1 MG/ML VIAL ONE (14:23)
[2016-10-11] MEDS ORDERED: fentaNYL CITRATE 250 MCG/5 ML AMP ONE (14:23)
[2016-10-11] MEDS ORDERED: IOHEXOL 350 MG/ML 50 ML BTL (for RAD DIAG) G-TUBE ONE (15:05)
--- NOTE | 2016-10-11 15:08 | PD.RAD ---
Post Procedure Progress Note Pre Procedure Diagnosis: (1) Pseudocyst of pancreas (2) Esophageal candidiasis Post Procedure Diagnosis: (1) Esophageal candidiasis (2) Pseudocyst of pancreas Procedure Date: October 11, 2016 Supervising Radiologist: Shayne Eagle Estimated blood loss: 3CC Anesthesia: Local, Conscious Sedation Plan of Activity Patient to Unit: ROPU Patient Condition: Poor Additional Comments: G/J tube placed without difficulty. Tube position verified. PT tolerated the tube placement well. Full dictated report to follow. See PACS Report for procedural detail/treatment Shayne Eagle MD October 11, 2016 15:08
--- NOTE | 2016-10-11 17:23 | PD.CARD.PN ---
Subjective Subjective Remarks No CP or SOB, still c/o abd pain, GJ tube placed, mild palpitations Objective Medications Current Medications Medications (Trade) Dose Ordered Sig/Devon Route Start Time Stop Time Status Last Admin (NS Flush) 2 ml UNSCH PRN IV FLUSH 10/04/16 19:00 10/10/16 10:19 (NS Flush) 2 ml BID IV FLUSH 10/04/16 21:00 10/09/16 20:52 (Zofran Inj) 4 mg Q6H PRN IVP 10/04/16 19:00 10/07/16 00:46 (Narcan Inj) 0.4 mg UNSCH PRN IV 10/04/16 19:00 (Norvasc) 5 mg DAILY PO 10/05/16 09:00 10/10/16 09:18 (Aspirin Chew) 81 mg DAILY CHEW 10/05/16 09:00 10/10/16 09:18 (Bentyl) 10 mg QID PO 10/04/16 21:00 10/11/16 08:43 (Protonix) 40 mg DAILY PO 10/05/16 09:00 10/11/16 08:43 (Vitamin B12) 1,000 mcg DAILY PO 10/05/16 09:00 10/11/16 08:44 (Morphine Inj) 4 mg Q2H PRN IV PUSH 10/04/16 19:00 10/11/16 16:47 (Benadryl 2% Cream) 1 applic TID TOPICAL 10/06/16 18:00 10/11/16 13:00 (Benadryl) 25 mg Q6H PRN PO 10/06/16 13:30 (Corticaine 0.5% Cream) 1 applic Q8H TOPICAL 10/06/16 15:00 10/11/16 05:16 (Lactinex) 1 tab DAILY PO 10/06/16 14:00 10/11/16 08:43 (Desyrel) 50 mg HS PO 10/08/16 21:00 10/10/16 20:12 Phenol 2 spray 2 spray Q2H PRN OROPHARYNG 10/09/16 22:45 10/10/16 09:22 Potassium Chloride 60 meq/ Sodium Chloride 38.5 meq/Sterile Water 1,039.625 ml @ 42 mls/hr Q24H IV 10/10/16 14:00 10/10/16 14:51 (NS 1000 ml Inj) 1,000 ml @ 75 mls/hr [id number] IV 10/10/16 13:45 10/11/16 00:08 (Md Venkat Nuñez) 18 ml ONCE ONCE PO 10/11/16 19:00 10/11/16 19:01 Vital Signs / I&O Vital Signs Date Time Temp Pulse Resp B/P Pulse Ox O2 Delivery O2 Flow Rate FiO2 10/11/16 16:30 68 16 119/63 97 10/11/16 16:00 70 16 108/68 97 10/11/16 15:25 76 16 108/58 97 10/11/16 15:10 98.1 76 16 130/88 97 10/11/16 12:00 96.7 73 19 106/59 99 10/11/16 09:26 18 10/11/16 08:00 96.5 71 18 97/56 100 10/11/16 03:51 96.3 70 16 95/57 97 10/11/16 02:16 75 10/11/16 00:11 98.1 70 16 102/62 96 10/10/16 20:00 97.3 78 18 126/65 99 I/O 10/10/16 10/10/16 10/10/16 10/11/16 10/11/16 10/11/16 07:00 15:00 23:00 07:00 15:00 23:00 Intake Total 1196 ml 440 ml 1464 ml 250 ml 798 ml Output Total 600 ml 300 ml 750 ml 400 ml Balance 596 ml 140 ml 714 ml -150 ml 798 ml Intake Oral 280 ml 440 ml 900 ml IV Total 916 ml 564 ml 250 ml 798 ml Output Urine Total 600 ml 300 ml 750 ml 400 ml Physical Exam GENERAL: In NAD SKIN: Warm and dry. HEAD: Normocephalic. EYES: No scleral icterus. No injection or drainage. NECK: Supple, trachea midline. No JVD or lymphadenopathy. CARDIOVASCULAR: Regular rate and rhythm without murmurs, gallops, or rubs. RESPIRATORY: Breath sounds equal bilaterally. No accessory muscle use. GASTROINTESTINAL: Abdomen soft, tender, nondistended. MUSCULOSKELETAL: No cyanosis, or edema. Laboratory Laboratory Tests Test 10/11/16 05:40 White Blood Count 7.5 TH/MM3 Red Blood Count 2.87 MIL/MM3 Hemoglobin 9.0 GM/DL Hematocrit 26.3 % Mean Corpuscular Volume 91.4 FL Mean Corpuscular Hemoglobin 31.3 PG Mean Corpuscular Hemoglobin 34.2 % Concent Red Cell Distribution Width 13.6 % Platelet Count 253 TH/MM3 Mean Platelet Volume 7.8 FL Sodium Level 142 MEQ/L Potassium Level 3.6 MEQ/L Chloride Level 109 MEQ/L Carbon Dioxide Level 26.7 MEQ/L Anion Gap 6 MEQ/L Blood Urea Nitrogen 4 MG/DL Creatinine 0.56 MG/DL Estimat Glomerular Filtration 148 ML/MIN Rate Random Glucose 82 MG/DL Calcium Level 9.0 MG/DL Total Bilirubin 0.3 MG/DL Aspartate Amino Transf 20 U/L (AST/SGOT) Alanine Aminotransferase 21 U/L (ALT/SGPT) Alkaline Phosphatase 89 U/L Total Protein 4.8 GM/DL Albumin 2.2 GM/DL Amylase Level 131 U/L Lipase 311 U/L Imaging Last Impressions Chest X-Ray 10/04/161650 Signed Impressions: Service Date/Time: Tuesday, October 04, 2016 17:54 - CONCLUSION: No acute disease. Dontae Murray MD Abdomen/Pelvis CT 10/04/161650 Signed Impressions: Service Date/Time: Tuesday, October 04, 2016 17:44 - CONCLUSION: 1. Evolution of inflammatory changes at the level of the pancreas with pseudocyst formation as described above. 2. Stable renal cysts including a complex cyst right kidney. Dann Jensen MD Assessment and Plan Problem List: (1) Chest pain (2) Pancreatitis (3) Elevated troponin (4) Hypertension Assessment and Plan Continuing abdominal pain. No new cardiac issues. No recurrent CP. No evidence of ACS. Continue current program for pancreatitis exacerbation. Stable from cardiac standpoint. GI evaluation, GJ tube placed. Increase activity. D/w pt and . Problem Qualifiers (1) Chest pain: Qualified Code: R07.9 - Chest pain, unspecified type (2) Pancreatitis: Qualified Code: K86.1 - Chronic pancreatitis, unspecified pancreatitis type (3) Hypertension: Qualified Code: I10 - Essential hypertension Alejandro Nieves MD October 11, 2016 17:23
[2016-10-11] MEDS: SODIUM CHLORIDE IV SCH (17:26)
[2016-10-11] MEDS: [UNRECOGNIZED DRUG - OTHER] IV SCH (17:26)
[2016-10-11] MEDS: POTASSIUM CHLORIDE IV SCH (17:26)
[2016-10-11] MEDS: ALBUTEROL SULFATE 90 MCG/ACT HFA 18 GM INHALER INH PRN (18:30)
--- NOTE | 2016-10-11 18:31 | HHI.PR ---
Subjective Remarks resting in bed back from IR with JG tube, abd pain post procedure significant other in rm. color pale Objective Objective Results - Vital Signs Date Time Temp Pulse Resp B/P Pulse Ox O2 Delivery O2 Flow Rate FiO2 10/11/16 16:55 97.2 93 19 149/85 99 10/11/16 16:52 18 10/11/16 16:30 68 16 119/63 97 10/11/16 16:00 70 16 108/68 97 10/11/16 15:25 76 16 108/58 97 10/11/16 15:10 98.1 76 16 130/88 97 10/11/16 12:00 96.7 73 19 106/59 99 10/11/16 08:00 96.5 71 18 97/56 100 10/11/16 03:51 96.3 70 16 95/57 97 10/11/16 02:16 75 10/11/16 00:11 98.1 70 16 102/62 96 10/10/16 20:00 97.3 78 18 126/65 99 I/O 10/10/16 10/10/16 10/10/16 10/11/16 10/11/16 10/11/16 07:00 15:00 23:00 07:00 15:00 23:00 Intake Total 1196 ml 440 ml 1464 ml 250 ml 798 ml Output Total 600 ml 300 ml 750 ml 400 ml Balance 596 ml 140 ml 714 ml -150 ml 798 ml Intake Oral 280 ml 440 ml 900 ml IV Total 916 ml 564 ml 250 ml 798 ml Output Urine Total 600 ml 300 ml 750 ml 400 ml Result Diagram: 10/11/16 0540 10/11/16 0540 ROS General: Fatigue, Weakness, Other (10 point ROS done, positives noted, other unremarkable) Pulmonary: SOB, Wheezing (mild COPD) GI: Abdominal Pain (post JG tube) Neuro/MS: Other (anxiety) Physical Exam Physical Exam PHYSICAL EXAMINATION GENERAL: This is a thin chronic ill male resting in the bed. Facial griimace to pain, abd. He is awake, HEAD: Normocephalic without any lesion or mass noted. Facial features appear symmetric. OROPHARYNGEAL: Oropharynx without erythema or edema. NECK: Supple. No nuchal rigidity or lymphadenopathy. Trachea midline without deviation. CARDIAC: Regular rhythm, regular rate, S1 and S2 are heard. LUNGS: Diminished to auscultation bilaterally. exp wheeze mild ABDOMEN: Soft, tender, post JG tube Bowel sounds are heard EXTREMITIES: no edema. Pulses equal bilateral. NEUROLOGICAL: Patient mood and affect appropriate. No focal deficit SKIN:Warm and moist, pale Objective Remarks Im hurting A/P Assessment and Plan 1. Pancreatitis, acute on chronic recurring. IV fluids for hydration. acute on chronic recurring -Appreciate gastroenterology input, recommends low-fat diet, continue with supportive management, has ordered IgG 4 level continue with IVF. pain management epigastric tenderness, Dr. Cruz spoke to pt, GJ tube place this pm, Dietary consult for bolus feeds. Nothing until 7 pm tonight Atypical chest pain, rule out cardiac event -Appreciate cardiology input, no evidence of ischemia -Had stress test during prior admission, no acute findings Continue with medical management Chronic obstructive pulmonary disease. -Continue with DuoNeb's when necessary Hypertension. -Continue home medication Depression -Trazodone 50 mg PO q HS, feeling better. Urticaria, with mild papular rash -Continue PO benadryl and cream for rash improved labs reviewed Hypokalemia Replace and monitor. Anemia, currently 9. asymptomatic, monitor vitals monitored and reviewed with attention to BP 97/56 D/W RN AM labs Discussed With: Nurse, Family (patient), Other (Dr. Killian, seen on his behalf) Discharge Planning Probable home, with home health Discussed With: Nurse, Family (patient), Other (Dr. Killian, seen on his behalf) Rachelle Ogden October 11, 2016 18:31
[2016-10-11] MEDS: traZODone HCL 50 MG TAB PO SCH (20:53)
[2016-10-12] VITALS (7 sets, daily range): BP systolic 102–125; BP diastolic 58–79; PULSE 72–89; RESP 16–20; TEMP 97–98.9; O2SAT 95–99
[2016-10-12] MEDS: MORPHINE SULFATE 4 MG/ML INJ IV PUSH PRN ×9 (01:10→23:45)
[2016-10-12] MEDS ORDERED: IOHEXOL 350 MG/ML 10 ML VIAL (for RAD DIAG) IV ONE (01:39)
--- NOTE | 2016-10-12 02:29 | RADRPT ---
EXAM DATE/TIME: 10/12/2016 01:37 [facility] COMPARISON: CT ABDOMEN & PELVIS W CONTRAST, October 04, 2016, 17:44. INDICATIONS : Pancreatitis, worsening pain. IV CONTRAST: 94 cc Omnipaque 350 (iohexol) IV ORAL CONTRAST: Prescribed oral contrast ingested. RADIATION DOSE: 5.28 CTDIvol (mGy) MEDICAL HISTORY : Cardiovascular disease. Hypertension. Pancreatitis.CVA. SURGICAL HISTORY : Cholecystectomy. ENCOUNTER: Initial ACUITY: 1 day PAIN SCALE: 8/10 LOCATION: Bilateral upper quadrant TECHNIQUE: Volumetric scanning of the abdomen and pelvis was performed. Using automated exposure control and ad justment of the mA and/or kV according to patient size, radiation dose was kept as low as reasonably achievable to obtain optimal diagnostic quality images. FINDINGS: Small bilateral pleural effusions are identified. Ascites is present in both upper quadrants gastroje junostomy tube is present. There are increasing inflammatory changes involving the entire pancreas wi th a developing pseudocyst the tail measuring approximately 5 cm. The gallbladder is surgically absen t. The adrenal glands are unremarkable. There is a single simple cyst in the right kidney measuring 4 cm. This does demonstrates focal area of hyperdensity centrally. A 15 mm left renal cyst is present. The bladder appears normal. No wall thickening or intraluminal masses are identified. Ascites is pres ent within the pelvis. CONCLUSION: 1. In comparison with the prior study there is increasing inflammatory changes involving the pancreas with pseudocyst developing in the tail. There is minimal dilatation of the intrahepatic ducts. 2. Ascites Tee Farris MD on October 12, 2016 at 2:17 Board Certified Radiologist. This report was verified electronically.
[2016-10-12] MEDS: SODIUM CHLOR 0.9% 1000 ML INJ 1,000 ML IV SCH ×2 (05:00→20:53)
[2016-10-12] MEDS: HYDROCORTISONE 0.5% CREAM 30 GM TOPICAL SCH ×3 (05:02→20:57)
[2016-10-12] MEDS: ASPIRIN 81 MG CHEW TAB CHEW SCH (08:51)
[2016-10-12] MEDS: CYANOCOBALAMIN 1,000 MCG TAB PO SCH (08:51)
[2016-10-12] MEDS: amLODIPine BESYLATE 5 MG TAB PO SCH (08:51)
[2016-10-12] MEDS: LACTOBACILLUS ACIDOPHILUS TAB PO SCH (08:51)
[2016-10-12] MEDS: DICYCLOMINE HCL 10 MG CAP PO SCH ×4 (08:51→20:53)
[2016-10-12] MEDS: PANTOPRAZOLE SOD 40 MG DELAYED RELEASE TAB PO SCH (08:51)
[2016-10-12] MEDS: diphenhydrAMINE HCL 2%/ZINC ACETATE 0.1% CREAM 30 APPLIC/30 GM TUBE TOPICAL SCH ×4 (09:00→20:54)
[2016-10-12] MEDS: SODIUM CHLORIDE 0.9% FLUSH 10 ML FLUSH IV FLUSH SCH ×2 (13:20→20:53)
--- NOTE | 2016-10-12 14:22 | HHI.PR ---
Subjective Remarks resting in bed and up in chair GJ tube site, CDI, dressing pain management color [place] (Rachelle Ogden) Objective Objective Results - Vital Signs Date Time Temp Pulse Resp B/P Pulse Ox O2 Delivery O2 Flow Rate FiO2 10/12/16 12:00 97.0 87 17 102/61 99 10/12/16 08:00 97.0 86 17 117/79 95 10/12/16 04:16 98.0 78 16 124/73 96 10/12/16 00:09 97.7 80 17 125/72 98 10/11/16 22:00 84 10/11/16 20:18 98.9 85 18 130/78 94 10/11/16 18:35 18 10/11/16 16:55 97.2 93 19 149/85 99 10/11/16 16:30 68 16 119/63 97 10/11/16 16:00 70 16 108/68 97 10/11/16 15:25 76 16 108/58 97 10/11/16 15:10 98.1 76 16 130/88 97 I/O 10/11/16 10/11/16 10/11/16 10/12/16 10/12/16 10/12/16 07:00 15:00 23:00 07:00 15:00 23:00 Intake Total 250 ml 798 ml 788 ml 1126 ml Output Total 400 ml 500 ml 600 ml 600 ml Balance -150 ml 298 ml 188 ml 526 ml Intake Oral 380 ml 240 ml IV Total 250 ml 798 ml 408 ml 886 ml Output Urine Total 400 ml 500 ml 600 ml 600 ml (Rachelle Ogden) Result Diagram: 10/11/16 0540 10/11/16 0540 ROS General: Fatigue, Weakness, Other (10 point ROS done, Positives noted, other luque unremarkable) GI: Abdominal Pain, BM (None last 2-3 day. bowel regimen) Skin: Rash (improved) (Rachelle Ogden) Physical Exam Physical Exam PHYSICAL EXAMINATION GENERAL: This is a well-developed, well-nourished male who appears to be in no acute distress. He is alert and awake, HEAD: Normocephalic without any lesion or mass noted. Facial features appear symmetric. OROPHARYNGEAL: Oropharynx without erythema or edema. NECK: Supple. No nuchal rigidity or lymphadenopathy. Trachea midline without deviation. CARDIAC: Regular rhythm, regular rate, S1 and S2 are heard. Murmur none LUNGS: Clear to auscultation bilaterally. exp. wheeze, anterior and posterior ABDOMEN: Soft, tender RUQ, light palpation Bowel sounds soft. EXTREMITIES: no edema. Pulses equal bilateral. NEUROLOGICAL: Patient mood and affect appropriate. mild anxiety. SKIN:Warm and moist Objective Remarks Im ok I guess, but still having pain. (Rachelle Ogden) A/P Assessment and Plan 1. Pancreatitis, acute and requiring JG tube. IV fluids for hydration. -Appreciate gastroenterology input continue with IVF. pain management epigastric tenderness continues, GJ tube place this pm, Dietary consult for bolus feeds. - Start Vital 1.5 @ 30ml/hr, increase 10ml Q 4hr to goal rate 60ml/hr via J tube. Intensive I/O and chart. Note tolerance to feedings. - PPI - IgG 4 level pending - Continue with current supportive care Atypical chest pain, rule out cardiac event -Appreciate cardiology input, no evidence of ischemia -Had stress test during prior admission, no acute findings Cardiology monitoring HTN, activity and med management Chronic obstructive pulmonary disease. -Continue with DuoNeb's when necessary, encouraged to use when wheezing begins. O2 as needed, Hypertension. -Continue home medication Depression -Trazodone 50 mg PO q HS, feeling better. Urticaria, with mild papular rash -Continue PO benadryl and cream for rash improved, no further c/Ps anemia secondary to chronic disease check cbc am. post procedure D/W RN AM labs Discussed With: Nurse, Family (patient), Other (Dr. Killian, seen on his behalf) Discharge Planning Probable home, with home health Discussed With: Nurse, Family (patient), Other (Dr. Killian, seen on his behalf) (Rachelle Ogden) Assessment and Plan pt is seen & examined d/w PT d/w Rachelle argueta/w Dr Hill start feeding Via J tube change IV morphine to q 4 hrs start po [place] d/w RN ss for dC planning will f/u (Audrey Killian MD) Rachelle Ogden October 12, 2016 14:22 Audrey Killian MD October 12, 2016 15:47
--- NOTE | 2016-10-12 14:33 | HHI.GIFU ---
Subjective Remarks Sitting up in chair. States he is having significant "pancreatitis pain"- states someone mentioned that he may be better off with dilaudid instead of morphine and was asking if I changed his pain meds. (Nissa Cates ) Objective Vitals I&O Vital Signs Date Time Temp Pulse Resp B/P Pulse Ox O2 Delivery O2 Flow Rate FiO2 10/12/16 12:00 97.0 87 17 102/61 99 10/12/16 08:00 97.0 86 17 117/79 95 10/12/16 04:16 98.0 78 16 124/73 96 10/12/16 00:09 97.7 80 17 125/72 98 10/11/16 22:00 84 10/11/16 20:18 98.9 85 18 130/78 94 10/11/16 18:35 18 10/11/16 16:55 97.2 93 19 149/85 99 10/11/16 16:30 68 16 119/63 97 10/11/16 16:00 70 16 108/68 97 10/11/16 15:25 76 16 108/58 97 10/11/16 15:10 98.1 76 16 130/88 97 I/O 10/11/16 10/11/16 10/11/16 10/12/16 10/12/16 10/12/16 07:00 15:00 23:00 07:00 15:00 23:00 Intake Total 250 ml 798 ml 788 ml 1126 ml Output Total 400 ml 500 ml 600 ml 600 ml Balance -150 ml 298 ml 188 ml 526 ml Intake Oral 380 ml 240 ml IV Total 250 ml 798 ml 408 ml 886 ml Output Urine Total 400 ml 500 ml 600 ml 600 ml Imaging Last Impressions Abdomen/Pelvis CT 10/12/16 0000 Signed Impressions: Service Date/Time: Wednesday, October 12, 2016 01:37 - CONCLUSION: 1. In comparison with the prior study there is increasing inflammatory changes involving the pancreas with pseudocyst developing in the tail. There is minimal dilatation of the intrahepatic ducts. 2. Ascites Tee Farris MD Chest X-Ray 10/04/16 1651 Signed Impressions: Service Date/Time: Tuesday, October 04, 2016 17:54 - CONCLUSION: No acute disease. Dontae Murray MD Physical Exam HEENT: Normocephalic no jaundice. CHEST: CTA CARDIAC: RRR ABDOMEN: Soft, more tenderness in epigastric region; no hepatosplenomegaly; bowel sounds x 4 quadrants. G/J tube clamped. Site without redness or swelling. EXTREMITIES: No clubbing, cyanosis, or edema. SKIN: Normal; no rash; no jaundice. 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 (DarrynNissa Mcnamara KAM) Assessment and Plan Plan ASSESSMENT: - Persistent pancreatitis. Pt has had multiple episodes of pancreatitis. This was originally related to ETOH, but he quit drinking 8months ago. He then had a cholecystectomy in June and states that he has had intermittent bloating since this time. He was hospitalized for acute pancreatitis from 09/28-10/01. Abdomen/Pelvis CT (09/28/16) at that time revealed 1.Findings characteristic of acute pancreatitis with peripancreatic inflammatory changes, free fluid around the spleen and liver as well as the deep pelvis and possibly developing 1.6 cm pseudocyst at the junction of the body and tail of the pancreas. 2. Stable Bosniak type II 3.8 cm cyst in the right kidney. The etiology of his pancreatitis was unclear and therefore he was evaluated with EGD (10/01/16)---> Gastritis antrum-biopsy, esophagitis distal-biopsy, 2. Retroflexed views revealed a hiatal hernia. Pathology revealed antral mucosa with regenerative epithelial changes and mild active chronic gastritis, a fatmata stain was negative for Helicobacter, distal esophagus biopsy with gastric mucosa with mild chronic inflammation of the lamina propria. There was no evidence of metaplasia or dysplasia. There was also some question about his pancreatitis possibly being related to his Wellbutrin and therefore he stopped taking this. His symptoms improved and he was discharged home on 10/01- with a lipase of 332. After discharge, he ate high fat meals such as pepparoni and salami sandwiches, tater tots, pasta salad and developed severe pain the next night. Abdomen/Pelvis CT (10/04/16)----> 1. Evolution of inflammatory changes at the level of the pancreas with pseudocyst formation as described above. 2. Stable renal cysts including a complex cyst right kidney. Pt developing more pain with any po intake, also with increased bloating. S/P G/J tube placement (10/11/16). Rpt. Abdomen /Pelvis CT (10/12/16)---> 1. In comparison with the prior study there is increasing inflammatory changes involving the pancreas with pseudocyst developing in the tail. There is minimal dilatation of the intrahepatic ducts. 2. Ascites. Still with pain. Will keep NPO and start post pyloric feedings. Monitor labs. - Pseudocyst. 3.4 x 2 cm proximal body and 1.4 cm in mid body. He has had chills, but no fever. His pain is likely related more to his high fat diet aggravating his pancreatitis. Will get repeat imaging. - Mildly elevated LFTs, Resolved. - Recent hx Gastritis, Esophagitis. PPI - Leukocytosis. Improved. WBC 7.5 PLAN: - NPO - Start Vital 1.5 @ 30ml/hr, increase 10ml Q 4hr to goal rate 60ml/hr via J tube - PPI - IgG 4 level pending - Monitor labs - Continue with current supportive care - Evaluated by Dr. Hill and myself and this note is written on his behalf ( Nissa Cates) Physician Comments Seen and examined with MID LEVEL CLINICIAN, still with pain but looks comfortable. Start TF, Repeat CT with worsening of pancreatitis. Discussed with Dr. Killian. Repeat CT in 02 to 04 weeks depending upon clinical course. Pseudocyst not mature for intervention. (Merrick Hill MD) Nissa Cates October 12, 2016 14:33 Merrick Hill MD October 12, 2016 15:48
--- NOTE | 2016-10-12 17:50 | PD.CARD.PN ---
Subjective Subjective Remarks No CP or SOB, GJ tube placed yest, still w abd pain Objective Medications Current Medications Medications (Trade) Dose Ordered Sig/Devon Route Start Time Stop Time Status Last Admin (NS Flush) 2 ml UNSCH PRN IV FLUSH 10/04/16 19:00 10/10/16 10:19 (NS Flush) 2 ml BID IV FLUSH 10/04/16 21:00 10/12/16 13:20 (Zofran Inj) 4 mg Q6H PRN IVP 10/04/16 19:00 10/07/16 00:46 (Narcan Inj) 0.4 mg UNSCH PRN IV 10/04/16 19:00 (Norvasc) 5 mg DAILY PO 10/05/16 09:00 10/12/16 08:51 (Aspirin Chew) 81 mg DAILY CHEW 10/05/16 09:00 10/12/16 08:51 (Bentyl) 10 mg QID PO 10/04/16 21:00 10/12/16 13:20 (Protonix) 40 mg DAILY PO 10/05/16 09:00 10/12/16 08:51 (Vitamin B12) 1,000 mcg DAILY PO 10/05/16 09:00 10/12/16 08:51 (Benadryl 2% Cream) 1 applic TID TOPICAL 10/06/16 18:00 10/12/16 13:00 (Benadryl) 25 mg Q6H PRN PO 10/06/16 13:30 (Corticaine 0.5% Cream) 1 applic Q8H TOPICAL 10/06/16 15:00 10/12/16 05:02 (Lactinex) 1 tab DAILY PO 10/06/16 14:00 10/12/16 08:51 (Desyrel) 50 mg HS PO 10/08/16 21:00 10/11/16 20:53 Phenol 2 spray 2 spray Q2H PRN OROPHARYNG 10/09/16 22:45 10/10/16 09:22 Potassium Chloride 60 meq/ Sodium Chloride 38.5 meq/Sterile Water 1,039.625 ml @ 42 mls/hr Q24H IV 10/10/16 14:00 10/11/16 17:26 (NS 1000 ml Inj) 1,000 ml @ 75 mls/hr [id number] IV 10/10/16 13:45 5/2/17 05:00 (Morphine Inj) 4 mg Q4H PRN IV PUSH 10/12/16 19:00 (Rochelle 10-325 Mg) 1 tab Q4H PRN PO 10/12/16 16:00 Vital Signs / I&O Vital Signs Date Time Temp Pulse Resp B/P Pulse Ox O2 Delivery O2 Flow Rate FiO2 10/12/16 16:00 97.7 88 17 124/58 97 10/12/16 12:00 97.0 87 17 102/61 99 10/12/16 08:00 97.0 86 17 117/79 95 10/12/16 04:16 98.0 78 16 124/73 96 10/12/16 00:09 97.7 80 17 125/72 98 10/11/16 22:00 84 10/11/16 20:18 98.9 85 18 130/78 94 10/11/16 18:35 18 I/O 10/11/16 10/11/16 10/11/16 10/12/16 10/12/16 10/12/16 07:00 15:00 23:00 07:00 15:00 23:00 Intake Total 250 ml 798 ml 788 ml 1126 ml 975 ml Output Total 400 ml 500 ml 600 ml 600 ml 400 ml Balance -150 ml 298 ml 188 ml 526 ml 575 ml Intake Oral 380 ml 240 ml 975 ml IV Total 250 ml 798 ml 408 ml 886 ml Output Urine Total 400 ml 500 ml 600 ml 600 ml 400 ml # Bowel Movements 0 Physical Exam GENERAL: In NAD SKIN: Warm and dry. HEAD: Normocephalic. EYES: No scleral icterus. No injection or drainage. NECK: Supple, trachea midline. No JVD or lymphadenopathy. CARDIOVASCULAR: Regular rate and rhythm without murmurs, gallops, or rubs. RESPIRATORY: Breath sounds equal bilaterally. No accessory muscle use. GASTROINTESTINAL: Abdomen soft, tender, nondistended. MUSCULOSKELETAL: No cyanosis, or edema. Laboratory Laboratory Tests Test 10/09/16 10/11/16 05:27 05:40 Direct Bilirubin 0.1 MG/DL Indirect Bilirubin 0.2 MG/DL White Blood Count 7.5 TH/MM3 Red Blood Count 2.87 MIL/MM3 Hemoglobin 9.0 GM/DL Hematocrit 26.3 % Mean Corpuscular Volume 91.4 FL Mean Corpuscular Hemoglobin 31.3 PG Mean Corpuscular Hemoglobin 34.2 % Concent Red Cell Distribution Width 13.6 % Platelet Count 253 TH/MM3 Mean Platelet Volume 7.8 FL Sodium Level 142 MEQ/L Potassium Level 3.6 MEQ/L Chloride Level 109 MEQ/L Carbon Dioxide Level 26.7 MEQ/L Anion Gap 6 MEQ/L Blood Urea Nitrogen 4 MG/DL Creatinine 0.56 MG/DL Estimat Glomerular Filtration 148 ML/MIN Rate Random Glucose 82 MG/DL Calcium Level 9.0 MG/DL Total Bilirubin 0.3 MG/DL Aspartate Amino Transf 20 U/L (AST/SGOT) Alanine Aminotransferase 21 U/L (ALT/SGPT) Alkaline Phosphatase 89 U/L Total Protein 4.8 GM/DL Albumin 2.2 GM/DL Amylase Level 131 U/L Lipase 311 U/L Imaging Last Impressions Abdomen/Pelvis CT 10/12/16 0000 Signed Impressions: Service Date/Time: Wednesday, October 12, 2016 01:37 - CONCLUSION: 1. In comparison with the prior study there is increasing inflammatory changes involving the pancreas with pseudocyst developing in the tail. There is minimal dilatation of the intrahepatic ducts. 2. Ascites Tee Farris MD Chest X-Ray 10/04/16 1651 Signed Impressions: Service Date/Time: Tuesday, October 04, 2016 17:54 - CONCLUSION: No acute disease. Dontae Murray MD Assessment and Plan Problem List: (1) Chest pain (2) Pancreatitis (3) Elevated troponin (4) Hypertension Assessment and Plan Stable from cardiac standpoint. Continuing abdominal pain. No new cardiac issues. No recurrent CP. No evidence of ACS. Continue current program for pancreatitis exacerbation. GI evaluation and mgmt, GJ tube placed. Increase activity. D/w pt and . Problem Qualifiers (1) Chest pain: Qualified Code: R07.9 - Chest pain, unspecified type (2) Pancreatitis: Qualified Code: K86.1 - Chronic pancreatitis, unspecified pancreatitis type (3) Hypertension: Qualified Code: I10 - Essential hypertension Alejandro Nieves MD October 12, 2016 17:50
[2016-10-12] MEDS: ACETAMINOPHEN/HYDROcodone 325 MG/10 MG TAB PO PRN (18:53)
[2016-10-12] MEDS: POTASSIUM CHLORIDE IV SCH (20:53)
[2016-10-12] MEDS: [UNRECOGNIZED DRUG - OTHER] IV SCH (20:53)
[2016-10-12] MEDS: SODIUM CHLORIDE IV SCH (20:53)
[2016-10-12] MEDS: traZODone HCL 50 MG TAB PO SCH (20:53)
[2016-10-12] MEDS: PHENOL 1.4% SOLN 180 ML BTL OROPHARYNG PRN (20:54)
[2016-10-13] VITALS (7 sets, daily range): BP systolic 95–120; BP diastolic 64–76; PULSE 72–83; RESP 16–20; TEMP 97.3–98.5; O2SAT 95–100
[2016-10-13] MEDS: MORPHINE SULFATE 4 MG/ML INJ IV PUSH PRN ×3 (04:00→17:10)
[2016-10-13] MEDS: HYDROCORTISONE 0.5% CREAM 30 GM TOPICAL SCH ×3 (05:24→21:27)
[2016-10-13 06:19] LABS: AUTOMATED NEUTROPHIL # 6.5 TH/MM3 (1.8-7.7); BASOPHIL % 0.4 % (0.0-2.0); EOSINOPHIL % 11.5 % (0.0-4.0); HEMATOCRIT 24.8 % (39.0-51.0); HEMO FLAGS DIFF FINAL; LYMPH % 5.5 % (9.0-44.0); LYMPHOCYTE # 0.5 TH/MM3 (1.0-4.8); MEAN CELL VOLUME 90.6 FL (80.0-100.0); MEAN CORPUSCULAR HEMOGLOBIN 31.3 PG (27.0-34.0); MEAN CORPUSCULAR HGB CONC 34.5 % (32.0-36.0); MONO % 8.6 % (0.0-8.0); PLATELET COUNT 247 TH/MM3 (150-450); RED BLOOD COUNT 2.73 MIL/MM3 (4.50-5.90); RED CELL DISTRIBUTION WIDTH 13.4 % (11.6-17.2); WHITE BLOOD COUNT 8.8 TH/MM3 (4.0-11.0)
--- NOTE | 2016-10-13 08:49 | RADRPT ---
EXAM DATE/TIME: 10/11/2016 15:22 [facility] COMPARISON: No previous studies available for comparison. INDICATIONS : Patient with recurrent pancreatitis in need of G-J tube placement. MEDICAL HISTORY : Recurrent pancreatitis Arthritis Asthma Depression Hx of tachycardia Cardiovascular disease Myocardial infarction Gastroesophageal reflux disease Gastritis Esophagitis Hiatal hernia CVA years ago Headaches Neck pain Previous smoker SURGICAL HISTORY : Abdominal surgery Cholecystectomy Laminectomy Tonsillectomy ENCOUNTER: Initial ACUITY: 1 week PAIN SCORE: 0/10 FLUORO TIME: 11.3 minutes IMAGE SERIES: 1 SEDATION TIME: 30 minutes CONTRAST: 15 cc Omnipaque (iohexol) 350 MEDICATION(S): 1.) 2.5 mg midazolam (Versed) IV 2.) 125 mcg Fentanyl (Sublimaze) IV DEVICE(S): 1.) 18 Fr gastrojejunostomy tube PROCEDURE : 1. Limited abdominal ultrasound. 2. Fluoroscopically guided gastrojejunostomy tube placement. 3. Conscious sedation with continuous EKG and oximetry monitoring. The risks, benefits and alternatives to the procedure were explained and verbal and written consent w as obtained. The site was prepped in sterile fashion. Full sterile technique was used, including ca p, mask, sterile gloves and gown and a large sterile sheet. Hand hygiene and 2% chlorhexidine and/or betadine/alcohol prep was utilized per protocol for cutaneous antisepsis. The skin and subcutaneous tissues were infiltrated with local anesthetic solution. Ultrasound was used to aamir the position of the liver. 1 mg of Glucagon was administered. The stoma ch was insufflated with room air using. Three percutaneous fasteners were placed to secure the anteri or gastric wall. A small incision was made between the fasteners. The stomach was accessed with an 18 gauge needle. A n 0.035 wire was advanced into the small bowel. The tract was dilated. The gastrojejunostomy tube w as introduced through a peel-away sheath. The position was confirmed with an injection of contrast in both the gastric and jejunal lumens. Conscious sedation was performed with the prescribed dosages and duration as above in the presence of an independent trained radiology nurse to assist in the monitoring of the patient. EKG and oximetry remained stable throughout the procedure. The patient tolerated the procedure well and there were n o complications. The patient was sent to post anesthesia recovery in stable condition. CONCLUSION: Uncomplicated gastrojejunostomy tube placement as above. Shayne Eagle MD on October 13, 2016 at 8:47 Board Certified Radiologist. This report was verified electronically.
[2016-10-13] MEDS: SODIUM CHLORIDE 0.9% FLUSH 10 ML FLUSH IV FLUSH SCH ×2 (09:00→21:00)
[2016-10-13] MEDS: LACTOBACILLUS ACIDOPHILUS TAB PO SCH (09:17)
[2016-10-13] MEDS: DICYCLOMINE HCL 10 MG CAP PO SCH ×4 (09:17→21:13)
[2016-10-13] MEDS: PANTOPRAZOLE SOD 40 MG DELAYED RELEASE TAB PO SCH (09:17)
[2016-10-13] MEDS: SODIUM CHLOR 0.9% 1000 ML INJ 1,000 ML IV SCH ×2 (09:17→21:14)
[2016-10-13] MEDS: amLODIPine BESYLATE 5 MG TAB PO SCH (09:17)
[2016-10-13] MEDS: ASPIRIN 81 MG CHEW TAB CHEW SCH (09:17)
[2016-10-13] MEDS: CYANOCOBALAMIN 1,000 MCG TAB PO SCH (09:17)
--- NOTE | 2016-10-13 12:01 | HHI.GIFU ---
Subjective Remarks Resting in bed. States he continues to have abdominal pain- controlled with pain meds, but states he still has severe abdominal pain when these wear off. He is NPO. (Nissa Cates) Objective Vitals I&O Vital Signs Date Time Temp Pulse Resp B/P Pulse Ox O2 Delivery O2 Flow Rate FiO2 10/13/16 08:00 98.5 77 17 115/71 95 10/13/16 04:05 18 10/13/16 04:00 97.5 72 20 95/66 100 10/13/16 00:00 98.3 81 20 101/64 99 10/12/16 20:54 18 10/12/16 20:00 98.9 89 20 118/73 95 10/12/16 18:17 72 10/12/16 16:00 97.7 88 17 124/58 97 10/12/16 12:00 97.0 87 17 102/61 99 I/O 10/12/16 10/12/16 10/12/16 10/13/16 10/13/16 10/13/16 07:00 15:00 23:00 07:00 15:00 23:00 Intake Total 1126 ml 1587 ml 582 ml 1317 ml Output Total 600 ml 400 ml 1000 ml 1100 ml Balance 526 ml 1187 ml -418 ml 217 ml Intake Oral 240 ml 975 ml 0 ml 0 ml IV Total 886 ml 612 ml 505 ml 956 ml Tube Feeding 77 ml 361 ml Output Urine Total 600 ml 400 ml 1000 ml 1100 ml # Bowel Movements 0 Laboratory Laboratory Tests Test 10/13/16 10/13/16 05:14 05:16 White Blood Count 8.8 Red Blood Count 2.73 Hemoglobin 8.6 Hematocrit 24.8 Mean Corpuscular Volume 90.6 Mean Corpuscular Hemoglobin 31.3 Mean Corpuscular Hemoglobin 34.5 Concent Red Cell Distribution Width 13.4 Platelet Count 247 Mean Platelet Volume 7.6 Neutrophils (%) (Auto) 74.0 Lymphocytes (%) (Auto) 5.5 Monocytes (%) (Auto) 8.6 Eosinophils (%) (Auto) 11.5 Basophils (%) (Auto) 0.4 Neutrophils # (Auto) 6.5 Lymphocytes # (Auto) 0.5 Monocytes # (Auto) 0.8 Eosinophils # (Auto) 1.0 Basophils # (Auto) 0.0 CBC Comment DIFF FINAL Differential Comment Lipase 110 Imaging Last Impressions Abdomen/Pelvis CT 10/12/16 0000 Signed Impressions: Service Date/Time: Wednesday, October 12, 2016 01:37 - CONCLUSION: 1. In comparison with the prior study there is increasing inflammatory changes involving the pancreas with pseudocyst developing in the tail. There is minimal dilatation of the intrahepatic ducts. 2. Ascites Tee Farris MD Gastrostomy Tube Placement 10/11/16 0000 Signed Impressions: Service Date/Time: Tuesday, October 11, 2016 15:22 - CONCLUSION: Uncomplicated gastrojejunostomy tube placement as above. Shayne Eagle MD Chest X-Ray 10/04/16 1651 Signed Impressions: Service Date/Time: Tuesday, October 04, 2016 17:54 - CONCLUSION: No acute disease. Dontae Murray MD Physical Exam HEENT: Normocephalic no jaundice. CHEST: CTA CARDIAC: RRR ABDOMEN: Soft, more tenderness in epigastric region; no hepatosplenomegaly; bowel sounds x 4 quadrants. G/J tube clamped. Site without redness or swelling. EXTREMITIES: No clubbing, cyanosis, or edema. SKIN: Normal; no rash; no jaundice. 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 (Nissa Cates) Assessment and Plan Plan ASSESSMENT: - Persistent pancreatitis. Pt has had multiple episodes of pancreatitis. This was originally related to ETOH, but he quit drinking 8months ago. He then had a cholecystectomy in June and states that he has had intermittent bloating since this time. He was hospitalized for acute pancreatitis from 09/28-10/01. Abdomen/Pelvis CT (09/28/16) at that time revealed 1.Findings characteristic of acute pancreatitis with peripancreatic inflammatory changes, free fluid around the spleen and liver as well as the deep pelvis and possibly developing 1.6 cm pseudocyst at the junction of the body and tail of the pancreas. 2. Stable Bosniak type II 3.8 cm cyst in the right kidney. The etiology of his pancreatitis was unclear and therefore he was evaluated with EGD (10/01/16)---> Gastritis antrum-biopsy, esophagitis distal-biopsy, 2. Retroflexed views revealed a hiatal hernia. Pathology revealed antral mucosa with regenerative epithelial changes and mild active chronic gastritis, a fatmata stain was negative for Helicobacter, distal esophagus biopsy with gastric mucosa with mild chronic inflammation of the lamina propria. There was no evidence of metaplasia or dysplasia. There was also some question about his pancreatitis possibly being related to his Wellbutrin and therefore he stopped taking this. His symptoms improved and he was discharged home on 10/01- with a lipase of 332. After discharge, he ate high fat meals such as pepparoni and salami sandwiches, tater tots, pasta salad and developed severe pain the next night. Abdomen/Pelvis CT (10/04/16)----> 1. Evolution of inflammatory changes at the level of the pancreas with pseudocyst formation as described above. 2. Stable renal cysts including a complex cyst right kidney. Pt developing more pain with any po intake, also with increased bloating. S/P G/J tube placement (10/11/16). Rpt. Abdomen /Pelvis CT (10/12/16)---> 1. In comparison with the prior study there is increasing inflammatory changes involving the pancreas with pseudocyst developing in the tail. There is minimal dilatation of the intrahepatic ducts. 2. Ascites. Post pyloric feedings started, still with abdominal pain, but controlled with pain meds. IgG 4 still pending. - Pseudocyst. 3.4 x 2 cm proximal body and 1.4 cm in mid body. He has had chills, but no fever. His pain is likely related more to his high fat diet aggravating his pancreatitis. Rpt CT with small pseudocyst in tail. - Mildly elevated LFTs, Resolved. - Recent hx Gastritis, Esophagitis. PPI - Leukocytosis. Improved. PLAN: - NPO - Vital 1.5 @ 60ml/hr via J tube - PPI - IgG 4 level pending - Monitor labs - Continue with current supportive care - Evaluated by Dr. Hill and myself and this note is written on his behalf ( Nissa Cates) Physician Comments Seen and examined with KAM, still with pain. Tolerating TF. Liquid diet. Discussed with Dr. Lewis, maybe dced home today, fu in gi upon dc in 02 weeks. Will sign off, thank you (Merrick Hill MD) Nissa Cates October 13, 2016 12:01 Merrick Hill MD October 13, 2016 13:32
[2016-10-13] MEDS: diphenhydrAMINE HCL 2%/ZINC ACETATE 0.1% CREAM 30 APPLIC/30 GM TUBE TOPICAL SCH ×2 (14:27→17:16)
--- NOTE | 2016-10-13 14:29 | HHI.PR ---
Subjective History of Present Illness still having sig pain /pain med are helping Tube feeding started no N/V No fever or chills ' wants to stay here another day No other c/o Vitals/Results Intake & Output 10/12/16 10/12/16 10/13/16 15:00 23:00 07:00 Intake Total 1587 ml 582 ml 1317 ml Output Total 400 ml 1000 ml 1100 ml Balance 1187 ml -418 ml 217 ml Intake Oral 975 ml 0 ml 0 ml IV Total 612 ml 505 ml 956 ml Tube Feeding 77 ml 361 ml Output Urine Total 400 ml 1000 ml 1100 ml # Bowel Movements 0 Vital Signs Vital Signs Date Time Temp Pulse Resp B/P Pulse Ox O2 Delivery O2 Flow Rate FiO2 10/13/16 12:00 97.9 75 17 119/76 97 10/13/16 08:00 98.5 77 17 115/71 95 10/13/16 04:05 18 10/13/16 04:00 97.5 72 20 95/66 100 10/13/16 00:00 98.3 81 20 101/64 99 10/12/16 20:54 18 10/12/16 20:00 98.9 89 20 118/73 95 10/12/16 18:17 72 10/12/16 16:00 97.7 88 17 124/58 97 CBC/BMP: 10/13/16 0514 10/11/16 0540 Lab Results Laboratory Tests Test 10/13/16 10/13/16 05:14 05:16 White Blood Count 8.8 TH/MM3 Red Blood Count 2.73 MIL/MM3 Hemoglobin 8.6 GM/DL Hematocrit 24.8 % Mean Corpuscular Volume 90.6 FL Mean Corpuscular Hemoglobin 31.3 PG Mean Corpuscular Hemoglobin 34.5 % Concent Red Cell Distribution Width 13.4 % Platelet Count 247 TH/MM3 Mean Platelet Volume 7.6 FL Neutrophils (%) (Auto) 74.0 % Lymphocytes (%) (Auto) 5.5 % Monocytes (%) (Auto) 8.6 % Eosinophils (%) (Auto) 11.5 % Basophils (%) (Auto) 0.4 % Neutrophils # (Auto) 6.5 TH/MM3 Lymphocytes # (Auto) 0.5 TH/MM3 Monocytes # (Auto) 0.8 TH/MM3 Eosinophils # (Auto) 1.0 TH/MM3 Basophils # (Auto) 0.0 TH/MM3 CBC Comment DIFF FINAL Differential Comment Lipase 110 U/L Physical Exam General General Appearance: No Acute Distress, Comfortable, Anxious Eyes Eye Exam: Pupils Equal, Sclera White Ears & Nose Ears & Nose Exam: Nasal Mucosa [place] Throat Throat Exam: Oral Mucosa [place] & Moist Neck Neck Exam: Neck Supple, Trachea Midline Pulmonary Resp Exam: Clear Bilaterally, Breath Sounds Equal, No Distress Cardiology CV Exam: Regular, Normal Sinus Rhythm Gastrointestinal/Abdomen GI Exam: Soft, Bowel Sounds Present, Non-Distended GI Remarks +ve epigastric tenderness Integumentary Skin Exam: Warm, Dry Extremeties Extremities Exam: No Edema, Pedal Pulses Palpable Neurologic Neuro Exam: Alert, Awake, Oriented, Speech Clear, Moving All Extremities Psychiatric Psych Exam: Appropriate Responses VTE Prophylaxis VTE Prophylaxis Device: SCDs PUD Prophylasis PUD Prophylaxis: Protonix Assessment/Plan Problem List: (1) Pancreatitis (2) Pseudocyst of pancreas (3) Chest pain (4) Hypertension (5) Chronic neck and back pain (6) COPD exacerbation (7) Tobacco abuse Assessment/Plan Pancreatitis, w pseudocysts, acute on chronic recurring ?? etiology - Ex ETOH abuser - IgG 4 level still [p] - d/c IV fluids Wean off morphine, change to q 6/ cont [place] 10 - lipase back to normal - s/p GJ tube placement , Tube feeding started Atypical chest pain, rule out cardiac event -Appreciate cardiology input, no evidence of ischemia -Had stress test during prior admission, no acute findings Continue with medical management Chronic obstructive pulmonary disease. -Continue with DuoNeb's when necessary Hypertension. -Continue home medication Depression, tearful, anxious. Was on Wellbutrin, stopped in previous admit -Trazodone 50 mg PO q HS, monitor response. Gastroesophageal reflux disease. -Continue PPI History of ethyl alcohol abuse. -States no alcohol in 8 months, and feels motivated to stay that way -Supportive care Leukocytosis. -Secondary to pancreatitis, medical management monitor labs Urticaria, with mild papular rash -Continue PO benadryl and cream for rash D/W pt possible d/c in am will f/u Problem Qualifiers (1) Pancreatitis: Qualified Code: K86.1 - Chronic pancreatitis, unspecified pancreatitis type (2) Chest pain: Qualified Code: R07.9 - Chest pain, unspecified type (3) Hypertension: Qualified Code: I10 - Essential hypertension Audrey Killian MD October 13, 2016 14:29
[2016-10-13] MEDS: SODIUM CHLORIDE IV SCH (15:03)
[2016-10-13] MEDS: [UNRECOGNIZED DRUG - OTHER] IV SCH (15:03)
[2016-10-13] MEDS: POTASSIUM CHLORIDE IV SCH (15:03)
--- NOTE | 2016-10-13 16:42 | PD.CARD.PN ---
Subjective Subjective Remarks No CP or SOB, still c/o abd pain Objective Medications Current Medications Medications (Trade) Dose Ordered Sig/Devon Route Start Time Stop Time Status Last Admin (NS Flush) 2 ml UNSCH PRN IV FLUSH 10/04/16 19:00 10/10/16 10:19 (NS Flush) 2 ml BID IV FLUSH 10/04/16 21:00 10/12/16 13:20 (Zofran Inj) 4 mg Q6H PRN IVP 10/04/16 19:00 10/07/16 00:46 (Narcan Inj) 0.4 mg UNSCH PRN IV 10/04/16 19:00 (Norvasc) 5 mg DAILY PO 10/05/16 09:00 10/13/16 09:17 (Aspirin Chew) 81 mg DAILY CHEW 10/05/16 09:00 10/13/16 09:17 (Bentyl) 10 mg QID PO 10/04/16 21:00 10/13/16 14:29 (Protonix) 40 mg DAILY PO 10/05/16 09:00 10/13/16 09:17 (Vitamin B12) 1,000 mcg DAILY PO 10/05/16 09:00 10/13/16 09:17 (Benadryl 2% Cream) 1 applic TID TOPICAL 10/06/16 18:00 10/13/16 14:27 (Benadryl) 25 mg Q6H PRN PO 10/06/16 13:30 (Corticaine 0.5% Cream) 1 applic Q8H TOPICAL 10/06/16 15:00 10/13/16 14:27 (Lactinex) 1 tab DAILY PO 10/06/16 14:00 10/13/16 09:17 (Desyrel) 50 mg HS PO 10/08/16 21:00 10/12/16 20:53 Phenol 2 spray 2 spray Q2H PRN OROPHARYNG 10/09/16 22:45 10/12/16 20:54 Potassium Chloride 60 meq/ Sodium Chloride 38.5 meq/Sterile Water 1,039.625 ml @ 42 mls/hr Q24H IV 10/10/16 14:00 10/13/16 15:03 (NS 1000 ml Inj) 1,000 ml @ 75 mls/hr [id number] IV 10/10/16 13:45 10/13/16 09:17 ([place] 10-325 Mg) 1 tab Q4H PRN PO 10/12/16 16:00 10/12/16 18:53 (Morphine Inj) 3 mg Q6H PRN IV PUSH 10/13/16 17:00 Vital Signs / I&O Vital Signs Date Time Temp Pulse Resp B/P Pulse Ox O2 Delivery O2 Flow Rate FiO2 10/13/16 16:00 97.3 72 16 120/71 100 10/13/16 12:00 97.9 75 17 119/76 97 10/13/16 08:00 98.5 77 17 115/71 95 10/13/16 04:05 18 10/13/16 04:00 97.5 72 20 95/66 100 10/13/16 00:00 98.3 81 20 101/64 99 10/12/16 20:54 18 10/12/16 20:00 98.9 89 20 118/73 95 10/12/16 18:17 72 I/O 10/12/16 10/12/16 10/12/16 10/13/16 10/13/16 10/13/16 07:00 15:00 23:00 07:00 15:00 23:00 Intake Total 1126 ml 1587 ml 582 ml 1317 ml 540 ml Output Total 600 ml 400 ml 1000 ml 1100 ml 1200 ml Balance 526 ml 1187 ml -418 ml 217 ml -660 ml Intake Oral 240 ml 975 ml 0 ml 0 ml 0 ml IV Total 886 ml 612 ml 505 ml 956 ml Tube Feeding 77 ml 361 ml 480 ml Other 60 ml Output Urine Total 600 ml 400 ml 1000 ml 1100 ml 1200 ml # Bowel Movements 0 0 Physical Exam GENERAL: In NAD SKIN: Warm and dry. HEAD: Normocephalic. EYES: No scleral icterus. No injection or drainage. NECK: Supple, trachea midline. No JVD or lymphadenopathy. CARDIOVASCULAR: Regular rate and rhythm without murmurs, gallops, or rubs. RESPIRATORY: Breath sounds equal bilaterally. No accessory muscle use. GASTROINTESTINAL: Abdomen soft, tender, nondistended. MUSCULOSKELETAL: No cyanosis, or edema. Laboratory Laboratory Tests Test 10/13/16 10/13/16 05:14 05:16 White Blood Count 8.8 TH/MM3 Red Blood Count 2.73 MIL/MM3 Hemoglobin 8.6 GM/DL Hematocrit 24.8 % Mean Corpuscular Volume 90.6 FL Mean Corpuscular Hemoglobin 31.3 PG Mean Corpuscular Hemoglobin 34.5 % Concent Red Cell Distribution Width 13.4 % Platelet Count 247 TH/MM3 Mean Platelet Volume 7.6 FL Neutrophils (%) (Auto) 74.0 % Lymphocytes (%) (Auto) 5.5 % Monocytes (%) (Auto) 8.6 % Eosinophils (%) (Auto) 11.5 % Basophils (%) (Auto) 0.4 % Neutrophils # (Auto) 6.5 TH/MM3 Lymphocytes # (Auto) 0.5 TH/MM3 Monocytes # (Auto) 0.8 TH/MM3 Eosinophils # (Auto) 1.0 TH/MM3 Basophils # (Auto) 0.0 TH/MM3 CBC Comment DIFF FINAL Differential Comment Lipase 110 U/L Imaging Last Impressions Abdomen/Pelvis CT 10/12/16 0000 Signed Impressions: Service Date/Time: Wednesday, October 12, 2016 01:37 - CONCLUSION: 1. In comparison with the prior study there is increasing inflammatory changes involving the pancreas with pseudocyst developing in the tail. There is minimal dilatation of the intrahepatic ducts. 2. Ascites Tee Farris MD Gastrostomy Tube Placement 10/11/16 0000 Signed Impressions: Service Date/Time: Tuesday, October 11, 2016 15:22 - CONCLUSION: Uncomplicated gastrojejunostomy tube placement as above. Shayne Eagle MD Chest X-Ray 10/04/16 1651 Signed Impressions: Service Date/Time: Tuesday, October 04, 2016 17:54 - CONCLUSION: No acute disease. Dontae Murray MD Assessment and Plan Problem List: (1) Chest pain (2) Pancreatitis (3) Elevated troponin (4) Hypertension Assessment and Plan Stable from cardiac standpoint. Continuing abdominal pain. No new cardiac issues. No recurrent CP. No evidence of ACS. Continue current program for pancreatitis exacerbation, CT c/w pseudocyst.. GI evaluation and mgmt, GJ tube placed, feeding started. Increase activity. PT/OT. D/w pt and . Problem Qualifiers (1) Chest pain: Qualified Code: R07.9 - Chest pain, unspecified type (2) Pancreatitis: Qualified Code: K86.1 - Chronic pancreatitis, unspecified pancreatitis type (3) Hypertension: Qualified Code: I10 - Essential hypertension Alejandro Nieves MD October 13, 2016 16:42
[2016-10-13] MEDS: traZODone HCL 50 MG TAB PO SCH (21:13)
[2016-10-13] MEDS: ACETAMINOPHEN/HYDROcodone 325 MG/10 MG TAB PO PRN (21:14)
[2016-10-13 23:51] LABS: IGG SUBCLASSES 4 15.2 mg/dL (4-86)
[2016-10-14] VITALS: BP 118/70; PULSE 80; RESP 20; TEMP 98; O2SAT 96
[2016-10-14] MEDS: MORPHINE SULFATE 4 MG/ML INJ IV PUSH PRN ×2 (02:29→09:09)
[2016-10-14 04:00] VITALS: BP 110/68; PULSE 78; RESP 20; TEMP 97.4; O2SAT 95
[2016-10-14] MEDS: HYDROCORTISONE 0.5% CREAM 30 GM TOPICAL SCH (06:10)
[2016-10-14 08:00] VITALS: BP 105/66; PULSE 71; RESP 17; TEMP 97.6; O2SAT 99
[2016-10-14] MEDS: LACTOBACILLUS ACIDOPHILUS TAB PO SCH (09:00)
[2016-10-14] MEDS: SODIUM CHLORIDE 0.9% FLUSH 10 ML FLUSH IV FLUSH SCH (09:00)
[2016-10-14] MEDS: CYANOCOBALAMIN 1,000 MCG TAB PO SCH (09:00)
[2016-10-14] MEDS: DICYCLOMINE HCL 10 MG CAP PO SCH (09:05)
[2016-10-14] MEDS: PANTOPRAZOLE SOD 40 MG DELAYED RELEASE TAB PO SCH (09:08)
[2016-10-14] MEDS: ASPIRIN 81 MG CHEW TAB CHEW SCH (09:08)
[2016-10-14] MEDS: amLODIPine BESYLATE 5 MG TAB PO SCH (09:08)
[2016-10-14] MEDS: diphenhydrAMINE HCL 2%/ZINC ACETATE 0.1% CREAM 30 APPLIC/30 GM TUBE TOPICAL SCH (09:16)
[2016-10-14] MEDS: SODIUM CHLOR 0.9% 1000 ML INJ 1,000 ML IV SCH (09:16)
[2016-10-14 12:00] VITALS: BP 120/67; PULSE 77; RESP 16; TEMP 98.2; O2SAT 98
--- NOTE | 2016-10-14 12:38 | HHI.FF ---
Face to Face Verification Diagnosis: (1) Pancreatitis Home Health Nursing Order: Medical education Nursing assessment with vital signs Instructions: ASSIST AND MONITOR PT, NEW GJ TUBE, WILL BE GOING HOME WITH BOLUS FEEDINGS BOLUS FEEDING WITH VITAL 1.5 5X A DAY, SUGGESTED SCHEDULE 0700 1000 1300 1700 2000 FLUSH WITH 70 MLS OF WATER AFTER EACH FEEDING I have seen patient Julius Barber on 10/14/16. My clinical findings support the need for the requested home health care services because: Deconditioned w/ increased weakness Need for psychosocial assistance I certify that my clinical findings support that this patient is homebound because: Need for psychosocial assistance Lani Angela [facility] October 14, 2016 12:38
[2016-10-14] MEDS ORDERED: TRAZ50TA12 PO (12:40)
--- NOTE | 2016-10-14 13:09 | HHI.PR ---
Subjective Subjective Remarks abd. pain markedly improved tolerating tube feeding well no n/v no diarrhea some wheezing asking many questions about dc, tube feedings, GJ tube, discussed at length (Lloyd Angela) Review of Systems Constitutional Constitutional Remarks 12 point review of systems completed, negative except as noted above (Lloyd Angela) Vitals/Results Intake & Output 10/13/16 10/13/16 10/14/16 15:00 23:00 07:00 Intake Total 540 ml 1471 ml 220 ml Output Total 1200 ml 1000 ml 850 ml Balance -660 ml 471 ml -630 ml Intake Oral 0 ml 240 ml 220 ml IV Total 801 ml Tube Feeding 480 ml 400 ml Tube Irrigant 30 ml Other 60 ml Output Urine Total 1200 ml 1000 ml 850 ml # Bowel Movements 0 0 0 Vital Signs Vital Signs Date Time Temp Pulse Resp B/P Pulse Ox O2 Delivery O2 Flow Rate FiO2 10/14/16 12:00 98.2 77 16 120/67 98 10/14/16 08:00 97.6 71 17 105/66 99 10/14/16 04:00 97.4 78 20 110/68 95 10/14/16 02:45 16 10/14/16 00:00 98.0 80 20 118/70 96 10/13/16 23:08 16 10/13/16 21:12 83 10/13/16 20:00 97.9 82 20 112/71 95 10/13/16 16:00 97.3 72 16 120/71 100 (Lloyd Angela) CBC/BMP: 10/13/16 0514 10/11/16 0540 Physical Exam General General Appearance: No Acute Distress, Comfortable, Anxious (Lloyd Angela) Eyes Eye Exam: Pupils Equal, Sclera White (Lloyd Angela) Ears & Nose Ears & Nose Exam: Nasal Mucosa [place] (Lloyd Angela) Throat Throat Exam: Oral Mucosa [place] & Moist (Lloyd Angela) Neck Neck Exam: Neck Supple, Trachea Midline (Lloyd Angela) Pulmonary Resp Exam: Clear Bilaterally, Breath Sounds Equal, No Distress (Lloyd Angela) Cardiology CV Exam: Regular, Normal Sinus Rhythm (Lloyd Angela) Gastrointestinal/Abdomen GI Exam: Soft, Bowel Sounds Present, Non-Distended GI Remarks epigastric tenderness GJ tube in place with tube feeding (Lloyd Angela [employer]IMMER BLOCKER) Musculoskeletal MS Exam: Joints Intact (Lloyd Angela BRIMMER BLOCKER) Integumentary Skin Exam: Warm, Dry (Lloyd Angela [employer]IMMER BLOCKER) Extremeties Extremities Exam: No Edema, Pedal Pulses Palpable (Lloyd Angela BRIMMER BLOCKER) Neurologic Neuro Exam: Alert, Awake, Oriented, Speech Clear, Moving All Extremities (Lloyd Angela BRIMMER BLOCKER) Psychiatric Psych Exam: Appropriate Responses (Lloyd Angela BRIMMER BLOCKER) VTE Prophylaxis VTE Prophylaxis Device: SCDs (Lloyd Angela. BRIMMER BLOCKER) PUD Prophylasis PUD Prophylaxis: Protonix (Lloyd Angela BRIMMER BLOCKER) Assessment/Plan Problem List: (1) Pancreatitis (2) Pseudocyst of pancreas (3) Chest pain (4) Hypertension (5) Chronic neck and back pain (6) COPD exacerbation (7) Tobacco abuse Assessment/Plan Pancreatitis, w pseudocysts, acute on chronic recurring ?? etiology - Ex ETOH abuser - IgG 4 level still [p] - d/c IV fluids Wean off morphine, change to q 6/ cont [place] 10 - lipase back to normal - s/p GJ tube placement , Tube feeding started tolerating well Going home on bolus feedings, per dietary recommendations Atypical chest pain, rule out cardiac event -Appreciate cardiology input, no evidence of ischemia -Had stress test during prior admission, no acute findings Continue with medical management Chronic obstructive pulmonary disease. -Continue with DuoNeb's when necessary Hypertension. -Continue home medication Depression, tearful, anxious. Was on Wellbutrin, stopped in previous admit -Trazodone 50 mg PO q HS, monitor response. -sx improved Gastroesophageal reflux disease. -Continue PPI History of ethyl alcohol abuse. -States no alcohol in 8 months, and feels motivated to stay that way -Supportive care Leukocytosis. -Secondary to pancreatitis, medical management monitor labs Urticaria, with mild papular rash -Continue PO benadryl and cream for rash Consult CM for dc planning, hhc, tube feeding nursing care d/w RN, please instruct pt. on bolus feeding went over procedure with patient, answered questions in detail can take some sips of fluid, take pills by mouth avoid regular foot, no fatty meals Cleared by GI F/U GI 2 weeks F/U PCP Diet-tube feeding, sips of fluid Activity-as tolerated can shower, cover GJ tube site D/W RN D/W Dr. Killian D/W pt D/W CM This patient was seen by myself and Dr. Killian, this note is written on his behalf. (Lloyd Angela) Assessment/Plan pt is seen & examined d/w pt d/w lloyd d/w RN d/w dr ramirez yesterday / ok to d/c from his stand point d/c home w HHC /bolus Tube feeding/ clear liquids by mouth f/u pcp & GI (Audrey Killian MD) Problem Qualifiers (1) Pancreatitis: Qualified Code: K86.1 - Chronic pancreatitis, unspecified pancreatitis type (2) Chest pain: Qualified Code: R07.9 - Chest pain, unspecified type (3) Hypertension: Qualified Code: I10 - Essential hypertension Lloyd Angela October 14, 2016 13:09 Audrey Killian MD October 14, 2016 13:35
[2016-10-14] MEDS ORDERED: JEVILIQ12 G-TUBE (13:33)
[2016-10-14] MEDS ORDERED: CREO3000 PO (13:34)
[2016-10-14] MEDS ORDERED: HYDR-3583 PO (13:36)
--- NOTE | 2016-10-14 13:36 | HHI.DCPOC ---
Discharge Care Plan Diagnosis: (1) Pancreatitis Your Health Problems Are: Appetite Changes Irregular Bowel Function Goals to Promote Your Health * To prevent worsening of your condition and complications * To maintain your health at the optimal level Directions to Meet Your Goals Take your medications as prescribed Follow your dietary instruction Follow activity as directed Keep your appointments as scheduled Take your immunizations and boosters as scheduled If your symptoms worsen call your PCP, if no PCP go to Urgent Care Center or Emergency Room Smoking is Dangerous to Your Health. Avoid second hand smoke Call the 24-hour hour crisis hotline for domestic abuse at Lani Angela. [facility] October 14, 2016 13:36
[2016-10-14] MEDS ORDERED: NUTR-189 G-TUBE ×2 (13:58→14:07)
--- NOTE | 2016-10-14 14:00 | HHI.DS ---
Discharge Summary Admission Date Oct 04, 2016 at 18:47 Discharge Date: October 14, 2016 Admitting Diagnosis worsening pancreatitis (1) Pancreatitis (2) Pseudocyst of pancreas (3) Hypertension (4) Chest pain (5) COPD exacerbation (6) Chronic neck and back pain Procedures 10/11/2016-gastrojejunostomy tube placement CBC/BMP: 10/13/16 0514 10/11/16 0540 Significant Findings Laboratory Tests Test 10/13/16 05:14 Red Blood Count 2.73 MIL/MM3 (4.50-5.90) Hemoglobin 8.6 GM/DL (13.0-17.0) Hematocrit 24.8 % (39.0-51.0) Neutrophils (%) (Auto) 74.0 % (16.0-70.0) Lymphocytes (%) (Auto) 5.5 % (9.0-44.0) Monocytes (%) (Auto) 8.6 % (0.0-8.0) Eosinophils (%) (Auto) 11.5 % (0.0-4.0) Lymphocytes # (Auto) 0.5 TH/MM3 (1.0-4.8) Eosinophils # (Auto) 1.0 TH/MM3 (0-0.4) Imaging Last Impressions Abdomen/Pelvis CT 10/12/16 0000 Signed Impressions: Service Date/Time: Wednesday, October 12, 2016 01:37 - CONCLUSION: 1. In comparison with the prior study there is increasing inflammatory changes involving the pancreas with pseudocyst developing in the tail. There is minimal dilatation of the intrahepatic ducts. 2. Ascites Tee Farris MD Gastrostomy Tube Placement 10/11/16 0000 Signed Impressions: Service Date/Time: Tuesday, October 11, 2016 15:22 - CONCLUSION: Uncomplicated gastrojejunostomy tube placement as above. Shayne Eagle MD Chest X-Ray 10/04/16 1651 Signed Impressions: Service Date/Time: Tuesday, October 04, 2016 17:54 - CONCLUSION: No acute disease. Dontae Murray MD Hospital Course This is a 60 year old white male who has just recently been hospitalized with pancreatitis and non STEMI. The patient was feeling much better this past week and went home and was discharged Tuesday and was told to resume a liquid diet. The patient went home and ate grilled chicken, tater tots and a large salami, pepperoni sandwich. He began getting sick late Tuesday night within 24 hours had a decreased appetite and epigastric pain. The pain waxed and waned until two days ago, Tuesday at 0400 the patient was having upper quadrant and epigastric pain that radiated down into the lower left quadrant. He came back to the emergency room on the for reevaluation. The patient was followed by Dr. Rivera during this last hospital evaluation. The patient has a significant history of chronic obstructive pulmonary disease, gastroesophageal reflux disease, gastritis, possible hiatal hernia and recent pancreatitis. The patient is currently resting in the bed, describes the epigastric pain as a sharp stabbing sensation, it seems to wax and wane but he was not getting any relief. The patient was alert and oriented, a fairly good historian. The patient denied any shortness of breath. He does state that he is having some neck pain but states that the neck pain is a radiation from his epigastric pain. The patient denied any headache, has a decreased appetite with nausea but no emesis. He does have a history of constipation and has only had a small bowel movement in the last few days. The patient denies any diarrhea. Pt. was admitted for: Evaluate in the ED and found with: DIAGNOSTIC DATA: White blood cell count on 10/05/2016 9. On admission 10/04/2016 it was 13.9. Hemoglobin is 11, hematocrit 33.1. Neutrophil percentage 78.5. Lymphocyte 8.1. Monocyte 8.2, eosinophils 4.9. PT/INR 1. Chemistries; sodium 142, potassium 4, chloride 110, carbon dioxide 25.3, amnion gap 7. BUN 13, creatinine 0.81. Glomerular filtration rate is 97, random glucose 75, calcium is 8.8. Troponins are positive at 0.15 and 0.22. Lipase has elevated from 727 to 922 in 24 hours, total protein 6.1, albumin 2.6. Aspartate aminotransferase is 48, ALT 48, alkaline phosphatase is 142, total creatinine kinase is 71. Urine is light yellow, clear, pH 5.5 specific gravity greater than 1.050, negative protein, glucose, occult blood, nitrates, bilirubin and leukocyte esterase. Urine ketones are 10. Culture is not indicated, there is a moderate amount of mucous. Chest x-ray shows no acute disease. Abdomen/pelvis shows inflammatory changes at the level of pancreas with pseudocyst formation as described above. Stable renal cyst including a complex cyst on the right kidney. Was admitted for: (1) Acute on chronic Pancreatitis (2) Pseudocyst of pancreas (3) Chest pain (4) Hypertension (5) Chronic neck and back pain (6) COPD exacerbation (7) Tobacco abuse During the course of the hospitalization the following events took place: Pancreatitis, w pseudocysts, acute on chronic recurring ?? etiology - Ex ETOH abuser - IgG 4 level still [p] - Initially put on IVF Started him on IV Morphine, then weaned off to q 6/ cont [place] 10 - lipase monitored, back to normal -GI consulted. Recommended GJ tube as pt. remained with significant pain and had N/V with meals. - s/p GJ tube placement , Tube feeding started tolerating well -went home on bolus feedings, per dietary recommendations. Pt. instructed on administration and care of peg tube. C consulted Atypical chest pain, rule out cardiac event -Appreciate cardiology input, no evidence of ischemia -Had stress test during prior admission, no acute findings Continued with medical management Chronic obstructive pulmonary disease. -Continued with DuoNeb's when necessary -Oxygen PRN ordered Hypertension. -Continued home medication Depression, tearful, anxious. Was on Wellbutrin, stopped in previous admit due to pancreatitis -Trazodone 50 mg PO q HS, monitored response. -sx improved Gastroesophageal reflux disease. -Continued PPI History of ethyl alcohol abuse. -States no alcohol in 8 months, and feels motivated to stay that way -Supportive care Leukocytosis. -Secondary to pancreatitis, medical management monitor labs Urticaria, with mild papular rash -Continued PO benadryl and cream for rash -Resolved Consult CM for dc planning, [facility], tube feeding nursing care d/w RN, please instruct pt. on bolus feeding went over procedure with patient, answered questions in detail can take some sips of fluid, take pills by mouth Instructd to avoid regular food, no fatty meals Cleared by GI for dc Discharged home in stable condition. F/U GI 2 weeks F/U PCP Diet-tube feeding, sips of fluid Activity-as tolerated can shower, cover GJ tube site Pt Condition on Discharge: Stable Discharge Disposition: Disch w/ Home Health Serv Discharge Instructions DIET: Follow Instructions for: On Tube Feeding, Clear Liquid Diet Additional Diet Instructions: UP TO 5 CANS OF VITAL 1.5 A DAY, BOLUS FEEDINGS Activities you can perform: Weight Bearing as Smita Follow up Referrals: Gastroenterology - 2 Weeks with Merrick Hill MD PCP Follow-up New Medications: Pancrelipase (Creon) 3,000-9,500-15,000 Units Cap 1 CAP PO TIDPC Digestive Aid #90 Ref 0 CAP Hydrocodone-Acetaminophen (Hydrocodone-Acetaminophen) 10-325 mg Tab 1 TAB PO Q4H PRN pain 4 to 6 #90 TAB Trazodone (Trazodone) 50 Mg Tab 50 MG PO HS Depression Control #30 Ref 1 TAB Changed Medications: Nutritional Supplements (Vital 1.5 Coy) 1 Liq Liq 1 CAN G-TUBE 5 TIMES A DAY 1 CAN 5 TIMES A DAY, FOLLOW THE SCHEDULE: 0700, 1000 , 1300, 1700, 2000 FLUSH WITH 70 ML AFTER EACH CAN OF FEEDING MALNOURISHED #150 Ref 1 CAN (Changed from: Nutritional Supplements (Jevity 1.5 Coy) 1 Liq Liq 1 Can G-TUBE 5 TIMES A DAY #150 CAN Ref 1) Continued Medications: Albuterol 8.5 GM Inh (Proair Hfa 8.5 GM Inh) 90 Mcg/Act Aer 2 PUFF INH Q4-6H 108 mcg/actuation PRN SHORTNESS OF BREATH #1 Ref 0 INHALER Amlodipine (Norvasc) 5 Mg Tab 5 MG PO DAILY Blood Pressure Management #30 Ref 0 TAB Aspirin (Aspirin Children's) 81 Mg Chew 81 MG CHEW DAILY Ref 0 TAB Celecoxib (Celebrex) 200 Mg Cap 200 MG PO BID Pain Management Ref 0 CAP Methylcobalamin (S72-Sqlugy) 1 Mg Chew 1 MG CHEW DAILY Nutritional Supplement Ref 0 TAB Pantoprazole (Pantoprazole) 40 Mg Tab 40 MG PO DAILY Reflux Ref 0 TAB Discontinued Medications: Bupropion HCl ER 12 HR (Wellbutrin SR 12 HR) 150 Mg Tab 150 MG PO DAILY Control Depression Ref 0 TAB Cholecalciferol (Vitamin D) 400 Unit Cap Dicyclomine (Dicyclomine) 10 Mg Cap 10 MG PO QID Bowel Management Ref 0 CAP Probiotic Product (Probiotic) 1 Tab Tab Lani Angela October 14, 2016 14:00
[2016-10-14 15:43] LABS: ALKALINE PHOSPHATASE 95 U/L (45-117); ALT (GPT) 22 U/L (12-78); ANION GAP 6 MEQ/L (5-15); AST (GOT) 22 U/L (15-37); BICARBONATE 30.7 MEQ/L (21.0-32.0); BLOOD UREA NITROGEN 5 MG/DL (7-18); CHLORIDE 104 MEQ/L (98-107); GLOMERULAR FILTRATION RATE 158 ML/MIN (>89); POTASSIUM 4.1 MEQ/L (3.5-5.1); SODIUM (NA) 141 MEQ/L (136-145); TOTAL BILIRUBIN ADULT 0.2 MG/DL (0.2-1.0)
[2016-10-14] MEDS: ACETAMINOPHEN/HYDROcodone 325 MG/10 MG TAB PO PRN (16:21)
== END 2016-10-14 17:50 | disposition home health service (06) | DRG 438 ==
LOC: NEPE 16:00 → NEDA 18:47 → N07B 20:39
PROVIDERS: ADMIT Specialist; ATTEND Specialist
PROC: 0DHA3UZ Insertion of Feeding Device into Jejunum, Percutaneous Approach (ICD-10-PCS; principal; 2016-10-11)
DX: K85.90 Acute pancreatitis without necrosis or infection, unspecified (principal); I21.4 Non-ST elevation (NSTEMI) myocardial infarction; B37.81 Candidal esophagitis; K86.3 Pseudocyst of pancreas; E44.0 Moderate protein-calorie malnutrition; R18.8 Other ascites; I27.2 Other secondary pulmonary hypertension; J44.1 Chronic obstructive pulmonary disease with (acute) exacerbation; N28.1 Cyst of kidney, acquired; I10 Essential (primary) hypertension; K44.9 Diaphragmatic hernia without obstruction or gangrene; M19.90 Unspecified osteoarthritis, unspecified site; J45.909 Unspecified asthma, uncomplicated; F32.9 Major depressive disorder, single episode, unspecified; I25.10 Atherosclerotic heart disease of native coronary artery without angina pectoris; Z86.73 Personal history of transient ischemic attack (TIA), and cerebral infarction without residual deficits; Z87.891 Personal history of nicotine dependence; Z88.0 Allergy status to penicillin; Z91.013 Allergy to seafood; Z79.899 Other long term (current) drug therapy; R00.0 Tachycardia, unspecified; K29.50 Unspecified chronic gastritis without bleeding; K21.9 Gastro-esophageal reflux disease without esophagitis; G89.29 Other chronic pain; K86.1 Other chronic pancreatitis; Z83.3 Family history of diabetes mellitus; Z83.6 Family history of other diseases of the respiratory system; Z82.49 Family history of ischemic heart disease and other diseases of the circulatory system; R74.8 Abnormal levels of other serum enzymes; M54.2 Cervicalgia; L50.9 Urticaria, unspecified; R23.8 Other skin changes; E87.6 Hypokalemia; F10.10 Alcohol abuse, uncomplicated; R07.89 Other chest pain; D63.8 Anemia in other chronic diseases classified elsewhere; K59.00 Constipation, unspecified
CPT/HCPCS: 49440; 49446; 71010; 74177; 80048; 80053; 80076; 80307; 81001; 82150; 82550; 82784; 82787; 83605; 83690; 83735; 84100; 84484; 85025; 85027; 85610; 85730; 93005; 94640; 94664; 96374; 96375; 99152; 99153; C1769; C1887; C9113; J1170; J1610; J1644; J2250; J2270; J2405; J3010; J3370; J3480; J7030; J7050; Q9963; Q9967

== ENCOUNTER 2017-06-24 16:42 | Emergency (ER) | payer MEDICAID ==
[~2017-06-24] VITALS: Ht 185.4 cm; Wt 65.0 kg
[~2017-06-24 16:42] MED LIST changes: +B12-1CHW CHEW; -BUPR150CR PO; +CELE200C PO; +CREO3000 PO; +HYDR-3583 PO; +NUTR-189 G-TUBE; +TRAZ50TA12 PO
[2017-06-24 17:26] VITALS: BP 104/77; PULSE 85; RESP 16; TEMP 97.8; O2SAT 100
[2017-06-24] MEDS ORDERED: TRAM50TA PO (18:42)
[2017-06-24] MEDS ORDERED: FLUTI220I INH (18:42)
[2017-06-24] MEDS ORDERED: CELE1CAP8 PO (18:42)
--- NOTE | 2017-06-24 19:14 | PD ---
HPI Chief Complaint: Respiratory Symptoms Time Seen by Provider: 18:51 Travel History International Travel<30 days: No Contact w/Intl Traveler<30days: No Traveled to known affect area: No History of Present Illness HPI 61-year-old male that presents to the ED for evaluation of shortness of breath for the past couple hours before coming to the ED. 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 Per patient he got very short of breath. Per patient and his significant other given aspirin and he called the ambulance because of his symptoms. Denies any history of heart disease but states that he's been having severe neck pain for the past couple days. Per patient he started on Tuesday and is progressively getting worse to the point where his vomiting and he is not able to do anything. 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 Per patient he supposed to be on oxygen but he doesn't regularly use it. He does have a history of COPD. He does have a history of hypertension. He states that he takes chronically tramadol for pain on his leg as he does have a history of herniated disc. He denies any injuries or trauma. He denies any chest pain. He denies any abdominal pain. No urinary bowel movement issues. No numbness, tingling, weakness. Per patient the pain gets worse with movement of the neck. PFSH Past Medical History Arthritis: Yes Asthma: Yes Autoimmune Disease: No Blood Disorders: Yes Anxiety: No Depression: Yes (PT STATED, HE TAKES WELLBUTRIN) Heart Rhythm Problems: Yes (TACHYCARDIA) Cancer: No Cardiac Catheterization: No Cardiovascular Problems: Yes (HEART BEATS FAST AT TIMES) High Cholesterol: No Chemotherapy: No Chest Pain: No Congestive Heart Failure: No COPD: Yes Cerebrovascular Accident: Yes (PT STATES HE THINKS HE HAD A STROKE LONG AGO) Coronary Artery Disease: No Diabetes: No Diminished Hearing: No Endocrine: No Gastrointestinal Disorders: Yes GERD: No Genitourinary: No Headaches: Yes (RELATED TO NECK PAIN) Hiatal Hernia: No Hypertension: Yes Immune Disorder: No Implanted Vascular Access Dvce: No Kidney Stones: No Musculoskeletal: Yes Neurologic: Yes Psychiatric: Yes Reproductive: No Respiratory: Yes (COPD, END STAGE EMPHYSEMA) Immunizations Current: Yes Migraines: Yes Myocardial Infarction: Yes Pancreatitis: Yes Radiation Therapy: No Renal Failure: No Seizures: No Sickle Cell Disease: No Sleep Apnea: No Thyroid Disease: No Ulcer: No Past Surgical History Abdominal Surgery: Yes AICD: No Arteriovenous Shunt: No Cardiac Surgery: No Cholecystectomy: Yes Coronary Artery Bypass Graft: No Ear Surgery: No Endocrine Surgery: No Eye Surgery: No Genitourinary Surgery: No Gynecologic Surgery: No Insulin Pump: No Joint Replacement: No Neurologic Surgery: No Oral Surgery: No Pacemaker: No Thoracic Surgery: Yes Tonsillectomy: Yes Other Surgery: Yes (LAMINECTOMY) Social History Alcohol Use: No (quit 12/18/15) Tobacco Use: No (QUIT 01/25) Substance Use: No (PT DENIES) Allergies-Medications (Allergen,Severity, Reaction): Coded Allergies: shellfish derived (Unverified Allergy, Severe, Swelling, 06/24/17) penicillin G (Unverified Allergy, Mild, rash, 06/24/17) Reported Meds & Prescriptions Reported Meds & Active Scripts Active Hydrocodone-Acetaminophen 5-325 mg Tab 1 Tab PO Q6H PRN Ventolin Hfa 18 GM Inh (Albuterol Sulfate) 90 Mcg/Act Aer 2 Puff INH Q4-6H PRN Prednisone 20 Mg Tab 20 Mg PO BID 5 Days Robaxin (Methocarbamol) 500 Mg Tab 500 Mg PO QID Creon (Pancrelipase) 3,000-9,500-15,000 Units Cap 1 Cap PO TIDPC Reported Flovent Hfa 12 GM Inh (Fluticasone Propionate) 220 Mcg/Act Inh 2 Puff INH BID Use daily at the same time. Celecoxib 200 Mg Cap 200 Mg PO DAILY Tramadol (Tramadol HCl) 50 Mg Tab 50 Mg PO BID PRN Aspirin Children's (Aspirin) 81 Mg Chew 81 Mg CHEW DAILY Proair Hfa 8.5 GM Inh (Albuterol Sulfate) 90 Mcg/Act Aer 2 Puff INH Q4-6H PRN 108 mcg/actuation Norvasc (Amlodipine Besylate) 5 Mg Tab 5 Mg PO DAILY Review of Systems Except as stated in HPI: all other systems reviewed are Neg Physical Exam Narrative GENERAL: SKIN: Warm and dry. HEAD: Atraumatic. Normocephalic. EYES: Pupils equal and round. No scleral icterus. No injection or drainage. ENT: No nasal bleeding or discharge. Mucous membranes pink and moist. Tongue is midline. No uvula deviation. NECK: Trachea midline. No JVD. CARDIOVASCULAR: Regular rate and rhythm. No murmurs, S3, S4. RESPIRATORY: No accessory muscle use. Wheezings heard in all lung short. Breath sounds equal bilaterally. GASTROINTESTINAL: Abdomen soft, non-tender, nondistended. Hepatic and splenic margins not palpable. MUSCULOSKELETAL: Extremities without clubbing, cyanosis, or edema. No obvious deformities. Full range of motion of the upper and lower extremities bilaterally. 2+ pulses bilaterally. Patient has reproducible pain on the cervical area. No obvious cervical spine tenderness to palpation. Full range of motion neck but pain with movements to the right and left. NEUROLOGICAL: Awake and alert. No obvious cranial nerve deficits. Motor grossly within normal limits. Five out of 5 muscle strength in the arms and legs. Normal speech. PSYCHIATRIC: Appropriate mood and affect; insight and judgment normal. Data Data Last Documented VS Vital Signs Date Time Temp Pulse Resp B/P (MAP) Pulse Ox O2 Delivery O2 Flow Rate FiO2 06/24/17 20:43 63 15 143/77 (99) 99 Nasal Cannula 4.00 06/24/17 17:26 97.8 Orders Orders Complete Blood Count With Diff (06/24/17 18:53) Chest, Single Ap (06/24/17 18:53) Iv Access Insert/Monitor (06/24/17 18:53) Ecg Monitoring (06/24/17 18:53) Oximetry (06/24/17 18:53) Ckmb (Isoenzyme) Profile (06/24/17 19:02) Troponin I (06/24/17 19:02) Prothrombin Time / Inr (Pt) (06/24/17 19:02) Act Partial Throm Time (Ptt) (06/24/17 19:02) Ct Cerv Spine W/O Contrast (06/24/17 ) Methylprednisolone So Succ Inj (Solumedr (06/24/17 19:15) Acetamin-Hydrocod 325-5 Mg ([place] 5-325 (06/24/17 19:15) Albuterol-Ipratropium Neb (Duoneb Neb) (06/24/17 19:15) D-Dimer (06/24/17 19:02) Basic Metabolic Panel (Bmp) (06/24/17 19:02) Magnesium (Mg) (06/24/17 19:02) Ketorolac Inj (Toradol Inj) (06/24/17 22:30) Morphine Inj (Morphine Inj) (06/24/17 22:30) Ondansetron Inj (Zofran Inj) (06/24/17 22:30) Ed Discharge Order (06/24/17 22:26) Labs Laboratory Tests Test 06/24/17 21:20 White Blood Count 13.8 TH/MM3 Red Blood Count 4.67 MIL/MM3 Hemoglobin 14.0 GM/DL Hematocrit 41.8 % Mean Corpuscular Volume 89.4 FL Mean Corpuscular Hemoglobin 29.9 PG Mean Corpuscular Hemoglobin Concent 33.5 % Red Cell Distribution Width 13.5 % Platelet Count 195 TH/MM3 Mean Platelet Volume 8.0 FL Neutrophils (%) (Auto) 66.9 % Lymphocytes (%) (Auto) 9.8 % Monocytes (%) (Auto) 9.5 % Eosinophils (%) (Auto) 13.0 % Basophils (%) (Auto) 0.8 % Neutrophils # (Auto) 9.2 TH/MM3 Lymphocytes # (Auto) 1.3 TH/MM3 Monocytes # (Auto) 1.3 TH/MM3 Eosinophils # (Auto) 1.8 TH/MM3 Basophils # (Auto) 0.1 TH/MM3 CBC Comment DIFF FINAL Differential Comment Prothrombin Time 10.4 SEC Prothromb Time International Ratio 1.0 RATIO Activated Partial Thromboplast Time 25.6 SEC D-Dimer Quantitative (PE/DVT) 0.43 MG/L FEU Blood Urea Nitrogen 23 MG/DL Creatinine 1.32 MG/DL Random Glucose 96 MG/DL Calcium Level 10.0 MG/DL Magnesium Level 2.3 MG/DL Sodium Level 139 MEQ/L Potassium Level 3.5 MEQ/L Chloride Level 105 MEQ/L Carbon Dioxide Level 27.6 MEQ/L Anion Gap 6 MEQ/L Estimat Glomerular Filtration Rate 55 ML/MIN Total Creatine Kinase 47 U/L Troponin I LESS THAN 0.02 NG/ML MDM Medical Decision Making Medical Screen Exam Complete: Yes Emergency Medical Condition: Yes Medical Record Reviewed: Yes Interpretation(s) CBC & BMP Diagram 06/24/17 21:20 Calcium Level 10.0, Magnesium Level 2.3 Last Impressions Chest X-Ray 06/24/17 [id number] Signed Impressions: Service Date/Time: Saturday, June 24, 2017 19:02 - CONCLUSION: No acute cardiopulmonary disease identified. Miguel A Naqvi MD Cervical Spine CT 06/24/17 0000 Signed Impressions: Service Date/Time: Saturday, June 24, 2017 19:44 - CONCLUSION: 1. No evidence of fracture. 2. Severe multilevel degenerative findings of the cervical spine. 3. Fusion across the left-sided C2-C3 facet joint. Miguel A Naqvi MD EKG shows sinus rhythm with no sign of acute ischemia or arrhythmia read by me and attending. Troponin and CK-MB negative. D-dimer negative. Coags negative. Differential Diagnosis COPD exacerbation versus chest pain versus pneumonia versus ACS versus PE versus chronic neck pain versus cervical radiculopathy versus muscle strain Narrative Course 61-year-old male that presents to the ED for evaluation of neck pain and shortness of breath. Patient was properly examined and was found to have signs and symptoms consistent appears to be likely COPD exacerbation. Patient also appears to have chronic neck pain that has exacerbated. Labs and imaging were ordered. Labs and imaging were essentially unremarkable. Patient was pressure. Patient does have significant degenerative changes to the cervical spine what appears to be chronic. Patient does not that he has about neck. I strongly recommend that he follows up closely with his primary care doctor to have a referral to a neurosurgeon or neurologist for further management of this. Patient agrees with this. Patient was given pain medication here with some relief. In regards to his shortness of breath he has been feeling better since been put on oxygen. Patient tells me that he is really not using his oxygen at home. I do recommend that he uses as a home. Patient was given breathing treatment here with improvement of wheezing. Patient was given Solu- Medrol here. Patient was told that if anything worsens she is to come back to the ED. Otherwise follow-up with PCP. Diagnosis Primary Impression: COPD exacerbation Additional Impression: Neck pain, acute Patient Instructions: General Instructions, Narcotic given in the ED Additional Instructions: Take medications as prescribed. Follow-up with PCP. See ED for any worsening symptoms. Do not drink or drive while taking pain medication. Apply ice or heat as needed for pain Med/Other Pt SpecificInfo: Prescription(s) given Scripts Hydrocodone-Acetaminophen (Hydrocodone-Acetaminophen) 5-325 mg Tab 1 TAB PO Q6H Y for PAIN, #12 TAB 0 Refills Prov: Josue Andre MD 06/24/17 Albuterol 18 GM Inh (Ventolin Hfa 18 GM Inh) 90 Mcg/Act Aer 2 PUFF INH Q4-6H Y for SHORTNESS OF BREATH, #1 INHALER 0 Refills Prov: Josue Andre MD 06/24/17 Prednisone (Prednisone) 20 Mg Tab 20 MG PO BID for 5 Days, #10 TAB 0 Refills Prov: Josue Andre MD 06/24/17 Methocarbamol (Robaxin) 500 Mg Tab 500 MG PO QID for Muscle Spasm, #15 TAB 0 Refills Prov: Josue Andre MD 06/24/17 Disposition: 01 DISCHARGE HOME Condition: Stable Rogelio Altamirano Jun 24, 2017 19:14
[2017-06-24] MEDS ORDERED: RESP: ALBUTEROL 2.5 MG/IPRATROPIUM 0.5 MG NEB (SCH) INH ONE (19:15)
[2017-06-24] MEDS ORDERED: methylPREDNISolone SOD SUCC 125 MG/2 ML VIAL IV PUSH ONE (19:15)
[2017-06-24] MEDS ORDERED: ACETAMINOPHEN/HYDROcodone 325 MG/5 MG TAB PO ONE (19:15)
--- NOTE | 2017-06-24 19:41 | RADRPT ---
EXAM DATE/TIME: 06/24/2017 19:02 [facility] COMPARISON: CHEST SINGLE AP, October 04, 2016, 17:54. INDICATIONS : Shortness of breath and neck pain. MEDICAL HISTORY : Tachycardia. SURGICAL HISTORY : None. ENCOUNTER: Initial ACUITY: 1 day PAIN SCORE: 0/10 LOCATION: Bilateral chest FINDINGS: 2 AP views of the chest. Scarring at the lung apices. Lungs are otherwise clear. Cardiomediastinal si lhouette within normal limits. No evidence of pleural effusion or pneumothorax. CONCLUSION: No acute cardiopulmonary disease identified. Miguel A Naqvi MD on June 24, 2017 at 19:38 Board Certified Radiologist. This report was verified electronically.
[2017-06-24 20:43] VITALS: BP 143/77; PULSE 63; RESP 15; O2SAT 99
--- NOTE | 2017-06-24 20:56 | RADRPT ---
EXAM DATE/TIME: 06/24/2017 19:44 [facility] COMPARISON: No previous studies available for comparison. INDICATIONS : Neck pain. RADIATION DOSE: 18.75 CTDIvol (mGy) MEDICAL HISTORY : Cerebrovascular disease. Cardiovascular disease Hypertension.Pancreatitis SURGICAL HISTORY : Cholecystectomy. Discectomy, lumbar. ENCOUNTER: Initial ACUITY: 1 day PAIN SCALE: 5/10 LOCATION: neck TECHNIQUE: Volumetric scanning of the cervical spine was performed. Multiplanar reconstructions in the sagittal, coronal and oblique axial planes were performed. Using automated exposure control and adjustment o f the mA and/or kV according to patient size, radiation dose was kept as low as reasonably achievable to obtain optimal diagnostic quality images. DICOM format image data is available electronically f or review and comparison. FINDINGS: VERTEBRAE: Normal vertebral body height. ALIGNMENT: 2 mm anterolisthesis C3 on C4. Alignment otherwise within normal limits. C2-C3: Severe left-sided facet arthrosis. Broad-based disc osteophyte complex. Moderate severity left neural foraminal narrowing. Central canal diameter within normal limits. Bony fusion across the left-sided facet joint. C3-C4: Broad-based disc osteophyte complex and severe left-sided facet arthrosis. Mild central canal narrowi ng. Severe left and moderate right neural foraminal narrowing. C4-C5: Right based disc osteophyte complex and moderate left-sided facet arthrosis. Moderate left neural for aminal narrowing. Mild central canal narrowing. C5-C6: Broad-based disc osteophyte complex and bilateral mild facet arthrosis. Mild to moderate central ayanna l narrowing. Moderate severity bilateral neural foraminal narrowing. C6-C7: Broad-based disc osteophyte complex and bilateral facet arthrosis. Mild/moderate central canal narrow ing. Severe bilateral neuroforaminal narrowing. C7-T1: The bony spinal canal is normal in size. No evidence of disc bulge or herniation. The neural forami na are bilaterally patent. CONCLUSION: 1. No evidence of fracture. 2. Severe multilevel degenerative findings of the cervical spine. 3. Fusion across the left-sided C2-C3 facet joint. Miguel A Naqvi MD on June 24, 2017 at 20:49 Board Certified Radiologist. This report was verified electronically.
[2017-06-24 21:49] LABS: AUTOMATED NEUTROPHIL # 9.2 TH/MM3 (1.8-7.7); BASOPHIL # 0.1 TH/MM3 (0-0.2); BASOPHIL % 0.8 % (0.0-2.0); EOSINOPHIL # 1.8 TH/MM3 (0-0.4); HEMATOCRIT 41.8 % (39.0-51.0); LYMPH % 9.8 % (9.0-44.0); LYMPHOCYTE # 1.3 TH/MM3 (1.0-4.8); MEAN CELL VOLUME 89.4 FL (80.0-100.0); MEAN CORPUSCULAR HEMOGLOBIN 29.9 PG (27.0-34.0); MEAN CORPUSCULAR HGB CONC 33.5 % (32.0-36.0); MONO % 9.5 % (0.0-8.0); MONOCYTE # 1.3 TH/MM3 (0-0.9); NEUT % 66.9 % (16.0-70.0); PLATELET COUNT 195 TH/MM3 (150-450); RED BLOOD COUNT 4.67 MIL/MM3 (4.50-5.90); RED CELL DISTRIBUTION WIDTH 13.5 % (11.6-17.2); WHITE BLOOD COUNT 13.8 TH/MM3 (4.0-11.0)
[2017-06-24 21:54] LABS: D-DIMER 0.43 MG/L FEU (0.00-0.50); PROTHROMBIN TIME - PATIENT 10.4 SEC (9.8-11.6)
[2017-06-24 22:04] LABS: BICARBONATE 27.6 MEQ/L (21.0-32.0); BLOOD UREA NITROGEN 23 MG/DL (7-18); CHLORIDE 105 MEQ/L (98-107); CREATININE 1.32 MG/DL (0.60-1.30); GLOMERULAR FILTRATION RATE 55 ML/MIN (>89); GLUCOSE,RANDOM 96 MG/DL (74-106); MAGNESIUM 2.3 MG/DL (1.5-2.5); SODIUM (NA) 139 MEQ/L (136-145)
[2017-06-24 22:08] LABS: TROPONIN I LESS THAN 0.02 NG/ML (0.02-0.05)
[2017-06-24] MEDS ORDERED: PRED20 PO (22:24)
[2017-06-24] MEDS ORDERED: VENTAER INH (22:24)
[2017-06-24] MEDS ORDERED: HYDR-3516 PO ×2 (22:24→22:26)
[2017-06-24] MEDS ORDERED: ROBA500T PO (22:24)
[2017-06-24] MEDS ORDERED: MORPHINE SULFATE 2 MG/ML INJ IV PUSH ONE (22:30)
[2017-06-24] MEDS ORDERED: ONDANSETRON HCL 4 MG/2 ML VIAL IV PUSH ONE (22:30)
[2017-06-24] MEDS ORDERED: KETOROLAC TROMETHAMINE 30 MG/ML (IVP) VIAL IV PUSH ONE (22:30)
--- NOTE | 2017-06-25 16:46 | EKG ---
Date Performed: 06/24/2017 Time Performed: 22:24:26 PTAGE: 61 years EKG: SINUS BRADYCARDIA WITH SINUS ARRHYTHMIA MODERATE INTRAVENTRICULAR CONDUCTION DELAY Compared to previous tracing QRS duration increased BORDERLINE ECG PREVIOUS TRACING : 10/04/2016 17.15 DOCTOR: Darío Sweet Interpretating Date/Time 06/25/2017 16:45:18
== END 2017-06-24 22:53 | disposition home or self-care (01) ==
LOC: NEDAMB 16:42 → NEPE 22:53
DX: J44.1 Chronic obstructive pulmonary disease with (acute) exacerbation (principal); M54.2 Cervicalgia; I10 Essential (primary) hypertension; Z79.899 Other long term (current) drug therapy; Z87.891 Personal history of nicotine dependence
CPT/HCPCS: 71045; 72125; 80048; 82550; 83735; 84484; 85025; 85379; 85610; 85730; 93005; 94664; 96374; 96375; 99285; J1885; J2270; J2405; J2930

== ENCOUNTER 2017-12-25 13:07 | Inpatient (IN) ==
[2017-12-25] MEDS ORDERED: Morphine Inj 4 MG/ML Vial IV.PUSH ONE (13:14)
[2017-12-25] MEDS ORDERED: Sod Chloride 0.9% Inj 1,000 ML IV.SIG ONE (13:14)
--- NOTE | 2017-12-25 13:19 | ED ---
HPI General Chief Complaint: Abdominal Pain Stated Complaint: ABD Pain/ Evac Time Seen by Provider: 12/25/17 13:14 Source: patient and EMS Mode of arrival: EMS Limitations: no limitations History of Present Illness HPI narrative: 61-year-old male patient presents to the ER today for 2 days history of left upper quadrant abdominal pains that started on its own, nauseous , vomiting, denies any diarrhea, fevers, or other symptoms. He states that he feels like gas that is just sitting there. He does not know of any exacerbating or alleviating factors. He does not notice any relation to food. He denies any alcoholic beverages for the last 2 years. Related Data Home Medications Medication Instructions Recorded Confirmed celecoxib [Celebrex] 200 mg PO HS 12/25/17 12/25/17 [id number] [Creon] 3,600 mg PO TID 12/25/17 12/25/17 tramadol 50 mg PO Q6H PRN 12/25/17 12/25/17 Allergies Allergy/AdvReac Type Severity Reaction Status Date / Time shellfish derived Allergy Severe Swelling Verified 12/25/17 13:20 penicillin G Allergy Mild rash Verified 12/25/17 13:20 Review of Systems Except as stated in HPI: all other systems reviewed are negative PMFSH History History Provided By: Patient Medical History Medical History Emphysema lung (Acute) COPD (chronic obstructive pulmonary disease) (Acute) Tachycardia (Acute) Neck pain (Acute) Back pain (Acute) Chronic pancreatitis (Acute) Surgical History Surgical History Hx of cholecystectomy (Acute) Social History Social History Substance History: No History of Abuse Second Hand Smoke Exposure: No Smoking Status: Former smoker Tobacco Type: Cigarettes How Often Do You Have a Drink Containing Alcohol: Never Exam Narrative Exam Narrative: GENERAL: Well-developed elderly white male patient currently in mild distress. Awake and oriented 3. SKIN: Focused skin assessment warm/dry. HEAD: Atraumatic. Normocephalic. EYES: Pupils equal and round. No scleral icterus. No injection or drainage. ENT: No nasal bleeding or discharge. Mucous membranes pink and moist. NECK: Trachea midline. No JVD. CARDIOVASCULAR: Regular rate and rhythm. No murmur appreciated. RESPIRATORY: No accessory muscle use. Mild bilateral wheezing. Breath sounds equal bilaterally. GASTROINTESTINAL: Abdomen soft, left upper quadrant tenderness without guarding rebound, nondistended. Hepatic and splenic margins not palpable. MUSCULOSKELETAL: No obvious deformities. No clubbing. No cyanosis. No edema. NEUROLOGICAL: Awake and alert. No obvious cranial nerve deficits. Motor grossly within normal limits. Normal speech. PSYCHIATRIC: Appropriate mood and affect; insight and judgment normal. Course Hospital Course: Lab work shows significant lipase elevations and CAT scan was done for further evaluation, shows acute pancreatitis but did not show any other signs of acute processes. At this point, patient has been given IV fluids, pain medication and antiemetic in the ER. My plan would be to admit him for further treatment. Case was discussed with Dr. Vaughn for admission. Initial Documented Vital Signs Temperature 98 F 12/25/17 13:13 Pulse Rate 105 H 12/25/17 13:13 Respiratory Rate 16 12/25/17 13:13 Blood Pressure 157/94 H 12/25/17 13:13 Pulse Oximetry 98 12/25/17 13:13 Last Documented Vital Signs Temperature 98 F 12/25/17 13:13 Pulse Rate 92 H 12/25/17 13:29 Respiratory Rate 16 12/25/17 13:35 Blood Pressure 157/94 H 12/25/17 13:13 Pulse Oximetry 97 12/25/17 13:29 Medical Decision Making Differential Diagnosis Differential Diagnosis: Gastritis versus pancreatitis versus gastroenteritis versus musculoskeletal Lab Data Result diagrams: 12/25/17 13:20 12/25/17 13:20 Lab Results 12/25/17 12/25/17 Range/Units 13:20 13:20 WBC 16.7 H (4.0-11.0) th/mm3 RBC 5.66 (4.50-5.90) mil/mm3 Hgb 17.4 H (13.0-17.0) gm/dL Hct 51.1 H (39.0-51.0) % MCV 90.3 (80.0-100.0) fL MCH 30.8 (27.0-34.0) pg MCHC 34.1 (32.0-36.0) % RDW 12.9 (11.6-17.2) % Plt Count 204 (150-450) th/mm3 MPV 8.2 (7.0-11.0) fL Neut % (Auto) 76.2 H (16.0-70.0) % Lymph % (Auto) 4.9 L (9.0-44.0) % [place] % (Auto) 6.3 (0.0-8.0) % Eos % (Auto) 11.9 H (0.0-4.0) % Baso % (Auto) 0.7 (0.0-2.0) % Neut # (Auto) 12.7 H (1.8-7.7) th/mm3 Lymph # (Auto) 0.8 L (1.0-4.8) th/mm3 [place] # (Auto) 1.1 H (0.0-0.9) th/mm3 Eos # (Auto) 2.0 H (0.0-0.4) th/mm3 Baso # (Auto) 0.1 (0.0-0.2) th/mm3 WBC Differential . Differential Comment Auto diff final Sodium 140 (136-145) meq/L Potassium 4.0 (3.5-5.1) meq/L Chloride 106 (98-107) meq/L Carbon Dioxide 26.1 (21.0-32.0) meq/L Anion Gap 8 (5-15) meq/L BUN 21 H (7-18) mg/dL Creatinine 1.08 (0.60-1.30) mg/dL Estimated GFR 69 L (>89) mL/min Random Glucose 187 H (74-106) mg/dL Calcium 11.0 H (8.5-10.1) mg/dL Total Bilirubin 0.9 (0.2-1.0) mg/dL AST 20 (15-37) U/L ALT 18 (12-78) U/L Alkaline Phosphatase 74 (45-117) U/L Total Protein 7.6 (6.4-8.2) g/dL Albumin 4.1 (3.4-5.0) g/dL Lipase 1148 H (73-393) U/L Imaging Data Radiologist's impression: Abdomen/Pelvis CT 12/25/17 13:14 CONCLUSION: Findings of acute pancreatitis involving the body and tail without evidence of pseudocyst. Dilatation of the common bile duct is likely related to reservoir effect though considering the acute pancreatitis pancreatic malignancy should be excluded with certainty. Discharge Plan Discharge Disposition Patient Disposition: 30 Still Patient Discharge Condition Condition: Good Discharge Details Anticipated Discharge Date: 12/25/17 Diagnosis: Acute pancreatitis Physicians Team ED Provider: Aliyah Patricia Primary Care Provider: Sonny Harrell Rxs /Orders / Referrals /Forms Prescriptions: No Action celecoxib [Celebrex] 200 mg Capsule 200 mg PO HS RF: 0 tramadol 50 mg Tablet 50 mg PO Q6H PRN (Reason: Pain) RF: 0 [id number] [Creon] 3,000-9,500- 15,000 unit Capsule,Delayed Release(Dr/Ec) 3,600 mg PO TID RF: 0 Discharge Interventions Interventions: Vital Signs Last Done: 12/25/17 13:29 Status ED Status: With Doctor
[2017-12-25 13:29] LABS: Baso # (Auto) 0.1 th/mm3 (0.0-0.2); Baso % (Auto) 0.7 % (0.0-2.0); Eos % (Auto) 11.9 % (0.0-4.0); Hematocrit 51.1 % (39.0-51.0); Hemoglobin 17.4 gm/dL (13.0-17.0); Lymph # (Auto) 0.8 th/mm3 (1.0-4.8); Lymph % (Auto) 4.9 % (9.0-44.0); Mean Corpuscular HGB Conc 34.1 % (32.0-36.0); Mean Corpuscular Hemoglobin 30.8 pg (27.0-34.0); Mean Corpuscular Volume 90.3 fL (80.0-100.0); Mean Platelet Volume 8.2 fL (7.0-11.0); Mono # (Auto) 1.1 th/mm3 (0.0-0.9); Mono % (Auto) 6.3 % (0.0-8.0); Neut # (Auto) 12.7 th/mm3 (1.8-7.7); Neut % (Auto) 76.2 % (16.0-70.0); Platelet Count 204 th/mm3 (150-450); Red Blood Count 5.66 mil/mm3 (4.50-5.90); Red Cell Distribution Width 12.9 % (11.6-17.2); White Blood Count 16.7 th/mm3 (4.0-11.0)
[2017-12-25 13:47] LABS: Alanine Aminotransferase 18 U/L (12-78); Albumin 4.1 g/dL (3.4-5.0); Anion Gap 8 meq/L (5-15); Aspartate Aminotransferase 20 U/L (15-37); Blood Urea Nitrogen 21 mg/dL (7-18); Carbon Dioxide 26.1 meq/L (21.0-32.0); Chloride 106 meq/L (98-107); Glomerular Filtration Rate 69 mL/min (>89); Glucose,Random 187 mg/dL (74-106); Lipase 1148 U/L (73-393); Sodium 140 meq/L (136-145)
[2017-12-25 13:49] LABS: Alkaline Phosphatase 74 U/L (45-117); Total Protein 7.6 g/dL (6.4-8.2)
--- NOTE | 2017-12-25 16:05 | CT ---
EXAM DATE: 12/25/2017 3:35 PM EDT AGE/SEX: 61 years / Male INDICATIONS: Left upper abdominal quadrant pain for 2 days CLINICAL DATA: This is the patient's initial encounter. Patient reports that signs and symptoms have been present for 2 days and indicates a pain score of 9/10. MEDICAL/SURGICAL HISTORY: Chronic obstructive pulmonary disease. Pancreatitis. Cholecystectomy . ORAL CONTRAST: No oral contrast ingested. RADIATION DOSE: 8.26 CTDI (mGy) COMPARISON: [facility] [place], CT ABDOMEN & PELVIS W/O CONTRAST, 12/17/2017. . TECHNIQUE: Multiple contiguous axial images were obtained through the abdomen and pelvis following b olus infusion of 93 ml Omnipaque 350 (iohexol) nonionic water-soluble contrast as a single exam dos e. No oral contrast ingested. Using automated exposure control and adjustment of the mA and/or kV ac cording to patient size, radiation dose was kept as low as reasonably achievable to obtain optimal di agnostic quality images. DICOM format image data is available electronically for review and comparis on. FINDINGS: Examination of the lung bases demonstrates no abnormality. No pleural fluid is identified. No pulmona ry nodules are present. The liver and spleen are normal in size and no focal defects are identified. The gallbladder is absent. The pancreas demonstrates normal contour without evidence of mass or duct al dilatation. There are inflammatory changes involving the tail the pancreas which may reflect pancr eatitis without evidence of abscess. The intrahepatic ducts and common bile duct are prominent which may reflect reservoir effect. The adrenal glands are unremarkable. There are simple renal cysts bila terally the largest measuring 4 cm on the right. No abnormally enlarged lymph nodes are identified. Examination of the pelvis demonstrates no evidence of free fluid or pelvic mass. No abnormally enlarg ed inguinal or retroperitoneal lymph nodes are present. The bladder is unremarkable. There is diverti culosis without evidence of diverticulitis. CONCLUSION: Findings of acute pancreatitis involving the body and tail without evidence of pseudocyst. Dilatation of the common bile duct is likely related to reservoir effect though considering the acute pancreatitis pancreatic malignancy should be excluded with certainty. Electronically signed by: Tee Farris MD 12/25/2017 4:04 PM EDT
[2017-12-25 17:14] LABS: Bilirubin,Urine Negative (Negative); Clarity,Urine Clear (Clear); Color,Urine Straw (Yellw/Straw); Glucose,Urine (UA) 50 mg/dL (Negative); Leukocyte Esterase,Urine Negative (Negative); Mucus,Urine Few /lpf (Occasional); Nitrite,Urine Negative (Negative); Specific Gravity,Urine 1.047 (1.002-1.035)
[2017-12-25] MEDS ORDERED: Bisacodyl 10 MG Supp RECTAL PRN (17:55)
--- NOTE | 2017-12-25 17:55 | P.HP ---
History of Present Illness Primary Care Physician: Sonny Harrell MD History of Present Illness: 61-year-old male with past medical history significant for pancreatitis, gastritis, migraines, CT, COPD, asthma, tobacco and alcohol use who presents to the emergency department with complaints of abdominal pain radiating to the back. and brother who are at bedside assist with history. reports that patient had episode of pancreatitis about 2 years ago she is also noticed that he has been, increasingly forgetful since this past Tuesday. reports that she is not sure the patient has been taking his Creon at home as he should due to his forgetfulness. She reports that patient was in the emergency department early at this month with similar complaints of forgetfulness and was told that everything was fine. Review of EMR, patient was in fact seen in the ED on 12/[address] of abdomen pelvis which at that time showed no pancreatitis in previous resolved pseudocyst. Chest x-ray with hyperinflation and no infiltrate, head CT with no acute abnormality. Patient was noted to be hyperglycemic, and was provided with IV fluids and discharged home. reports that patient has an appointment with neurologist in January for further evaluation of forgetfulness. also reports that patient has been on a COPD investigational program and on a new inhaler since October of this year. Patient is examined resting in ED stretcher with mild abdominal discomfort. He denies any recent fevers, chills, shortness of breath , cough, diarrhea or constipation. Patient does endorse nausea this morning with one episode of emesis, no black or blood in emesis. Complaints of left upper abdominal pain radiating across the front as well as to the back. Currently he rates his pain 9/10, describes this as sharp. Patient reports that he has not had any alcohol for 2 years now, quit smoking a year ago. Inpatient Certification: I certify that the inpatient services were ordered in accordance with Medicare regulations governing the order. This includes certification that hospital inpatient services are reasonable and necessary and in the case of services not specified as inpatient-only under 42 CFR 419.22(n), that they are appropriately provided as inpatient services in accordance to with the 2-midnight benchmark under 43 CFR 412.3(e) Review of Systems All other systems reviewed negative except as stated in HPI PMFSH - History History Provided By: Patient - Medical History Medical History: Medical History (Last Updated 12/25/17 @ 13:20 by Estefania Kent RN) Emphysema lung (Acute) COPD (chronic obstructive pulmonary disease) (Acute) Tachycardia (Acute) Neck pain (Acute) Back pain (Acute) Chronic pancreatitis - Surgical History Surgical History: Surgical History (Last Updated 12/25/17 @ 18:16 by Eric Sauer) History of back surgery Hx of cholecystectomy - Tobacco History Second Hand Smoke Exposure: No Tobacco Use In Past 30 Days: No Smoking Status: Former smoker Tobacco Type: Cigarettes - Alcohol History How Often Do You Have a Drink Containing Alcohol: Never - Substance Use History Substance History: No History of Abuse - Immunization History Tetanus Immunization: <5 Years Hx Influenza Vaccine This Season: Yes Medications and Allergies Active Medications: Active Medications Sodium Chloride (Ns Flush) 2 ml IV.FLUSH PRN PRN PRN Reason: FLUSH AFTER USING IV ACCESS Last Admin: 12/25/17 13:32 Dose: 2 ml Allergies Allergy/AdvReac Type Severity Reaction Status Date / Time shellfish derived Allergy Severe Swelling Verified 12/25/17 13:20 penicillin G Allergy Mild rash Verified 12/25/17 13:20 Home Medications Medication Instructions Recorded Confirmed Type celecoxib [Celebrex] 200 mg PO HS 12/25/17 12/25/17 History [id number] [Creon] 3,600 mg PO TID 12/25/17 12/25/17 History tramadol 50 mg PO Q6H PRN 12/25/17 12/25/17 History Exam Vital signs: Vital Signs 12/25/17 13:13 12/25/17 13:23 12/25/17 13:28 Temperature 36.6 C Pulse Rate 105 H 104 H Respiratory Rate 16 27 H Blood Pressure 157/94 H Pulse Oximetry 98 95 12/25/17 13:29 12/25/17 13:35 12/25/17 17:19 Temperature 36.7 C Pulse Rate 92 H 76 Respiratory Rate 18 16 16 Blood Pressure 138/81 Pulse Oximetry 97 98 Intake & Output 12/24/17 12/25/17 12/25/17 18:59 06:59 18:59 Intake Total 1000 / 1000 Balance 1000 / 1000 Weight 65.317 kg Intake: IV 1000 / 1000 NS Inj 1,000 ML @ Wide Open IV. 1000 / 1000 SIG BOLUS ONE Rx#:[id number] Narrative: GENERAL: Thin male, well-developed, resting in bed. SKIN: Warm and dry. HEAD: Atraumatic. Normocephalic. EYES: Pupils equal and round. No scleral icterus. No injection or drainage. ENT: No nasal bleeding or discharge. Mucous membranes pink and moist. NECK: Trachea midline. No JVD. CARDIOVASCULAR: Regular rate and rhythm. RESPIRATORY: No accessory muscle use. Expiratory wheezing throughout anterior and posterior lobes.. Breath sounds equal bilaterally. GASTROINTESTINAL: Abdomen soft, nondistended, upper abdominal tenderness. Positive bowel sounds in all quadrants. MUSCULOSKELETAL: Extremities without clubbing, cyanosis, or edema. No obvious deformities. NEUROLOGICAL: Awake and alert, oriented 3. No obvious cranial nerves 2-12 intact. Motor grossly within normal limits. Five out of 5 muscle strength in the arms and legs. Normal speech. PSYCHIATRIC: Appropriate mood and affect; insight and judgment normal. Results - Labs CBC & Chem 7: 12/25/17 13:20 12/25/17 13:20 Labs: Laboratory Results - last 24 hr 12/25/17 12/25/17 12/25/17 13:20 13:20 16:41 WBC 16.7 H RBC 5.66 Hgb 17.4 H Hct 51.1 H MCV 90.3 MCH 30.8 MCHC 34.1 RDW 12.9 Plt Count 204 MPV 8.2 Neut % (Auto) 76.2 H Lymph % (Auto) 4.9 L Boyd % (Auto) 6.3 Eos % (Auto) 11.9 H Baso % (Auto) 0.7 Neut # (Auto) 12.7 H Lymph # (Auto) 0.8 L Boyd # (Auto) 1.1 H Eos # (Auto) 2.0 H Baso # (Auto) 0.1 WBC Differential . Differential Comment Auto diff final Sodium 140 Potassium 4.0 Chloride 106 Carbon Dioxide 26.1 Anion Gap 8 BUN 21 H Creatinine 1.08 Estimated GFR 69 L Random Glucose 187 H Calcium 11.0 H Total Bilirubin 0.9 AST 20 ALT 18 Alkaline Phosphatase 74 Total Protein 7.6 Albumin 4.1 Lipase 1148 H Urine Color Straw Urine Clarity Clear Urine pH 5.0 Ur Specific [place] 1.047 H Urine Protein Negative Urine Glucose (UA) 50 Urine Ketones 20 Urine Occult Blood Negative Urine Nitrate Negative Urine Bilirubin Negative Urine Urobilinogen 2.0 H Ur Leukocyte Esterase Negative Urine RBC Less than 1 Urine WBC Less than 1 Urine Mucus Few H Micro UA Comment Culture not ind Urine Culture Comments Culture not ind - Imaging Impressions Abdomen/Pelvis CT 12/25/17 13:14 CONCLUSION: Findings of acute pancreatitis involving the body and tail without evidence of pseudocyst. Dilatation of the common bile duct is likely related to reservoir effect though considering the acute pancreatitis pancreatic malignancy should be excluded with certainty. Caprini VTE Risk Assessment Caprini VTE Risk Assessment: Moderate/High Risk (score >= 2) Caprini Risk Assessment Model: Point Value = 1 Point Value = 2 Point Value = 3 Point Value = 5 Age 41-60 Minor surgery BMI > 25 kg/m2 Swollen legs Varicose veins or History of unexplained or recurrent spontaneous Oral contraceptives or hormone replacement Sepsis (< 1 month) Serious lung disease, including pneumonia (< 1 month) Abnormal pulmonary function Acute myocardial infarction Congestive heart failure (< 1 month) History of inflammatory bowel disease Medical patient at bed rest Age 61-74 Arthroscopic surgery Major open surgery (> 45 min) Laparoscopic surgery (> 45 min) Malignancy Confined to bed (> 72 hours) Immobilizing plaster cast Central venous access Age >= 75 History of VTE Family history of VTE Factor V Leiden Prothrombin [id number] Lupus anticoagulant Anticardiolipin antibodies Elevated serum homocysteine Heparin-induced thrombocytopenia Other congenital or acquired thrombophilia Stroke (< 1 month) Elective arthroplasty Hip, pelvis, or leg fracture Acute spinal cord injury (< 1 month) Prophylaxis Regimen: Total Risk Factor Score Risk Level Prophylaxis Regimen 0-1 Low Early ambulation 2 Moderate Order ONE of the following: *Sequential Compression Device (SCD) *Heparin 5000 units SQ BID 3-4 Higher Order ONE of the following medications: *Heparin 5000 units SQ TID *Enoxaparin/Lovenox 40 mg SQ daily (WT < 150 kg, CrCl > 30 mL/min) *Enoxaparin/Lovenox 30 mg SQ daily (WT < 150 kg, CrCl > 10-29 mL/min) *Enoxaparin/Lovenox 30 mg SQ BID (WT < 150 kg, CrCl > 30 mL/min) AND/OR *Sequential Compression Device (SCD) 5 or more Highest Order ONE of the following medications: *Heparin 5000 units SQ TID (Preferred with Epidurals) *Enoxaparin/Lovenox 40 mg SQ daily (WT < 150 kg, CrCl > 30 mL/min) *Enoxaparin/Lovenox 30 mg SQ daily (WT < 150 kg, CrCl > 10-29 mL/min) *Enoxaparin/Lovenox 30 mg SQ BID (WT < 150 kg, CrCl > 30 mL/min) AND *Sequential Compression Device (SCD) Assessment and Plan - Plan 61-year-old male with past medical history significant for pancreatitis, gastritis, migraines, CT, COPD, asthma, tobacco and alcohol use who presents to the emergency department with complaints of abdominal pain radiating to the back. Acute pancreatitis Nausea/vomiting -Patient with a history of pancreatitis with pseudocyst. CT of abdomen pelvis with findings of acute pancreatitis involving the body and tail without evidence of pseudocyst. Dilatation of the common bile duct is likely related to reservoir effect considering the acute pancreatitis pancreatic malignancy should be excluded with certainty per radiologist report. -CBC with mild leukocytosis, WBC 16.7, CMP stable. Lipase 1148 -N.p.o., LR @150 mL's per hour, IV Toradol as needed, IV morphine as needed, antiemetics as needed -Continue p.o. Creon, recheck Lipase in the a.m., check CA-19-9 COPD, not exacerbated -Expiratory wheezes noted on exam. As needed duo nebs -Will hold off on investigational COPD medication for the moment. Memory loss -Patient recently underwent CT scan on 12/21 which was negative for acute intracranial abnormality -Patient reports he had a history of migraines, migraines began prior to new onset of memory loss. -Discussed with brother and at bedside, will address acute pancreatitis first. DVT prophylaxis-subcutaneous heparin. Discussed Condition With: , patient, brother, .
[2017-12-25] MEDS ORDERED: Sod Chloride 0.9% Inj 1,000 ML IV.CONT SCH (18:15)
[2017-12-25] MEDS: Morphine Inj 4 MG/ML Vial IV.PUSH PRN ×2 (18:25→22:29)
[2017-12-25] MEDS: Senna/Docusate Sodium 8.6/50 MG Tablet PO SCH (20:57)
[2017-12-25] MEDS: Heparin - SQ 10,000 UNITS/ML Vial SQ SCH (20:59)
[2017-12-25] MEDS: Temazepam 15 MG Capsule PO PRN (22:28)
[2017-12-26] MEDS: Morphine Inj 4 MG/ML Vial IV.PUSH PRN ×3 (04:57→13:58)
[2017-12-26 09:27] LABS: Anion Gap 7 meq/L (5-15); Blood Urea Nitrogen 13 mg/dL (7-18); Calcium 10.2 mg/dL (8.5-10.1); Carbon Dioxide 27.6 meq/L (21.0-32.0); Chloride 106 meq/L (98-107); Glomerular Filtration Rate Greater Than 89 mL/min (>89); Glucose,Random 66 mg/dL (74-106); Lipase 538 U/L (73-393); Sodium 141 meq/L (136-145)
[2017-12-26] MEDS: Senna/Docusate Sodium 8.6/50 MG Tablet PO SCH ×2 (09:52→20:29)
[2017-12-26] MEDS: Lipase/Protease/Amylase 12/38/60 DR Capsule PO SCH ×4 (09:52→18:06)
[2017-12-26] MEDS: Heparin - SQ 10,000 UNITS/ML Vial SQ SCH ×2 (09:53→20:29)
--- NOTE | 2017-12-26 14:39 | P.PN ---
Subjective Interval history: RN denies any deterioration since last night. Patient says his pain is improved. No nausea vomiting. Physical Exam Vital signs: Vital Signs 12/25/17 17:19 12/25/17 20:00 12/26/17 00:00 Temperature 98.1 F 98.1 F 98 F Pulse Rate 76 78 75 Respiratory Rate 16 19 18 Blood Pressure 138/81 136/79 126/68 Pulse Oximetry 98 97 97 12/26/17 08:00 12/26/17 12:00 Temperature 97.8 F 97.9 F Pulse Rate 73 70 Respiratory Rate 18 18 Blood Pressure 138/82 123/82 Pulse Oximetry 96 95 Intake & Output 12/25/17 12/26/17 12/26/17 18:59 06:59 18:59 Intake Total 1000 / 1000 1000 / 1000 Balance 1000 / 1000 1000 / 1000 Weight 65.317 kg Intake: IV 1000 / 1000 1000 / 1000 LR 1000 mL Inj 1,000 ML @ 150 1000 / 1000 mls/hr IV.CONT .[id number] LYLA Rx#: [id number] NS Inj 1,000 ML @ Wide Open IV. 1000 / 1000 SIG BOLUS ONE Rx#:[id number] Other: Date of Last Bowel Movement 12/23/17 Narrative: Abdomen is soft, mildly tender only to deep palpation diffusely, nondistended Sitting up in bed, no acute distress, pleasant demeanor Results - Labs CBC & Chem 7: 12/25/17 13:20 12/26/17 08:21 Laboratory Results - last 24 hr 12/25/17 12/26/17 12/26/17 16:41 08:21 08:21 Sodium 141 Potassium 4.0 Chloride 106 Carbon Dioxide 27.6 Anion Gap 7 BUN 13 Creatinine 0.82 Estimated GFR Greater than 89 Random Glucose 66 L D Calcium 10.2 H D Lipase 538 H CA 19-9 Antigen 21.1 Urine Color Straw Urine Clarity Clear Urine pH 5.0 Ur Specific [place] 1.047 H Urine Protein Negative Urine Glucose (UA) 50 Urine Ketones 20 Urine Occult Blood Negative Urine Nitrate Negative Urine Bilirubin Negative Urine Urobilinogen 2.0 H Ur Leukocyte Esterase Negative Urine RBC Less than 1 Urine WBC Less than 1 Urine Mucus Few H Micro UA Comment Culture not ind Urine Culture Comments Culture not ind - Imaging Impressions Abdomen/Pelvis CT 12/25/17 13:14 CONCLUSION: Findings of acute pancreatitis involving the body and tail without evidence of pseudocyst. Dilatation of the common bile duct is likely related to reservoir effect though considering the acute pancreatitis pancreatic malignancy should be excluded with certainty. Assessment and Plan - Plan Acute recurrent pancreatitis -Improved since admission. Trial of clear liquids at this time -Lipase significantly improved -IVFs and pain control Pseudocyst versus pancreatic cancer CA 19 level is within normal limits, consulting GI, anticipate possible discharge home today nonetheless if patient tolerates p.o. intake well unless GI says otherwise COPD, not exacerbated as needed duonebs Memory loss -Patient recently underwent CT scan on 12/21 which was negative for acute intracranial abnormality -Patient reports he had a history of migraines, migraines began prior to new onset of memory loss. -ordering b12 level, tsh wnl most recently
--- NOTE | 2017-12-26 15:35 | P.CONGI ---
History of Present Illness Consult date: 12/26/17 Consult reason: abnormal CT finding Chief complaint: acute pancreatitis History of Present Illness: This is a 61 yo M with GI history significant for multiple episodes of pancreatitis with previous pancreatic pseudocyst, history of GJ and prior ETOH abuse who has been sober for two years next month. Pt presented to the hospital yesterday with complaints of nausea, vomiting, abdominal pain that began on . Pt reports pain began in his LUQ but radiated into his back and throughout his entire abdomen. Describes pain as sharp, constant. Nausea and vomiting prior to arrival, denies any emesis since admission. Denies hematemesis and coffee ground emesis. Pt denies any significant weight loss, states lost a lot of weight after cholecystectomy in June of last year but has been slowly regaining weight. Pt also complaining of feeling forgetful since Tuesday, oriented x 3 but poor historian at this time. Reviewed previous records and pt has been seen by our service in the past. Our service has been consulted to evaluate abnormal CT findings which reveal dilatation of the CBD likely related to reservoir effect though considering acute pancreatitis, malignancy should be excluded. Previous office records: EUS (11/2016) Pancreatic pseudocyst 1.7 cm, homogenous, hypoechoic, otherwise normal EUS with no lymphadenopathy. Previous GJ tube placed for persistent pancreatitis was also removed at that time. EGD (September 2016) Gastritis, esophagitis, hiatal hernia. Colonoscopy (August 2015) Diverticulosis in the sigmoid and descending colon, internal and external hemorrhoids. Quit drinking 2 years ago, quit smoking 3 years ago. <Susy Wheeler - Last Filed: 12/26/17 15:19> Review of Systems Constitutional: Denies weight loss Gastrointestinal: Reports abdominal pain, Reports nausea, Reports vomiting, Denies black, tarry stools, Denies bright, red blood in stools, Denies change in bowel habits, Denies coffee ground vomit, Denies vomiting blood <Susy Wheeler - Last Filed: 12/26/17 15:19> PMFSH - History History Provided By: Patient - Medical History Medical History: Medical History (Last Updated 12/25/17 @ 13:20 by Estefania Kent RN) Emphysema lung (Acute) COPD (chronic obstructive pulmonary disease) (Acute) Tachycardia (Acute) Neck pain (Acute) Back pain (Acute) Chronic pancreatitis - Surgical History Surgical History: Surgical History (Last Updated 12/25/17 @ 18:16 by Eric Sauer) History of back surgery Hx of cholecystectomy - Tobacco History Second Hand Smoke Exposure: No Tobacco Use In Past 30 Days: No Smoking Status: Former smoker Tobacco Type: Cigarettes - Alcohol History How Often Do You Have a Drink Containing Alcohol: Never - Substance Use History Substance History: No History of Abuse - Travel History Recent Travel in the [place] Within the Last 8 Weeks: No Recent Travel Out of the Country Within the Last 8 Weeks: No - Immunization History Tetanus Immunization: <5 Years Hx Influenza Vaccine This Season: Yes <Susy Wheeler - Last Filed: 12/26/17 15:19> - Medical History Medical History: Medical History (Last Updated 12/25/17 @ 13:20 by Estefania Kent RN) Emphysema lung (Acute) COPD (chronic obstructive pulmonary disease) (Acute) Tachycardia (Acute) Neck pain (Acute) Back pain (Acute) Chronic pancreatitis - Surgical History Surgical History: Surgical History (Last Updated 12/25/17 @ 18:16 by Eric Sauer) History of back surgery Hx of cholecystectomy <Rodolfo Cruz - Last Filed: 12/26/17 18:52> Medications and Allergies Active Medications: Active Medications Al Hydroxide/Mg Hydroxide (Milk Of Magncorinne Liq) 30 ml PO Q12H PRN PRN Reason: Mild Constipation Last Admin: 12/26/17 09:58 Dose: 30 ml Albuterol (Duoneb Neb (Prn)) 1 ampul NEB Q4HR NEB PRN PRN Reason: SHORTNESS OF BREATH/WHEEZING Lipase/Protease/Amylase (Reza Villanueva ) 3 cap PO TIDAC [facility] Last Admin: 12/26/17 12:36 Dose: 3 cap Bisacodyl (Dulcolax Supp) 10 mg RECTAL DAILY PRN PRN Reason: SEVERE CONSITIPATION Heparin Sodium (Porcine) (Heparin Inj) 5,000 units SQ Q12HR [facility] Last Admin: 12/26/17 09:53 Dose: 5,000 units Lactated Ringer's (Lr 1000 Ml Inj) 1,000 mls @ 150 mls/hr IV.CONT .Q6H40M [facility] Last Admin: 12/26/17 09:56 Dose: Not Given Ketorolac Tromethamine (Toradol Inj) 30 mg IV.PUSH Q6H PRN PRN Reason: Pain 1-5 Stop: 12/30/17 17:55 Lactulose (Lactulose Liq) 30 ml PO DAILY PRN PRN Reason: SEVERE CONSITIPATION Morphine Sulfate (Morphine Inj) 2 mg IV.PUSH Q3H PRN PRN Reason: PAIN 6-10;IF UNABLE TO TAKE PO Last Admin: 12/26/17 13:58 Dose: 2 mg Promethazine HCl (Phenergan Inj) 25 mg IM Q6H PRN PRN Reason: NAUSEA OR VOMITING Senna/Docusate Sodium (Elinor-Colace) 1 tab PO BID [facility] Last Admin: 12/26/17 09:52 Dose: 1 tab Sennosides (Senokot) 17.2 mg PO Q12H PRN PRN Reason: Moderate Constipation Sodium Chloride (Ns Flush) 2 ml IV.FLUSH BID [facility] Last Admin: 12/26/17 09:53 Dose: Not Given Sodium Chloride (Ns Flush) 2 ml IV.FLUSH PRN PRN PRN Reason: FLUSH AFTER USING IV ACCESS Temazepam (Restoril) 15 mg PO HS PRN PRN Reason: INSOMNIA Last Admin: 12/25/17 22:28 Dose: 15 mg <Susy Wheeler - Last Filed: 12/26/17 15:19> Active Medications: Active Medications Al Hydroxide/Mg Hydroxide (Milk Of Magnesia Liq) 30 ml PO Q12H PRN PRN Reason: Mild Constipation Last Admin: 12/26/17 09:58 Dose: 30 ml Albuterol (Duoneb Neb (Prn)) 1 ampul NEB Q4HR NEB PRN PRN Reason: SHORTNESS OF BREATH/WHEEZING Lipase/Protease/Amylase (Reza Villanueva ) 3 cap PO TIDAC [facility] Last Admin: 12/26/17 18:06 Dose: 3 cap Bisacodyl (Dulcolax Supp) 10 mg RECTAL DAILY PRN PRN Reason: SEVERE CONSITIPATION Heparin Sodium (Porcine) (Heparin Inj) 5,000 units SQ Q12HR [facility] Last Admin: 12/26/17 09:53 Dose: 5,000 units Lactated Ringer's (Lr 1000 Ml Inj) 1,000 mls @ 150 mls/hr IV.CONT .Q6H40M [facility] Last Admin: 12/26/17 16:55 Dose: 150 mls/hr Ketorolac Tromethamine (Toradol Inj) 30 mg IV.PUSH Q6H PRN PRN Reason: Pain 1-5 Stop: 12/30/17 17:55 Last Admin: 12/26/17 18:08 Dose: 30 mg Lactulose (Lactulose Liq) 30 ml PO DAILY PRN PRN Reason: SEVERE CONSITIPATION Promethazine HCl (Phenergan Inj) 25 mg IM Q6H PRN PRN Reason: NAUSEA OR VOMITING Senna/Docusate Sodium (Elinor-Colace) 1 tab PO BID [facility] Last Admin: 12/26/17 09:52 Dose: 1 tab Sennosides (Senokot) 17.2 mg PO Q12H PRN PRN Reason: Moderate Constipation Sodium Chloride (Ns Flush) 2 ml IV.FLUSH BID [facility] Last Admin: 12/26/17 09:53 Dose: Not Given Sodium Chloride (Ns Flush) 2 ml IV.FLUSH PRN PRN PRN Reason: FLUSH AFTER USING IV ACCESS Temazepam (Restoril) 15 mg PO HS PRN PRN Reason: INSOMNIA Last Admin: 12/25/17 22:28 Dose: 15 mg Tramadol HCl (Ultram) 50 mg PO Q8H PRN PRN Reason: Acute Pain <Rodolfo Cruz E - Last Filed: 12/26/17 18:52> Allergies Allergy/AdvReac Type Severity Reaction Status Date / Time shellfish derived Allergy Severe Swelling Verified 12/25/17 13:20 penicillin G Allergy Mild rash Verified 12/25/17 13:20 Home Medications Medication Instructions Recorded Confirmed Type celecoxib [Celebrex] 200 mg PO HS 12/25/17 12/25/17 History ivtuvj-syfjsias-rypumuf [Creon] 36,000 unit PO TID 12/25/17 12/25/17 History tramadol 50 mg PO Q6H PRN 12/25/17 12/25/17 History Exam Vital signs: Vital Signs 12/25/17 17:19 12/25/17 20:00 12/26/17 00:00 Temperature 98.1 F 98.1 F 98 F Pulse Rate 76 78 75 Respiratory Rate 16 19 18 Blood Pressure 138/81 136/79 126/68 Pulse Oximetry 98 97 97 12/26/17 08:00 12/26/17 12:00 Temperature 97.8 F 97.9 F Pulse Rate 73 70 Respiratory Rate 18 18 Blood Pressure 138/82 123/82 Pulse Oximetry 96 95 Intake & Output 12/25/17 12/26/17 12/26/17 18:59 06:59 18:59 Intake Total 1000 / 1000 1000 / 1000 Balance 1000 / 1000 1000 / 1000 Weight 65.317 kg Intake: IV 1000 / 1000 1000 / 1000 LR 1000 mL Inj 1,000 ML @ 150 1000 / 1000 mls/hr IV.CONT .Q6H40M [facility] Rx#: [id number] NS Inj 1,000 ML @ Wide Open IV. 1000 / 1000 SIG BOLUS ONE Rx#:[id number] Other: Date of Last Bowel Movement 12/23/17 - Constitutional no acute distress - Routine HEENT Exam Head: Present: normocephalic, atraumatic - Routine Respiratory Exam Present: CTA bilaterally. Absent: accessory muscle use - Routine Cardiovascular Exam Present: RRR - Routine Abdominal Exam Present: soft, normoactive bowel sounds, tenderness (diffuse abdominal tenderness ). Absent: distended, rebound, guarding, firm - Routine Skin Exam Present: dry, warm - Routine Neurological Exam Present: alert, oriented X3 <Susy Wheeler - Last Filed: 12/26/17 15:19> Vital signs: Vital Signs 12/25/17 20:00 12/26/17 00:00 12/26/17 08:00 Temperature 98.1 F 98 F 97.8 F Pulse Rate 78 75 73 Respiratory Rate 19 18 18 Blood Pressure 136/79 126/68 138/82 Pulse Oximetry 97 97 96 12/26/17 12:00 12/26/17 16:00 Temperature 97.9 F 97.8 F Pulse Rate 70 76 Respiratory Rate 18 18 Blood Pressure 123/82 136/83 Pulse Oximetry 95 93 L Intake & Output 12/25/17 12/26/17 12/26/17 18:59 06:59 18:59 Intake Total 1000 / 1000 1000 / 1000 1740 / 1740 Balance 1000 / 1000 1000 / 1000 1740 / 1740 Weight 65.317 kg Intake: IV 1000 / 1000 1000 / 1000 1000 / 1000 LR 1000 mL Inj 1,000 ML @ 150 1000 / 1000 1000 / 1000 mls/hr IV.CONT .Q6H40M [facility] Rx#: [id number] NS Inj 1,000 ML @ Wide Open IV. 1000 / 1000 SIG BOLUS ONE Rx#:[id number] Oral 740 / 740 Other: # Voids 6 Date of Last Bowel Movement 12/23/17 # Bowel Movements 2 <Rodolfo Cruz - Last Filed: 12/26/17 18:52> Results - Labs CBC & Chem 7: 12/25/17 13:20 12/26/17 08:21 Labs: Laboratory Results - last 24 hr 12/25/17 12/26/17 12/26/17 16:41 08:21 08:21 Sodium 141 Potassium 4.0 Chloride 106 Carbon Dioxide 27.6 Anion Gap 7 BUN 13 Creatinine 0.82 Estimated GFR Greater than 89 Random Glucose 66 L D Calcium 10.2 H D Lipase 538 H CA 19-9 Antigen 21.1 Urine Color Straw Urine Clarity Clear Urine pH 5.0 Ur Specific [place] 1.047 H Urine Protein Negative Urine Glucose (UA) 50 Urine Ketones 20 Urine Occult Blood Negative Urine Nitrate Negative Urine Bilirubin Negative Urine Urobilinogen 2.0 H Ur Leukocyte Esterase Negative Urine RBC Less than 1 Urine WBC Less than 1 Urine Mucus Few H Micro UA Comment Culture not ind Urine Culture Comments Culture not ind - Imaging Impressions Abdomen/Pelvis CT 12/25/17 13:14 CONCLUSION: Findings of acute pancreatitis involving the body and tail without evidence of pseudocyst. Dilatation of the common bile duct is likely related to reservoir effect though considering the acute pancreatitis pancreatic malignancy should be excluded with certainty. <Susy Wheeler - Last Filed: 12/26/17 15:19> - Labs CBC & Chem 7: 12/25/17 13:20 12/26/17 08:21 Labs: Laboratory Results - last 24 hr 12/26/17 12/26/17 12/26/17 08:21 08:21 08:21 Sodium 141 Potassium 4.0 Chloride 106 Carbon Dioxide 27.6 Anion Gap 7 BUN 13 Creatinine 0.82 Estimated GFR Greater than 89 Random Glucose 66 L D Calcium 10.2 H D Lipase 538 H CA 19-9 Antigen 21.1 Vitamin B12 479 <Rodolfo Cruz - Last Filed: 12/26/17 18:52> Assessment and Plan (1) Acute pancreatitis Status: Acute Code(s): K85.90 - Acute pancreatitis without necrosis or infection, unspecified - Plan Assessment: - Acute pancreatitis with history significant for multiple episodes of pancreatitis in the past, history of pancreatic pseudocyst, chronic pancreatitis on Creon at home, previous GJ related to persistent pancreatitis. History of ETOH abuse, quit drinking 2 years ago. Lipase 1148 on admission Previous office records: EUS (11/2016) Pancreatic pseudocyst 1.7 cm, homogenous , hypoechoic, otherwise normal EUS with no lymphadenopathy. Previous GJ tube placed for persistent pancreatitis was also removed at that time. EGD (September 2016) Gastritis, esophagitis, hiatal hernia. Colonoscopy (August 2015) Diverticulosis in the sigmoid and descending colon, internal and external hemorrhoids. - Abnormal imaging CT abdomen and pelvis W IV contrast (12/25) Findings of acute pancreatitis involving the body and tail without evidence of pseudocyst. Dilatation of the common bile duct is likely related to reservoir effect though considering the acute pancreatitis pancreatic malignancy should be excluded with certainty. CA 19-9 21.1 Cholecystectomy reported in June of last year Pt denies any significant weight loss, states lost a lot of weight after cholecystectomy but has been regaining weight since then. Plan: MRCP W and WO contrast Pain control Antiemetics PRN IVF Creon when taking PO Further recommendations based on findings Pt has been seen and examined by myself and Dr. Cruz and this note is written on his behalf <Susy Wheeler - Last Filed: 12/26/17 15:19> (1) Acute pancreatitis Status: Acute Code(s): K85.90 - Acute pancreatitis without necrosis or infection, unspecified - Attending Attestation Patient was seen and examined Agree with above Continue with current supportive care Monitor labs Await MRCP May consider endoscopic ultrasound pending MRCP results <Rodolfo Cruz - Last Filed: 12/26/17 18:52>
--- NOTE | 2017-12-26 17:35 | ECG ---
Date Performed: 12/25/2017 Time Performed: 14:00:44 PTAGE: 61 years EKG: Sinus rhythm NORMAL ECG Since PREVIOUS TRACING , no significant change noted PREVIOUS TRACIN06/24/2017 22.24 DOCTOR: Jaime Matthews Interpretating Date/Time 12/26/2017 17:33:18
[2017-12-26] MEDS: Ketorolac Inj 30 MG/ML (IVP) Vial IV.PUSH PRN (18:08)
[2017-12-26] MEDS ORDERED: Gadobenate Dimeglumine PF Inj 10 ML VIAL (for RAD MRI) IVCONTRAST ONE (19:45)
--- NOTE | 2017-12-26 23:38 | MR ---
EXAM DATE: 12/26/2017 8:22 PM EDT AGE/SEX: 61 years / Male INDICATIONS: . Pancreatic malignancy CLINICAL DATA: This is the patient's initial encounter. Patient reports that signs and symptoms have been present for 1 month and indicates a pain score of 8/10. MEDICAL/SURGICAL HISTORY: Pancreatitis. Chronic obstructive pulmonary disease. Cholecystectomy . Back sx. COMPARISON: No prior exams available for comparison. TECHNIQUE: Multisequence, multiplanar MRI examination was performed without contrast and after the in travenous administration of 12 ml Multihance (gadobenate) contrast as a single exam dose. FINDINGS: There is previous cholecystectomy. The common bile duct is dilated up to 17 mm in diameter. No eviden ce for choledocholithiasis. Minimal intrahepatic biliary ductal dilatation. There are some mild inflammatory changes around the pancreas characteristic of mild pancreatitis. Quevedo creatic duct is slightly dilated at about 4 mm. No pancreatic mass is identified on this exam. No significant abnormality in the liver and spleen. Bilateral renal cysts noted. No free fluid. No ad enopathy. No evidence for bowel obstruction. CONCLUSION: 1. No pancreatic mass identified. 2. Mild pancreatitis with biliary ductal and pancreatic ductal dilatation as above. No evidence for choledocholithiasis. Previous cholecystectomy. Electronically signed by: Miguelito Rubio MD 12/26/2017 11:37 PM EDT
[2017-12-27] MEDS: Ketorolac Inj 30 MG/ML (IVP) Vial IV.PUSH PRN ×3 (00:05→12:07)
[2017-12-27] MEDS: Temazepam 15 MG Capsule PO PRN (00:08)
[2017-12-27] MEDS: Lipase/Protease/Amylase 12/38/60 DR Capsule PO SCH ×2 (08:32→12:06)
[2017-12-27] MEDS: Heparin - SQ 10,000 UNITS/ML Vial SQ SCH (08:32)
[2017-12-27] MEDS: Senna/Docusate Sodium 8.6/50 MG Tablet PO SCH (08:33)
--- NOTE | 2017-12-27 10:54 | P.PN ---
Subjective Interval history: Nursing denies any deterioration since last night. Patient reports tolerating p.o. intake well this morning. Pain is minimal. No nausea vomiting. MRCP was negative for any pancreatic mass suggestive of cancer. Physical Exam Vital signs: Vital Signs 12/26/17 12:00 12/26/17 16:00 12/26/17 20:00 Temperature 97.9 F 97.8 F 97.7 F Pulse Rate 70 76 73 Respiratory Rate 18 18 17 Blood Pressure 123/82 136/83 167/92 H Pulse Oximetry 95 93 L 96 12/27/17 00:00 12/27/17 01:10 12/27/17 08:00 Temperature 97.8 F 98.0 F Pulse Rate 80 71 Respiratory Rate 18 Blood Pressure 144/88 H 134/87 Pulse Oximetry 96 95 Intake & Output 12/26/17 12/27/17 12/27/17 18:59 06:59 18:59 Intake Total 1740 / 1740 1480 / 1480 1000 / 1000 Balance 1740 / 1740 1480 / 1480 1000 / 1000 Intake: IV 1000 / 1000 1000 / 1000 1000 / 1000 LR 1000 mL Inj 1,000 ML @ 150 1000 / 1000 1000 / 1000 1000 / 1000 mls/hr IV.CONT .Q6H40M [facility] Rx#: [id number] Oral 740 / 740 480 / 480 Other: # Voids 6 2 Date of Last Bowel Movement 12/23/17 # Bowel Movements 2 Narrative: Pleasant spirits this morning Abdomen soft, only minimal tenderness to deep palpation, nondistended Results - Labs CBC & Chem 7: 12/25/17 13:20 12/26/17 08:21 Laboratory Results - last 24 hr 12/26/17 12/26/17 08:21 08:21 CA 19-9 Antigen 21.1 Vitamin B12 479 - Imaging Impressions Cholangiopancreatography MRI 12/26/17 00:00 CONCLUSION: 1. No pancreatic mass identified. 2. Mild pancreatitis with biliary ductal and pancreatic ductal dilatation as above. No evidence for choledocholithiasis. Previous cholecystectomy. Assessment and Plan - Plan Acute recurrent pancreatitis -Clinically improved. Tolerating p.o. intake. Pseudocyst versus pancreatic cancer MRCP overall negative. Follow-up GI outpatient. COPD, not exacerbated as needed duonebs Memory loss -B12 level seems to be within normal limits. TSH unremarkable. Follow-up PCP, patient instructed. Patient has met maximal benefit from hospitalization is clinically stable for discharge.
== END 2017-12-27 12:39 | disposition home or self-care (01) ==
LOC: NEPE 13:07 → NEDH 18:05 → N07 18:52
PROVIDERS: ADMIT Hospitalist; ATTEND Hospitalist
DX: J43.9 Emphysema, unspecified; K86.3 Pseudocyst of pancreas; K85.90 Acute pancreatitis without necrosis or infection, unspecified; R41.3 Other amnesia; I25.2 Old myocardial infarction; C25.9 Malignant neoplasm of pancreas, unspecified; Z87.891 Personal history of nicotine dependence

== ENCOUNTER 2018-04-26 10:49 | Observation (INO) ==
[2018-04-26] MEDS ORDERED: Morphine Inj 4 MG/ML Vial IV.PUSH ONE (11:02)
--- NOTE | 2018-04-26 11:14 | ED ---
HPI General Chief complaint: Shortness of Breath/Dyspnea Stated complaint: Neck pain Time Seen by Provider: 04/26/18 10:55 Source: patient and EMS Mode of arrival: EMS Limitations: no limitations History of Present Illness HPI narrative: Patient is a 62-year-old male here today for multiple complaints the main one being generalized abdominal pain, chronic neck discomfort that is getting worse today, and some shortness of breath. He does have a history of pancreatitis, emphysema, migraines.. He is supposed to be on home O2 but did not use it last 24 hours. He reports intermittent nausea denies vomiting denies diarrhea. Pt is not cooperative for examination, he is rolled on R side in a position and declining to sit up for examination. Nothing has made breathing or abdominal, neck pain better, palpation of abdomen and neck make it worse. Denies etoh use, denies significant hyperlipidemia. Onset (ago): hour(s) Location: neck and abdomen Radiation: non-radiation Severity: moderate Severity scale (1-10): 6 Quality: aching Relieving factors: none Exacerbating factors: eating, movement and other (palpation. ) Associated symptoms: Reports loss of appetite and shortness of breath; Denies confusion, chest pain, cough, diaphoresis, fever/chills, headaches, malaise, nausea/vomiting, rash, seizure, syncope and weakness Related Data Home Medications Medication Instructions Recorded Confirmed celecoxib [Celebrex] 200 mg PO HS 12/25/17 04/26/18 [id number] [Creon] 36,000 unit PO TID 12/25/17 04/26/18 tramadol 50 mg PO Q6H PRN 12/25/17 04/26/18 amitriptyline 5 mg PO DAILY 04/26/18 04/26/18 amlodipine 5 mg PO DAILY 04/26/18 04/26/18 prednisone 2.5 mg PO DAILY 04/26/18 04/26/18 vit B complex 100 combo no.2 04/26/18 vit D3-folic [id number] 04/26/18 Previous Rx's Medication Instructions Recorded bpggikmyrj-psuaynnzxyncz-ekxa 1 cap PO Q6HR PRN #12 cap 03/16/18 [Fioricet] ondansetron [Zofran ODT] 4 mg PO Q8H PRN #10 tab 03/16/18 Allergies Allergy/AdvReac Type Severity Reaction Status Date / Time shellfish derived Allergy Severe Swelling Verified 03/16/18 21:26 penicillin G Allergy Mild rash Verified 03/16/18 21:26 Review of Systems ROS: all other systems reviewed are negative [facility] Family History Family History Father COPD (chronic obstructive pulmonary disease) Social History Social History Substance History: No History of Abuse Second Hand Smoke Exposure: No Smoking Status: Former smoker Tobacco Type: Cigarettes How Often Do You Have a Drink Containing Alcohol: Monthly or less Recent Travel in [facility] within the Last 8 Weeks: No Recent Out of Country Travel within the Last 8 Weeks: No Immunization History Tetanus Immunization: <5 Years Exam Narrative Exam Narrative: GENERAL: Patient awake alert oriented. SKIN: Focused skin assessment warm/dry, pt is pale, no diaphoresis. HEAD: Atraumatic. Normocephalic. EYES: Pupils equal and round. No scleral icterus. No injection or drainage. ENT: No nasal bleeding or discharge. Mucous membranes pink and moist. NECK: Trachea midline. No JVD. CARDIOVASCULAR: Regular rate and rhythm. No murmur appreciated. RESPIRATORY: No accessory muscle use. Diminished to auscultation-generalized. Breath sounds equal bilaterally. GASTROINTESTINAL: Abdomen soft, (+) diffuse tenderness, again difficult to asses as pt will not move out of position, nondistended. (+) bowel sounds , Hepatic and splenic margins not palpable. MUSCULOSKELETAL: No obvious deformities. No clubbing. No cyanosis. No edema. Mild discomfort of cervical spine. NEUROLOGICAL: Awake and alert. No obvious cranial nerve deficits. Motor grossly within normal limits. Normal speech. PSYCHIATRIC: Appropriate mood and affect; insight and judgment normal. Course Initial Documented Vital Signs Temperature 98.8 F 04/26/18 10:55 Pulse Rate 98 H 04/26/18 10:55 Respiratory Rate 20 04/26/18 10:55 Blood Pressure 141/89 H 04/26/18 10:55 Last Documented Vital Signs Temperature 98.0 F 04/27/18 12:00 Pulse Rate 108 H 04/27/18 12:00 Respiratory Rate 16 04/27/18 12:00 Blood Pressure 137/83 04/27/18 12:00 Pulse Oximetry 97 04/27/18 12:00 Medical Decision Making DEBBIE Attestation DEBBIE supervised visit: Yes Attestation: I, Dr. Mccabe, have reviewed the advance practice practitioner's documentation and am in agreement, met with the patient face to face, made the diagnosis, and the medical decision making was done by me. *My assessment and Findings: Patient is a 62 year old male who comes in complaining of neck and abdominal pain. He says he has had the neck pain for years, but the abdominal pain just started this morning. Exam shows tenderness to his lower abdominal area and diffusely. IV established, labs sent. Given pain medicine. Labs concerning for elevated troponin. Given a dose of aspirin. Will be placed in observation for further management. MDM Narrative Medical decision making narrative: Medical decision making narrative: During the course of the patients emergency department visit, the patients history, examination, and differential diagnosis were reviewed with the patient. The patient was placed on a medical records secretary with oximetry and frequent blood pressure monitoring. EFORSCE done and last fill of tramadol was 03/27/18 The patient was initially provided IVNS at rate of 250/hr, 2mg morphine iv, Bentyl IM, and 162mg asa po x 1 dose. labwork, ua, ekg, CT abdomen The patients laboratory studies were reviewed and remarkable for 16.1 white blood cell count which is chronic for him due to emphysema and being on long- term prednisone, mild decline in renal function GFR of 44 mild elevation of calcium lipase is normal at 56, troponin with mild elevation at 0.06. EKG is showing normal sinus rhythm at a rate of 92 IN interval is 151 QRS duration 101. Rate is [address] elevations or inversions. Radiology studies were reviewed and remarkable for No acute abnormality seen. Moderate stool in colon. Significant inflammatory change or dilatation is not seen. The pancreas appears normal. The patient previously had signs of pancreatitis. Renal cysts. Biliary duct dilatation likely reflecting a reservoir phenomenon following cholecystectomy. Suspected incidental hypodensities in the liver and spleen. CONCLUSION: Hyperinflated otherwise negative for acute process. I spoke with Dr. MORE who is agreeable to admitting patient for MedSurg observation with telemetry. Medical Screen Exam Complete: Yes Emergency Medical Condition: Yes Medical Screen Exam Complete: Yes Emergency Medical Condition: Yes Lab Data Result diagrams: 04/27/18 06:15 04/27/18 13:28 Lab Results 04/26/18 04/26/18 04/26/18 Range/Units 11:18 11:18 17:05 WBC 16.1 H (4.0-11.0) th/mm3 RBC 5.88 (4.50-5.90) mil/mm3 Hgb 18.0 H (13.0-17.0) gm/dL Hct 55.1 H (39.0-51.0) % MCV 93.8 (80.0-100.0) fL MCH 30.7 (27.0-34.0) pg MCHC 32.7 (32.0-36.0) % RDW 15.4 (11.6-17.2) % Plt Count 189 (150-450) th/mm3 MPV 8.1 (7.0-11.0) fL Neut % (Auto) 82.2 H (16.0-70.0) % Lymph % (Auto) 5.6 L (9.0-44.0) % [place] % (Auto) 8.3 H (0.0-8.0) % Eos % (Auto) 3.4 (0.0-4.0) % Baso % (Auto) 0.5 (0.0-2.0) % Neut # (Auto) 13.2 H (1.8-7.7) th/mm3 Lymph # (Auto) 0.9 L (1.0-4.8) th/mm3 [place] # (Auto) 1.3 H (0.0-0.9) th/mm3 Eos # (Auto) 0.5 H (0.0-0.4) th/mm3 Baso # (Auto) 0.1 (0.0-0.2) th/mm3 WBC Differential . Differential Comment Auto diff final Sodium 137 (136-145) meq/L Potassium 5.0 (3.5-5.1) meq/L Chloride 101 (98-107) meq/L Carbon Dioxide 24.1 (21.0-32.0) meq/L Anion Gap 12 (5-15) meq/L BUN 31 H (7-18) mg/dL Creatinine 1.61 H (0.60-1.30) mg/dL Estimated GFR 44 L (>89) mL/min Random Glucose 225 H (74-106) mg/dL Calcium 10.8 H (8.5-10.1) mg/dL Magnesium 2.2 (1.5-2.5) mg/dL Total Bilirubin 1.6 H (0.2-1.0) mg/dL Direct Bilirubin (0.0-0.2) mg/dL Indirect Bilirubin (0.0-0.8) mg/dL AST 48 H (15-37) U/L ALT 34 (12-78) U/L Alkaline Phosphatase 93 (45-117) U/L Troponin I 0.06 H 0.06 H (0.02-0.05) ng/mL Total Protein 7.7 (6.4-8.2) g/dL Albumin 4.1 (3.4-5.0) g/dL Lipase 56 L (73-393) U/L Urine Color (Yellw/Straw) Urine Clarity (Clear) Urine pH (5.0-8.5) Ur Specific [place] (1.002-1.035) Urine Protein (Neg-Trace) mg/dL Urine Glucose (UA) (Negative) mg/dL Urine Ketones (Negative) mg/dL Urine Occult Blood (Negative) Urine Nitrate (Negative) Urine Bilirubin (Negative) Urine Urobilinogen (Less than 2) mg/dL Ur Leukocyte Esterase (Negative) Urine RBC (0-3) /hpf Urine WBC (0-5) /hpf Urine Mucus (Occasional) /lpf Micro UA Comment Ur Microscopic Review Urine Culture Comments 04/26/18 04/26/18 04/27/18 Range/Units 22:34 22:45 06:15 WBC 22.2 H (4.0-11.0) th/mm3 RBC 5.58 (4.50-5.90) mil/mm3 Hgb 16.8 (13.0-17.0) gm/dL Hct 51.5 H (39.0-51.0) % MCV 92.4 (80.0-100.0) fL MCH 30.2 (27.0-34.0) pg MCHC 32.7 (32.0-36.0) % RDW 15.1 (11.6-17.2) % Plt Count 170 (150-450) th/mm3 MPV 8.3 (7.0-11.0) fL Neut % (Auto) 89.8 H (16.0-70.0) % Lymph % (Auto) 2.1 L (9.0-44.0) % [place] % (Auto) 7.4 (0.0-8.0) % Eos % (Auto) 0.5 (0.0-4.0) % Baso % (Auto) 0.2 (0.0-2.0) % Neut # (Auto) 19.9 H (1.8-7.7) th/mm3 Lymph # (Auto) 0.5 L (1.0-4.8) th/mm3 [place] # (Auto) 1.6 H (0.0-0.9) th/mm3 Eos # (Auto) 0.1 (0.0-0.4) th/mm3 Baso # (Auto) 0.0 (0.0-0.2) th/mm3 WBC Differential . Differential Comment Auto diff final Sodium (136-145) meq/L Potassium (3.5-5.1) meq/L Chloride (98-107) meq/L Carbon Dioxide (21.0-32.0) meq/L Anion Gap (5-15) meq/L BUN (7-18) mg/dL Creatinine (0.60-1.30) mg/dL Estimated GFR (>89) mL/min Random Glucose (74-106) mg/dL Calcium (8.5-10.1) mg/dL Magnesium (1.5-2.5) mg/dL Total Bilirubin (0.2-1.0) mg/dL Direct Bilirubin (0.0-0.2) mg/dL Indirect Bilirubin (0.0-0.8) mg/dL AST (15-37) U/L ALT (12-78) U/L Alkaline Phosphatase (45-117) U/L Troponin I 0.06 H (0.02-0.05) ng/mL Total Protein (6.4-8.2) g/dL Albumin (3.4-5.0) g/dL Lipase (73-393) U/L Urine Color Yellow (Yellw/Straw) Urine Clarity Clear (Clear) Urine pH 5.0 (5.0-8.5) Ur Specific [employer] [place] 1.045 H (1.002-1.035) Urine Protein 30 H (Neg-Trace) mg/dL Urine Glucose (UA) 50 (Negative) mg/dL Urine Ketones 80 or greater H (Negative) mg/dL Urine Occult Blood Negative (Negative) Urine Nitrate Negative (Negative) Urine Bilirubin Negative (Negative) Urine Urobilinogen 2.0 H (Less than 2) mg/dL Ur Leukocyte Esterase Negative (Negative) Urine RBC 1 (0-3) /hpf Urine WBC 1 (0-5) /hpf Urine Mucus Few H (Occasional) /lpf Micro UA Comment Culture not ind Ur Microscopic Review Not Reportable Urine Culture Comments Culture not ind 04/27/18 Range/Units 13:28 WBC (4.0-11.0) th/mm3 RBC (4.50-5.90) mil/mm3 Hgb (13.0-17.0) gm/dL Hct (39.0-51.0) % MCV (80.0-100.0) fL MCH (27.0-34.0) pg MCHC (32.0-36.0) % RDW (11.6-17.2) % Plt Count (150-450) th/mm3 MPV (7.0-11.0) fL Neut % (Auto) (16.0-70.0) % Lymph % (Auto) (9.0-44.0) % [place] % (Auto) (0.0-8.0) % Eos % (Auto) (0.0-4.0) % Baso % (Auto) (0.0-2.0) % Neut # (Auto) (1.8-7.7) th/mm3 Lymph # (Auto) (1.0-4.8) th/mm3 [place] # (Auto) (0.0-0.9) th/mm3 Eos # (Auto) (0.0-0.4) th/mm3 Baso # (Auto) (0.0-0.2) th/mm3 WBC Differential Differential Comment Sodium 137 (136-145) meq/L Potassium 4.5 (3.5-5.1) meq/L Chloride 102 (98-107) meq/L Carbon Dioxide 26.4 (21.0-32.0) meq/L Anion Gap 9 (5-15) meq/L BUN 26 H (7-18) mg/dL Creatinine 1.03 (0.60-1.30) mg/dL Estimated GFR 73 L (>89) mL/min Random Glucose 108 H D (74-106) mg/dL Calcium 10.6 H (8.5-10.1) mg/dL Magnesium (1.5-2.5) mg/dL Total Bilirubin 1.4 H (0.2-1.0) mg/dL Direct Bilirubin 0.3 H (0.0-0.2) mg/dL Indirect Bilirubin 1.1 H (0.0-0.8) mg/dL AST 29 (15-37) U/L ALT 28 (12-78) U/L Alkaline Phosphatase 91 (45-117) U/L Troponin I (0.02-0.05) ng/mL Total Protein 7.3 (6.4-8.2) g/dL Albumin 3.8 (3.4-5.0) g/dL Lipase 45 L (73-393) U/L Urine Color ([place]ell[place]/Straw) Urine Clarity (Clear) Urine pH (5.0-8.5) Ur Specific [place] (1.002-1.035) Urine Protein (Neg-Trace) mg/dL Urine Glucose (UA) (Negative) mg/dL Urine Ketones (Negative) mg/dL Urine Occult Blood (Negative) Urine Nitrate (Negative) Urine Bilirubin (Negative) Urine Urobilinogen (Less than 2) mg/dL Ur Leukocyte Esterase (Negative) Urine RBC (0-3) /hpf Urine WBC (0-5) /hpf Urine Mucus (Occasional) /lpf Micro UA Comment Ur Microscopic Review Urine Culture Comments Imaging Data Radiologist's impression: Abdomen/Pelvis CT 04/26/18 11:02 CONCLUSION: 1. No acute abnormality seen. 2. Moderate stool in colon. Significant inflammatory change or dilatation is not seen. 3. The pancreas appears normal. The patient previously had signs of pancreatitis. 4. Renal cysts. 5. Biliary duct dilatation likely reflecting a reservoir phenomenon following cholecystectomy. 6. Suspected incidental hypodensities in the liver and spleen. Chest X-Ray 04/26/18 11:02 CONCLUSION: Hyperinflated otherwise negative for acute process. Discharge Plan Discharge Disposition Patient Disposition: 30 Still Patient Discharge Condition Condition: Stable Physicians Team ED Provider: Angela Mccabe ED Midlevel Provider: Abigail Kinney Primary Care Provider: UNKNOWN, Attending Provider: Suraj King Other Providers: Bennett,Vincent G Status ED Status: Left Department Discharge Information Discharge Date/Time: 04/26/18 19:00
[2018-04-26] MEDS ORDERED: Sod Chloride 0.9% Inj 1,000 ML IV.CONT SCH (11:15)
[2018-04-26 11:39] LABS: Baso # (Auto) 0.1 th/mm3 (0.0-0.2); Baso % (Auto) 0.5 % (0.0-2.0); Eos # (Auto) 0.5 th/mm3 (0.0-0.4); Eos % (Auto) 3.4 % (0.0-4.0); Hematocrit 55.1 % (39.0-51.0); Lymph # (Auto) 0.9 th/mm3 (1.0-4.8); Lymph % (Auto) 5.6 % (9.0-44.0); Mean Corpuscular HGB Conc 32.7 % (32.0-36.0); Mean Corpuscular Hemoglobin 30.7 pg (27.0-34.0); Mean Corpuscular Volume 93.8 fL (80.0-100.0); Mean Platelet Volume 8.1 fL (7.0-11.0); Mono # (Auto) 1.3 th/mm3 (0.0-0.9); Mono % (Auto) 8.3 % (0.0-8.0); Neut # (Auto) 13.2 th/mm3 (1.8-7.7); Neut % (Auto) 82.2 % (16.0-70.0); Platelet Count 189 th/mm3 (150-450); Red Blood Count 5.88 mil/mm3 (4.50-5.90); Red Cell Distribution Width 15.4 % (11.6-17.2); White Blood Count 16.1 th/mm3 (4.0-11.0)
[2018-04-26 12:00] LABS: Alkaline Phosphatase 93 U/L (45-117); Total Protein 7.7 g/dL (6.4-8.2); Troponin I 0.06 ng/mL (0.02-0.05)
--- NOTE | 2018-04-26 12:10 | XR ---
EXAM DATE: 04/26/2018 11:59 AM EST AGE/SEX: 62 years / Male INDICATIONS: . Neck pain, short of breath, wheezing. CLINICAL DATA: This is the patient's initial encounter. Patient reports that signs and symptoms have been present for 1 day and indicates a pain score of 3/10. MEDICAL/SURGICAL HISTORY: None. None. COMPARISON: [facility] [place], CHEST 1V SINGLE AP, 12/17/2017. . FINDINGS: Lungs are hyperinflated. Stable parenchymal changes in the right apex. Left lung clear The heart and pulmonary vascularity are normal. The portion of the bony skeleton visualized is unremarkable. CONCLUSION: Hyperinflated otherwise negative for acute process. Electronically signed by: Wesly Eagle MD 04/26/2018 12:08 PM EST
[2018-04-26 12:12] LABS: Alanine Aminotransferase 34 U/L (12-78); Albumin 4.1 g/dL (3.4-5.0); Anion Gap 12 meq/L (5-15); Aspartate Aminotransferase 48 U/L (15-37); Blood Urea Nitrogen 31 mg/dL (7-18); Calcium 10.8 mg/dL (8.5-10.1); Carbon Dioxide 24.1 meq/L (21.0-32.0); Chloride 101 meq/L (98-107); Glomerular Filtration Rate 44 mL/min (>89); Glucose,Random 225 mg/dL (74-106); Lipase 56 U/L (73-393); Magnesium 2.2 mg/dL (1.5-2.5); Sodium 137 meq/L (136-145)
[2018-04-26] MEDS ORDERED: Dicyclomine Inj 20 MG/2 ML Ampul IM ONE (13:09)
--- NOTE | 2018-04-26 13:20 | CT ---
EXAM DATE: 04/26/2018 1:10 PM EST AGE/SEX: 62 years / Male INDICATIONS: Diffuse abdominal pain with constipation. CLINICAL DATA: This is the patient's initial encounter. Patient reports that signs and symptoms have been present for 1 day and indicates a pain score of 8/10. MEDICAL/SURGICAL HISTORY: Hypertension. Chronic obstructive pulmonary disease. Emphysema. Cho lecystectomy. ORAL CONTRAST: No oral contrast ingested. RADIATION DOSE: 6.64 CTDI (mGy) COMPARISON: [facility] [place], CT ABDOMEN & PELVIS W CONTRAST, 12/25/2017. [facility] [place], CT ABDOMEN & PELVIS W CONTRAST , 10/12/2016. . TECHNIQUE: Multiple contiguous axial images were obtained through the abdomen and pelvis following b olus infusion of 70 ml Omnipaque 350 (iohexol) nonionic water-soluble contrast as a single exam dos e. No oral contrast ingested. Using automated exposure control and adjustment of the mA and/or kV ac cording to patient size, radiation dose was kept as low as reasonably achievable to obtain optimal di agnostic quality images. DICOM format image data is available electronically for review and comparis on. FINDINGS: Lower Lungs: The visualized lower lungs are clear. Liver: There is dilation of the biliary tree. The common bile duct measures 1.6 cm. This likely refle cts a reservoir phenomenon following cholecystectomy. There is a 1.4 cm hypodensity seen in the anter ior aspect of the medial segment the left lobe of the liver. This could be an area of focal infiltrat ion. It is unchanged from the prior exam. Spleen: There is a 1.5 cm decreased enhancement seen at the anterior aspect of the spleen. This is n onspecific. This could be secondary to differential enhancement of the spleen versus an underlying le mandeep such as a hemangioma or other lesion. Pancreas: Unremarkable without mass or calcification. There is mild dilatation of pancreatic duct me asuring 4 mm. The fat around the pancreas appears intact. It previously appeared indurated from pancr eatitis. Kidneys: There is cystic change at the kidneys bilaterally including a mildly complex cyst at the me dial upper right kidney measuring 4 cm in diameter with a calcified septation. Solid masses, hydronep hrosis or renal stones are not seen. Adrenal Glands: Unremarkable. Aorta: The aorta and proximal iliac vessels are grossly unremarkable without aneurysmal dilation. T here is mild atherosclerotic calcifications. Bowel/Mesentery: There is a moderate amount stool in the colon. Bowel dilatation is not seen. The ap pendix appears normal. Significant inflammatory change is not seen. There are clips seen at the left upper quadrant adjacent to the anterior abdominal wall presumably from prior PEG tube placement. Abdominal Wall: Intact. Retroperitoneum: No evidence of adenopathy in the retrocrural, para-aortic, or deep pelvic regions. Bladder: Contours are smooth. Reproductive Organs: No abnormal masses or calcifications seen. Inguinal: The inguinal region is unremarkable without evidence of adenopathy. Bony Structures: Unremarkable. CONCLUSION: 1. No acute abnormality seen. 2. Moderate stool in colon. Significant inflammatory change or dilatation is not seen. 3. The pancreas appears normal. The patient previously had signs of pancreatitis. 4. Renal cysts. 5. Biliary duct dilatation likely reflecting a reservoir phenomenon following cholecystectomy. 6. Suspected incidental hypodensities in the liver and spleen. Electronically signed by: Sonny Daigle MD 04/26/2018 1:19 PM EST
[2018-04-26] MEDS ORDERED: Acetaminophen 325 MG Tablet PO PRN (16:19)
[2018-04-26] MEDS ORDERED: Bisacodyl 10 MG Supp RECTAL PRN (16:19)
--- NOTE | 2018-04-26 16:30 | P.HPIM ---
History of Present Illness Primary Care Physician: UNKNOWN Chief Complaint: abdominal pain History of Present Illness: Patient is a 62-year-old male here today for multiple complaints the main one being generalized abdominal pain, chronic neck discomfort that is getting worse today, and some shortness of breath. He does have a history of pancreatitis, emphysema, migraines. He is supposed to be on home O2 but did not use it last 24 hours. He reports intermittent nausea denies vomiting denies diarrhea. Pt is not cooperative for examination, he is rolled on R side in a position and declining to sit up for examination. Nothing has made breathing or abdominal, neck pain better, palpation of abdomen and neck make it worse. Denies etoh use, denies significant hyperlipidemia. The pain is aching, non-radiating, moderate, 6/10 in intensity The pain is worse with eating, movement and palpation. Reports associated loss of appetite and shortness of breath. Denies cough, diaphoresis, fever/chills, headaches, malaise, nausea/vomiting, rash, seizure, syncope and weakness Review of Systems All other systems reviewed negative except as stated in HPI PMFSH - History History Provided By: Patient - Medical History Medical History: Medical History (Last Reviewed 04/26/18 @ 16:24 by Aliza Holly MD) Chronic pancreatitis (Acute) Emphysema lung (Acute) COPD (chronic obstructive pulmonary disease) (Acute) Tachycardia (Acute) Neck pain (Acute) Back pain (Acute) - Surgical History Surgical History: Surgical History (Last Reviewed 04/26/18 @ 16:24 by Aliza Holly MD) History of back surgery (Acute) Hx of cholecystectomy (Acute) - Family History Family History: Family History (Last Updated 04/26/18 @ 18:38 by Aliza Holly MD) Father COPD (chronic obstructive pulmonary disease) - Tobacco History Second Hand Smoke Exposure: No Tobacco Use In Past 30 Days: No Smoking Status: Former smoker Tobacco Type: Cigarettes - Alcohol History How Often Do You Have a Drink Containing Alcohol: Monthly or less - Substance Use History Substance History: No History of Abuse - Travel History Recent Travel in the [place] Within the Last 8 Weeks: No Recent Travel Out of the Country Within the Last 8 Weeks: No - Immunization History Tetanus Immunization: <5 Years Medications and Allergies Active Medications: Active Medications Acetaminophen (Tylenol) 650 mg PO Q4H PRN PRN Reason: Temp > 100.4 Al Hydroxide/Mg Hydroxide (Milk Of Magnesia Liq) 30 ml PO Q12H PRN PRN Reason: Mild Constipation Amitriptyline HCl (Elavil) 5 mg PO DAILY LYLA Bisacodyl (Dulcolax Supp) 10 mg RECTAL DAILY PRN PRN Reason: SEVERE CONSITIPATION Celecoxib (Celebrex) 200 mg PO HS [facility] Lactulose (Lactulose Liq) 30 ml PO DAILY PRN PRN Reason: SEVERE CONSITIPATION Non-Formulary Medication (Prednisone [Prednisone]) 2.5 mg PO DAILY [facility] Non-Formulary Medication (Spgblg-Omtzertn-Nzjhwmg [Creon]) 36,000 unit PO TID [facility] Ondansetron HCl (Zofran Odt) 4 mg PO Q8H PRN PRN Reason: nausea and vomiting Ondansetron HCl (Zofran Inj) 4 mg IV.PUSH Q6H PRN PRN Reason: NAUSEA OR VOMITING Senna/Docusate Sodium (Elinor-Colace) 1 tab PO BID [facility] Sennosides (Senokot) 17.2 mg PO Q12H PRN PRN Reason: Moderate Constipation Sodium Chloride (Ns Flush) 2 ml IV.FLUSH PRN PRN PRN Reason: FLUSH AFTER USING IV ACCESS Last Admin: 04/26/18 13:26 Dose: 2 ml Tramadol HCl (Ultram) 50 mg PO Q6H PRN PRN Reason: Pain Allergies Allergy/AdvReac Type Severity Reaction Status Date / Time shellfish derived Allergy Severe Swelling Verified 03/16/18 21:26 penicillin G Allergy Mild rash Verified 03/16/18 21:26 Home Medications Medication Instructions Recorded Confirmed Type celecoxib [Celebrex] 200 mg PO HS 12/25/17 04/26/18 History asijfp-eputwnin-zbkyqzg [Creon] 36,000 unit PO TID 12/25/17 04/26/18 History tramadol 50 mg PO Q6H PRN 12/25/17 04/26/18 History amitriptyline 5 mg PO DAILY 04/26/18 04/26/18 History amlodipine 5 mg PO DAILY 04/26/18 04/26/18 History prednisone 2.5 mg PO DAILY 04/26/18 04/26/18 History vit B complex 100 combo no.2 04/26/18 History vit D3-folic [id number] 04/26/18 History Exam Vital signs: Vital Signs 04/26/18 10:55 Temperature 98.8 F Pulse Rate 98 H Respiratory Rate 20 Blood Pressure 141/89 H Intake & Output 04/25/18 04/26/18 04/26/18 18:59 06:59 18:59 Weight 65.771 kg Narrative: GENERAL: 62 yo male, well nourished well developed patient, appears in nad. SKIN: Warm and dry. HEAD: Normocephalic. EYES: No scleral icterus. No injection or drainage. NECK: Supple, trachea midline. No JVD or lymphadenopathy. CARDIOVASCULAR: Regular rate and rhythm without murmurs, gallops, or rubs. RESPIRATORY: Breath sounds equal bilaterally. No accessory muscle use. GASTROINTESTINAL: Abdomen soft, non-tender, nondistended. MUSCULOSKELETAL: No cyanosis, or edema. BACK: Nontender without obvious deformity. No CVA tenderness. Results - Labs CBC & Chem 7: 04/26/18 11:18 04/26/18 11:18 Labs: Short CBC 04/26/18 Range/Units 11:18 WBC 16.1 H (4.0-11.0) th/mm3 Hgb 18.0 H (13.0-17.0) gm/dL Hct 55.1 H (39.0-51.0) % Plt Count 189 (150-450) th/mm3 BMP 04/26/18 11:18 Sodium 137 Potassium 5.0 Chloride 101 Carbon Dioxide 24.1 BUN 31 H Creatinine 1.61 H Calcium 10.8 H Cardiac Enzymes 04/26/18 Range/Units 11:18 Troponin I 0.06 H (0.02-0.05) ng/mL Liver Function 04/26/18 Range/Units 11:18 Total Bilirubin 1.6 H (0.2-1.0) mg/dL AST 48 H (15-37) U/L ALT 34 (12-78) U/L Alkaline Phosphatase 93 (45-117) U/L Albumin 4.1 (3.4-5.0) g/dL - Imaging Impressions Abdomen/Pelvis CT 04/26/18 11:02 CONCLUSION: 1. No acute abnormality seen. 2. Moderate stool in colon. Significant inflammatory change or dilatation is not seen. 3. The pancreas appears normal. The patient previously had signs of pancreatitis. 4. Renal cysts. 5. Biliary duct dilatation likely reflecting a reservoir phenomenon following cholecystectomy. 6. Suspected incidental hypodensities in the liver and spleen. Chest X-Ray 04/26/18 11:02 CONCLUSION: Hyperinflated otherwise negative for acute process. Caprini VTE Risk Assessment Caprini VTE Risk Assessment: Moderate/High Risk (score >= 2) Caprini Risk Assessment Model: Point Value = 1 Point Value = 2 Point Value = 3 Point Value = 5 Age 41-60 Minor surgery BMI > 25 kg/m2 Swollen legs Varicose veins or History of unexplained or recurrent spontaneous Oral contraceptives or hormone replacement Sepsis (< 1 month) Serious lung disease, including pneumonia (< 1 month) Abnormal pulmonary function Acute myocardial infarction Congestive heart failure (< 1 month) History of inflammatory bowel disease Medical patient at bed rest Age 61-74 Arthroscopic surgery Major open surgery (> 45 min) Laparoscopic surgery (> 45 min) Malignancy Confined to bed (> 72 hours) Immobilizing plaster cast Central venous access Age >= 75 History of VTE Family history of VTE Factor V Leiden Prothrombin [id number] Lupus anticoagulant Anticardiolipin antibodies Elevated serum homocysteine Heparin-induced thrombocytopenia Other congenital or acquired thrombophilia Stroke (< 1 month) Elective arthroplasty Hip, pelvis, or leg fracture Acute spinal cord injury (< 1 month) Prophylaxis Regimen: Total Risk Factor Score Risk Level Prophylaxis Regimen 0-1 Low Early ambulation 2 Moderate Order ONE of the following: *Sequential Compression Device (SCD) *Heparin 5000 units SQ BID 3-4 Higher Order ONE of the following medications: *Heparin 5000 units SQ TID *Enoxaparin/Lovenox 40 mg SQ daily (WT < 150 kg, CrCl > 30 mL/min) *Enoxaparin/Lovenox 30 mg SQ daily (WT < 150 kg, CrCl > 10-29 mL/min) *Enoxaparin/Lovenox 30 mg SQ BID (WT < 150 kg, CrCl > 30 mL/min) AND/OR *Sequential Compression Device (SCD) 5 or more Highest Order ONE of the following medications: *Heparin 5000 units SQ TID (Preferred with Epidurals) *Enoxaparin/Lovenox 40 mg SQ daily (WT < 150 kg, CrCl > 30 mL/min) *Enoxaparin/Lovenox 30 mg SQ daily (WT < 150 kg, CrCl > 10-29 mL/min) *Enoxaparin/Lovenox 30 mg SQ BID (WT < 150 kg, CrCl > 30 mL/min) AND *Sequential Compression Device (SCD) Assessment and Plan - Plan 62-year-old male who initially came to the emergency room with complaints of abdominal pain and was found with elevated troponins Abdominal pain/chest pain Elevated troponin at 0.05 we will trend troponins EKG reviewed no ST changes Consult cardiology Monitor on telemetry Nitro sublingual as needed With history of COPD does not appear with exacerbation at this time. He is also on chronic prednisone use at 2.5 mg/day. Patient with history of chronic pancreatitis. Continue home medications as appropriate DVT prophylaxis SCDs/teds/heparin subcu Discussed Condition With: patient, nurse, ED physician
[2018-04-26] MEDS ORDERED: LIPASE PROTEASE AMYLASE PO SCH (18:00)
[2018-04-26] MEDS: amLODIPine 5 MG Tablet PO SCH (18:57)
[2018-04-26] MEDS: Senna/Docusate Sodium 8.6/50 MG Tablet PO SCH (21:56)
[2018-04-26] MEDS: Celecoxib 100 MG Capsule PO SCH (21:58)
[2018-04-26] MEDS: Celecoxib 200 MG Capsule PO SCH ×2 (21:58→22:01)
[2018-04-27 00:30] LABS: Bilirubin,Urine Negative (Negative); Clarity,Urine Clear (Clear); Color,Urine Yellow (Yellw/Straw); Glucose,Urine (UA) 50 mg/dL (Negative); Leukocyte Esterase,Urine Negative (Negative); Mucus,Urine Few /lpf (Occasional); Nitrite,Urine Negative (Negative); Specific Gravity,Urine 1.045 (1.002-1.035)
[2018-04-27 07:35] LABS: Baso % (Auto) 0.2 % (0.0-2.0); Eos # (Auto) 0.1 th/mm3 (0.0-0.4); Eos % (Auto) 0.5 % (0.0-4.0); Hematocrit 51.5 % (39.0-51.0); Hemoglobin 16.8 gm/dL (13.0-17.0); Lymph # (Auto) 0.5 th/mm3 (1.0-4.8); Lymph % (Auto) 2.1 % (9.0-44.0); Mean Corpuscular HGB Conc 32.7 % (32.0-36.0); Mean Corpuscular Hemoglobin 30.2 pg (27.0-34.0); Mean Corpuscular Volume 92.4 fL (80.0-100.0); Mean Platelet Volume 8.3 fL (7.0-11.0); Mono # (Auto) 1.6 th/mm3 (0.0-0.9); Mono % (Auto) 7.4 % (0.0-8.0); Neut # (Auto) 19.9 th/mm3 (1.8-7.7); Neut % (Auto) 89.8 % (16.0-70.0); Platelet Count 170 th/mm3 (150-450); Red Blood Count 5.58 mil/mm3 (4.50-5.90); Red Cell Distribution Width 15.1 % (11.6-17.2); White Blood Count 22.2 th/mm3 (4.0-11.0)
--- NOTE | 2018-04-27 08:52 | P.PN ---
Subjective Interval history: Follow up for abd. pain: Patient seen and examined, indicates he feels better. States he had a bowel movement this morning. States that he had not taken his Creon for a couple days and believes he got constipated. Denies any chest pain , no shortness of breath. He is noted with elevated WBCs, no fever. Dry cough , nonproductive. No urinary symptoms, no longer having abdominal pain, no nausea, no vomiting. Tolerating diet well. Indicates he has been on chronic steroids for COPD and they have been tapering down the dosage. Physical Exam Vital signs: Vital Signs 04/26/18 10:55 04/26/18 17:22 04/26/18 18:45 Temperature 98.8 F 97.9 F Pulse Rate 98 H 97 H 103 H Respiratory Rate 20 16 Blood Pressure 141/89 H 175/100 H Pulse Oximetry 97 04/26/18 20:00 04/26/18 21:19 04/27/18 00:00 Temperature 98.4 F 97.4 F L Pulse Rate 109 H 109 H 111 H Respiratory Rate 14 14 20 Blood Pressure 161/94 H 141/89 H Pulse Oximetry 95 95 04/27/18 03:26 04/27/18 07:16 04/27/18 07:25 Temperature 98.2 F 98.5 F Pulse Rate 106 H 104 H 102 H Respiratory Rate 17 16 18 Blood Pressure 174/95 H 153/93 H Pulse Oximetry 96 98 04/27/18 07:26 Temperature Pulse Rate Respiratory Rate Blood Pressure Pulse Oximetry 99 Intake & Output 04/26/18 04/27/18 04/27/18 18:59 06:59 18:59 Intake Total 1000 / 1000 Balance 1000 / 1000 Weight 65.771 kg Intake: IV 1000 / 1000 NS Inj 1,000 ML @ 250 mls/hr IV 1000 / 1000 .CONT .Q4H [facility] Rx#:[id number] Narrative: GENERAL: 62 yo male, well nourished well developed patient, NAD SKIN: Warm and dry. HEAD: Normocephalic. EYES: No scleral icterus. No injection or drainage. NECK: Supple, trachea midline. No JVD or lymphadenopathy. CARDIOVASCULAR: Regular rate and rhythm without murmurs, gallops, or rubs. RESPIRATORY: Breath sounds equal bilaterally. No accessory muscle use. GASTROINTESTINAL: Abdomen soft, non-tender, nondistended. MUSCULOSKELETAL: No cyanosis, or edema. BACK: Nontender without obvious deformity. No CVA tenderness. Results - Labs CBC & Chem 7: 04/27/18 06:15 04/27/18 13:28 Laboratory Results - last 24 hr 04/26/18 04/26/18 04/26/18 11:18 11:18 17:05 WBC 16.1 H RBC 5.88 Hgb 18.0 H Hct 55.1 H MCV 93.8 MCH 30.7 MCHC 32.7 RDW 15.4 Plt Count 189 MPV 8.1 Neut % (Auto) 82.2 H Lymph % (Auto) 5.6 L Bradley % (Auto) 8.3 H Eos % (Auto) 3.4 Baso % (Auto) 0.5 Neut # (Auto) 13.2 H Lymph # (Auto) 0.9 L Bradley # (Auto) 1.3 H Eos # (Auto) 0.5 H Baso # (Auto) 0.1 WBC Differential . Differential Comment Auto diff final Sodium 137 Potassium 5.0 Chloride 101 Carbon Dioxide 24.1 Anion Gap 12 BUN 31 H Creatinine 1.61 H Estimated GFR 44 L Random Glucose 225 H Calcium 10.8 H Magnesium 2.2 Total Bilirubin 1.6 H AST 48 H ALT 34 Alkaline Phosphatase 93 Troponin I 0.06 H 0.06 H Total Protein 7.7 Albumin 4.1 Lipase 56 L Urine Color Urine Clarity Urine pH Ur Specific [place] Urine Protein Urine Glucose (UA) Urine Ketones Urine Occult Blood Urine Nitrate Urine Bilirubin Urine Urobilinogen Ur Leukocyte Esterase Urine RBC Urine WBC Urine Mucus Micro UA Comment Ur Microscopic Review Urine Culture Comments 04/26/18 04/26/18 04/27/18 22:34 22:45 06:15 WBC 22.2 H RBC 5.58 Hgb 16.8 Hct 51.5 H MCV 92.4 MCH 30.2 MCHC 32.7 RDW 15.1 Plt Count 170 MPV 8.3 Neut % (Auto) 89.8 H Lymph % (Auto) 2.1 L Bradley % (Auto) 7.4 Eos % (Auto) 0.5 Baso % (Auto) 0.2 Neut # (Auto) 19.9 H Lymph # (Auto) 0.5 L Bradley # (Auto) 1.6 H Eos # (Auto) 0.1 Baso # (Auto) 0.0 WBC Differential . Differential Comment Auto diff final Sodium Potassium Chloride Carbon Dioxide Anion Gap BUN Creatinine Estimated GFR Random Glucose Calcium Magnesium Total Bilirubin AST ALT Alkaline Phosphatase Troponin I 0.06 H Total Protein Albumin Lipase Urine Color Yellow Urine Clarity Clear Urine pH 5.0 Ur Specific [place] 1.045 H Urine Protein 30 H Urine Glucose (UA) 50 Urine Ketones 80 or greater H Urine Occult Blood Negative Urine Nitrate Negative Urine Bilirubin Negative Urine Urobilinogen 2.0 H Ur Leukocyte Esterase Negative Urine RBC 1 Urine WBC 1 Urine Mucus Few H Micro UA Comment Culture not ind Ur Microscopic Review Not Reportable Urine Culture Comments Culture not ind - Imaging Impressions Abdomen/Pelvis CT 04/26/18 11:02 CONCLUSION: 1. No acute abnormality seen. 2. Moderate stool in colon. Significant inflammatory change or dilatation is not seen. 3. The pancreas appears normal. The patient previously had signs of pancreatitis. 4. Renal cysts. 5. Biliary duct dilatation likely reflecting a reservoir phenomenon following cholecystectomy. 6. Suspected incidental hypodensities in the liver and spleen. Chest X-Ray 04/26/18 11:02 CONCLUSION: Hyperinflated otherwise negative for acute process. Assessment and Plan - Assessment (1) Abdominal pain Code(s): R10.9 - Unspecified abdominal pain Status: Acute (2) Chronic pancreatitis Code(s): K86.1 - Other chronic pancreatitis Status: Chronic (3) COPD (chronic obstructive pulmonary disease) Code(s): J44.9 - Chronic obstructive pulmonary disease, unspecified Status: Acute (4) Tachycardia Code(s): R00.0 - Tachycardia, unspecified Status: Acute (5) Elevated troponin Code(s): R74.8 - Abnormal levels of other serum enzymes Status: Acute (6) Leukocytosis Code(s): D72.829 - Elevated white blood cell count, unspecified Status: Acute - Plan 62-year-old male who initially came to the emergency room with complaints of abdominal pain and was found with elevated troponins Abdominal pain, hx of chronic pancreatitis on Creon States he had not taken Creon and was constipated. Had BM today. Pain relieved CT -No acute abnormality seen/Moderate stool in colon. Significant inflammatory change or dilatation is not seen/pancreas appears normal. The patient previously had signs of pancreatitis/Renal cysts/Biliary duct dilatation likely reflecting a reservoir phenomenon following cholecystectomy/Suspected incidental hypodensities in the liver and spleen. Reviewed with radiology, no evidence of ischemic, prox SMA and celiac open, no occlusion. -continue Creon (will have family bring from home) Elevated trop hx of CAD, NSTEMI in the past -trop x 3 did not trend up -evaluated per card, no evidence of ACS. Signed off -Telemetry monitoring Leukocytosis WBC 16.1>>22.2 -Etiology unclear, poss due to steroids but only on small dose. During ED visit in March WBC 18 UA okay, chest x-ray no evidence of infection. Patient noted slightly tachycardic. Endorses a dry cough but no sputum. No urinary symptoms. Abd. CT reviewed. ? ischemia, no inflammation/infection. -will check lactic acid, do peripheral smear, repeat CBC in am -will hydrate overnight due to tachycardia -BC x 2 TIKI, initial creat. 1.6>>1.03 -continue with hydration -avoid nephrotoxic agent. COPD, c/o sob, appears stable now -continue duonebs PRN -continue with prednisone use at 2.5 mg/day-has been tapering down DVT prophylaxis SCDs/teds/heparin subc Repeat labs in am Code Status: Full code Discussed Condition With: RN, pt Discharge Planning: Poss dc tomorrow (1) Abdominal pain Qualifiers: Abdominal location: generalized Qualified Code(s): R10.84 - Generalized abdominal pain (2) Chronic pancreatitis Qualifiers: Pancreatitis type: unspecified pancreatitis type Qualified Code(s): K86.1 - Other chronic pancreatitis (3) COPD (chronic obstructive pulmonary disease) Qualifiers: Chronic bronchitis type: unspecified (6) Leukocytosis Qualifiers: Leukocytosis type: bandemia Qualified Code(s): D72.825 - Bandemia
[2018-04-27] MEDS: predniSONE 1 MG Tablet PO SCH (09:17)
[2018-04-27] MEDS: amLODIPine 5 MG Tablet PO SCH (09:19)
[2018-04-27] MEDS: Senna/Docusate Sodium 8.6/50 MG Tablet PO SCH ×2 (09:19→21:09)
[2018-04-27] MEDS: Amitriptyline 10 MG Tablet PO SCH (09:19)
--- NOTE | 2018-04-27 10:13 | MB ---
cc: Darío Sweet MD DATE: 04/27/2018 REASON FOR CONSULTATION: Evaluation of elevated troponin. HISTORY OF PRESENT ILLNESS: Julius Barber is a 62-year-old man admitted to the hospital with severe abdominal pain. He said he did not eat for 24 hours, did not take any of his Creon and he became fecally impacted and he had severe abdominal pain. He has a bunch of herniated disks and he has numbness that goes down his arm. I could not elicit any symptoms that sound cardiac in origin. He has known COPD, which was reproduced on his exam. He has a past history of alcohol and smoking, but does not drink or smoke now. He has had no prior history of heart disease. PAST MEDICAL HISTORY: Includes herniated disks in his neck, COPD, chronic pancreatitis. PAST SURGICAL HISTORY: He has had a previous cholecystectomy and a previous pseudocyst. He says the pancreatitis was on the basis of alcohol. FAMILY HISTORY: Father had diabetes, COPD, and CHF. Mother had COPD. REVIEW OF SYSTEMS: Noncontributory. PHYSICAL EXAMINATION: GENERAL: Thin, white male in no acute distress. VITAL SIGNS: Charted. HEENT: Unremarkable. NECK: No JVD. No bruits. CHEST: Shows a few expiratory wheezes with prolonged expiratory phase. CARDIAC: S1, S2, regular rate and rhythm. No murmurs or gallops. ABDOMEN: Soft presently. EXTREMITIES: No clubbing, cyanosis or edema. Pedal pulses are palpable. LABORATORY DATA: EKG shows sinus rhythm with just slight nonspecific ST-T abnormality. A troponin curve was flat at 0.06, 0.06, 0.06. Creatinine is 1.61. White count is elevated. Hematocrit is elevated. IMPRESSION: Do not suspect elevated troponin indicates an ACS type event. The troponin curve is flat. He has got renal insufficiency that adequately explains elevated troponins. Recommend checking an echo and if it is abnormal, reconsulting me. I will sign off at this point. Thank you for asking me to see him. Darío Sweet MD VEW/sv/ll , 09:46 AM , 09:52 AM
[2018-04-27 14:13] LABS: Albumin 3.8 g/dL (3.4-5.0); Calcium 10.6 mg/dL (8.5-10.1); Carbon Dioxide 26.4 meq/L (21.0-32.0); Potassium 4.5 meq/L (3.5-5.1)
[2018-04-27 14:16] LABS: Total Protein 7.3 g/dL (6.4-8.2)
[2018-04-27] MEDS ORDERED: Sod Chloride 0.9% Inj 1,000 ML IV.CONT SCH (17:30)
--- NOTE | 2018-04-27 18:20 | ECHRPT ---
Indication: CORONARY ATHEROSCLEROSIS CONCLUSIONS Best estimation of EF is possibly @ 50% The transthoracic study is normal by two-dimensional, color flow imaging and Doppler interrogation. The left ventricle is not well visualized. The right ventricle was not well visualized. The left atrium was not well visualized. The right atrium is not well visualized. The interatrial septum not well visualized. The aortic root and proximal ascending aorta are not well visualized. The mitral valve is not well visualized. The aortic valve is not well visualized. The tricuspid valve is not well visualized. The pulmonary valve is not well visualized. The inferior vena cava was not well visualized. BP: / HR: Rhythm: Sinus Technical Quality:Very technically difficult study FINDINGS LEFT VENTRICLE The left ventricle is not well visualized. RIGHT VENTRICLE The right ventricle was not well visualized. LEFT ATRIUM The left atrium was not well visualized. RIGHT ATRIUM The right atrium is not well visualized. ATRIAL SEPTUM The interatrial septum not well visualized. AORTA The aortic root and proximal ascending aorta are not well visualized. MITRAL VALVE The mitral valve is not well visualized. AORTIC VALVE The aortic valve is not well visualized. TRICUSPID VALVE The tricuspid valve is not well visualized. PULMONARY VALVE The pulmonary valve is not well visualized. VESSELS The inferior vena cava was not well visualized. Bhargav Babcock MD, FACC, FSCAI (Electronically Signed) Final Date:27 April 2018 18:18
[2018-04-27] MEDS: Celecoxib 100 MG Capsule PO SCH (21:04)
--- NOTE | 2018-04-27 21:12 | ECG ---
Date Performed: 04/26/2018 Time Performed: 11:13:33 PTAGE: 62 years EKG: Sinus rhythm POSSIBLE RIGHT ATRIAL ENLARGEMENT Compared to previous tracing, sinus rate is faster BORDERLINE ECG PREVIOUS TRACING : 01/22/2018 17.29 DOCTOR: Jaime Matthews Interpretating Date/Time 04/27/2018 21:12:03
--- NOTE | 2018-04-27 21:13 | ECG ---
Date Performed: 04/26/2018 Time Performed: 16:58:55 PTAGE: 62 years EKG: Sinus rhythm POSSIBLE RIGHT ATRIAL ENLARGEMENT POSSIBLE LEFT ATRIAL ENLARGEMENT MODERATE ST DEPRESSION Since the previous tracing, no significant change noted ABNORMAL ECG NO PREVIOUS TRACING DOCTOR: Jaime Matthews Interpretating Date/Time 04/27/2018 21:12:12
[2018-04-28 07:52] LABS: Baso # (Auto) 0.1 th/mm3 (0.0-0.2); Baso % (Auto) 0.6 % (0.0-2.0); Eos # (Auto) 0.5 th/mm3 (0.0-0.4); Eos % (Auto) 2.5 % (0.0-4.0); Hematocrit 48.2 % (39.0-51.0); Hemoglobin 16.3 gm/dL (13.0-17.0); Lymph # (Auto) 0.8 th/mm3 (1.0-4.8); Mean Corpuscular HGB Conc 33.8 % (32.0-36.0); Mean Corpuscular Hemoglobin 30.9 pg (27.0-34.0); Mean Corpuscular Volume 91.4 fL (80.0-100.0); Mean Platelet Volume 8.5 fL (7.0-11.0); Mono # (Auto) 1.6 th/mm3 (0.0-0.9); Mono % (Auto) 7.6 % (0.0-8.0); Neut # (Auto) 17.9 th/mm3 (1.8-7.7); Neut % (Auto) 85.3 % (16.0-70.0); Platelet Count 153 th/mm3 (150-450); Red Blood Count 5.28 mil/mm3 (4.50-5.90); White Blood Count 20.9 th/mm3 (4.0-11.0)
[2018-04-28 08:07] LABS: Calcium 10.6 mg/dL (8.5-10.1); Carbon Dioxide 25.9 meq/L (21.0-32.0); Potassium 4.9 meq/L (3.5-5.1)
[2018-04-28] MEDS: amLODIPine 5 MG Tablet PO SCH (09:03)
[2018-04-28] MEDS: Senna/Docusate Sodium 8.6/50 MG Tablet PO SCH ×2 (09:03→20:39)
[2018-04-28] MEDS: predniSONE 1 MG Tablet PO SCH (09:03)
[2018-04-28] MEDS: Amitriptyline 10 MG Tablet PO SCH (09:03)
--- NOTE | 2018-04-28 09:22 | P.PN ---
Subjective Interval history: Follow up for abd. pain: Patient seen and examined. Inconsistent historian. States that he did not eat yesterday, as he was afraid of having recurring abdominal pain. Did not ask his to bring Creon. Did have a small bowel movement yesterday. No nausea, no vomiting. Has been drinking water. Denies any cough, no sputum, no urinary symptoms. No fever overnight. Tachycardia resolving. Physical Exam Vital signs: Vital Signs 04/27/18 12:00 04/27/18 16:00 04/27/18 20:00 Temperature 98.0 F 98.5 F 98.5 F Pulse Rate 108 H 113 H 111 H Respiratory Rate 16 16 14 Blood Pressure 137/83 133/86 125/86 Pulse Oximetry 97 97 95 04/27/18 20:10 04/28/18 00:00 04/28/18 03:43 Temperature 98.7 F 98.1 F Pulse Rate 109 H 111 H 104 H Respiratory Rate 15 14 14 Blood Pressure 146/86 H 135/80 Pulse Oximetry 98 98 96 04/28/18 04:06 04/28/18 07:33 04/28/18 07:37 Temperature 98.2 F Pulse Rate 105 H 96 H 96 H Respiratory Rate 16 18 Blood Pressure 134/86 Pulse Oximetry 99 Intake & Output 04/27/18 04/28/18 04/28/18 18:59 06:59 18:59 Other: Date of Last Bowel Movement 04/27/18 Narrative: GENERAL: 62 yo male, well nourished well developed patient, NAD SKIN: Warm and dry. HEAD: Normocephalic. EYES: No scleral icterus. No injection or drainage. NECK: Supple, trachea midline. No JVD or lymphadenopathy. CARDIOVASCULAR: Regular rate and rhythm without murmurs, gallops, or rubs. RESPIRATORY: Breath sounds equal bilaterally. No accessory muscle use. GASTROINTESTINAL: Abdomen soft, non-tender, nondistended. MUSCULOSKELETAL: No cyanosis, or edema. BACK: Nontender without obvious deformity. No CVA tenderness. Results - Labs CBC & Chem 7: 04/28/18 06:46 04/28/18 06:46 Laboratory Results - last 24 hr 04/27/18 04/27/18 04/28/18 13:28 19:25 06:46 WBC RBC Hgb Hct MCV MCH MCHC RDW Plt Count MPV Neut % (Auto) Lymph % (Auto) [place] % (Auto) Eos % (Auto) Baso % (Auto) Neut # (Auto) Lymph # (Auto) [place] # (Auto) Eos # (Auto) Baso # (Auto) WBC Differential Differential Comment Sodium 137 140 Potassium 4.5 4.9 Chloride 102 104 Carbon Dioxide 26.4 25.9 Anion Gap 9 10 BUN 26 H 27 H Creatinine 1.03 0.91 Estimated GFR 73 L 84 L Random Glucose 108 H D 80 Lactic Acid 1.0 Calcium 10.6 H 10.6 H Total Bilirubin 1.4 H Direct Bilirubin 0.3 H Indirect Bilirubin 1.1 H AST 29 ALT 28 Alkaline Phosphatase 91 Total Protein 7.3 Albumin 3.8 Lipase 45 L 04/28/18 06:46 WBC 20.9 H RBC 5.28 Hgb 16.3 Hct 48.2 MCV 91.4 MCH 30.9 MCHC 33.8 RDW 15.0 Plt Count 153 MPV 8.5 Neut % (Auto) 85.3 H Lymph % (Auto) 4.0 L Rap[place] % (Auto) 7.6 Eos % (Auto) 2.5 Baso % (Auto) 0.6 Neut # (Auto) 17.9 H Lymph # (Auto) 0.8 L [place] # (Auto) 1.6 H Eos # (Auto) 0.5 H Baso # (Auto) 0.1 WBC Differential . Differential Comment Auto diff final Sodium Potassium Chloride Carbon Dioxide Anion Gap BUN Creatinine Estimated GFR Random Glucose Lactic Acid Calcium Total Bilirubin Direct Bilirubin Indirect Bilirubin AST ALT Alkaline Phosphatase Total Protein Albumin Lipase Assessment and Plan - Assessment (1) Abdominal pain Code(s): R10.9 - Unspecified abdominal pain Status: Acute (2) Chronic pancreatitis Code(s): K86.1 - Other chronic pancreatitis Status: Chronic (3) COPD (chronic obstructive pulmonary disease) Code(s): J44.9 - Chronic obstructive pulmonary disease, unspecified Status: Acute (4) Tachycardia Code(s): R00.0 - Tachycardia, unspecified Status: Acute (5) Elevated troponin Code(s): R74.8 - Abnormal levels of other serum enzymes Status: Acute (6) Leukocytosis Code(s): D72.829 - Elevated white blood cell count, unspecified Status: Acute - Plan 62-year-old male who initially came to the emergency room with complaints of abdominal pain and was found with elevated troponins Abdominal pain, hx of chronic pancreatitis on Creon States he had not taken Creon and was constipated. Had BM today. Pain relieved CT -No acute abnormality seen/Moderate stool in colon. Significant inflammatory change or dilatation is not seen/pancreas appears normal. The patient previously had signs of pancreatitis/Renal cysts/Biliary duct dilatation likely reflecting a reservoir phenomenon following cholecystectomy/Suspected incidental hypodensities in the liver and spleen. Reviewed with radiology, no evidence of ischemic, prox SMA and celiac open, no occlusion. -continue Creon (will have family bring from home) -pt did not eat yesterday, encourage to eat and again asked if his can bring creon from home. Elevated trop hx of CAD, NSTEMI in the past -trop x 3 did not trend up -evaluated per card, no evidence of ACS. Signed off -Telemetry monitoring -echo done, EF 50% Leukocytosis WBC 16.1>>22.2>>20.9 -Etiology unclear, poss due to steroids but only on small dose. During ED visit in March WBC 18 UA okay, chest x-ray no evidence of infection. Patient noted slightly tachycardic. Endorses a dry cough but no sputum. No urinary symptoms. Abd. CT reviewed. ? ischemia, no inflammation/infection. -lactic acid normal, peripheral smear pending -was tachycardic, given IVF, better today -BC x 2-no growth TIKI, initial creat. 1.6>>1.03>>0.91 -avoid nephrotoxic agent. -stable COPD, c/o sob, appears stable now -continue duonebs PRN -continue with prednisone use at 2.5 mg/day-has been tapering down DVT prophylaxis SCDs/teds/heparin subc CBC in am if WBC better and tolerating PO okay, plan to dc in am Code Status: Full code Discussed Condition With: RN, pt, CM Discharge Planning: Poss dc tomorrow (1) Abdominal pain Qualifiers: Abdominal location: generalized Qualified Code(s): R10.84 - Generalized abdominal pain (2) Chronic pancreatitis Qualifiers: Pancreatitis type: unspecified pancreatitis type Qualified Code(s): K86.1 - Other chronic pancreatitis (3) COPD (chronic obstructive pulmonary disease) Qualifiers: Chronic bronchitis type: unspecified (6) Leukocytosis Qualifiers: Leukocytosis type: bandemia Qualified Code(s): D72.825 - Bandemia
[2018-04-28] MEDS: Lipase/Protease/Amylase 12/38/60 DR Capsule PO SCH ×2 (13:23→18:19)
[2018-04-28] MEDS: Celecoxib 100 MG Capsule PO SCH (20:39)
[2018-04-29 08:42] VITALS: O2SAT 98
[2018-04-29 09:09] LABS: Hematocrit 43.8 % (39.0-51.0); Mean Corpuscular HGB Conc 34.3 % (32.0-36.0); Mean Corpuscular Hemoglobin 31.2 pg (27.0-34.0); Mean Corpuscular Volume 90.9 fL (80.0-100.0); Mean Platelet Volume 8.1 fL (7.0-11.0); Platelet Count 133 th/mm3 (150-450); Red Blood Count 4.82 mil/mm3 (4.50-5.90); White Blood Count 14.9 th/mm3 (4.0-11.0)
--- NOTE | 2018-04-29 10:25 | P.PNIM ---
Subjective Interval history: Follow up for abdominal pain: Patient seen and examined. Patient reports feeling much better after BM yesterday. Able to tolerate breakfast Denies nausea vomiting, cough, sputum, urinary symptoms, fever overnight or chills. Tachycardia resolving. Looking forward to going home Physical Exam Vital signs: Last Vital Signs Temp 98.8 F 04/29/18 08:00 Pulse 85 04/29/18 08:18 Resp 16 04/29/18 08:18 BP 120/83 04/29/18 08:00 Pulse Ox 98 04/29/18 08:00 Intake & Output 04/27/18 04/28/18 04/29/18 04/30/18 06:59 06:59 06:59 06:59 Intake Total 1000 / 1000 1000 / 1000 Balance 1000 / 1000 1000 / 1000 Weight 65.771 kg Narrative: GENERAL: 62 yo male, well nourished well developed patient, NAD SKIN: Warm and dry. HEAD: Normocephalic. EYES: No scleral icterus. No injection or drainage. CARDIOVASCULAR: Regular rate and rhythm RESPIRATORY: Breath sounds equal bilaterally. No accessory muscle use. GASTROINTESTINAL: Abdomen soft, non-tender, nondistended. MUSCULOSKELETAL: No cyanosis, or edema. BACK: Nontender without obvious deformity. Results Labs CBC & Chem 7: 04/29/18 08:55 04/28/18 06:46 Labs: Microbiology 04/27/18 17:19 Blood - Peripheral Aerobic Blood Culture - Preliminary No growth in 1 day 04/27/18 17:19 Blood - Peripheral Anaerobic Blood Culture - Preliminary No growth in 1 day 04/27/18 17:31 Blood - Peripheral Aerobic Blood Culture - Preliminary No growth in 1 day 04/27/18 17:31 Blood - Peripheral Anaerobic Blood Culture - Preliminary No growth in 1 day Assessment and Plan (1) Abdominal pain: Code(s): R10.9 - Unspecified abdominal pain Status: Acute (2) Chronic pancreatitis: Code(s): K86.1 - Other chronic pancreatitis Status: Chronic (3) COPD (chronic obstructive pulmonary disease): Code(s): J44.9 - Chronic obstructive pulmonary disease, unspecified Status: Acute (4) Tachycardia: Code(s): R00.0 - Tachycardia, unspecified Status: Acute (5) Elevated troponin: Code(s): R74.8 - Abnormal levels of other serum enzymes Status: Acute (6) Leukocytosis: Code(s): D72.829 - Elevated white blood cell count, unspecified Status: Acute Plan 62-year-old male who initially came to the emergency room with complaints of abdominal pain and was found with elevated troponins Abdominal pain, hx of chronic pancreatitis on Creon States he had not taken Creon and was constipated. Had BM yesterday, pain relieved CT -No acute abnormality seen/Moderate stool in colon. Significant inflammatory change or dilatation is not seen/pancreas appears normal. The patient previously had signs of pancreatitis/Renal cysts/Biliary duct dilatation likely reflecting a reservoir phenomenon following cholecystectomy/Suspected incidental hypodensities in the liver and spleen. Ashlie Reviewed with radiology 04/28, no evidence of ischemic, prox SMA and celiac open, no occlusion. -continue Creon (family brought from home) -tolerated breakfast Elevated trop hx of CAD, NSTEMI in the past -trop x 3 did not trend up -evaluated per card, no evidence of ACS. Signed off -Telemetry monitoring -echo done, EF 50% Leukocytosis WBC 16.1>>22.2>>20.9>>14.9 -Etiology unclear, poss due to steroids but only on small dose. During ED visit in March WBC 18 UA reviewed no culture indicated, chest x-ray no evidence of infection. Endorses a dry cough but no sputum. denies dysuria or increased frequency. Abd. CT reviewed. no inflammation/infection. -lactic acid normal, peripheral smear pending -was tachycardic, improved after IVF -BC x 2-no growth x 1 day (report given to [facility] nurse Rostia to follow blood cultures after DC) TIKI, initial creat. 1.6>>1.03>>0.91 -avoid nephrotoxic agent. -stable COPD, c/o sob, appears stable now -continue duonebs PRN -continue with prednisone use at 2.5 mg/day-has been tapering down DVT prophylaxis SCDs/teds/heparin subc Discussed with Supervising physician Dr. King. Agrees with DC home Progress Note: Quality VTE Deep Vein Thrombosis/Pulmonary Embolism Present on Admission: No _ (1) Abdominal pain Qualifiers: Abdominal location: generalized Qualified Code(s): R10.84 - Generalized abdominal pain (2) Chronic pancreatitis Qualifiers: Pancreatitis type: unspecified pancreatitis type Qualified Code(s): K86.1 - Other chronic pancreatitis (3) COPD (chronic obstructive pulmonary disease) Qualifiers: COPD type: Chronic bronchitis type: unspecified Emphysema type: (4) Leukocytosis Qualifiers: Leukocytosis type: bandemia Qualified Code(s): D72.825 - Bandemia
[2018-04-29] MEDS: Lipase/Protease/Amylase 12/38/60 DR Capsule PO SCH (10:34)
[2018-04-29] MEDS: amLODIPine 5 MG Tablet PO SCH (10:35)
[2018-04-29] MEDS: Senna/Docusate Sodium 8.6/50 MG Tablet PO SCH (10:35)
[2018-04-29] MEDS: Amitriptyline 10 MG Tablet PO SCH (10:35)
[2018-04-29] MEDS: predniSONE 1 MG Tablet PO SCH (10:36)
--- NOTE | 2018-04-29 11:21 | P.DS ---
DS: Providers Date of admission: 04/26/18 15:34 Primary care physician: UNKNOWN Consults: 04/26/18 16:16 Consult to Cardiology Routine Consulting Provider: Willie Bennett Does the patient have a Log Processor Operator who follows them?: No Preferred Salon Shampoo Assistant:: [employer] Machine Operator Physician Reason for Consultation: chest pain, elevated trops Notified:: Service Spoke with:: SHIREEN Date Notified:: 04/26/18 Time Notified:: 16:58 Ordering Provider: ИРИНА Anticipated date of discharge: 04/29/18 Brief History from admission: Patient is a 62-year-old male here today for multiple complaints the main one being generalized abdominal pain, chronic neck discomfort that is getting worse today, and some shortness of breath. He does have a history of pancreatitis, emphysema, migraines. He is supposed to be on home O2 but did not use it last 24 hours. He reports intermittent nausea denies vomiting denies diarrhea. Pt is not cooperative for examination, he is rolled on R side in a position and declining to sit up for examination. Nothing has made breathing or abdominal, neck pain better, palpation of abdomen and neck make it worse. Denies etoh use, denies significant hyperlipidemia. The pain is aching, non-radiating, moderate, 6/10 in intensity The pain is worse with eating, movement and palpation. Reports associated loss of appetite and shortness of breath. Denies cough, diaphoresis, fever/chills, headaches, malaise, nausea/vomiting, rash, seizure, syncope and weakness DS: Diagnosis Discharge Diagnosis (1) Abdominal pain: Status: Acute (2) Chronic pancreatitis: Status: Chronic (3) COPD (chronic obstructive pulmonary disease): Status: Acute (4) Tachycardia: Status: Acute (5) Elevated troponin: Status: Acute (6) Leukocytosis: Status: Acute DS: Summary 62-year-old male who initially came to the emergency room with complaints of abdominal pain and was found with elevated troponins Abdominal pain, hx of chronic pancreatitis on Creon States he had not taken Creon and was constipated. Had BM yesterday, pain relieved CT -No acute abnormality seen/Moderate stool in colon. Significant inflammatory change or dilatation is not seen/pancreas appears normal. The patient previously had signs of pancreatitis/Renal cysts/Biliary duct dilatation likely reflecting a reservoir phenomenon following cholecystectomy/Suspected incidental hypodensities in the liver and spleen. Ashlie Reviewed with radiology 04/28, no evidence of ischemic, prox SMA and celiac open, no occlusion. -continue Creon (family brought from home) -tolerated breakfast Elevated trop hx of CAD, NSTEMI in the past -trop x 3 did not trend up -evaluated per card, no evidence of ACS. Signed off -Telemetry monitoring -echo done, EF 50% Leukocytosis WBC 16.1>>22.2>>20.9>>14.9 -Etiology unclear, poss due to steroids but only on small dose. During ED visit in March WBC 18 UA reviewed no culture indicated, chest x-ray no evidence of infection. Endorses a dry cough but no sputum. denies dysuria or increased frequency. Abd. CT reviewed. no inflammation/infection. -lactic acid normal, peripheral smear pending -was tachycardic, improved after IVF -BC x 2-no growth x 1 day (report given to [facility] nurse Rostia to follow blood cultures after DC) TIKI, initial creat. 1.6>>1.03>>0.91 -avoid nephrotoxic agent. -stable COPD, c/o sob, appears stable now -continue duonebs PRN -continue with prednisone use at 2.5 mg/day-has been tapering down DVT prophylaxis SCDs/teds/heparin subc Discussed with patient, nursing and Supervising physician Dr. King. Time Spent with Patient Total time spent providing and/or coordinating discharge services: Quality: VTE Deep Vein Thrombosis/Pulmonary Embolism Present on Admission: No Exam Narrative Exam Narrative: GENERAL: 62 yo male, well nourished well developed patient, NAD SKIN: Warm and dry. HEAD: Normocephalic. EYES: No scleral icterus. No injection or drainage. CARDIOVASCULAR: Regular rate and rhythm RESPIRATORY: Breath sounds equal bilaterally. No accessory muscle use. GASTROINTESTINAL: Abdomen soft, non-tender, nondistended. MUSCULOSKELETAL: No cyanosis, or edema. BACK: Nontender without obvious deformity. Results Labs on day of discharge: Labs from last 24 hours 04/29/18 04/28/18 08:55 06:46 WBC 14.9 H RBC 4.82 Hgb 15.0 Hct 43.8 MCV 90.9 MCH 31.2 MCHC 34.3 RDW 15.0 Plt Count 133 L MPV 8.1 Smear Path Review Preliminary micro results at discharge 04/27/18 17:19 Aerobic Blood Culture - Preliminary Blood - Peripheral No growth in 2 days Anaerobic Blood Culture - Preliminary No growth in 2 days 04/27/18 17:31 Aerobic Blood Culture - Preliminary Blood - Peripheral No growth in 2 days Anaerobic Blood Culture - Preliminary No growth in 2 days Impressions ITS Impressions Abdomen/Pelvis CT 04/26/18 11:02 CONCLUSION: 1. No acute abnormality seen. 2. Moderate stool in colon. Significant inflammatory change or dilatation is not seen. 3. The pancreas appears normal. The patient previously had signs of pancreatitis. 4. Renal cysts. 5. Biliary duct dilatation likely reflecting a reservoir phenomenon following cholecystectomy. 6. Suspected incidental hypodensities in the liver and spleen. Chest X-Ray 04/26/18 11:02 CONCLUSION: Hyperinflated otherwise negative for acute process. Discharge Plan Discharge Disposition Patient Disposition: 01 Discharge Home Discharge Condition Condition: Stable Discharge Order Discharge Orders: Discharge Order (Routine); Ordered 04/29/18 Ordered By: Esther Omer Discharge Details Anticipated Discharge Date: 04/29/18 Physicians Team ED Provider: Angela Mccabe ED Midlevel Provider: Abigail Kinney Primary Care Provider: JOSEPH, Attending Provider: Suraj King Other Providers: Willie Bennett Rxs /Orders / Referrals /Forms Prescriptions: New sennosides-docusate sodium [Senna Plus] 8.6-50 mg Tablet 1 tab PO BID 30 Days Qty: 60 RF: 0 Continue prednisone 2.5 mg Tablet 2.5 mg PO DAILY RF: 0 vit B complex 100 combo no.2 RF: 0 vit D3-folic [id number] RF: 0 amitriptyline 10 mg Tablet 5 mg PO DAILY RF: 0 amlodipine 5 mg Tablet 5 mg PO DAILY RF: 0 celecoxib [Celebrex] 200 mg Capsule 200 mg PO HS RF: 0 tramadol 50 mg Tablet 50 mg PO Q6H PRN (Reason: Pain) RF: 0 [id number]-okoukgu [Creon] 3,000-9,500- 15,000 unit Capsule,Delayed Release(Dr/Ec) 36,000 unit PO TID RF: 0 ondansetron [Zofran ODT] 4 mg tablet,disintegrating 4 mg PO Q8H PRN (Reason: nausea and vomiting) Qty: 10 RF: 0 eczwepqdwc-zghknyaayobff-lhaa [Fioricet] 50-300-40 mg capsule 1 cap PO Q6HR PRN (Reason: headache) Qty: 12 RF: 0 Referrals: UNKNOWN, [Primary Care Provider] - See Instructions (Follow up with primary care provider in 3-5 days) Status ED Status: Left Department
[2018-04-29 12:46] VITALS: BP 133/71; TEMP 98.1
[2018-04-29 14:52] VITALS: PULSE 80; RESP 15
== END 2018-04-29 16:06 | disposition home or self-care (01) ==
LOC: NEDA 10:49 → NEPD 10:49 → NEPGCP 16:51
PROVIDERS: ADMIT Internal Medicine; ATTEND Internal Medicine
DX: J44.9 Chronic obstructive pulmonary disease, unspecified; I25.2 Old myocardial infarction; N17.9 Acute kidney failure, unspecified; Q61.02 Congenital multiple renal cysts; Z79.52 Long term (current) use of systemic steroids; R06.02 Shortness of breath; R10.84 Generalized abdominal pain; D72.825 Bandemia; R00.0 Tachycardia, unspecified; Z79.899 Other long term (current) drug therapy; G89.29 Other chronic pain; I25.10 Atherosclerotic heart disease of native coronary artery without angina pectoris; J43.9 Emphysema, unspecified; Z87.891 Personal history of nicotine dependence; K86.1 Other chronic pancreatitis; R74.8 Abnormal levels of other serum enzymes